=== PATIENT | male | born 1965 | race American Indian/Alaskan Native ===

== ENCOUNTER 2016-12-10 13:21 | Emergency (ER) | payer OTHER ==
[2016-12-10] MEDS ORDERED: DUONEB 0.5 MG-3 MG/3 ML SOLN IH ONE (13:28)
[2016-12-10 13:29] VITALS: BP 141/94
--- NOTE | 2016-12-10 13:31 | Emergency Department Report ---
Chief Complaint: Dyspnea/Respdistress Stated Complaint: JOSSELIN Time Seen by Provider: 12/10/16 13:24 - HPI History of Present Illness: PT states he has a hx of sarcoidosis. PT states he has a lung test on Friday. PT States he has been of of Prednisone for years. PT states he became SOB today while making Koolaid - ROS Review of Systems: + productive cough - white sputum "every morning" + sob - Exam Vital Signs: Vital Signs 12/10/16 13:26 Temperature 98.4 F Pulse Rate 88 Respiratory 20 Rate Blood Pressure 141/94 O2 Sat by Pulse 96 Oximetry Physical Exam: pt looks well, non toxic. no acute resp distress. pt with diminished lung sounds, + insp/ exp wheezing roberta MSE screening note: Focused history and physical exam performed. Due to findings the following was ordered: labs, xr, med, ekg ED Disposition for MSE Condition: Stable
[2016-12-10 14:05] LABS: Hematocrit 42.1 % (35.5-45.6); Hemoglobin 13.6 gm/dl (11.8-15.2); Mean Corpuscular HGB Conc 32 % (32-34); Mean Corpuscular Volume 70 fl (84-94); Platelet Count 241 K/mm3 (140-440); Red Blood Count 5.98 M/mm3 (3.65-5.03); Red Cell Distribution Width 14.4 % (13.2-15.2); White Blood Count 6.7 K/mm3 (4.5-11.0)
[2016-12-10 14:06] LABS: Mean Corpuscular Hemoglobin 23 pg (28-32)
[2016-12-10 14:16] LABS: INR 0.94 (0.87-1.13)
[2016-12-10 14:17] LABS: Partial Thromboplastin Time 29.7 Sec. (24.2-36.6)
[2016-12-10 14:20] LABS: Alanine Aminotransferase 33 units/L (7-56); Albumin 3.8 g/dL (3.9-5); Albumin/Globulin Ratio 1.2 %; Alkaline Phosphatase 63 units/L (35-129); Anion Gap 18 mmol/L; Blood Urea Nitrogen 20 mg/dL (9-20); Calcium 9.2 mg/dL (8.4-10.2); Carbon Dioxide 24 mmol/L (22-30); Chloride 102.3 mmol/L (98-107); Glucose 106 mg/dL (75-100); Potassium 3.7 mmol/L (3.6-5.0); Sodium 141 mmol/L (137-145); Total Protein 7.1 g/dL (6.3-8.2)
--- NOTE | 2016-12-10 14:22 | XRay Report ---
Chest 2 views: History: Dyspnea. Findings: Normal cardiac size. Trachea is midline. Stable pacemaker. Bilateral hilar prominence probably from lymphadenopathy. Normal CP angles. No consolidation. Impression: Bilateral hilar prominence probably from lymphadenopathy.
[2016-12-10 14:37] LABS: Blastocytes % (Manual) 0 %
[2016-12-10 14:38] LABS: Diff Status Complete; RBC Morphology Normal
--- NOTE | 2016-12-14 10:49 | ED Elopement Review ---
ED Pt Elopement review - Results review Lab results: Laboratory Tests 12/10/16 12/10/16 12/10/16 13:41 13:41 13:41 WBC 6.7 RBC 5.98 H Hgb 13.6 Hct 42.1 MCV 70 L MCH 23 L MCHC 32 RDW 14.4 Plt Count 241 [place] % (Auto) Chief Contract Officer Add Manual Diff Complete Total Counted 100 Seg Neuts % (Manual) 63.0 Band Neutrophils % 0 Lymphocytes % (Manual) 24.0 Reactive Lymphs % (Man) 0 Monocytes % (Manual) 7.0 Eosinophils % (Manual) 4.0 Basophils % (Manual) 1.0 Metamyelocytes % 1.0 Myelocytes % 0 Promyelocytes % 0 Blast Cells % 0 Nucleated RBC % Not Reportable Seg Neutrophils # Man 4.2 Band Neutrophils # 0.0 Lymphocytes # (Manual) 1.6 Abs React Lymphs (Man) 0.0 Monocytes # (Manual) 0.5 Eosinophils # (Manual) 0.3 Basophils # (Manual) 0.1 Metamyelocytes # 0.1 Myelocytes # 0.0 Promyelocytes # 0.0 Blast Cells # 0.0 WBC Morphology Not Reportable Hypersegmented Neuts Not Reportable Hyposegmented Neuts Not Reportable Hypogranular Neuts Not Reportable Smudge Cells Not Reportable Toxic Granulation Not Reportable Toxic Vacuolation Not Reportable Dohle Bodies Not Reportable Pelger-Huet Anomaly Not Reportable Rafiq Rods Not Reportable Platelet Estimate Appears normal Clumped Platelets Not Reportable Plt Clumps, EDTA Not Reportable Large Platelets Not Reportable Giant Platelets Not Reportable Platelet Satelliting Not Reportable Plt Morphology Comment Not Reportable RBC Morphology Normal Dimorphic RBCs Not Reportable Polychromasia Not Reportable Hypochromasia Not Reportable Poikilocytosis Not Reportable Anisocytosis Not Reportable Microcytosis Not Reportable Macrocytosis Not Reportable Spherocytes Not Reportable Pappenheimer Bodies Not Reportable Sickle Cells Not Reportable Target Cells Not Reportable Tear Drop Cells Not Reportable Ovalocytes Not Reportable Helmet Cells Not Reportable [place] Bodies Not Reportable Hiram Rings Not Reportable Amarilys Cells Not Reportable Bite Cells Not Reportable Crenated Cell Not Reportable Elliptocytes Not Reportable Acanthocytes (Spur) Not Reportable Rouleaux Not Reportable Hemoglobin C Crystals Not Reportable Schistocytes Not Reportable Malaria parasites Not Reportable Matthew Bodies Not Reportable Hem Pathologist Commnt No PT 12.5 INR 0.94 APTT 29.7 Sodium 141 Potassium 3.7 Chloride 102.3 Carbon Dioxide 24 Anion Gap 18 BUN 20 Creatinine 1.0 Estimated GFR > 60 BUN/Creatinine Ratio 20.00 Glucose 106 H Calcium 9.2 Total Bilirubin 0.40 AST 27 ALT 33 Alkaline Phosphatase 63 Troponin T < 0.010 NT-Pro-B Natriuret Pep Total Protein 7.1 Albumin 3.8 L Albumin/Globulin Ratio 1.2 12/10/16 12/10/16 13:41 16:12 WBC RBC Hgb Hct MCV MCH MCHC RDW Plt Count [place] % (Auto) Add Manual Diff Total Counted Seg Neuts % (Manual) Band Neutrophils % Lymphocytes % (Manual) Reactive Lymphs % (Man) Monocytes % (Manual) Eosinophils % (Manual) Basophils % (Manual) Metamyelocytes % Myelocytes % Promyelocytes % Blast Cells % Nucleated RBC % Seg Neutrophils # Man Band Neutrophils # Lymphocytes # (Manual) Abs React Lymphs (Man) Monocytes # (Manual) Eosinophils # (Manual) Basophils # (Manual) Metamyelocytes # Myelocytes # Promyelocytes # Blast Cells # WBC Morphology Hypersegmented Neuts Hyposegmented Neuts Hypogranular Neuts Smudge Cells Toxic Granulation Toxic Vacuolation Dohle Bodies Pelger-Huet Anomaly Rafiq Rods Platelet Estimate Clumped Platelets Plt Clumps, EDTA Large Platelets Giant Platelets Platelet Satelliting Plt Morphology Comment RBC Morphology Dimorphic RBCs Polychromasia Hypochromasia Poikilocytosis Anisocytosis Microcytosis Macrocytosis Spherocytes Pappenheimer Bodies Sickle Cells Target Cells Tear Drop Cells Ovalocytes Helmet Cells [place] Bodies Hiram Rings [place] Cells Bite Cells Crenated Cell Elliptocytes Acanthocytes (Spur) Rouleaux Hemoglobin C Crystals Schistocytes Malaria parasites Matthew Bodies Hem Pathologist Commnt PT INR APTT Sodium Potassium Chloride Carbon Dioxide Anion Gap BUN Creatinine Estimated GFR BUN/Creatinine Ratio Glucose Calcium Total Bilirubin AST ALT Alkaline Phosphatase Troponin T < 0.010 NT-Pro-B Natriuret Pep 10.51 Total Protein Albumin Albumin/Globulin Ratio - Call Back decision Pt Call Back Decision: No action required
== END 2016-12-10 17:47 | disposition left against medical advice (07) ==
LOC: ED 13:21
DX: R06.02 Shortness of breath (principal); Z53.21 Procedure and treatment not carried out due to patient leaving prior to being seen by health care provider
CPT/HCPCS: 36415; 71020; 80053; 83880; 84484; 85007; 85025; 85610; 85730; 93005; 93010

== ENCOUNTER 2019-05-06 02:04 | Inpatient (IN) | payer OTHER ==
--- NOTE | 2019-05-06 02:23 | Emergency Department Report ---
ED General Adult HPI - General Stated complaint: JOSSELIN Time Seen by Provider: 05/06/19 02:21 - History of Present Illness Initial comments: 53 -year-old male with a history of sarcoidosis, hypertension and CHF presents with the complaint of shortness of breath. Patient complains of associated chest tightness as well. Patient states he's been compliant with his hydroxychloroquine therapy takes for his sarcoidosis. Patient denies any history of PE or DVT. Patient denies any trauma to the chest. Patient received albuterol prior to arrival here in emergency department states that this helped with shortness of breath. - Related Data Home Medications Medication Instructions Recorded Confirmed Last Taken Aspirin EC [Halfprin EC] 1 tab PO DAILY 05/06/19 05/06/19 Unknown AtorvaSTATin [Lipitor] 1 tab PO DAILY 05/06/19 05/06/19 Unknown Cyanocobalamin [Vitamin B-12] 1 tab PO DAILY 05/06/19 05/06/19 Unknown Hydroxychloroquine [Plaquenil] 2 tab PO DAILY 05/06/19 05/06/19 Unknown Loratadine 1 tab PO DAILY PRN 05/06/19 05/06/19 Unknown carvediloL [Coreg] 2 tab PO BID 05/06/19 05/06/19 Unknown Allergies Allergy/AdvReac Type Severity Reaction Status Date / Time lisinopril Allergy Angioedema Verified 12/10/16 13:29 ED Review of Systems ROS: Stated complaint: JOSSELIN Other details as noted in HPI Constitutional: denies: chills, fever Eyes: denies: eye pain, eye discharge, vision change ENT: denies: ear pain, throat pain Respiratory: cough, SOB at rest Cardiovascular: denies: chest pain, palpitations Endocrine: no symptoms reported Gastrointestinal: denies: abdominal pain, nausea, diarrhea Genitourinary: denies: urgency, dysuria Musculoskeletal: denies: back pain, joint swelling, arthralgia Skin: denies: rash, lesions Neurological: denies: headache, weakness, paresthesias Psychiatric: denies: anxiety, depression Hematological/Lymphatic: denies: easy bleeding, easy bruising ED Past Medical Hx - Past Medical History Hx Hypertension: Yes Additional medical history: sarcodosis,elevated cholesterol - Surgical History Additional Surgical History: defibilator - Social History Smoking Status: Current Every Day Smoker Substance Use Type: None - Medications Home Medications: Home Medications Medication Instructions Recorded Confirmed Last Taken Type Aspirin EC [Halfprin EC] 1 tab PO DAILY 05/06/19 05/06/19 Unknown History AtorvaSTATin [Lipitor] 1 tab PO DAILY 05/06/19 05/06/19 Unknown History Cyanocobalamin [Vitamin B-12] 1 tab PO DAILY 05/06/19 05/06/19 Unknown History Hydroxychloroquine [Plaquenil] 2 tab PO DAILY 05/06/19 05/06/19 Unknown History Loratadine 1 tab PO DAILY PRN 05/06/19 05/06/19 Unknown History carvediloL [Coreg] 2 tab PO BID 05/06/19 05/06/19 Unknown History ED Physical Exam - General General appearance: alert, other (uncomfortable; moderate distress) - Head Head exam: Present: atraumatic, normocephalic - Eye Eye exam: Present: normal appearance - ENT ENT exam: Present: mucous membranes moist - Neck Neck exam: Present: normal inspection - Respiratory Respiratory exam: Present: wheezes (faint wheezing appreciated in bases along), decreased breath sounds (left lung region). Absent: respiratory distress - Cardiovascular Cardiovascular Exam: Present: normal rhythm, tachycardia. Absent: systolic murmur, diastolic murmur, rubs, gallop - GI/Abdominal GI/Abdominal exam: Present: soft, normal bowel sounds - Rectal Rectal exam: Present: deferred - Extremities Exam Extremities exam: Present: normal inspection - Back Exam Back exam: Present: normal inspection - Neurological Exam Neurological exam: Present: alert, oriented X3 - Psychiatric Psychiatric exam: Present: normal affect, normal mood - Skin Skin exam: Present: warm, dry, intact, normal color. Absent: rash ED Course Vital Signs 05/06/19 05/06/19 05/06/19 02:19 02:24 02:31 Temperature 98.3 F Pulse Rate 107 H 107 H Respiratory 19 24 Rate Blood Pressure 131/78 O2 Sat by Pulse 93 93 96 Oximetry 05/06/19 05/06/19 05/06/19 03:02 03:30 04:00 Temperature Pulse Rate 103 H 94 H 92 H Respiratory 21 17 21 Rate Blood Pressure 123/79 129/84 O2 Sat by Pulse 99 98 97 Oximetry 05/06/19 05/06/19 04:31 05:00 Temperature Pulse Rate 89 87 Respiratory 20 19 Rate Blood Pressure 122/83 128/75 O2 Sat by Pulse 97 97 Oximetry - Chest Tube Chest Tube Location: mid axillary line Chest Tube Procedure: sterile dressing applied [place] of Air [place]: Yes Number of Attempts: 1 Progress: Pigtail cathether thoracostomy placed here in the ER. Patient tolerated procedure well. ED Medical Decision Making - Lab Data Result diagrams: 05/06/19 03:50 05/06/19 02:34 - EKG Data -: EKG Interpreted by Me Rate: tachycardia - EKG Data Interpretation: no acute changes - Medical Decision Making Patient had pigtail catheter placed and had reexpansion of the lung. Patient to be admitted to the hospitalist service for continued management and treatment. Patient states his breathing has improved. - Differential Diagnosis PE; pneumothorax; electrolyte abnormality; anemia Critical Care Time: Yes Critical care time in (mins) excluding proc time.: 38 Critical care attestation.: If time is entered above; I have spent that time in minutes in the direct care of this critically ill patient, excluding procedure time. Critical care time includes time spent bedside care, frequent reassessments and physician consultation. ED Disposition Clinical Impression: Pneumothorax on left, Sarcoidosis Disposition: [id number] OP ADMIT IP TO THIS HOSP Is pt being admited?: Yes Does the pt Need Aspirin: No Condition: Fair Referrals: [facility] [Other] - 3-5 Days Time of Disposition: 05:44
[2019-05-06] MEDS ORDERED: ALBUTEROL 2.5 MG/3 ML NEBU IH ONE (02:30)
[2019-05-06] MEDS ORDERED: IPRATROPIUM 0.02% NEBU 2.5 ML IH ONE (02:30)
[2019-05-06] MEDS ORDERED: methylPREDNISolone Sod Succinate 125 MG/2 ML INJ IV ONE (02:30)
--- NOTE | 2019-05-06 02:53 | XRay Report ---
CHEST 1 VIEW INDICATION / CLINICAL INFORMATION: Dyspnea. COMPARISON: 12/10/2016 FINDINGS: SUPPORT DEVICES: Pacemaker device is stable in position. HEART / MEDIASTINUM: No significant abnormality. LUNGS / PLEURA: There is a large left tension pneumothorax. There is mediastinal shift to the right. The right lung is clear. ADDITIONAL FINDINGS: No significant additional findings. IMPRESSION: 1. Large left tension pneumothorax. CRITICAL RESULT: Time of Discovery: 0146 hours TRAIN BRAKEMAN Time of Communication: 0148 hours TRAIN BRAKEMAN Licensed Practitioner Receiving Report: Dr. Timothy Parekh Read Back Performed: Yes. Signer Name: Candy Davis MD Signed: 05/06/2019 2:49 AM Workstation Name: [id number]
[2019-05-06] MEDS ORDERED: LIDOCAINE (1%) 10 MG/1 ML VIAL 20 ML MDV INFILTRATI ONE (02:54)
[2019-05-06] MEDS ORDERED: fentaNYL 100 MCG/2 ML INJ IV ONE (03:04)
[2019-05-06 03:27] LABS: INR 0.92 (0.87-1.13)
[2019-05-06 03:28] LABS: Partial Thromboplastin Time 22.1 Sec. (24.2-36.6)
[2019-05-06 03:33] LABS: Creatine Kinase MB 1.6 ng/mL (0.0-4.0)
[2019-05-06 03:39] LABS: Alanine Aminotransferase 28 units/L (7-56); BUN/Creatinine Ratio 15; Blood Urea Nitrogen 16 mg/dL (9-20); Calcium 9.2 mg/dL (8.4-10.2); Hemolysis Index 60
--- NOTE | 2019-05-06 03:43 | XRay Report ---
CHEST 1 VIEW INDICATION / CLINICAL INFORMATION: post chest tube. Follow-up pneumothorax COMPARISON: 05/06/2019 at 0224 hours FINDINGS: SUPPORT DEVICES: Small bore left chest tube has been placed. The tip is projecting along the medial a spect of the left upper lobe. HEART / MEDIASTINUM: No significant abnormality. LUNGS / PLEURA: There has been significant reexpansion of the left lung status post chest tube placem ent. A very small lateral pneumothorax persists. The remainder of the left lung is grossly clear. Rig ht lung remains clear. ADDITIONAL FINDINGS: No significant additional findings. IMPRESSION: 1. Significant reexpansion of the left lung following chest tube placement. Very small left lateral p neumothorax remains. Signer Name: Candy Davis MD Signed: 05/06/2019 3:39 AM Workstation Name: [id number]
[2019-05-06 04:47] LABS: Hematocrit 44.2 % (35.5-45.6); Mean Corpuscular HGB Conc 32 % (32-34); Mean Corpuscular Volume 72 fl (84-94); Platelet Count 247 K/mm3 (140-440); Red Blood Count 6.16 M/mm3 (3.65-5.03); Red Cell Distribution Width 14.5 % (13.2-15.2)
[2019-05-06] MEDS ORDERED: ACETAMINOPHEN 325 MG TAB PO PRN (04:54)
[2019-05-06] MEDS ORDERED: ONDANSETRON 4 MG/2 ML INJ IV PRN (04:54)
[2019-05-06] MEDS: MORPHINE 2 MG/1 ML INJ IV PRN ×6 (05:14→22:07)
--- NOTE | 2019-05-06 05:16 | History and Physical Report ---
History of Present Illness Date of examination: 05/06/19 Date of admission: 05/06/19 Chief complaint: Shortness of breath History of present illness: 53-year-old -Turkish male with known history of sarcoidosis , CHF and history of defibrillator in place presenting to the emergency room complaining of shortness of breath which started suddenly today. Denies any chest pain. Denies any fever or chills. Denies any nausea vomiting. Upon evaluation in the emergency room he was found to have a left sided pneumothorax. He subsequently had a chest tube placed with significant improvement in his breathing. He denies any trauma to the chest but still continues to smoke less than a pack of cigarettes on a daily basis. He has been compliant with his medications for sarcoidosis. Past History Past Medical History: heart failure, hypertension, hyperlipidemia, sarcoidosis Past Surgical History: Other (Fibrillator placement) Social history: smoking (Smokes about half a packet of cigarettes daily), alcohol abuse (Drinks alcohol occasionally) Family history: cancer (Lung cancer in father), diabetes, other Medications and Allergies Allergies Allergy/AdvReac Type Severity Reaction Status Date / Time lisinopril Allergy Angioedema Verified 12/10/16 13:29 Home Medications Medication Instructions Recorded Confirmed Last Taken Type Aspirin EC [Halfprin EC] 1 tab PO DAILY 05/06/19 05/06/19 Unknown History AtorvaSTATin [Lipitor] 1 tab PO DAILY 05/06/19 05/06/19 Unknown History Cyanocobalamin [Vitamin B-12] 1 tab PO DAILY 05/06/19 05/06/19 Unknown History Hydroxychloroquine [Plaquenil] 2 tab PO DAILY 05/06/19 05/06/19 Unknown History Loratadine 1 tab PO DAILY PRN 05/06/19 05/06/19 Unknown History carvediloL [Coreg] 2 tab PO BID 05/06/19 05/06/19 Unknown History Active Meds: Active Medications Acetaminophen (Tylenol) 650 mg PO Q4H PRN PRN Reason: Pain MILD(1-3)/Fever >100.5/WINTERS Magnesium Hydroxide (Milk Of Magnesia) 30 ml PO Q4H PRN PRN Reason: Constipation Morphine Sulfate (Morphine) 2 mg IV Q4H PRN PRN Reason: Pain, Moderate (4-6) Ondansetron HCl (Zofran) 4 mg IV Q8H PRN PRN Reason: Nausea And Vomiting Sodium Chloride (Sodium Chloride Flush Syringe 10 Ml) 10 ml IV BID ANDREA Sodium Chloride (Sodium Chloride Flush Syringe 10 Ml) 10 ml IV PRN PRN PRN Reason: LINE FLUSH Review of Systems Respiratory: shortness of breath Exam - Constitutional Vitals: Temp Pulse Resp BP Pulse Ox 98.3 F 94 H 17 123/79 98 05/06/19 02:19 05/06/19 03:30 05/06/19 03:30 05/06/19 03:30 05/06/19 03:30 General appearance: Present: no acute distress, well-nourished - EENT Eyes: Present: PERRL, EOM intact ENT: hearing intact, clear oral mucosa, dentition normal - Neck Neck: Present: supple, normal ROM - Respiratory Respiratory effort: normal, other (Left chest tube in place) Respiratory: bilateral: CTA - Cardiovascular Rhythm: regular Heart Sounds: Present: S1 & S2 - Extremities Extremities: no ischemia, No edema, Full ROM Peripheral Pulses: within normal limits - Abdominal General gastrointestinal: Present: soft, non-tender, non-distended - Integumentary Integumentary: Present: clear, warm, dry - Musculoskeletal Musculoskeletal: strength equal bilaterally - Psychiatric Psychiatric: appropriate mood/affect, intact judgment & insight, cooperative - Neurologic Neurologic: CNII-XII intact, moves all extremities Results - Labs CBC & Chem 7: 05/06/19 03:50 05/06/19 02:34 Labs: Abnormal lab results 05/06/19 05/06/19 05/06/19 Range/Units 02:34 02:34 02:34 APTT 22.1 L (24.2-36.6) Sec. Potassium 3.5 L (3.6-5.0) mmol/L Glucose 151 H (75-100) mg/dL Total Creatine Kinase 262 H (55-170) units/L Assessment and Plan - Patient Problems (1) Pneumothorax on left Current Visit: Yes Status: Acute Plan to address problem: Left chest tube already placed. We will request pulmonology follow-up Patient will be placed on PRN analgesic medication Will monitor oxygen saturation and keep O2 saturation greater than 92% (2) Sarcoidosis Current Visit: Yes Status: Acute Plan to address problem: We will continue patient's routine medications. He has known history of sarcoidosis. (3) DVT prophylaxis Current Visit: Yes Status: Acute Plan to address problem: We will place on subacute heparin. (4) Full code status Current Visit: Yes Status: Acute
[2019-05-06 06:19] LABS: Anisocytosis 1+; Platelet Estimate Consistent w Auto; Total Cells Counted 100
--- NOTE | 2019-05-06 12:28 | Consultation ---
History of Present Illness Consult date: 05/06/19 Requesting physician: NEERAJ CHAVEZ Reason for consult: pneumothorax History of present illness: 53 male with known Sarcoid admitted with left sided PTX. Per patient is followed at the [facility]. Woke up in the middle of the night coughing with left sided chest pain. patient states that he is still smoking but looking to quit. He was found to have a large left sided PTX. Heimleich valve placed in ED with re-expansion of lung. Not placed on suction and admitted to the hospital. Patient feels better. Breathing stable. Sarcoid was diagnosed in the in . Was on prednisone for many years, now weaned off and takes hydroxychloroquine. at bedside. Past History Past Medical History: heart failure, hypertension, hyperlipidemia, sarcoidosis Past Surgical History: Other (Fibrillator placement) Social history: smoking (Smokes about half a packet of cigarettes daily), alcohol abuse (Drinks alcohol occasionally) Family history: cancer (Lung cancer in father), diabetes, other Medications and Allergies Allergies Allergy/AdvReac Type Severity Reaction Status Date / Time lisinopril Allergy Angioedema Verified 12/10/16 13:29 Home Medications Medication Instructions Recorded Confirmed Last Taken Type Aspirin EC [Halfprin EC] 1 tab PO DAILY 05/06/19 05/06/19 Unknown History AtorvaSTATin [Lipitor] 1 tab PO DAILY 05/06/19 05/06/19 Unknown History Cyanocobalamin [Vitamin B-12] 1 tab PO DAILY 05/06/19 05/06/19 Unknown History Hydroxychloroquine [Plaquenil] 2 tab PO DAILY 05/06/19 05/06/19 Unknown History Loratadine 1 tab PO DAILY PRN 05/06/19 05/06/19 Unknown History carvediloL [Coreg] 2 tab PO BID 05/06/19 05/06/19 Unknown History Active Meds: Active Medications Acetaminophen (Tylenol) 650 mg PO Q4H PRN PRN Reason: Pain MILD(1-3)/Fever >100.5/WINTERS Last Admin: 05/06/19 06:53 Dose: 650 mg Documented by: Magnesium Hydroxide (Milk Of Magnesia) 30 ml PO Q4H PRN PRN Reason: Constipation Morphine Sulfate (Morphine) 2 mg IV Q4H PRN PRN Reason: Pain, Moderate (4-6) Last Admin: 05/06/19 12:17 Dose: 2 mg Documented by: Ondansetron HCl (Zofran) 4 mg IV Q8H PRN PRN Reason: Nausea And Vomiting Last Admin: 05/06/19 05:14 Dose: 4 mg Documented by: Sodium Chloride (Sodium Chloride Flush Syringe 10 Ml) 10 ml IV BID ANDREA Last Admin: 05/06/19 11:08 Dose: 10 ml Documented by: Sodium Chloride (Sodium Chloride Flush Syringe 10 Ml) 10 ml IV PRN PRN PRN Reason: LINE FLUSH Physical Examination Vital signs: Vital Signs Temp Pulse Resp BP Pulse Ox 98.3 F 107 H 19 131/78 93 05/06/19 02:19 05/06/19 02:19 05/06/19 02:19 05/06/19 02:19 05/06/19 02:19 General appearance: no acute distress, alert Eyes: non-icteric ENT: oropharynx moist Neck: supple Effort: normal Ascultation: Bilateral: clear Percussion: Bilateral: not dull Tactile fremitus: Bilateral: normal Cardiovascular: regular rate and rhythm Gastrointestinal: normoactive bowel sounds, soft, non-tender Extremities: no cyanosis, no edema, pink and warm, pulses normal Results - Laboratory Findings CBC and BMP: 05/06/19 03:50 05/06/19 02:34 PT/INR, D-dimer PT 12.3 Sec. (12.2-14.9) 05/06/19 02:34 INR 0.92 (0.87-1.13) 05/06/19 02:34 Abnormal lab findings: Abnormal Labs 05/06/19 05/06/19 05/06/19 02:34 02:34 02:34 RBC MCV MCH Monocytes % (Manual) Basophils % (Manual) APTT 22.1 L Potassium 3.5 L Glucose 151 H Total Creatine Kinase 262 H 05/06/19 03:50 RBC 6.16 H MCV 72 L MCH 23 L Monocytes % (Manual) 9.0 H Basophils % (Manual) 2.0 H APTT Potassium Glucose Total Creatine Kinase - Diagnostic Findings Chest x-ray: image reviewed (resolution of PTX) Assessment and Plan 53 y/o male with sponataneous PTX. 1. Smoking cessation encouraged 2. Resume home regimen for Sarcoid 3. Will place on supplemental O2 to help resolve PTX completely 4. CT chest later today to look for blebs, emphysema 5. If lung still up in am, will remove Chest tube and should be stable for discharge home.
[2019-05-06] MEDS ORDERED: POTASSIUM CHLORIDE ER 20 MEQ TAB PO NR (12:40)
--- NOTE | 2019-05-06 12:40 | Event Note ---
Date: 05/06/19 Patient seen and examined 53-year-old -[place] male with known history of sarcoidosis , CHF and history of defibrillator in place presenting to the emergency room complaining of shortness of breath. CXR showed pneumothorax - s/p chest tube, pulmonary following repeat imaging study today, cont supportive care, monitor clinically cont current mx and plan
--- NOTE | 2019-05-06 16:41 | Cat Scan Report ---
CT chest wo con INDICATION: PTX, status post Chest Tube. TECHNIQUE: All CT scans at this location are performed using the following dose modulation technique: Automated exposure control. Helical slices were obtained through the chest. No contrast is administered. COMPARISON: Chest radiograph performed earlier today FINDINGS: There is a left pleural catheter with the tip positioned in the left apex. There is a small residual pneumothorax anteriorly on the left. There are multiple blebs noted in the upper lobes. There is atel ectasis noted in the lung bases left greater than right. Calcified lymph nodes are noted in the mediastinum and quang these are somewhat prominent. This could represent granulomatous disease. Possibility of sarcoidosis is also included in the differential diag nosis. IMPRESSION: 1. There is a small residual pneumothorax anteriorly. Tip of the pleural catheter is in the left apex . There are bilateral blebs. There is atelectasis in the lung bases. Signer Name: Jude Garibay MD Signed: 05/06/2019 4:37 PM Workstation Name: [id number]
[2019-05-07 04:03] LABS: Basophils % (Auto) 0.2 % (0.0-1.8); Hematocrit 43.7 % (35.5-45.6); Hemoglobin 13.8 gm/dl (11.8-15.2); Lymphocytes # (Auto) 1.3 K/mm3 (1.2-5.4); Lymphocytes % (Auto) 10.5 % (13.4-35.0); Mean Corpuscular HGB Conc 32 % (32-34); Mean Corpuscular Volume 72 fl (84-94); Monocytes # (Auto) 1.5 K/mm3 (0.0-0.8); Monocytes % (Auto) 12.2 % (0.0-7.3); Platelet Count 234 K/mm3 (140-440); Red Blood Count 6.05 M/mm3 (3.65-5.03); Red Cell Distribution Width 14.7 % (13.2-15.2)
[2019-05-07 04:14] LABS: INR 1.02 (0.87-1.13)
[2019-05-07 04:15] LABS: Partial Thromboplastin Time 27.1 Sec. (24.2-36.6)
[2019-05-07 04:26] LABS: BUN/Creatinine Ratio 14; Blood Urea Nitrogen 14 mg/dL (9-20); Calcium 9.1 mg/dL (8.4-10.2); Hemolysis Index 4
[2019-05-07] MEDS: MORPHINE 2 MG/1 ML INJ IV PRN ×3 (04:43→17:39)
[2019-05-07] MEDS ORDERED: EPINEPHrine RACEMIC 2.25% 0.5ML NEBU IH ONE ×2 (10:00→10:01)
--- NOTE | 2019-05-07 10:27 | XRay Report ---
CHEST 1 VIEW INDICATION: Short of breath. COMPARISON: 05/06/2019 FINDINGS: Support devices: Pacemaker device is unchanged in position. Heart: Within normal limits. Lungs/Pleura: Moderate subcutaneous emphysema has developed throughout the left neck and left axillar y soft tissues. Small left apical pneumothorax is suspected although it is poorly delineated. Otherwi se, the lungs are clear. Additional findings: None. IMPRESSION: Small left apical pneumothorax is suspected. Moderate subcutaneous emphysema has developed throughou t the left chest wall and neck. Signer Name: John Manzanares Jr, MD Signed: 05/07/2019 10:22 AM Workstation Name: [id number]
[2019-05-07] MEDS: FUROSEMIDE 40 MG/4 ML INJ IV SCH ×2 (10:33→17:39)
[2019-05-07] MEDS: diphenhydrAMINE 50 MG/ML VIAL IV PRN (11:42)
--- NOTE | 2019-05-07 12:58 | Progress Note ---
Assessment and Plan 53 y/o male with sponataneous PTX. 1. Placed on wall suction via Pleurovac. 2. Will repeat CXR tomorrow 3. HAs siginificant emphysema seen on CT vs Stage IV sarcoid. If lung cannot fully re-expand, may need transfer for bullectomy. Discussed this with patient and . Subjective Date of service: 05/07/19 Interval history: Had some difficulty swallowing and chest discomfort. now sub q emphysema. STat CXR shows same apical PTX. hemilich was capped off yesterday. Objective Vital Signs - 12hr 05/07/19 05/07/19 05/07/19 03:23 08:34 10:00 Temperature 97.7 F 98.7 F Pulse Rate 83 Pulse Rate [ Anterior Bilateral] Respiratory 16 18 18 Rate Respiratory Rate [Anterior Bilateral] Blood Pressure 116/83 140/81 O2 Sat by Pulse 96 98 Oximetry 05/07/19 11:07 Temperature Pulse Rate Pulse Rate [ 90 Anterior Bilateral] Respiratory Rate Respiratory 20 Rate [Anterior Bilateral] Blood Pressure O2 Sat by Pulse Oximetry Constitutional: no acute distress, alert Eyes: non-icteric ENT: oropharynx moist Neck: supple Effort: normal Ascultation: Bilateral: clear Percussion: Bilateral: not dull Tactile fremitus: Bilateral: normal Cardiovascular: regular rate and rhythm Gastrointestinal: normoactive bowel sounds, soft, non-tender Extremities: no cyanosis, no edema, pink and warm, pulses normal CBC and BMP: 05/07/19 02:54 05/07/19 02:54 ABG, PT/INR, D-dimer: PT/INR, D-dimer PT 13.3 Sec. (12.2-14.9) 05/07/19 02:54 INR 1.02 (0.87-1.13) 05/07/19 02:54 Abnormal lab findings: Abnormal Labs 05/06/19 05/06/19 05/06/19 02:34 02:34 02:34 WBC RBC MCV MCH Lymph % (Auto) [place] % (Auto) [place] # Seg Neutrophils % Monocytes % (Manual) Basophils % (Manual) Seg Neutrophils # APTT 22.1 L Potassium 3.5 L Glucose 151 H POC Glucose Total Creatine Kinase 262 H 05/06/19 05/07/19 05/07/19 03:50 02:54 02:54 WBC 12.3 H RBC 6.16 H 6.05 H MCV 72 L 72 L MCH 23 L 23 L Lymph % (Auto) 10.5 L [place] % (Auto) 12.2 H [place] # 1.5 H Seg Neutrophils % 77.1 H Monocytes % (Manual) 9.0 H Basophils % (Manual) 2.0 H Seg Neutrophils # 9.5 H APTT Potassium Glucose 153 H POC Glucose Total Creatine Kinase 05/07/19 10:04 WBC RBC MCV MCH Lymph % (Auto) [place] % (Auto) [place] # Seg Neutrophils % Monocytes % (Manual) Basophils % (Manual) Seg Neutrophils # APTT Potassium Glucose POC Glucose 144 H Total Creatine Kinase
[2019-05-07] MEDS: IPRATROPIUM/ALBUTEROL SULFATE 3 ML AMPUL.NEB IH SCH ×2 (14:02→21:08)
--- NOTE | 2019-05-07 16:11 | Progress Note ---
Assessment and Plan / Pneumothorax on left Left chest tube already placed. hemilich was capped off yesterday We'll place on suction as symptom got woarse today Patient will be placed on PRN analgesic medication Will monitor oxygen saturation and keep O2 saturation greater than 92% Continue nebulizer breathing treatment as needed, IV steroids /Emphysema with multiple bilateral blebs on CT scan Risks for recurrent pneumothorax due to presence of multiple apical bilateral blebs Contributing to treat emphysema with scheduled nebulizer, IV steroid and suppl emental O2 May need bullectomy /Subcutaneous emphysema - Continue to monitor clinically, continue chest tube suction / Sarcoidosis We will continue patient's routine medications. He has known history of sarcoidosis. /History of CHF with pacemaker - Continue home medications, monitor in's and O's, daily weight /DVT prophylaxis We will place on subacute heparin. / Full code status CTA chest: 1. There is a small residual pneumothorax anteriorly. Tip of the pleural catheter is in the left apex. There are bilateral blebs. There is atelectasis in the lung bases. Disposition: Follow pulmonary recommendation Subjective Date of service: 05/07/19 Interval history: Patient seen and examined. Medical records and medication list reviewed. No acute event overnight noted by the RN. Patient had an episode of respiratory distress with choking -"code med initiated Stat chest x-ray showed small apical left pneumothorax with significant chest wall and neck emphysema Discussed plan of care at bedside with patient. Objective - Constitutional Vitals: Vital Signs - 12hr 05/07/19 05/07/19 05/07/19 08:34 10:00 11:07 Temperature 98.7 F Pulse Rate [ 90 Anterior Bilateral] Respiratory 18 18 Rate Respiratory 20 Rate [Anterior Bilateral] Blood Pressure 140/81 O2 Sat by Pulse 96 Oximetry General appearance: Present: no acute distress, obese - EENT Eyes: PERRL, EOM intact ENT: hearing intact, clear oral mucosa Ears: bilateral: normal - Neck Neck: supple, normal ROM - Respiratory Respiratory effort: normal Respiratory: left: diminished, bilateral: wheezing - Cardiovascular Rhythm: regular Heart Sounds: Present: S1 & S2. Absent: gallop, rub Extremities: pulses intact, No edema, normal color, Full ROM - Gastrointestinal General gastrointestinal: Present: soft, non-tender, non-distended, normal bowel sounds - Genitourinary Male genitourinary: normal - Integumentary Integumentary: clear, warm, dry - Musculoskeletal Musculoskeletal: 1, strength equal bilaterally - Neurologic Neurologic: moves all extremities - Psychiatric Psychiatric: memory intact, appropriate mood/affect, intact judgment & insight - Labs CBC & Chem 7: 05/07/19 02:54 05/07/19 02:54 Labs: Abnormal lab results 05/07/19 05/07/19 05/07/19 Range/Units 02:54 02:54 10:04 WBC 12.3 H (4.5-11.0) K/mm3 RBC 6.05 H (3.65-5.03) M/mm3 MCV 72 L (84-94) fl MCH 23 L (28-32) pg Lymph % (Auto) 10.5 L (13.4-35.0) % [place] % (Auto) 12.2 H (0.0-7.3) % [place] # 1.5 H (0.0-0.8) K/mm3 Seg Neutrophils % 77.1 H (40.0-70.0) % Seg Neutrophils # 9.5 H (1.8-7.7) K/mm3 Glucose 153 H (75-100) mg/dL POC Glucose 144 H (70-105) - Imaging and cardiology Chest x-ray: report reviewed CT scan - chest: report reviewed
[2019-05-08] MEDS: IPRATROPIUM/ALBUTEROL SULFATE 3 ML AMPUL.NEB IH SCH ×4 (03:24→21:27)
[2019-05-08] MEDS: FUROSEMIDE 40 MG/4 ML INJ IV SCH ×2 (05:57→17:24)
[2019-05-08] MEDS: MORPHINE 2 MG/1 ML INJ IV PRN ×2 (06:00→10:17)
--- NOTE | 2019-05-08 08:19 | XRay Report ---
CHEST 1 VIEW INDICATION / CLINICAL INFORMATION: left sided PTX, now on wall suction. COMPARISON: 05/07/2019 FINDINGS: SUPPORT DEVICES: ICD remains on the left. Small caliber left chest tube remains. HEART / MEDIASTINUM: No significant abnormality. LUNGS / PLEURA: There is slight basilar atelectasis with low lung volumes. No edema or effusions. The re may be a trace left apical pneumothorax. ADDITIONAL FINDINGS: Subcutaneous air has worsened slightly. IMPRESSION: 1. No significant change Signer Name: Fermin Chaney MD Signed: 05/08/2019 8:15 AM Workstation Name: [id number]
--- NOTE | 2019-05-08 14:25 | Progress Note ---
Assessment and Plan / Pneumothorax on left Left chest tube already placed. placed on suction as symptom got woarse since yesterday Patient will be placed on PRN analgesic medication Will monitor oxygen saturation and keep O2 saturation greater than 92% Continue nebulizer breathing treatment as needed, IV steroids /Emphysema with multiple bilateral blebs on CT scan Risks for recurrent pneumothorax due to presence of multiple apical bilateral blebs Contributing to treat emphysema with scheduled nebulizer, IV steroid and supplemental O2 May need bullectomy /Subcutaneous emphysema - Continue to monitor clinically, continue chest tube suction / Sarcoidosis We will continue patient's routine medications. He has known history of sarcoidosis. /History of CHF with pacemaker - Continue home medications, monitor in's and O's, daily weight /DVT prophylaxis We will place on subacute heparin. / Full code status CTA chest: 1. There is a small residual pneumothorax anteriorly. Tip of the pleural catheter is in the left apex. There are bilateral blebs. There is atelectasis in the lung bases. Disposition: Follow pulmonary recommendation Subjective Date of service: 05/08/19 Interval history: Patient seen and examined. Medical records and medication list reviewed. No acute event overnight noted by the RN. Patient on Chest tube suction Discussed plan of care at bedside with patient. Objective - Exam Narrative Exam: General appearance: Present: no acute distress, obese - EENT Eyes: PERRL, EOM intact ENT: hearing intact, clear oral mucosa Ears: bilateral: normal - Neck Neck: supple, normal ROM - Respiratory Respiratory effort: normal Respiratory: left: diminished, bilateral: wheezing - Cardiovascular Rhythm: regular Heart Sounds: Present: S1 & S2. Absent: gallop, rub Extremities: pulses intact, No edema, normal color, Full ROM - Gastrointestinal General gastrointestinal: Present: soft, non-tender, non-distended, normal bowel sounds - Genitourinary Male genitourinary: normal - Integumentary Integumentary: clear, warm, dry - Musculoskeletal Musculoskeletal: 1, strength equal bilaterally - Neurologic Neurologic: moves all extremities - Psychiatric Psychiatric: memory intact, appropriate mood/affect, intact judgment & insight - Constitutional Vitals: Vital Signs - 12hr 05/08/19 05/08/19 05/08/19 03:25 05:06 05:09 Temperature 97.9 F Pulse Rate 93 H Pulse Rate [ 91 H Anterior Bilateral] Pulse Rate [ 92 H Left Lower Lobe ] Respiratory 20 Rate Respiratory 16 Rate [Anterior Bilateral] Respiratory 16 Rate [Left Lower Lobe] Blood Pressure 122/84 Blood Pressure [Left] O2 Sat by Pulse 95 Oximetry 05/08/19 05/08/19 05/08/19 08:00 08:10 08:47 Temperature 98.4 F 98.4 F Pulse Rate 97 H Pulse Rate [ 97 H Anterior Bilateral] Pulse Rate [ Left Lower Lobe ] Respiratory 16 18 Rate Respiratory 18 Rate [Anterior Bilateral] Respiratory Rate [Left Lower Lobe] Blood Pressure 128/77 Blood Pressure 128/77 [Left] O2 Sat by Pulse 91 Oximetry 05/08/19 05/08/19 05/08/19 10:00 11:00 12:06 Temperature 98.7 F Pulse Rate 93 H 103 H Pulse Rate [ Anterior Bilateral] Pulse Rate [ Left Lower Lobe ] Respiratory 18 20 18 Rate Respiratory Rate [Anterior Bilateral] Respiratory Rate [Left Lower Lobe] Blood Pressure 129/79 Blood Pressure [Left] O2 Sat by Pulse 96 93 Oximetry - Labs CBC & Chem 7: 05/09/19 13:50 05/09/19 13:50
--- NOTE | 2019-05-08 19:59 | Progress Note ---
Assessment and Plan Imp: 1. Bullous emphysema 2. Spontaneous PTX 2/2 #1 3. Chronic nicotine dependence, cigarettes 4. SubQ emphysema 5. Hx of Sarcoid Rec: 1. Leave CT to suction until SubQ emphysema improves more; there is also a small, intermittent air leak; CXR in AM; if fails to improve or worsens, next step would be large-bore chest tube placement 2. D/c smoking 3. Nothing on CT to suggest active sarcoid Plan of care reviewed w/ patient, he understands/agrees Subjective Date of service: 05/08/19 Principal diagnosis: PTX Interval history: No events. CT to suction. SubQ emphysema persists but is a little better per patient. No new complaints. Active Medications Acetaminophen (Tylenol) 650 mg PO Q4H PRN PRN Reason: Pain MILD(1-3)/Fever >100.5/[place] Last Admin: 05/06/19 06:53 Dose: 650 mg Documented by: Albuterol/Ipratropium (Duoneb *Not For Prn Use*) 1 ampul IH Q6HRT [facility] Last Admin: 05/08/19 14:49 Dose: 1 ampul Documented by: Diphenhydramine HCl (Benadryl) 12.5 mg IV Q6H PRN PRN Reason: Itching Last Admin: 05/07/19 11:42 Dose: 12.5 mg Documented by: Furosemide (Lasix) 40 mg IV 0600,1800 [facility] Last Admin: 05/08/19 17:24 Dose: 40 mg Documented by: Magnesium Hydroxide (Milk Of Magnesia) 30 ml PO Q4H PRN PRN Reason: Constipation Morphine Sulfate (Morphine) 2 mg IV Q4H PRN PRN Reason: Pain, Moderate (4-6) Last Admin: 05/08/19 10:17 Dose: 2 mg Documented by: Ondansetron HCl (Zofran) 4 mg IV Q8H PRN PRN Reason: Nausea And Vomiting Last Admin: 05/06/19 05:14 Dose: 4 mg Documented by: Sodium Chloride (Sodium Chloride Flush Syringe 10 Ml) 10 ml IV BID [facility] Last Admin: 05/08/19 10:09 Dose: 10 ml Documented by: Sodium Chloride (Sodium Chloride Flush Syringe 10 Ml) 10 ml IV PRN PRN PRN Reason: LINE FLUSH Objective Vital Signs - 12hr 05/08/19 05/08/19 05/08/19 08:00 08:10 08:47 Temperature 98.4 F 98.4 F Pulse Rate 97 H Pulse Rate [ 97 H Anterior Bilateral] Pulse Rate [ Left Lower Lobe ] Respiratory 16 18 Rate Respiratory 18 Rate [Anterior Bilateral] Respiratory Rate [Left Lower Lobe] Blood Pressure 128/77 Blood Pressure 128/77 [Left] O2 Sat by Pulse 91 Oximetry 05/08/19 05/08/19 05/08/19 10:00 11:00 12:06 Temperature 98.7 F Pulse Rate 93 H 103 H Pulse Rate [ Anterior Bilateral] Pulse Rate [ Left Lower Lobe ] Respiratory 18 20 18 Rate Respiratory Rate [Anterior Bilateral] Respiratory Rate [Left Lower Lobe] Blood Pressure 129/79 Blood Pressure [Left] O2 Sat by Pulse 96 93 Oximetry 05/08/19 05/08/19 14:47 16:26 Temperature 98.3 F Pulse Rate 112 H Pulse Rate [ 101 H Anterior Bilateral] Pulse Rate [ 104 H Left Lower Lobe ] Respiratory 18 Rate Respiratory 18 Rate [Anterior Bilateral] Respiratory 19 Rate [Left Lower Lobe] Blood Pressure Blood Pressure 132/86 [Left] O2 Sat by Pulse 96 Oximetry Constitutional: no acute distress, alert Eyes: non-icteric ENT: oropharynx moist Neck: supple Effort: normal Ascultation: Bilateral: clear Cardiovascular: regular rate and rhythm Gastrointestinal: normoactive bowel sounds, soft, non-tender Extremities: no cyanosis, no edema, pink and warm, pulses normal Neurologic: normal mental status, non-focal exam, pupils equal and round, CN II- XII normal Psychiatric: mood appropriate, affect normal CBC and BMP: 05/07/19 02:54 05/07/19 02:54 ABG, PT/INR, D-dimer: PT/INR, D-dimer PT 13.3 Sec. (12.2-14.9) 05/07/19 02:54 INR 1.02 (0.87-1.13) 05/07/19 02:54 Abnormal lab findings: Abnormal Labs 05/06/19 05/06/19 05/06/19 02:34 02:34 02:34 WBC RBC MCV MCH Lymph % (Auto) [place] % (Auto) [place] # Seg Neutrophils % Monocytes % (Manual) Basophils % (Manual) Seg Neutrophils # APTT 22.1 L Potassium 3.5 L Glucose 151 H POC Glucose Total Creatine Kinase 262 H 05/06/19 05/07/19 05/07/19 03:50 02:54 02:54 WBC 12.3 H RBC 6.16 H 6.05 H MCV 72 L 72 L MCH 23 L 23 L Lymph % (Auto) 10.5 L [place] % (Auto) 12.2 H [place] # 1.5 H Seg Neutrophils % 77.1 H Monocytes % (Manual) 9.0 H Basophils % (Manual) 2.0 H Seg Neutrophils # 9.5 H APTT Potassium Glucose 153 H POC Glucose Total Creatine Kinase 05/07/19 10:04 WBC RBC MCV MCH Lymph % (Auto) [place] % (Auto) [place] # Seg Neutrophils % Monocytes % (Manual) Basophils % (Manual) Seg Neutrophils # APTT Potassium Glucose POC Glucose 144 H Total Creatine Kinase Chest x-ray: report reviewed, image reviewed CT scan - chest: report reviewed, image reviewed
[2019-05-09] MEDS: IPRATROPIUM/ALBUTEROL SULFATE 3 ML AMPUL.NEB IH SCH ×4 (02:43→20:31)
[2019-05-09] MEDS: MORPHINE 2 MG/1 ML INJ IV PRN ×2 (05:13→18:57)
[2019-05-09] MEDS: FUROSEMIDE 40 MG/4 ML INJ IV SCH (05:13)
--- NOTE | 2019-05-09 08:20 | XRay Report ---
CHEST 1 VIEW 05/09/2019 7:35 AM INDICATION / CLINICAL INFORMATION: PTX, chest tube. COMPARISON: Chest x-ray on 05/08/2019 FINDINGS: SUPPORT DEVICES: Stable satisfactory device positioning. HEART / MEDIASTINUM: Stable. LUNGS / PLEURA: No significant pulmonary or pleural abnormality. No pneumothorax. ADDITIONAL FINDINGS: Stable subcutaneous air in the lower neck and left chest wall. IMPRESSION: 1. No appreciable pneumothorax on the current study. Stable subcutaneous air in the neck and left [facility] [facility] wall. Signer Name: Chaz Nance MD Signed: 05/09/2019 8:15 AM Workstation Name: [id number]
--- NOTE | 2019-05-09 13:59 | Progress Note ---
Assessment and Plan / Pneumothorax on left Spontaneous due to Bullous emphysema Left chest tube already placed. placed on suction as symptom got woarse since 1 07/07/18 Patient will be placed on PRN analgesic medication Will monitor oxygen saturation and keep O2 saturation greater than 92% Continue nebulizer breathing treatment as needed, IV steroids /Emphysema with multiple bilateral Bullous on CT scan Risks for recurrent pneumothorax due to presence of multiple apical bilateral Bullous Contributing to treat emphysema with scheduled nebulizer, IV steroid and supplemental O2 May need bullectomy /Subcutaneous emphysema - Continue to monitor clinically, continue chest tube suction / Sarcoidosis We will continue patient's routine medications. He has known history of sarcoidosis. /History of CHF with pacemaker - Continue home medications, monitor in's and O's, daily weight /DVT prophylaxis We will place on subacute heparin. / Full code status CTA chest: 1. There is a small residual pneumothorax anteriorly. Tip of the pleural catheter is in the left apex. There are bilateral blebs. There is atelectasis in the lung bases. Disposition: Follow pulmonary recommendation Subjective Date of service: 05/09/19 Principal diagnosis: PTX Interval history: Patient seen and examined. Medical records and medication list reviewed. No acute event overnight noted by the RN. Patient on Chest tube suction Discussed plan of care at bedside with patient. Objective - Exam Narrative Exam: General appearance: Present: no acute distress, obese - EENT Eyes: PERRL, EOM intact ENT: hearing intact, clear oral mucosa Ears: bilateral: normal - Neck Neck: supple, normal ROM - Respiratory Respiratory effort: normal Respiratory: left: diminished, bilateral: wheezing, chest tube on place - Cardiovascular Rhythm: regular Heart Sounds: Present: S1 & S2. Absent: gallop, rub Extremities: pulses intact, No edema, normal color, Full ROM - Gastrointestinal General gastrointestinal: Present: soft, non-tender, non-distended, normal bowel sounds - Genitourinary Male genitourinary: normal - Integumentary Integumentary: clear, warm, dry. + subcutaneous emphysema on the chest wall and neck - Musculoskeletal Musculoskeletal: 1, strength equal bilaterally - Neurologic Neurologic: moves all extremities - Psychiatric Psychiatric: memory intact, appropriate mood/affect, intact judgment & insight - Constitutional Vitals: Vital Signs - 12hr 05/09/19 05/09/19 05/09/19 02:00 04:49 08:21 Temperature 98.0 F 98.7 F Pulse Rate 107 H 108 H Pulse Rate [ 99 H Anterior Bilateral] Pulse Rate [ 99 H Left Lower Lobe ] Respiratory 18 18 Rate Respiratory 16 Rate [Anterior Bilateral] Respiratory 16 Rate [Left Lower Lobe] Blood Pressure 138/92 136/87 O2 Sat by Pulse 96 92 Oximetry 05/09/19 05/09/19 05/09/19 09:47 10:00 12:25 Temperature 99.0 F Pulse Rate 96 H 62 Pulse Rate [ 65 Anterior Bilateral] Pulse Rate [ 94 H Left Lower Lobe ] Respiratory 18 18 Rate Respiratory 20 Rate [Anterior Bilateral] Respiratory 18 Rate [Left Lower Lobe] Blood Pressure 137/107 O2 Sat by Pulse 95 94 Oximetry - Labs CBC & Chem 7: 05/09/19 13:50 05/10/19 07:08
[2019-05-09 14:07] LABS: Hematocrit 47.5 % (35.5-45.6); Hemoglobin 15.2 gm/dl (11.8-15.2); Mean Corpuscular HGB Conc 32 % (32-34); Mean Corpuscular Volume 71 fl (84-94); Platelet Count 267 K/mm3 (140-440); Red Blood Count 6.66 M/mm3 (3.65-5.03); Red Cell Distribution Width 14.3 % (13.2-15.2)
[2019-05-09 14:44] LABS: BUN/Creatinine Ratio 15; Blood Urea Nitrogen 18 mg/dL (9-20); Calcium 9.6 mg/dL (8.4-10.2); Hemolysis Index 4
--- NOTE | 2019-05-09 15:40 | Progress Note ---
Assessment and Plan Imp: 1. Bullous emphysema 2. Spontaneous PTX 2/2 #1 3. Chronic nicotine dependence, cigarettes 4. SubQ emphysema 5. Hx of Sarcoid Rec: 1. Leave CT to suction until SubQ emphysema improves more; there is also a small air leak still; options moving forward would include large-bore CT placement versus transfer to [facility] for [facility]ATS pleurodesis; Dr. Phillips to f/u in AM 2. D/c smoking 3. Nothing on CT to suggest active sarcoid Plan of care reviewed w/ patient, he understands/agrees Subjective Date of service: 05/09/19 Principal diagnosis: PTX Interval history: No events. CT to suction. SubQ emphysema persists but is a little better per patient. No new complaints. Active Medications Acetaminophen (Tylenol) 650 mg PO Q4H PRN PRN Reason: Pain MILD(1-3)/Fever >100.5/[place] Last Admin: 05/06/19 06:53 Dose: 650 mg Documented by: Albuterol/Ipratropium (Duoneb *Not For Prn Use*) 1 ampul IH Q6HRT [facility] Last Admin: 05/09/19 09:49 Dose: 1 ampul Documented by: Diphenhydramine HCl (Benadryl) 12.5 mg IV Q6H PRN PRN Reason: Itching Last Admin: 05/07/19 11:42 Dose: 12.5 mg Documented by: Furosemide (Lasix) 40 mg IV 0600,1800 [facility] Last Admin: 05/09/19 05:13 Dose: 40 mg Documented by: Magnesium Hydroxide (Milk Of Magnesia) 30 ml PO Q4H PRN PRN Reason: Constipation Morphine Sulfate (Morphine) 2 mg IV Q4H PRN PRN Reason: Pain, Moderate (4-6) Last Admin: 05/09/19 05:13 Dose: 2 mg Documented by: Ondansetron HCl (Zofran) 4 mg IV Q8H PRN PRN Reason: Nausea And Vomiting Last Admin: 05/06/19 05:14 Dose: 4 mg Documented by: Sodium Chloride (Sodium Chloride Flush Syringe 10 Ml) 10 ml IV BID [facility] Last Admin: 05/09/19 09:19 Dose: 10 ml Documented by: Sodium Chloride (Sodium Chloride Flush Syringe 10 Ml) 10 ml IV PRN PRN PRN Reason: LINE FLUSH Objective Vital Signs - 12hr 05/09/19 05/09/19 05/09/19 04:49 08:21 09:47 Temperature 98.0 F 98.7 F Pulse Rate 107 H 108 H Pulse Rate [ 65 Anterior Bilateral] Pulse Rate [ 94 H Left Lower Lobe ] Respiratory 18 18 Rate Respiratory 20 Rate [Anterior Bilateral] Respiratory 18 Rate [Left Lower Lobe] Blood Pressure 138/92 136/87 O2 Sat by Pulse 96 92 Oximetry 05/09/19 05/09/19 10:00 12:25 Temperature 99.0 F Pulse Rate 96 H 62 Pulse Rate [ Anterior Bilateral] Pulse Rate [ Left Lower Lobe ] Respiratory 18 18 Rate Respiratory Rate [Anterior Bilateral] Respiratory Rate [Left Lower Lobe] Blood Pressure 137/107 O2 Sat by Pulse 95 94 Oximetry Constitutional: no acute distress, alert Eyes: non-icteric ENT: oropharynx moist Neck: supple Effort: normal Ascultation: Bilateral: clear Percussion: Bilateral: not dull Tactile fremitus: Bilateral: normal Cardiovascular: regular rate and rhythm Gastrointestinal: normoactive bowel sounds, soft, non-tender Extremities: no cyanosis, no edema, pink and warm, pulses normal Neurologic: normal mental status, non-focal exam, pupils equal and round, CN II- XII normal Psychiatric: mood appropriate, affect normal CBC and BMP: 05/09/19 13:50 05/09/19 13:50 ABG, PT/INR, D-dimer: PT/INR, D-dimer PT 13.3 Sec. (12.2-14.9) 05/07/19 02:54 INR 1.02 (0.87-1.13) 05/07/19 02:54 Abnormal lab findings: Abnormal Labs 05/06/19 05/06/19 05/06/19 02:34 02:34 02:34 WBC RBC Hct MCV MCH Lymph % (Auto) [place] % (Auto) [place] # Seg Neutrophils % Monocytes % (Manual) Basophils % (Manual) Seg Neutrophils # APTT 22.1 L Potassium 3.5 L Chloride Glucose 151 H POC Glucose Total Creatine Kinase 262 H 05/06/19 05/07/19 05/07/19 03:50 02:54 02:54 WBC 12.3 H RBC 6.16 H 6.05 H Hct MCV 72 L 72 L MCH 23 L 23 L Lymph % (Auto) 10.5 L [place] % (Auto) 12.2 H [place] # 1.5 H Seg Neutrophils % 77.1 H Monocytes % (Manual) 9.0 H Basophils % (Manual) 2.0 H Seg Neutrophils # 9.5 H APTT Potassium Chloride Glucose 153 H POC Glucose Total Creatine Kinase 05/07/19 05/09/19 05/09/19 10:04 13:50 13:50 WBC RBC 6.66 H Hct 47.5 H MCV 71 L MCH 23 L Lymph % (Auto) [place] % (Auto) [place] # Seg Neutrophils % Monocytes % (Manual) Basophils % (Manual) Seg Neutrophils # APTT Potassium 3.2 L D Chloride 95.2 L Glucose 201 H POC Glucose 144 H Total Creatine Kinase Chest x-ray: report reviewed, image reviewed
[2019-05-09] MEDS: POTASSIUM CHLORIDE ER 20 MEQ TAB PO SCH (17:18)
[2019-05-10] MEDS: IPRATROPIUM/ALBUTEROL SULFATE 3 ML AMPUL.NEB IH SCH ×4 (02:31→21:11)
[2019-05-10] MEDS: MORPHINE 2 MG/1 ML INJ IV PRN ×4 (06:40→22:39)
[2019-05-10 08:22] LABS: BUN/Creatinine Ratio 19; Blood Urea Nitrogen 17 mg/dL (9-20); Calcium 9.6 mg/dL (8.4-10.2); Hemolysis Index 11
[2019-05-10] MEDS: POTASSIUM CHLORIDE ER 20 MEQ TAB PO SCH (09:58)
[2019-05-10] MEDS: FUROSEMIDE 40 MG/4 ML INJ IV SCH (09:59)
[2019-05-10] MEDS: diphenhydrAMINE 50 MG/ML VIAL IV PRN (09:59)
--- NOTE | 2019-05-10 11:16 | Progress Note ---
Assessment and Plan 53 y/o male with sponataneous PTX. 1. Continue suction 2. If possible send CD with family to [facility] 3. Agree with transfer. Subjective Date of service: 05/10/19 Principal diagnosis: PTX Interval history: Still with residual PTX. SubQ air. at bedside. Spoke with Dr. Hatfield at [facility] who has agreed to take the patient on to his service for operation either tomorrow or Friday. Objective Vital Signs - 12hr 05/10/19 05/10/19 05/10/19 02:32 03:49 07:50 Temperature 98.5 F Pulse Rate 101 H Pulse Rate [ 102 H 85 Anterior Bilateral] Pulse Rate [ 99 H 88 Left Lower Lobe ] Respiratory 18 Rate Respiratory 18 18 Rate [Anterior Bilateral] Respiratory 16 18 Rate [Left Lower Lobe] Blood Pressure 128/89 O2 Sat by Pulse 96 Oximetry 05/10/19 05/10/19 05/10/19 07:51 07:55 08:12 Temperature 98.4 F Pulse Rate 110 H Pulse Rate [ Anterior Bilateral] Pulse Rate [ Left Lower Lobe ] Respiratory 18 Rate Respiratory Rate [Anterior Bilateral] Respiratory Rate [Left Lower Lobe] Blood Pressure 172/101 O2 Sat by Pulse 95 Oximetry 05/10/19 09:58 Temperature Pulse Rate Pulse Rate [ Anterior Bilateral] Pulse Rate [ Left Lower Lobe ] Respiratory 20 Rate Respiratory Rate [Anterior Bilateral] Respiratory Rate [Left Lower Lobe] Blood Pressure O2 Sat by Pulse Oximetry Constitutional: no acute distress, alert Eyes: non-icteric ENT: oropharynx moist Neck: supple Effort: normal Ascultation: Bilateral: clear Percussion: Bilateral: not dull Tactile fremitus: Bilateral: normal Cardiovascular: regular rate and rhythm Gastrointestinal: normoactive bowel sounds, soft, non-tender Extremities: no cyanosis, no edema, pink and warm, pulses normal Neurologic: normal mental status, non-focal exam, pupils equal and round, CN II- XII normal Psychiatric: mood appropriate, affect normal CBC and BMP: 05/09/19 13:50 05/10/19 07:08 ABG, PT/INR, D-dimer: PT/INR, D-dimer PT 13.3 Sec. (12.2-14.9) 05/07/19 02:54 INR 1.02 (0.87-1.13) 05/07/19 02:54 Abnormal lab findings: Abnormal Labs 05/06/19 05/06/19 05/06/19 02:34 02:34 02:34 WBC RBC Hct MCV MCH Lymph % (Auto) [place] % (Auto) [place] # Seg Neutrophils % Monocytes % (Manual) Basophils % (Manual) Seg Neutrophils # APTT 22.1 L Potassium 3.5 L Chloride Glucose 151 H POC Glucose Total Creatine Kinase 262 H 05/06/19 05/07/19 05/07/19 03:50 02:54 02:54 WBC 12.3 H RBC 6.16 H 6.05 H Hct MCV 72 L 72 L MCH 23 L 23 L Lymph % (Auto) 10.5 L [place] % (Auto) 12.2 H [place] # 1.5 H Seg Neutrophils % 77.1 H Monocytes % (Manual) 9.0 H Basophils % (Manual) 2.0 H Seg Neutrophils # 9.5 H APTT Potassium Chloride Glucose 153 H POC Glucose Total Creatine Kinase 05/07/19 05/09/19 05/09/19 10:04 13:50 13:50 WBC RBC 6.66 H Hct 47.5 H MCV 71 L MCH 23 L Lymph % (Auto) [place] % (Auto) [place] # Seg Neutrophils % Monocytes % (Manual) Basophils % (Manual) Seg Neutrophils # APTT Potassium 3.2 L D Chloride 95.2 L Glucose 201 H POC Glucose 144 H Total Creatine Kinase 05/10/19 07:08 WBC RBC Hct MCV MCH Lymph % (Auto) [place] % (Auto) [place] # Seg Neutrophils % Monocytes % (Manual) Basophils % (Manual) Seg Neutrophils # APTT Potassium Chloride Glucose 134 H POC Glucose Total Creatine Kinase
--- NOTE | 2019-05-10 15:47 | Discharge Summary ---
Providers - Providers Date of Admission: 05/06/19 06:09 Date of discharge: 05/14/19 Attending physician: DANDRE LOMAX 05/06/19 04:54 Consult to Physician [CONS] Routine Comment: Consulting Provider: [facility]SE [facility] Physician Instructions: Reason For Exam: pneumothorax 05/06/19 07:34 Consult to Physician [CONS] Routine Comment: Consulting Provider: WEI DIXON Physician Instructions: Reason For Exam: RIGHT PNEUMOPTHORAX Hospitalization Condition: Fair Pertinent studies: CXR CT chest Hospital course: 53-year-old -Cub[place] male with known history of sarcoidosis , CHF and history of defibrillator in place presenting to the emergency room complaining of shortness of breath. CXR showed pneumothorax - s/p chest tube, pulmonary was following. required to replace the tube X2 for recurrence of pneumothorax. CT scan showed Emphysema with multiple bilateral Bullous. Risks for recurrent pneumothorax due to presence of multiple apical bilateral Bullous. Pulmonology recommended bullectomy - transferred to [place] for higher level of care. 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 placed on suction as symptom got worse since 05/07/19 so far chest tube replaced twice - transferred to [place] for higher level of care /Emphysema with multiple bilateral Bullous on CT scan Risks for recurrent pneumothorax due to presence of multiple apical bilateral Bullous Continue to treat emphysema with scheduled nebulizer, IV steroid and supplemental O2 May need bullectomy /Subcutaneous emphysema - Continue to monitor clinically, continue chest tube suction / Sarcoidosis continue patient's routine medications. He has known history of sarcoidosis. /History of CHF with pacemaker - Continue home medications, monitor in's and O's, daily weight /DVT prophylaxis, on subacute heparin. / Full code status CTA chest: 1. There is a small residual pneumothorax anteriorly. Tip of the pleural catheter is in the left apex. There are bilateral blebs. There is atelectasis in the lung bases. Disposition: [place] transfer when bed available Physical exam; General appearance: Present: no acute distress, obese - EENT Eyes: PERRL, EOM intact ENT: hearing intact, clear oral mucosa Ears: bilateral: normal - Neck Neck: supple, normal ROM - Respiratory Respiratory effort: normal Respiratory: left: diminished, bilateral: wheezing, chest tube on place - Cardiovascular Rhythm: regular Heart Sounds: Present: S1 & S2. Absent: gallop, rub Extremities: pulses intact, No edema, normal color, Full ROM - Gastrointestinal General gastrointestinal: Present: soft, non-tender, non-distended, normal bowel sounds - Genitourinary Male genitourinary: normal - Integumentary Integumentary: clear, warm, dry. + subcutaneous emphysema on the chest wall and neck - Musculoskeletal Musculoskeletal: 1, strength equal bilaterally - Neurologic Neurologic: moves all extremities - Psychiatric Psychiatric: memory intact, appropriate mood/affect, intact judgment & insight Disposition: DC/TX-70 ANOTHER TYPE HLTHCARE Time spent for discharge: 34 minutes Core Measure Documentation - Palliative Care Palliative Care/ Comfort Measures: Not Applicable - Core Measures Any of the following diagnoses?: none Exam - Constitutional Vitals: Temp Pulse Resp BP Pulse Ox 98.0 F 86 20 123/94 90 05/10/19 12:21 05/10/19 13:14 05/10/19 15:09 05/10/19 12:21 05/10/19 12:21 Plan Activity: other (bed rest) Diet: low fat, low salt Plan of Treatment: 1.Continue Lasix 40mg iv daily 2.Please resume Aspirin when appropriate when no further surgery planned. Follow up with: [facility] [Other] - 3-5 Days
--- NOTE | 2019-05-10 20:24 | XRay Report ---
CHEST 1 VIEW 7:39 PM INDICATION / CLINICAL INFORMATION: Chest tube in place. COMPARISON: Yesterday. FINDINGS: SUPPORT DEVICES: The position of the single lead left subclavian ICD has not changed. HEART / MEDIASTINUM: The heart size is normal. LUNGS / PLEURA: There is a new large left pneumothorax with slight mediastinal shift to the right. Th ere is almost complete collapse of the left lung. The right lung is clear. ADDITIONAL FINDINGS: Extensive bilateral subcutaneous emphysema was present previously and may be mil dly improved. IMPRESSION: Interval development of a large left pneumothorax with evidence of mild tension. CRITICAL RESULT: Time of Discovery (CIRCUIT RECORDER/CDT): 7:10 PM Time of Communication (CIRCUIT RECORDER/CDT): 7:15 PM Licensed Practitioner Receiving Report: Dr. Vaughan Signer Name: Asa Tomlin MD Signed: 05/10/2019 8:20 PM Workstation Name: [id number]
[2019-05-10] MEDS ORDERED: LIDOCAINE (2%) 20 MG/1 ML VIAL 20 ML MDV INFILTRATI ONE ×2 (21:58→22:03)
--- NOTE | 2019-05-10 22:41 | Procedure Note ---
Date of procedure: 05/10/19 Pre-op diagnosis: Pneumothorax Post-op diagnosis: same Procedure: left sided chest tube placement. After placing the patient supine and then preppin the area, using seldinger technique a 14 micronesian catheter was placed and sutured in. Patient is obese so a large amount of subcutaneous tissue had to be passed through. CXR done and showed successful re-expansion of the lung. Still bubbles in the water chamber. Patient tolerated procedure well with no c omplications. Anesthesia: local Surgeon: WEI DIXON Estimated blood loss: none Pathology: none Condition: stable Disposition: floor
--- NOTE | 2019-05-10 22:53 | Event Note ---
Date: 05/10/19 Patient went to the restroom and his chest tube came out half way. called rehabilitation services coordinator [employer] to replace the tube - still waiting rehabilitation services coordinator back Discussed with ER physician and he will come and assess the patient. Discuss with RN and updated patient with plan. will also repeat CXR Patient appears asymptomatic. Patient planned to transfer to [place] when bed available.
--- NOTE | 2019-05-10 23:00 | XRay Report ---
. CHEST 1 VIEW INDICATION: chest tube placement. COMPARISON: Earlier the same day. FINDINGS: Support devices: Left chest tube placement with reexpansion of the left lung. An ICD is unchanged. Heart: Within normal limits. Lungs/Pleura: Patchy parenchymal change left chest. Extensive subcutaneous emphysema. Additional findings: None. IMPRESSION: 1. Left-sided chest tube placement with reexpansion the left chest. 2. Patchy left-sided infiltrate. Signer Name: Norberto Whitehead MD Signed: 05/10/2019 10:56 PM Workstation Name: [id number]
[2019-05-11] MEDS: MORPHINE 4 MG/1 ML INJ IV PRN ×6 (00:07→21:32)
[2019-05-11] MEDS: IPRATROPIUM/ALBUTEROL SULFATE 3 ML AMPUL.NEB IH SCH ×4 (02:00→21:27)
[2019-05-11] MEDS: POTASSIUM CHLORIDE ER 20 MEQ TAB PO SCH (09:00)
--- NOTE | 2019-05-11 10:08 | XRay Report ---
CHEST 1 VIEW 05/11/2019 9:47 AM INDICATION / CLINICAL INFORMATION: Pneumothorax. COMPARISON: 05/10/2019. FINDINGS: SUPPORT DEVICES: Stable satisfactory device positioning. HEART / MEDIASTINUM: Stable. LUNGS / PLEURA: Stable subsegmental atelectasis in the left mid and lower lung. No pneumothorax. ADDITIONAL FINDINGS: Stable extensive subcutaneous emphysema. IMPRESSION: 1. No appreciable residual pneumothorax on the current study. Stable subcutaneous emphysema. Signer Name: Chaz Nance MD Signed: 05/11/2019 10:04 AM Workstation Name: [id number]
[2019-05-11] MEDS: FUROSEMIDE 40 MG/4 ML INJ IV SCH (11:07)
--- NOTE | 2019-05-11 11:35 | Progress Note ---
Assessment and Plan 53 y/o male with sponataneous PTX. 1. Continue suction 2. Repeat CXR tomorrow if still her 3. Agree with transfer to [place]. Dr. Isaías Hatfield has accepted. Call me if you have any questions or concerns. Subjective Date of service: 05/11/19 Principal diagnosis: PTX Interval history: Repeat CXR shows no PTX. Still with sub q air. Awaitng bed at [place]. I turned suction up to [id number] last night. Objective Vital Signs - 12hr 05/11/19 05/11/19 05/11/19 04:18 08:00 08:33 Temperature Pulse Rate 104 H 102 H Pulse Rate [ 82 Anterior Bilateral] Pulse Rate [ Apical] Respiratory 20 Rate Respiratory 20 Rate [Anterior Bilateral] Respiratory Rate [Left Lateral Flank] Blood Pressure 153/92 122/80 Blood Pressure [Left] O2 Sat by Pulse 90 91 Oximetry 05/11/19 05/11/19 05/11/19 08:35 08:58 09:11 Temperature 98.7 F Pulse Rate 100 H Pulse Rate [ Anterior Bilateral] Pulse Rate [ Apical] Respiratory 18 21 Rate Respiratory Rate [Anterior Bilateral] Respiratory Rate [Left Lateral Flank] Blood Pressure Blood Pressure 122/62 [Left] O2 Sat by Pulse 93 96 Oximetry 05/11/19 10:00 Temperature Pulse Rate 101 H Pulse Rate [ Anterior Bilateral] Pulse Rate [ 99 H Apical] Respiratory 16 Rate Respiratory Rate [Anterior Bilateral] Respiratory 16 Rate [Left Lateral Flank] Blood Pressure Blood Pressure [Left] O2 Sat by Pulse 94 Oximetry Constitutional: no acute distress, alert Eyes: non-icteric ENT: oropharynx moist Neck: supple Effort: normal Ascultation: Bilateral: clear Percussion: Bilateral: not dull Tactile fremitus: Bilateral: normal Cardiovascular: regular rate and rhythm Gastrointestinal: normoactive bowel sounds, soft, non-tender Extremities: no cyanosis, no edema, pink and warm, pulses normal Neurologic: normal mental status, non-focal exam, pupils equal and round, CN II- XII normal Psychiatric: mood appropriate, affect normal CBC and BMP: 05/09/19 13:50 05/10/19 07:08 ABG, PT/INR, D-dimer: PT/INR, D-dimer PT 13.3 Sec. (12.2-14.9) 05/07/19 02:54 INR 1.02 (0.87-1.13) 05/07/19 02:54 Abnormal lab findings: Abnormal Labs 05/06/19 05/06/19 05/06/19 02:34 02:34 02:34 WBC RBC Hct MCV MCH Lymph % (Auto) [place] % (Auto) [place] # Seg Neutrophils % Monocytes % (Manual) Basophils % (Manual) Seg Neutrophils # APTT 22.1 L Potassium 3.5 L Chloride Glucose 151 H POC Glucose Total Creatine Kinase 262 H 05/06/19 05/07/19 05/07/19 03:50 02:54 02:54 WBC 12.3 H RBC 6.16 H 6.05 H Hct MCV 72 L 72 L MCH 23 L 23 L Lymph % (Auto) 10.5 L [place] % (Auto) 12.2 H [place] # 1.5 H Seg Neutrophils % 77.1 H Monocytes % (Manual) 9.0 H Basophils % (Manual) 2.0 H Seg Neutrophils # 9.5 H APTT Potassium Chloride Glucose 153 H POC Glucose Total Creatine Kinase 05/07/19 05/09/19 05/09/19 10:04 13:50 13:50 WBC RBC 6.66 H Hct 47.5 H MCV 71 L MCH 23 L Lymph % (Auto) [place] % (Auto) [place] # Seg Neutrophils % Monocytes % (Manual) Basophils % (Manual) Seg Neutrophils # APTT Potassium 3.2 L D Chloride 95.2 L Glucose 201 H POC Glucose 144 H Total Creatine Kinase 05/10/19 07:08 WBC RBC Hct MCV MCH Lymph % (Auto) [place] % (Auto) [place] # Seg Neutrophils % Monocytes % (Manual) Basophils % (Manual) Seg Neutrophils # APTT Potassium Chloride Glucose 134 H POC Glucose Total Creatine Kinase
--- NOTE | 2019-05-11 15:28 | Progress Note ---
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 placed on suction as symptom got worse since 05/07/19 Chest tube dislodged evening 05/10, anotheer put in Awaiting transfer to [place] Emphysema with multiple bilateral Bullous on CT scan Risks for recurrent pneumothorax due to presence of multiple apical bilateral Bullous Contributing to treat emphysema with scheduled nebulizer, IV steroid and supplemental O2 May need bullectomy Subcutaneous emphysema - Continue to monitor clinically, continue chest tube suction Sarcoidosis We will continue patient's routine medications. He has known history of sarcoidosis. History of CHF with pacemaker - Continue home medications, monitor in's and O's, daily weight DVT prophylaxis We will place on subacute heparin. Full code status Awaiting transfer to [facility] History Interval history: patient with pneumothorax Chest tube dislodged yesterday, replaced Hospitalist Physical - Physical exam Narrative exam: Gen: Not in acute distress, lying in bed,morbidly obese HEENT: Normocephalic, atraumatic Neck: supple, no JVD Heart: S1 and S2 reg, no murmurs, rubs or gallop Lungs: Clear to auscultation bilaterally, Chest tube on left Abd: soft, non tender, non distended, normal BS, Ext: No edema, no clubbing, no cyanosis Neuro: Awake, alert, oriented X 3, no focal neurological sign - Constitutional Vitals: Temp Pulse Resp BP Pulse Ox 98.6 F 82 20 111/79 90 05/11/19 11:41 05/11/19 14:00 05/11/19 14:00 05/11/19 11:41 05/11/19 11:41 General appearance: Present: no acute distress, obese Results - Labs CBC & Chem 7: 05/09/19 13:50 05/10/19 07:08 Labs: Laboratory Last Values WBC 6.5 K/mm3 (4.5-11.0) 05/09/19 13:50 RBC 6.66 M/mm3 (3.65-5.03) H 05/09/19 13:50 Hgb 15.2 gm/dl (11.8-15.2) 05/09/19 13:50 Hct 47.5 % (35.5-45.6) H 05/09/19 13:50 MCV 71 fl (84-94) L 05/09/19 13:50 MCH 23 pg (28-32) L 05/09/19 13:50 MCHC 32 % (32-34) 05/09/19 13:50 RDW 14.3 % (13.2-15.2) 05/09/19 13:50 Plt Count 267 K/mm3 (140-440) 05/09/19 13:50 Lymph % (Auto) 10.5 % (13.4-35.0) L 05/07/19 02:54 [place] % (Auto) 12.2 % (0.0-7.3) H 05/07/19 02:54 Eos % (Auto) 0.0 % (0.0-4.3) 05/07/19 02:54 Baso % (Auto) 0.2 % (0.0-1.8) 05/07/19 02:54 Lymph # 1.3 K/mm3 (1.2-5.4) 05/07/19 02:54 [place] # 1.5 K/mm3 (0.0-0.8) H 05/07/19 02:54 Eos # 0.0 K/mm3 (0.0-0.4) 05/07/19 02:54 Baso # 0.0 K/mm3 (0.0-0.1) 05/07/19 02:54 Add Manual Diff Complete 05/06/19 03:50 Total Counted 100 05/06/19 03:50 Seg Neutrophils % 77.1 % (40.0-70.0) H 05/07/19 02:54 Seg Neuts % (Manual) 58.0 % (40.0-70.0) 05/06/19 03:50 Band Neutrophils % 0 % 05/06/19 03:50 Lymphocytes % (Manual) 28.0 % (13.4-35.0) 05/06/19 03:50 Reactive Lymphs % (Man) 0 % 05/06/19 03:50 Monocytes % (Manual) 9.0 % (0.0-7.3) H 05/06/19 03:50 Eosinophils % (Manual) 3.0 % (0.0-4.3) 05/06/19 03:50 Basophils % (Manual) 2.0 % (0.0-1.8) H 05/06/19 03:50 Metamyelocytes % 0 % 05/06/19 03:50 Myelocytes % 0 % 05/06/19 03:50 Promyelocytes % 0 % 05/06/19 03:50 Blast Cells % 0 % 05/06/19 03:50 Nucleated RBC % Not Reportable 05/06/19 03:50 Seg Neutrophils # 9.5 K/mm3 (1.8-7.7) H 05/07/19 02:54 Seg Neutrophils # Man 2.7 K/mm3 (1.8-7.7) 05/06/19 03:50 Band Neutrophils # 0.0 K/mm3 05/06/19 03:50 Lymphocytes # (Manual) 1.3 K/mm3 (1.2-5.4) 05/06/19 03:50 Abs React Lymphs (Man) 0.0 K/mm3 05/06/19 03:50 Monocytes # (Manual) 0.4 K/mm3 (0.0-0.8) 05/06/19 03:50 Eosinophils # (Manual) 0.1 K/mm3 (0.0-0.4) 05/06/19 03:50 Basophils # (Manual) 0.1 K/mm3 (0.0-0.1) 05/06/19 03:50 Metamyelocytes # 0.0 K/mm3 05/06/19 03:50 Myelocytes # 0.0 K/mm3 05/06/19 03:50 Promyelocytes # 0.0 K/mm3 05/06/19 03:50 Blast Cells # 0.0 K/mm3 05/06/19 03:50 WBC Morphology Not Reportable 05/06/19 03:50 Hypersegmented Neuts Not Reportable 05/06/19 03:50 Hyposegmented Neuts Not Reportable 05/06/19 03:50 Hypogranular Neuts Not Reportable 05/06/19 03:50 Smudge Cells Not Reportable 05/06/19 03:50 Toxic Granulation Not Reportable 05/06/19 03:50 Toxic Vacuolation Not Reportable 05/06/19 03:50 Dohle Bodies Not Reportable 05/06/19 03:50 Pelger-Huet Anomaly Not Reportable 05/06/19 03:50 Rafiq Rods Not Reportable 05/06/19 03:50 Platelet Estimate Consistent w auto 05/06/19 03:50 Clumped Platelets Not Reportable 05/06/19 03:50 Plt Clumps, EDTA Not Reportable 05/06/19 03:50 Large Platelets Not Reportable 05/06/19 03:50 Giant Platelets Not Reportable 05/06/19 03:50 Platelet Satelliting Not Reportable 05/06/19 03:50 Plt Morphology Comment Not Reportable 05/06/19 03:50 RBC Morphology Not Reportable 05/06/19 03:50 Dimorphic RBCs Not Reportable 05/06/19 03:50 Polychromasia Not Reportable 05/06/19 03:50 Hypochromasia Not Reportable 05/06/19 03:50 Poikilocytosis Not Reportable 05/06/19 03:50 Anisocytosis 1+ 05/06/19 03:50 Microcytosis Not Reportable 05/06/19 03:50 Macrocytosis Not Reportable 05/06/19 03:50 Spherocytes Not Reportable 05/06/19 03:50 Pappenheimer Bodies Not Reportable 05/06/19 03:50 Sickle Cells Not Reportable 05/06/19 03:50 Target Cells Not Reportable 05/06/19 03:50 Tear Drop Cells Not Reportable 05/06/19 03:50 Ovalocytes Not Reportable 05/06/19 03:50 Helmet Cells Not Reportable 05/06/19 03:50 Led[place]ma-[place] Bodies Not Reportable 05/06/19 03:50 [place] Rings Not Reportable 05/06/19 03:50 Amarilys Cells Not Reportable 05/06/19 03:50 Bite Cells Not Reportable 05/06/19 03:50 Crenated Cell Not Reportable 05/06/19 03:50 Elliptocytes Not Reportable 05/06/19 03:50 Acanthocytes (Spur) Not Reportable 05/06/19 03:50 Rouleaux Not Reportable 05/06/19 03:50 Hemoglobin C Crystals Not Reportable 05/06/19 03:50 Schistocytes Not Reportable 05/06/19 03:50 Malaria parasites Not Reportable 05/06/19 03:50 Matthew Bodies Not Reportable 05/06/19 03:50 Hem Pathologist Commnt No 05/06/19 03:50 PT 13.3 Sec. (12.2-14.9) 05/07/19 02:54 INR 1.02 (0.87-1.13) 05/07/19 02:54 APTT 27.1 Sec. (24.2-36.6) 05/07/19 02:54 Sodium 139 mmol/L (137-145) 05/10/19 07:08 Potassium 3.9 mmol/L (3.6-5.0) D 05/10/19 07:08 Chloride 98.1 mmol/L (98-107) 05/10/19 07:08 Carbon Dioxide 22 mmol/L (22-30) 05/10/19 07:08 Anion Gap 23 mmol/L 05/10/19 07:08 BUN 17 mg/dL (9-20) 05/10/19 07:08 Creatinine 0.9 mg/dL (0.8-1.5) 05/10/19 07:08 Estimated GFR > 60 ml/min 05/10/19 07:08 BUN/Creatinine Ratio 19 % 05/10/19 07:08 Glucose 134 mg/dL (75-100) H 05/10/19 07:08 POC Glucose 144 (70-105) H 05/07/19 10:04 Calcium 9.6 mg/dL (8.4-10.2) 05/10/19 07:08 Total Bilirubin 0.40 mg/dL (0.1-1.2) 05/06/19 02:34 AST 24 units/L (5-40) 05/06/19 02:34 ALT 28 units/L (7-56) 05/06/19 02:34 Alkaline Phosphatase 67 units/L (35-129) 05/06/19 02:34 Total Creatine Kinase 262 units/L (55-170) H 05/06/19 02:34 CK-MB (CK-2) 1.6 ng/mL (0.0-4.0) 05/06/19 02:34 CK-MB (CK-2) Rel Index 0.6 (0-4) 05/06/19 02:34 Troponin T < 0.010 ng/mL (0.00-0.029) 05/06/19 02:34 NT-Pro-B Natriuret Pep 14.04 pg/mL (0-900) 05/06/19 02:34 Total Protein 7.3 g/dL (6.3-8.2) 05/06/19 02:34 Albumin 4.0 g/dL (3.9-5) 05/06/19 02:34 Albumin/Globulin Ratio 1.2 % 05/06/19 02:34 Active Medications - Current Medications Current Medications: Generic Name Dose Route Start Last Admin Trade Name Freq PRN Reason Stop Dose Admin Acetaminophen 650 mg 05/06/19 04:54 05/06/19 06:53 Tylenol PO 650 mg Q4H PRN Administration Pain MILD(1-3)/Fever >100.5/WINTERS Albuterol/Ipratropium 1 ampul 05/07/19 14:00 05/11/19 14:35 Duoneb *Not For Prn Use* IH 1 ampul Q6HRT ANDREA Administration Diphenhydramine HCl 12.5 mg 05/07/19 10:28 05/10/19 09:59 Benadryl IV 12.5 mg Q6H PRN Administration Itching Furosemide 40 mg 05/10/19 10:00 05/11/19 11:07 Lasix IV 40 mg QDAY ANDREA Administration Magnesium Hydroxide 30 ml 05/06/19 04:54 Milk Of Magnesia PO Q4H PRN Constipation Morphine Sulfate 4 mg 05/10/19 22:44 05/11/19 12:58 Morphine IV 4 mg Q4H PRN Administration Pain, Moderate (4-6) Ondansetron HCl 4 mg 05/06/19 04:54 05/06/19 05:14 Zofran IV 4 mg Q8H PRN Administration Nausea And Vomiting Potassium Chloride 40 meq 05/09/19 17:00 05/11/19 09:00 K-Dur PO 40 meq QDAY ANDREA Administration Sodium Chloride 10 ml 05/06/19 10:00 05/11/19 09:00 Sodium Chloride Flush Syringe 10 Ml IV 10 ml BID ANDREA Administration Sodium Chloride 10 ml 05/06/19 04:54 05/11/19 03:54 Sodium Chloride Flush Syringe 10 Ml IV 10 ml PRN PRN Administration LINE FLUSH
[2019-05-12] MEDS: MORPHINE 4 MG/1 ML INJ IV PRN ×5 (02:53→18:47)
[2019-05-12] MEDS: IPRATROPIUM/ALBUTEROL SULFATE 3 ML AMPUL.NEB IH SCH ×3 (09:12→19:39)
[2019-05-12] MEDS: POTASSIUM CHLORIDE ER 20 MEQ TAB PO SCH (10:36)
[2019-05-12] MEDS: FUROSEMIDE 40 MG/4 ML INJ IV SCH (10:37)
--- NOTE | 2019-05-12 13:07 | XRay Report ---
CHEST 1 VIEW 05/12/2019 12:48 PM INDICATION / CLINICAL INFORMATION: Left pneumothorax. COMPARISON: One view of the chest from 05/11/2019. FINDINGS: SUPPORT DEVICES: Stable positioning. HEART / MEDIASTINUM: Stable. LUNGS / PLEURA: Left basilar atelectasis has improved. No new acute pulmonary abnormality is seen. No significant pleural effusion or pneumothorax is identified. ADDITIONAL FINDINGS: There is similar subcutaneous emphysema throughout the chest and neck. IMPRESSION: 1. No appreciable pneumothorax. 2. Improved aeration of the left lung base. Signer Name: Flaco Acosta MD Signed: 05/12/2019 1:03 PM Workstation Name: [id number]
--- NOTE | 2019-05-12 13:46 | Discharge Summary ---
Providers - Providers Date of Admission: 05/06/19 06:09 Date of discharge: 05/12/19 Attending physician: NEERAJ MCCALLUM 05/06/19 07:34 Consult to Physician [CONS] Routine Comment: Consulting Provider: WEI DIXON Physician Instructions: Reason For Exam: RIGHT PNEUMOPTHORAX Hospitalization Condition: Fair Disposition: DC/TX-70 ANOTHER TYPE HLTHCARE Core Measure Documentation - Palliative Care Palliative Care/ Comfort Measures: Not Applicable - Core Measures Any of the following diagnoses?: none Exam - Constitutional Vitals: Temp Pulse Resp BP Pulse Ox 98.3 F 111 H 18 133/90 90 05/12/19 12:18 05/12/19 12:18 05/12/19 12:18 05/12/19 12:18 05/12/19 12:18 Plan Activity: advance as tolerated Diet: low fat, low cholesterol, low salt Plan of Treatment: 1.Continue Lasix 40mg iv daily 2.Please resume Aspirin when appropriate when no further surgery planned. Follow up with: [facility] [Other] - 3-5 Days
--- NOTE | 2019-05-12 13:49 | Progress Note ---
Assessment and Plan 53 y/o male with sponataneous PTX. 1. Continue suction. I turned the suction on the pleurovac to [id number] the day I put the chest tube in, please do not adjust. 2. Repeat CXR tomorrow if still here 3. Agree with transfer to [place]. Dr. Isaías Hatfield has accepted. Call me if you have any questions or concerns. Subjective Date of service: 05/12/19 Principal diagnosis: PTX Interval history: No acute events. Chest Tube remains intact. SubQ air improving. Per patient breathing is better. Repeat CXR shows no PTX and improved aeration at lung base Objective Vital Signs - 12hr 05/12/19 05/12/19 05/12/19 02:53 03:42 07:23 Temperature 98.1 F Pulse Rate 98 H Pulse Rate [ Anterior Bilateral] Respiratory 20 18 20 Rate Respiratory Rate [Anterior Bilateral] Respiratory Rate [Left Lateral Flank] Blood Pressure 118/85 O2 Sat by Pulse 95 Oximetry 05/12/19 05/12/19 05/12/19 08:00 08:34 08:40 Temperature 98.1 F 98.5 F Pulse Rate 95 H 64 Pulse Rate [ 96 H Anterior Bilateral] Respiratory 18 18 Rate Respiratory 20 Rate [Anterior Bilateral] Respiratory Rate [Left Lateral Flank] Blood Pressure 131/87 144/91 O2 Sat by Pulse 95 98 Oximetry 05/12/19 05/12/19 05/12/19 09:15 10:00 10:37 Temperature Pulse Rate 105 H Pulse Rate [ Anterior Bilateral] Respiratory 18 Rate Respiratory Rate [Anterior Bilateral] Respiratory 15 Rate [Left Lateral Flank] Blood Pressure 140/81 O2 Sat by Pulse 96 95 Oximetry 05/12/19 12:18 Temperature 98.3 F Pulse Rate 111 H Pulse Rate [ Anterior Bilateral] Respiratory 18 Rate Respiratory Rate [Anterior Bilateral] Respiratory Rate [Left Lateral Flank] Blood Pressure 133/90 O2 Sat by Pulse 90 Oximetry Constitutional: no acute distress, alert Eyes: non-icteric ENT: oropharynx moist Neck: supple Effort: normal Ascultation: Bilateral: clear Percussion: Bilateral: not dull Tactile fremitus: Bilateral: normal Cardiovascular: regular rate and rhythm Gastrointestinal: normoactive bowel sounds, soft, non-tender Extremities: no cyanosis, no edema, pink and warm, pulses normal Neurologic: normal mental status, non-focal exam, pupils equal and round, CN II- XII normal Psychiatric: mood appropriate, affect normal CBC and BMP: 05/09/19 13:50 05/10/19 07:08 ABG, PT/INR, D-dimer: PT/INR, D-dimer PT 13.3 Sec. (12.2-14.9) 05/07/19 02:54 INR 1.02 (0.87-1.13) 05/07/19 02:54 Abnormal lab findings: Abnormal Labs 05/06/19 05/06/19 05/06/19 02:34 02:34 02:34 WBC RBC Hct MCV MCH Lymph % (Auto) [place] % (Auto) [place] # Seg Neutrophils % Monocytes % (Manual) Basophils % (Manual) Seg Neutrophils # APTT 22.1 L Potassium 3.5 L Chloride Glucose 151 H POC Glucose Total Creatine Kinase 262 H 05/06/19 05/07/19 05/07/19 03:50 02:54 02:54 WBC 12.3 H RBC 6.16 H 6.05 H Hct MCV 72 L 72 L MCH 23 L 23 L Lymph % (Auto) 10.5 L [place] % (Auto) 12.2 H [place] # 1.5 H Seg Neutrophils % 77.1 H Monocytes % (Manual) 9.0 H Basophils % (Manual) 2.0 H Seg Neutrophils # 9.5 H APTT Potassium Chloride Glucose 153 H POC Glucose Total Creatine Kinase 05/07/19 05/09/19 05/09/19 10:04 13:50 13:50 WBC RBC 6.66 H Hct 47.5 H MCV 71 L MCH 23 L Lymph % (Auto) [place] % (Auto) [place] # Seg Neutrophils % Monocytes % (Manual) Basophils % (Manual) Seg Neutrophils # APTT Potassium 3.2 L D Chloride 95.2 L Glucose 201 H POC Glucose 144 H Total Creatine Kinase 05/10/19 07:08 WBC RBC Hct MCV MCH Lymph % (Auto) [place] % (Auto) [place] # Seg Neutrophils % Monocytes % (Manual) Basophils % (Manual) Seg Neutrophils # APTT Potassium Chloride Glucose 134 H POC Glucose Total Creatine Kinase
[2019-05-13] MEDS: MORPHINE 4 MG/1 ML INJ IV PRN ×3 (03:24→21:42)
[2019-05-13 06:14] LABS: Hematocrit 43.4 % (35.5-45.6); Hemoglobin 13.8 gm/dl (11.8-15.2); Mean Corpuscular HGB Conc 32 % (32-34); Mean Corpuscular Volume 72 fl (84-94); Platelet Count 225 K/mm3 (140-440); Red Blood Count 6.05 M/mm3 (3.65-5.03); Red Cell Distribution Width 14.1 % (13.2-15.2)
[2019-05-13 06:32] LABS: BUN/Creatinine Ratio 16; Blood Urea Nitrogen 13 mg/dL (9-20); Calcium 9.3 mg/dL (8.4-10.2); Hemolysis Index 6
[2019-05-13] MEDS: IPRATROPIUM/ALBUTEROL SULFATE 3 ML AMPUL.NEB IH SCH ×3 (09:15→20:05)
[2019-05-13] MEDS: POTASSIUM CHLORIDE ER 20 MEQ TAB PO SCH (10:07)
[2019-05-13] MEDS: FUROSEMIDE 40 MG/4 ML INJ IV SCH (10:07)
--- NOTE | 2019-05-13 12:06 | Progress Note ---
Assessment and Plan 53 y/o male with spontaneous PTX. 1. Continue suction. I turned the suction on the pleurovac to [id number] the day I put the chest tube in, please do not adjust. 2. Hold on CXR today. 3. Agree with transfer to [place]. Dr. Isaías Hatfield has accepted. Call me if you have any questions or concerns. Subjective Date of service: 05/13/19 Principal diagnosis: PTX Interval history: Received a call from the transfer nurse at [place] this am after she could not reach the floor. Updated her on Mr. Thomas. Per, her, hopeful that a bed will be available later today. Patient stable with chest tube in tact to water seal. Objective Vital Signs - 12hr 05/13/19 05/13/19 05/13/19 03:24 04:27 08:00 Temperature 98.0 F Pulse Rate 98 H Pulse Rate [ 72 Anterior Bilateral] Respiratory 18 18 Rate Respiratory 18 Rate [Anterior Bilateral] Blood Pressure 135/90 O2 Sat by Pulse 98 Oximetry 05/13/19 05/13/19 05/13/19 08:45 09:18 10:00 Temperature 98.2 F Pulse Rate 89 89 Pulse Rate [ Anterior Bilateral] Respiratory 18 20 Rate Respiratory Rate [Anterior Bilateral] Blood Pressure 156/91 O2 Sat by Pulse 97 97 96 Oximetry Constitutional: no acute distress, alert Eyes: non-icteric ENT: oropharynx moist Neck: supple Effort: normal Ascultation: Bilateral: clear Percussion: Bilateral: not dull Tactile fremitus: Bilateral: normal Cardiovascular: regular rate and rhythm Gastrointestinal: normoactive bowel sounds, soft, non-tender Extremities: no cyanosis, no edema, pink and warm, pulses normal Neurologic: normal mental status, non-focal exam, pupils equal and round, CN II- XII normal Psychiatric: mood appropriate, affect normal CBC and BMP: 05/13/19 05:44 05/13/19 05:44 ABG, PT/INR, D-dimer: PT/INR, D-dimer PT 13.3 Sec. (12.2-14.9) 05/07/19 02:54 INR 1.02 (0.87-1.13) 05/07/19 02:54 Abnormal lab findings: Abnormal Labs 05/06/19 05/06/19 05/06/19 02:34 02:34 02:34 WBC RBC Hct MCV MCH Lymph % (Auto) [place] % (Auto) [place] # Seg Neutrophils % Monocytes % (Manual) Basophils % (Manual) Seg Neutrophils # APTT 22.1 L Potassium 3.5 L Chloride Glucose 151 H POC Glucose Total Creatine Kinase 262 H 05/06/19 05/07/19 05/07/19 03:50 02:54 02:54 WBC 12.3 H RBC 6.16 H 6.05 H Hct MCV 72 L 72 L MCH 23 L 23 L Lymph % (Auto) 10.5 L [place] % (Auto) 12.2 H [place] # 1.5 H Seg Neutrophils % 77.1 H Monocytes % (Manual) 9.0 H Basophils % (Manual) 2.0 H Seg Neutrophils # 9.5 H APTT Potassium Chloride Glucose 153 H POC Glucose Total Creatine Kinase 05/07/19 05/09/19 05/09/19 10:04 13:50 13:50 WBC RBC 6.66 H Hct 47.5 H MCV 71 L MCH 23 L Lymph % (Auto) [place] % (Auto) [place] # Seg Neutrophils % Monocytes % (Manual) Basophils % (Manual) Seg Neutrophils # APTT Potassium 3.2 L D Chloride 95.2 L Glucose 201 H POC Glucose 144 H Total Creatine Kinase 05/10/19 05/13/19 05/13/19 07:08 05:44 05:44 WBC RBC 6.05 H Hct MCV 72 L MCH 23 L Lymph % (Auto) [place] % (Auto) [place] # Seg Neutrophils % Monocytes % (Manual) Basophils % (Manual) Seg Neutrophils # APTT Potassium Chloride Glucose 134 H 122 H POC Glucose Total Creatine Kinase
--- NOTE | 2019-05-13 13:43 | Progress Note ---
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 placed on suction as symptom got worse since 05/07/19 Chest tube dislodged evening 05/10, another put in Awaiting transfer to [place] Emphysema with multiple bilateral Bullous on CT scan Risks for recurrent pneumothorax due to presence of multiple apical bilateral Bullous Contributing to treat emphysema with scheduled nebulizer, IV steroid and supplemental O2 May need bullectomy Subcutaneous emphysema - Continue to monitor clinically, continue chest tube suction Sarcoidosis We will continue patient's routine medications. He has known history of sarcoidosis. History of CHF with pacemaker - Continue home medications, monitor in's and O's, daily weight DVT prophylaxis We will place on subacute heparin. Full code status Awaiting transfer to [facility] History Interval history: patient with pneumothorax Chest tube dislodged 05/10, replaced Hospitalist Physical - Physical exam Narrative exam: Gen: Not in acute distress, lying in bed,morbidly obese HEENT: Normocephalic, atraumatic Neck: supple, no JVD Heart: S1 and S2 reg, no murmurs, rubs or gallop Lungs: Clear to auscultation bilaterally, Chest tube on left Abd: soft, non tender, non distended, normal BS, Ext: No edema, no clubbing, no cyanosis Neuro: Awake, alert, oriented X 3, no focal neurological sign - Constitutional Vitals: Temp Pulse Resp BP Pulse Ox 98.2 F 89 20 156/91 96 05/13/19 08:45 05/13/19 10:00 05/13/19 10:00 05/13/19 08:45 05/13/19 10:00 General appearance: Present: no acute distress, obese Results - Labs CBC & Chem 7: 05/13/19 05:44 05/13/19 05:44 Labs: Laboratory Last Values WBC 5.0 K/mm3 (4.5-11.0) 05/13/19 05:44 RBC 6.05 M/mm3 (3.65-5.03) H 05/13/19 05:44 Hgb 13.8 gm/dl (11.8-15.2) 05/13/19 05:44 Hct 43.4 % (35.5-45.6) 05/13/19 05:44 MCV 72 fl (84-94) L 05/13/19 05:44 MCH 23 pg (28-32) L 05/13/19 05:44 MCHC 32 % (32-34) 05/13/19 05:44 RDW 14.1 % (13.2-15.2) 05/13/19 05:44 Plt Count 225 K/mm3 (140-440) 05/13/19 05:44 Lymph % (Auto) 10.5 % (13.4-35.0) L 05/07/19 02:54 [place] % (Auto) 12.2 % (0.0-7.3) H 05/07/19 02:54 Eos % (Auto) 0.0 % (0.0-4.3) 05/07/19 02:54 Baso % (Auto) 0.2 % (0.0-1.8) 05/07/19 02:54 Lymph # 1.3 K/mm3 (1.2-5.4) 05/07/19 02:54 [place] # 1.5 K/mm3 (0.0-0.8) H 05/07/19 02:54 Eos # 0.0 K/mm3 (0.0-0.4) 05/07/19 02:54 Baso # 0.0 K/mm3 (0.0-0.1) 05/07/19 02:54 Add Manual Diff Complete 05/06/19 03:50 Total Counted 100 05/06/19 03:50 Seg Neutrophils % 77.1 % (40.0-70.0) H 05/07/19 02:54 Seg Neuts % (Manual) 58.0 % (40.0-70.0) 05/06/19 03:50 Band Neutrophils % 0 % 05/06/19 03:50 Lymphocytes % (Manual) 28.0 % (13.4-35.0) 05/06/19 03:50 Reactive Lymphs % (Man) 0 % 05/06/19 03:50 Monocytes % (Manual) 9.0 % (0.0-7.3) H 05/06/19 03:50 Eosinophils % (Manual) 3.0 % (0.0-4.3) 05/06/19 03:50 Basophils % (Manual) 2.0 % (0.0-1.8) H 05/06/19 03:50 Metamyelocytes % 0 % 05/06/19 03:50 Myelocytes % 0 % 05/06/19 03:50 Promyelocytes % 0 % 05/06/19 03:50 Blast Cells % 0 % 05/06/19 03:50 Nucleated RBC % Not Reportable 05/06/19 03:50 Seg Neutrophils # 9.5 K/mm3 (1.8-7.7) H 05/07/19 02:54 Seg Neutrophils # Man 2.7 K/mm3 (1.8-7.7) 05/06/19 03:50 Band Neutrophils # 0.0 K/mm3 05/06/19 03:50 Lymphocytes # (Manual) 1.3 K/mm3 (1.2-5.4) 05/06/19 03:50 Abs React Lymphs (Man) 0.0 K/mm3 05/06/19 03:50 Monocytes # (Manual) 0.4 K/mm3 (0.0-0.8) 05/06/19 03:50 Eosinophils # (Manual) 0.1 K/mm3 (0.0-0.4) 05/06/19 03:50 Basophils # (Manual) 0.1 K/mm3 (0.0-0.1) 05/06/19 03:50 Metamyelocytes # 0.0 K/mm3 05/06/19 03:50 Myelocytes # 0.0 K/mm3 05/06/19 03:50 Promyelocytes # 0.0 K/mm3 05/06/19 03:50 Blast Cells # 0.0 K/mm3 05/06/19 03:50 WBC Morphology Not Reportable 05/06/19 03:50 Hypersegmented Neuts Not Reportable 05/06/19 03:50 Hyposegmented Neuts Not Reportable 05/06/19 03:50 Hypogranular Neuts Not Reportable 05/06/19 03:50 Smudge Cells Not Reportable 05/06/19 03:50 Toxic Granulation Not Reportable 05/06/19 03:50 Toxic Vacuolation Not Reportable 05/06/19 03:50 Dohle Bodies Not Reportable 05/06/19 03:50 Pelger-Huet Anomaly Not Reportable 05/06/19 03:50 Rafiq Rods Not Reportable 05/06/19 03:50 Platelet Estimate Consistent w auto 05/06/19 03:50 Clumped Platelets Not Reportable 05/06/19 03:50 Plt Clumps, EDTA Not Reportable 05/06/19 03:50 Large Platelets Not Reportable 05/06/19 03:50 Giant Platelets Not Reportable 05/06/19 03:50 Platelet Satelliting Not Reportable 05/06/19 03:50 Plt Morphology Comment Not Reportable 05/06/19 03:50 RBC Morphology Not Reportable 05/06/19 03:50 Dimorphic RBCs Not Reportable 05/06/19 03:50 Polychromasia Not Reportable 05/06/19 03:50 Hypochromasia Not Reportable 05/06/19 03:50 Poikilocytosis Not Reportable 05/06/19 03:50 Anisocytosis 1+ 05/06/19 03:50 Microcytosis Not Reportable 05/06/19 03:50 Macrocytosis Not Reportable 05/06/19 03:50 Spherocytes Not Reportable 05/06/19 03:50 Pappenheimer Bodies Not Reportable 05/06/19 03:50 Sickle Cells Not Reportable 05/06/19 03:50 Target Cells Not Reportable 05/06/19 03:50 Tear Drop Cells Not Reportable 05/06/19 03:50 Ovalocytes Not Reportable 05/06/19 03:50 Helmet Cells Not Reportable 05/06/19 03:50 [place] Bodies Not Reportable 05/06/19 03:50 Closplint Rings Not Reportable 05/06/19 03:50 [place] Cells Not Reportable 05/06/19 03:50 Bite Cells Not Reportable 05/06/19 03:50 Crenated Cell Not Reportable 05/06/19 03:50 Elliptocytes Not Reportable 05/06/19 03:50 Acanthocytes (Spur) Not Reportable 05/06/19 03:50 Rouleaux Not Reportable 05/06/19 03:50 Hemoglobin C Crystals Not Reportable 05/06/19 03:50 Schistocytes Not Reportable 05/06/19 03:50 Malaria parasites Not Reportable 05/06/19 03:50 Matthew Bodies Not Reportable 05/06/19 03:50 Hem Pathologist Commnt No 05/06/19 03:50 PT 13.3 Sec. (12.2-14.9) 05/07/19 02:54 INR 1.02 (0.87-1.13) 05/07/19 02:54 APTT 27.1 Sec. (24.2-36.6) 05/07/19 02:54 Sodium 139 mmol/L (137-145) 05/13/19 05:44 Potassium 4.2 mmol/L (3.6-5.0) 05/13/19 05:44 Chloride 101.0 mmol/L (98-107) 05/13/19 05:44 Carbon Dioxide 25 mmol/L (22-30) 05/13/19 05:44 Anion Gap 17 mmol/L 05/13/19 05:44 BUN 13 mg/dL (9-20) 05/13/19 05:44 Creatinine 0.8 mg/dL (0.8-1.5) 05/13/19 05:44 Estimated GFR > 60 ml/min 05/13/19 05:44 BUN/Creatinine Ratio 16 % 05/13/19 05:44 Glucose 122 mg/dL (75-100) H 05/13/19 05:44 POC Glucose 144 (70-105) H 05/07/19 10:04 Calcium 9.3 mg/dL (8.4-10.2) 05/13/19 05:44 Total Bilirubin 0.40 mg/dL (0.1-1.2) 05/06/19 02:34 AST 24 units/L (5-40) 05/06/19 02:34 ALT 28 units/L (7-56) 05/06/19 02:34 Alkaline Phosphatase 67 units/L (35-129) 05/06/19 02:34 Total Creatine Kinase 262 units/L (55-170) H 05/06/19 02:34 CK-MB (CK-2) 1.6 ng/mL (0.0-4.0) 05/06/19 02:34 CK-MB (CK-2) Rel Index 0.6 (0-4) 05/06/19 02:34 Troponin T < 0.010 ng/mL (0.00-0.029) 05/06/19 02:34 NT-Pro-B Natriuret Pep 14.04 pg/mL (0-900) 05/06/19 02:34 Total Protein 7.3 g/dL (6.3-8.2) 05/06/19 02:34 Albumin 4.0 g/dL (3.9-5) 05/06/19 02:34 Albumin/Globulin Ratio 1.2 % 05/06/19 02:34 Active Medications - Current Medications Current Medications: Generic Name Dose Route Start Last Admin Trade Name Freq PRN Reason Stop Dose Admin Acetaminophen 650 mg 05/06/19 04:54 05/06/19 06:53 Tylenol PO 650 mg Q4H PRN Administration Pain MILD(1-3)/Fever >100.5/WINTERS Albuterol/Ipratropium 1 ampul 05/12/19 08:00 05/13/19 09:15 Duoneb *Not For Prn Use* IH 1 ampul TIDRT ANDREA Administration Diphenhydramine HCl 12.5 mg 05/07/19 10:28 05/10/19 09:59 Benadryl IV 12.5 mg Q6H PRN Administration Itching Furosemide 40 mg 05/10/19 10:00 05/13/19 10:07 Lasix IV 40 mg QDAY ANDREA Administration Magnesium Hydroxide 30 ml 05/06/19 04:54 Milk Of Magnesia PO Q4H PRN Constipation Morphine Sulfate 4 mg 05/10/19 22:44 05/13/19 08:29 Morphine IV 4 mg Q4H PRN Administration Pain, Moderate (4-6) Ondansetron HCl 4 mg 05/06/19 04:54 05/06/19 05:14 Zofran IV 4 mg Q8H PRN Administration Nausea And Vomiting Potassium Chloride 40 meq 05/09/19 17:00 05/13/19 10:07 K-Dur PO 40 meq QDAY ANDREA Administration Sodium Chloride 10 ml 05/06/19 10:00 05/13/19 10:08 Sodium Chloride Flush Syringe 10 Ml IV 10 ml BID ANDREA Administration Sodium Chloride 10 ml 05/06/19 04:54 05/11/19 03:54 Sodium Chloride Flush Syringe 10 Ml IV 10 ml PRN PRN Administration LINE FLUSH Nutrition/Malnutrition Assess - Dietary Evaluation Nutrition/Malnutrition Findings: Nutrition Notes Start: 05/13/19 12:30 Freq: Status: Active Protocol: Document 05/13/19 12:30 LAUREN (Rec: 05/13/19 12:32 LAUREN [id number]) Co-Sign 11/21/19 12:30 Nutrition Notes Need for Assessment generated from: LOS Initial or Follow up Brief Note Other Pertinent Diagnosis Pneumonthorax on left, sarcoiosis Subjective/Other Information RD screen for LOS. Pts chart stated he was eating 75% of his meals and that the diet was tolerated well. Nutrition Intervention Revisit per MD consult or patient Sign Off request:
[2019-05-13] MEDS: MAGNESIUM HYDROXIDE (MOM) ORAL LIQD UDC PO PRN ×2 (13:56→18:45)
--- NOTE | 2019-05-13 18:13 | Progress Note ---
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 placed on suction as symptom got worse since 05/07/19 Chest tube dislodged evening 05/10, another put in Awaiting transfer to [place] Emphysema with multiple bilateral Bull[place] on CT scan Risks for recurrent pneumothorax due to presence of multiple apical bilateral [place] Contributing to treat emphysema with scheduled nebulizer, IV steroid and supplemental O2 May need bullectomy Subcutaneous emphysema - Continue to monitor clinically, continue chest tube suction Sarcoidosis We will continue patient's routine medications. He has known history of sarcoidosis. History of CHF with pacemaker - Continue home medications, monitor in's and O's, daily weight DVT prophylaxis Start subacute heparin. Full code status Awaiting transfer to [facility] History Interval history: patient with pneumothorax Chest tube dislodged 05/10, replaced Hospitalist Physical - Physical exam Narrative exam: Gen: Not in acute distress, lying in bed,morbidly obese HEENT: Normocephalic, atraumatic Neck: supple, no JVD Heart: S1 and S2 reg, no murmurs, rubs or gallop Lungs: Clear to auscultation bilaterally, Chest tube on left Abd: soft, non tender, non distended, normal BS, Ext: No edema, no clubbing, no cyanosis Neuro: Awake, alert, oriented X 3, no focal neurological sign - Constitutional Vitals: Temp Pulse Resp BP Pulse Ox 98.2 F 74 18 156/91 96 05/13/19 08:45 05/13/19 14:00 05/13/19 14:00 05/13/19 08:45 05/13/19 10:00 General appearance: Present: no acute distress, obese Results - Labs CBC & Chem 7: 05/13/19 05:44 05/13/19 05:44 Labs: Laboratory Last Values WBC 5.0 K/mm3 (4.5-11.0) 05/13/19 05:44 RBC 6.05 M/mm3 (3.65-5.03) H 05/13/19 05:44 Hgb 13.8 gm/dl (11.8-15.2) 05/13/19 05:44 Hct 43.4 % (35.5-45.6) 05/13/19 05:44 MCV 72 fl (84-94) L 05/13/19 05:44 MCH 23 pg (28-32) L 05/13/19 05:44 MCHC 32 % (32-34) 05/13/19 05:44 RDW 14.1 % (13.2-15.2) 05/13/19 05:44 Plt Count 225 K/mm3 (140-440) 05/13/19 05:44 Lymph % (Auto) 10.5 % (13.4-35.0) L 05/07/19 02:54 [place] % (Auto) 12.2 % (0.0-7.3) H 05/07/19 02:54 Eos % (Auto) 0.0 % (0.0-4.3) 05/07/19 02:54 Baso % (Auto) 0.2 % (0.0-1.8) 05/07/19 02:54 Lymph # 1.3 K/mm3 (1.2-5.4) 05/07/19 02:54 [place] # 1.5 K/mm3 (0.0-0.8) H 05/07/19 02:54 Eos # 0.0 K/mm3 (0.0-0.4) 05/07/19 02:54 Baso # 0.0 K/mm3 (0.0-0.1) 05/07/19 02:54 Add Manual Diff Complete 05/06/19 03:50 Total Counted 100 05/06/19 03:50 Seg Neutrophils % 77.1 % (40.0-70.0) H 05/07/19 02:54 Seg Neuts % (Manual) 58.0 % (40.0-70.0) 05/06/19 03:50 Band Neutrophils % 0 % 05/06/19 03:50 Lymphocytes % (Manual) 28.0 % (13.4-35.0) 05/06/19 03:50 Reactive Lymphs % (Man) 0 % 05/06/19 03:50 Monocytes % (Manual) 9.0 % (0.0-7.3) H 05/06/19 03:50 Eosinophils % (Manual) 3.0 % (0.0-4.3) 05/06/19 03:50 Basophils % (Manual) 2.0 % (0.0-1.8) H 05/06/19 03:50 Metamyelocytes % 0 % 05/06/19 03:50 Myelocytes % 0 % 05/06/19 03:50 Promyelocytes % 0 % 05/06/19 03:50 Blast Cells % 0 % 05/06/19 03:50 Nucleated RBC % Not Reportable 05/06/19 03:50 Seg Neutrophils # 9.5 K/mm3 (1.8-7.7) H 05/07/19 02:54 Seg Neutrophils # Man 2.7 K/mm3 (1.8-7.7) 05/06/19 03:50 Band Neutrophils # 0.0 K/mm3 05/06/19 03:50 Lymphocytes # (Manual) 1.3 K/mm3 (1.2-5.4) 05/06/19 03:50 Abs React Lymphs (Man) 0.0 K/mm3 05/06/19 03:50 Monocytes # (Manual) 0.4 K/mm3 (0.0-0.8) 05/06/19 03:50 Eosinophils # (Manual) 0.1 K/mm3 (0.0-0.4) 05/06/19 03:50 Basophils # (Manual) 0.1 K/mm3 (0.0-0.1) 05/06/19 03:50 Metamyelocytes # 0.0 K/mm3 05/06/19 03:50 Myelocytes # 0.0 K/mm3 05/06/19 03:50 Promyelocytes # 0.0 K/mm3 05/06/19 03:50 Blast Cells # 0.0 K/mm3 05/06/19 03:50 WBC Morphology Not Reportable 05/06/19 03:50 Hypersegmented Neuts Not Reportable 05/06/19 03:50 Hyposegmented Neuts Not Reportable 05/06/19 03:50 Hypogranular Neuts Not Reportable 05/06/19 03:50 Smudge Cells Not Reportable 05/06/19 03:50 Toxic Granulation Not Reportable 05/06/19 03:50 Toxic Vacuolation Not Reportable 05/06/19 03:50 Dohle Bodies Not Reportable 05/06/19 03:50 Pelger-Huet Anomaly Not Reportable 05/06/19 03:50 Rafiq Rods Not Reportable 05/06/19 03:50 Platelet Estimate Consistent w auto 05/06/19 03:50 Clumped Platelets Not Reportable 05/06/19 03:50 Plt Clumps, EDTA Not Reportable 05/06/19 03:50 Large Platelets Not Reportable 05/06/19 03:50 Giant Platelets Not Reportable 05/06/19 03:50 Platelet Satelliting Not Reportable 05/06/19 03:50 Plt Morphology Comment Not Reportable 05/06/19 03:50 RBC Morphology Not Reportable 05/06/19 03:50 Dimorphic RBCs Not Reportable 05/06/19 03:50 Polychromasia Not Reportable 05/06/19 03:50 Hypochromasia Not Reportable 05/06/19 03:50 Poikilocytosis Not Reportable 05/06/19 03:50 Anisocytosis 1+ 05/06/19 03:50 Microcytosis Not Reportable 05/06/19 03:50 Macrocytosis Not Reportable 05/06/19 03:50 Spherocytes Not Reportable 05/06/19 03:50 Pappenheimer Bodies Not Reportable 05/06/19 03:50 Sickle Cells Not Reportable 05/06/19 03:50 Target Cells Not Reportable 05/06/19 03:50 Tear Drop Cells Not Reportable 05/06/19 03:50 Ovalocytes Not Reportable 05/06/19 03:50 Helmet Cells Not Reportable 05/06/19 03:50 [place] Bodies Not Reportable 05/06/19 03:50 [place] Rings Not Reportable 05/06/19 03:50 Amarilys Cells Not Reportable 05/06/19 03:50 Bite Cells Not Reportable 05/06/19 03:50 Crenated Cell Not Reportable 05/06/19 03:50 Elliptocytes Not Reportable 05/06/19 03:50 Acanthocytes (Spur) Not Reportable 05/06/19 03:50 Rouleaux Not Reportable 05/06/19 03:50 Hemoglobin C Crystals Not Reportable 05/06/19 03:50 Schistocytes Not Reportable 05/06/19 03:50 Malaria parasites Not Reportable 05/06/19 03:50 Matthew Bodies Not Reportable 05/06/19 03:50 Hem Pathologist Commnt No 05/06/19 03:50 PT 13.3 Sec. (12.2-14.9) 05/07/19 02:54 INR 1.02 (0.87-1.13) 05/07/19 02:54 APTT 27.1 Sec. (24.2-36.6) 05/07/19 02:54 Sodium 139 mmol/L (137-145) 05/13/19 05:44 Potassium 4.2 mmol/L (3.6-5.0) 05/13/19 05:44 Chloride 101.0 mmol/L (98-107) 05/13/19 05:44 Carbon Dioxide 25 mmol/L (22-30) 05/13/19 05:44 Anion Gap 17 mmol/L 05/13/19 05:44 BUN 13 mg/dL (9-20) 05/13/19 05:44 Creatinine 0.8 mg/dL (0.8-1.5) 05/13/19 05:44 Estimated GFR > 60 ml/min 05/13/19 05:44 BUN/Creatinine Ratio 16 % 05/13/19 05:44 Glucose 122 mg/dL (75-100) H 05/13/19 05:44 POC Glucose 144 (70-105) H 05/07/19 10:04 Calcium 9.3 mg/dL (8.4-10.2) 05/13/19 05:44 Total Bilirubin 0.40 mg/dL (0.1-1.2) 05/06/19 02:34 AST 24 units/L (5-40) 05/06/19 02:34 ALT 28 units/L (7-56) 05/06/19 02:34 Alkaline Phosphatase 67 units/L (35-129) 05/06/19 02:34 Total Creatine Kinase 262 units/L (55-170) H 05/06/19 02:34 CK-MB (CK-2) 1.6 ng/mL (0.0-4.0) 05/06/19 02:34 CK-MB (CK-2) Rel Index 0.6 (0-4) 05/06/19 02:34 Troponin T < 0.010 ng/mL (0.00-0.029) 05/06/19 02:34 NT-Pro-B Natriuret Pep 14.04 pg/mL (0-900) 05/06/19 02:34 Total Protein 7.3 g/dL (6.3-8.2) 05/06/19 02:34 Albumin 4.0 g/dL (3.9-5) 05/06/19 02:34 Albumin/Globulin Ratio 1.2 % 05/06/19 02:34 Active Medications - Current Medications Current Medications: Generic Name Dose Route Start Last Admin Trade Name Freq PRN Reason Stop Dose Admin Acetaminophen 650 mg 05/06/19 04:54 05/06/19 06:53 Tylenol PO 650 mg Q4H PRN Administration Pain MILD(1-3)/Fever >100.5/[place]INTER[place] Albuterol/Ipratropium 1 ampul 05/12/19 08:00 05/13/19 14:15 Duoneb *Not For Prn Use* IH 1 ampul TIDRT ANDREA Administration Diphenhydramine HCl 12.5 mg 05/07/19 10:28 05/10/19 09:59 Benadryl IV 12.5 mg Q6H PRN Administration Itching Furosemide 40 mg 05/10/19 10:00 05/13/19 10:07 Lasix IV 40 mg QDAY ANDREA Administration Magnesium Hydroxide 30 ml 05/06/19 04:54 05/13/19 13:56 Milk Of Magnesia PO 30 ml Q4H PRN Administration Constipation Morphine Sulfate 4 mg 05/10/19 22:44 05/13/19 08:29 Morphine IV 4 mg Q4H PRN Administration Pain, Moderate (4-6) Ondansetron HCl 4 mg 05/06/19 04:54 05/06/19 05:14 Zofran IV 4 mg Q8H PRN Administration Nausea And Vomiting Potassium Chloride 40 meq 05/09/19 17:00 05/13/19 10:07 K-Dur PO 40 meq QDAY ANDREA Administration Sodium Chloride 10 ml 05/06/19 10:00 05/13/19 10:08 Sodium Chloride Flush Syringe 10 Ml IV 10 ml BID ANDREA Administration Sodium Chloride 10 ml 05/06/19 04:54 05/11/19 03:54 Sodium Chloride Flush Syringe 10 Ml IV 10 ml PRN PRN Administration LINE FLUSH Nutrition/Malnutrition Assess - Dietary Evaluation Nutrition/Malnutrition Findings: Nutrition Notes Start: 05/13/19 12:30 Freq: Status: Active Protocol: Document 05/13/19 12:30 LAUREN (Rec: 05/13/19 12:32 LAUREN [id number]) Co-Sign 05/13/19 12:30 KH Nutrition Notes Need for Assessment generated from: LOS Initial or Follow up Brief Note Other Pertinent Diagnosis Pneumonthorax on left, sarcoiosis Subjective/Other Information RD screen for LOS. Pts chart stated he was eating 75% of his meals and that the diet was tolerated well. Nutrition Intervention Revisit per MD consult or patient Sign Off request:
[2019-05-13] MEDS: HEPARIN 5,000 UNIT/1 ML VIAL SUB-Q SCH (21:36)
[2019-05-14] MEDS: HEPARIN 5,000 UNIT/1 ML VIAL SUB-Q SCH (06:05)
[2019-05-14] MEDS: IPRATROPIUM/ALBUTEROL SULFATE 3 ML AMPUL.NEB IH SCH ×2 (07:55→14:09)
[2019-05-14] MEDS: POTASSIUM CHLORIDE ER 20 MEQ TAB PO SCH (09:53)
[2019-05-14] MEDS: FUROSEMIDE 40 MG/4 ML INJ IV SCH (09:53)
--- NOTE | 2019-05-14 10:28 | XRay Report ---
CHEST 1 VIEW INDICATION / CLINICAL INFORMATION: PTX. COMPARISON: 05/12/2019 FINDINGS: SUPPORT DEVICES: Left chest catheter noted on the prior study is no longer seen HEART / MEDIASTINUM: No significant abnormality. LUNGS / PLEURA: There is a large left pneumothorax occupying the entire left hemithorax with complete collapse of the left lung.. There is mild edema on the right. ADDITIONAL FINDINGS: There is subcutaneous air IMPRESSION: 1. There is a large left pneumothorax occupying the entire left pneumothorax. There is complete colla pse of the left lung. CRITICAL RESULT: Dr. Garibay called this report to patient's nurse, Nidia, at time 0920 hours central time. Report was confirmed. Signer Name: Jude Garibay MD Signed: 05/14/2019 10:24 AM Workstation Name: [id number]
[2019-05-14] MEDS: MORPHINE 4 MG/1 ML INJ IV PRN ×2 (11:04→16:24)
--- NOTE | 2019-05-14 11:06 | Progress Note ---
Assessment and Plan 53 y/o male with spontaneous PTX. Consulted general surgery They have agreed to place large bore chest tube. [place] still on Diversion so still awaiting bed. Subjective Date of service: 05/14/19 Principal diagnosis: PTX Interval history: Chest tube came out this am. Patient unaware of when it happened. In no distress. CXR shows complete collapse of left lung. Remainder is negative. Objective Vital Signs - 12hr 05/13/19 05/14/19 05/14/19 23:39 03:34 07:56 Temperature 98.4 F 98.0 F Pulse Rate 112 H 103 H Pulse Rate [ 85 Anterior Bilateral] Respiratory 18 18 Rate Respiratory 18 Rate [Anterior Bilateral] Blood Pressure 103/64 119/67 O2 Sat by Pulse 94 94 Oximetry 05/14/19 05/14/19 07:57 08:19 Temperature 98.3 F Pulse Rate 107 H Pulse Rate [ Anterior Bilateral] Respiratory 16 Rate Respiratory Rate [Anterior Bilateral] Blood Pressure 132/85 O2 Sat by Pulse 96 95 Oximetry Constitutional: no acute distress, alert Eyes: non-icteric ENT: oropharynx moist Neck: supple Effort: normal Ascultation: Bilateral: clear Percussion: Bilateral: not dull Tactile fremitus: Bilateral: normal Cardiovascular: regular rate and rhythm Gastrointestinal: normoactive bowel sounds, soft, non-tender Extremities: no cyanosis, no edema, pink and warm, pulses normal Neurologic: normal mental status, non-focal exam, pupils equal and round, CN II- XII normal Psychiatric: mood appropriate, affect normal CBC and BMP: 05/13/19 05:44 05/13/19 05:44 ABG, PT/INR, D-dimer: PT/INR, D-dimer PT 13.3 Sec. (12.2-14.9) 05/07/19 02:54 INR 1.02 (0.87-1.13) 05/07/19 02:54 Abnormal lab findings: Abnormal Labs 05/06/19 05/06/19 05/06/19 02:34 02:34 02:34 WBC RBC Hct MCV MCH Lymph % (Auto) [place] % (Auto) [place] # Seg Neutrophils % Monocytes % (Manual) Basophils % (Manual) Seg Neutrophils # APTT 22.1 L Potassium 3.5 L Chloride Glucose 151 H POC Glucose Total Creatine Kinase 262 H 05/06/19 05/07/19 05/07/19 03:50 02:54 02:54 WBC 12.3 H RBC 6.16 H 6.05 H Hct MCV 72 L 72 L MCH 23 L 23 L Lymph % (Auto) 10.5 L [place] % (Auto) 12.2 H [place] # 1.5 H Seg Neutrophils % 77.1 H Monocytes % (Manual) 9.0 H Basophils % (Manual) 2.0 H Seg Neutrophils # 9.5 H APTT Potassium Chloride Glucose 153 H POC Glucose Total Creatine Kinase 05/07/19 05/09/19 05/09/19 10:04 13:50 13:50 WBC RBC 6.66 H Hct 47.5 H MCV 71 L MCH 23 L Lymph % (Auto) [place] % (Auto) [place] # Seg Neutrophils % Monocytes % (Manual) Basophils % (Manual) Seg Neutrophils # APTT Potassium 3.2 L D Chloride 95.2 L Glucose 201 H POC Glucose 144 H Total Creatine Kinase 05/10/19 05/13/19 05/13/19 07:08 05:44 05:44 WBC RBC 6.05 H Hct MCV 72 L MCH 23 L Lymph % (Auto) [place] % (Auto) [place] # Seg Neutrophils % Monocytes % (Manual) Basophils % (Manual) Seg Neutrophils # APTT Potassium Chloride Glucose 134 H 122 H POC Glucose Total Creatine Kinase
[2019-05-14] MEDS ORDERED: LIDOCAINE (1%) 10 MG/1 ML VIAL 20 ML MDV INFILTRATI ONE (11:30)
--- NOTE | 2019-05-14 11:44 | Consultation ---
History of Present Illness Consult date: 05/14/19 Reason for consult: chest tube Chief complaint: sob - History of present illness History of present illness: 53 yo M with hx sarcoidosis, smoking presented to hospital on 05/06/19 with shortness of breath. Patient complains of associated chest tightness as well. Patient was found to have a tension PTX on the left and chest tube placed. That chest tube became dislodged with resultant recurrence of PTX. A 14 F chest tube was placed by pulmology which became dislodged again. Today the CXR shows large left PTX and surgery was consulted for placement of large bore chest tube. The patient states he has mild SOB but unchanged. NO CP, n/v. Past History Past Medical History: heart failure, hypertension, hyperlipidemia, sarcoidosis Past Surgical History: Other (Fibrillator placement) Social history: smoking (Smokes about half a packet of cigarettes daily), alcohol abuse (Drinks alcohol occasionally) Family history: cancer (Lung cancer in father), diabetes, other Medications and Allergies Allergies Allergy/AdvReac Type Severity Reaction Status Date / Time lisinopril Allergy Angioedema Verified 12/10/16 13:29 Home Medications Medication Instructions Recorded Confirmed Last Taken Type AtorvaSTATin [Lipitor] 1 tab PO DAILY 05/06/19 05/06/19 Unknown History Cyanocobalamin [Vitamin B-12] 1 tab PO DAILY 05/06/19 05/06/19 Unknown History Hydroxychloroquine [Plaquenil] 2 tab PO DAILY 05/06/19 05/06/19 Unknown History Loratadine 1 tab PO DAILY PRN 05/06/19 05/06/19 Unknown History carvediloL [Coreg] 2 tab PO BID 05/06/19 05/06/19 Unknown History Acetaminophen [Acetaminophen TAB] 650 mg PO Q4H PRN tablet 05/12/19 Unknown Rx Ipratropium/Albuterol Sulfate 1 ampul IH TIDRT ampul.neb 05/12/19 Unknown Rx [DUONEB *Not for PRN Use*] diphenhydrAMINE [Benadryl] 12.5 mg IV Q6H PRN vial 05/12/19 Unknown Rx Active Meds: Active Medications Acetaminophen (Tylenol) 650 mg PO Q4H PRN PRN Reason: Pain MILD(1-3)/Fever >100.5/[place] Last Admin: 05/06/19 06:53 Dose: 650 mg Documented by: Albuterol/Ipratropium (Duoneb *Not For Prn Use*) 1 ampul IH TIDRT [facility] Last Admin: 05/14/19 07:55 Dose: 1 ampul Documented by: Diphenhydramine HCl (Benadryl) 12.5 mg IV Q6H PRN PRN Reason: Itching Last Admin: 05/10/19 09:59 Dose: 12.5 mg Documented by: Furosemide (Lasix) 40 mg IV QDAY [facility] Last Admin: 05/14/19 09:53 Dose: 40 mg Documented by: Heparin Sodium (Porcine) (Heparin) 5,000 unit SUB-Q Q8HR [facility] Last Admin: 05/14/19 06:05 Dose: 5,000 unit Documented by: Magnesium Hydroxide (Milk Of Magnesia) 30 ml PO Q4H PRN PRN Reason: Constipation Last Admin: 05/13/19 18:45 Dose: 30 ml Documented by: Morphine Sulfate (Morphine) 4 mg IV Q4H PRN PRN Reason: Pain, Moderate (4-6) Last Admin: 05/14/19 11:04 Dose: 4 mg Documented by: Ondansetron HCl (Zofran) 4 mg IV Q8H PRN PRN Reason: Nausea And Vomiting Last Admin: 05/06/19 05:14 Dose: 4 mg Documented by: Potassium Chloride (K-Dur) 40 meq PO QDAY [facility] Last Admin: 05/14/19 09:53 Dose: 40 meq Documented by: Sodium Chloride (Sodium Chloride Flush Syringe 10 Ml) 10 ml IV BID [facility] Last Admin: 05/14/19 09:54 Dose: 10 ml Documented by: Sodium Chloride (Sodium Chloride Flush Syringe 10 Ml) 10 ml IV PRN PRN PRN Reason: LINE FLUSH Last Admin: 05/11/19 03:54 Dose: 10 ml Documented by: Review of Systems All systems: negative (10 pt ROS performed and negative except for that listed in HPI) Exam Vital Signs Temp Pulse Resp BP Pulse Ox 98.3 F 107 H 19 131/78 93 05/06/19 02:19 05/06/19 02:19 05/06/19 02:19 05/06/19 02:19 05/06/19 02:19 Narrative exam: Gen: AAOx3. NAD ENT: no icterus CV: s1, S2+ Resp: No breath sounds on left. CTA on right side. Large amount of subcutaneous tissue on left with subcutaneous emphysema. Ext: no c/c/e Results - Labs 05/13/19 05:44 05/13/19 05:44 - Imaging Chest x-ray: report reviewed, image reviewed CT scan - chest: report reviewed, image reviewed Assessment and Plan 53 yo M with recurrent L sided PTX Plan: 1. will need large bore chest tube. I discussed the indications, risks, benefits, alternatives to procedure with the patient and questions answered. Consent obtained 2. Post procedure CXR to be obtained 3. Chest tube to remain on -20cm H20 suction via pleurevac 4. prn pain control D/W Dr. Phillips. Thank you, please call with questions.
--- NOTE | 2019-05-14 11:51 | Procedure Note ---
Date of procedure: 05/14/19 Pre-op diagnosis: L sided pneumothorax Post-op diagnosis: same Procedure: placement of LEFT sided chest tube Findings: Time out performed. L lateral chest prepped with betadine. Local anesthetic infiltrated into the skin, subcutaneous tissue. A 2cm incision was made in the skin at the location of the 4th intercostal space in the mid axillary line using a 10 blade. Dissection was carried down through subcutaneous tissue using a arnulfo clamp. There was at least 5 cm of tissue before the rib was encountered. Local anesthetic was infiltrated between the ribs and into the pleural space. The pleura was entered by dissecting above the rib using a arnulfo clamp. Upon entering the pleural space, there was a pop and large johnson of air exiting the incision. A 28F chest tube was inserted into the pleural space using the guidance of the trocar and the trocar removed. There was condensation in the tubing. The chest tube was directed towards the apex and posteriorly. It was inserted to 18 cm at the skin and sutured to the skin using 0 silk suture. It was connected to pleurevac suction and there was air evacuated through the pleurevac. An occlusive dressing was applied. No air leak seen at the end of the procedure. The patient tolerated the procedure well. Post procedure CXR pending. Anesthesia: local Surgeon: ANGELES ROSA Estimated blood loss: minimal Pathology: none Condition: stable Disposition: no change
--- NOTE | 2019-05-14 12:05 | XRay Report ---
CHEST 1 VIEW 05/14/2019 11:39 AM INDICATION / CLINICAL INFORMATION: chest tube placement. COMPARISON: Chest x-ray done earlier on 05/14/2019. FINDINGS: SUPPORT DEVICES: Left chest tube has been placed. HEART / MEDIASTINUM: Stable. LUNGS / PLEURA: Moderately reduced size of the left pneumothorax, now moderate in size. Right lung re mc clear. ADDITIONAL FINDINGS: No significant additional findings. IMPRESSION: 1. Interval placement of left chest tube with moderate reexpansion of the left lung. Signer Name: Chaz Nance MD Signed: 05/14/2019 12:01 PM Workstation Name: [id number]
[2019-05-14] MEDS ORDERED: SODIUM CHLORIDE 0.9% 500 ML 500 ML ONE (13:06)
[2019-05-14] MEDS ORDERED: LIDOCAINE 1%/EPINEPHRINE 1:100,000 VIAL (20 ML) INFILTRATI ONE (13:06)
[2019-05-14] MEDS ORDERED: SODIUM CHLORIDE IRRI 500 ML 500 ML IR ONE (13:13)
[2019-05-14] MEDS: fentaNYL 100 MCG/2 ML INJ ONE ×2 (13:21→13:25)
--- NOTE | 2019-05-14 14:07 | Procedure Note ---
Date of procedure: 05/14/19 Pre-op diagnosis: residual L PTX s/p chest tube Post-op diagnosis: same Procedure: Repositioning of left sided chest tube under fluoroscopy Findings: Time out performed. L chest tube and left chest prepped and draped in sterile fa shion. Chest tube clamped and unhooked from pleurevac. The skin suture was cut and chest tube visualized under fluoroscopy. Dr. Anguiano placed a sterile 10F Flexor introducer stylet though the chest tube and positioned it at the apex. The chest tube was advanced over the introducer without resistance. The introducer was removed and the chest tube remained at the apex with resolution of pneumothorax. The chest tube was sutured into place using a 0 silk suture. Local anesthetic was infiltrated into the skin, subcutaneous tissue and pleural cavity by Dr. Anguiano at the end of the case using fluoroscopy. The patient remained stable throughout the procedure. An occlusive dressing was applied. The chest tube was connected to pleurevac at [id number] suction with small air leak. All sharps were disposed of appropriately. Anesthesia: MAC, local Surgeon: ROSANNA ANGUIANO Opener Tender: ANGELES ROSA Estimated blood loss: minimal Pathology: none Condition: stable Disposition: PACU
--- NOTE | 2019-05-14 15:15 | Progress Note ---
Assessment and Plan / Pneumothorax on left Spontaneous due to [place] emphysema Left chest tube already placed. placed on suction as symptom got worse since Chest tube dislodged evening 05/10, another one put in Awaiting transfer to [place] /Emphysema with multiple bilateral [place] on CT scan Risks for recurrent pneumothorax due to presence of multiple apical bilateral [place] Contributing to treat emphysema with scheduled nebulizer, IV steroid and supplemental O2 May need bullectomy /Subcutaneous emphysema - Continue to monitor clinically, continue chest tube suction / Sarcoidosis We will continue patient's routine medications. He has known history of sarcoidosis. /History of CHF with pacemaker - Continue home medications, monitor in's and O's, daily weight /DVT prophylaxis We will place on subacute heparin. / Full code status CTA chest: 1. There is a small residual pneumothorax anteriorly. Tip of the pleural catheter is in the left apex. There are bilateral blebs. There is atelectasis in the lung bases. Disposition: [place] transfer when bed available Subjective Date of service: 05/14/19 Principal diagnosis: PTX Objective - Constitutional Vitals: Vital Signs - 12hr 05/14/19 05/14/19 05/14/19 03:34 07:56 07:57 Temperature 98.0 F Pulse Rate 103 H Pulse Rate [ 85 Anterior Bilateral] Respiratory 18 Rate Respiratory 18 Rate [Anterior Bilateral] Blood Pressure 119/67 O2 Sat by Pulse 94 96 Oximetry 05/14/19 05/14/19 05/14/19 08:19 11:04 12:18 Temperature 98.3 F 99.5 F Pulse Rate 107 H 111 H Pulse Rate [ Anterior Bilateral] Respiratory 16 20 18 Rate Respiratory Rate [Anterior Bilateral] Blood Pressure 132/85 119/69 O2 Sat by Pulse 95 89 Oximetry - Labs CBC & Chem 7: 05/13/19 05:44 05/13/19 05:44
[2019-05-14 18:58] VITALS: BP 130/70
== END 2019-05-14 20:15 | disposition short-term general hospital (02) | DRG 200 ==
LOC: ED 02:04 → 4A 06:09
PROVIDERS: ADMIT Internal Medicine Geriatric Medicine; ATTEND Internal Medicine
PROC: 0W9B30Z Drainage of Left Pleural Cavity with Drainage Device, Percutaneous Approach (ICD-10-PCS; 2019-05-06)
PROC: 0W9B30Z Drainage of Left Pleural Cavity with Drainage Device, Percutaneous Approach (ICD-10-PCS; principal; 2019-05-10)
PROC: 0W9B00Z Drainage of Left Pleural Cavity with Drainage Device, Open Approach (ICD-10-PCS; 2019-05-14)
PROC: 0WW Anatomical Regions, General, Revision (ICD-10-PCS; 2019-05-14)
PROC: 8E0 Other Procedures, Physiological Systems and Anatomical Regions, Other Procedures (ICD-10-PCS; 2019-05-14)
DX: J93.83 Other pneumothorax (principal); T85.628A Displacement of other specified internal prosthetic devices, implants and grafts, initial encounter; D86.9 Sarcoidosis, unspecified; I11.0 Hypertensive heart disease with heart failure; I50.9 Heart failure, unspecified; F17.210 Nicotine dependence, cigarettes, uncomplicated; J98.2 Interstitial emphysema; E66.9 Obesity, unspecified; Z80.1 Family history of malignant neoplasm of trachea, bronchus and lung; Z95.0 Presence of cardiac pacemaker; Z83.3 Family history of diabetes mellitus; Z84.89 Family history of other specified conditions; Z88.8 Allergy status to other drugs, medicaments and biological substances; Z79.82 Long term (current) use of aspirin; Z79.899 Other long term (current) drug therapy; Z68.37 Body mass index [BMI] 37.0-37.9, adult; Y65.8 Other specified misadventures during surgical and medical care; Y92.238 Other place in hospital as the place of occurrence of the external cause
CPT/HCPCS: 32557; 36415; 71045; 71250; 80048; 80053; 82550; 82553; 82962; 83880; 84484; 85007; 85025; 85027; 85610; 85730; 93005; 93010; 94640; 94760; 99406; G0378; C1751; C1769; C1894; J1200; J1644; J1940; J2270; J2405; J2930; J3010; J7040

== ENCOUNTER 2019-07-26 22:18 | Emergency (ER) | payer OTHER ==
[2019-07-27] MEDS ORDERED: dexAMETHasone 20 MG in SODIUM CHLORIDE 0.9% 50 ML IV ONE
[2019-07-27] MEDS ORDERED: FAMOTIDINE 20 MG/2 ML INJ IV ONE
[2019-07-27] MEDS ORDERED: diphenhydrAMINE 50 MG/ML VIAL IV ONE
--- NOTE | 2019-07-27 00:13 | Emergency Department Report ---
ED General Adult HPI - General Chief complaint: Dyspnea/Respdistress Stated complaint: ALLERGIC REACTION Time Seen by Provider: 07/26/19 23:56 Source: patient, EMS Mode of arrival: Stretcher Limitations: No Limitations - History of Present Illness Initial comments: 53-year-old male with a past medical history CHF, sarcoidosis, recurrent left- sided pneumothorax, hypertension, and AICD placement presents to the hospital complains of possible anemia and allergic reaction/angioedema. Patient states he was admitted here in June for his seconds pneumothorax. Chest tube was placed and patient was subsequently transferred to [facility] to see the cardiothoracic surgeon for possible VATS decortication and bleb resection care physician states after arrival to [facility] had a fever requiring antibiotics and subsequently renal failure with Garcia catheter placement. Patient was discharged from [facility] on July 15 and follow-up with his primary care doctor at the [facility] on the . Patient had blood work drawn at that time he received a call from his primary care doctor that he needs to go to the ER staff for significant anemia. Patient denies melena, hematochezia, hematemesis and takes aspirin 81 mg daily. His complaints of generalized weakness and fatigue since discharged from the hospital. He is still currently taking antibiotics. His client development manager is [facility]. Patient also has a secondary complaint of possible allergic reaction. Patient has history of GINA inhibitor angioedema. He had some his medications adjusted after his recent admission but he is still not on GINA inhibitor. He states he feels like the back of his tongue is swelling and he has to open his mouth to breathe. Symptoms have been ongoing since yesterday and mildly worsened. Patient states his diuretic was discontinued and his carvedilol was increased and he is also taken antibiotic - Related Data Home Medications Medication Instructions Recorded Confirmed Last Taken AtorvaSTATin [Lipitor] 1 tab PO DAILY 05/06/19 07/03/19 Unknown Cyanocobalamin [Vitamin B-12] 1 tab PO DAILY 05/06/19 07/03/19 Unknown Loratadine 1 tab PO DAILY PRN 05/06/19 07/03/19 Unknown carvediloL [Coreg] 2 tab PO BID 05/06/19 07/03/19 Unknown hydroCHLOROthiazide [HCTZ] 25 mg PO QDAY 07/05/19 07/05/19 Unknown Previous Rx's Medication Instructions Recorded Last Taken Type Acetaminophen [Acetaminophen TAB] 650 mg PO Q4H PRN tablet 05/12/19 Unknown Rx Ipratropium/Albuterol Sulfate 1 ampul IH TIDRT ampul.neb 05/12/19 Unknown Rx [DUONEB *Not for PRN Use*] diphenhydrAMINE [Benadryl] 12.5 mg IV Q6H PRN vial 05/12/19 Unknown Rx Acetaminophen [Acetaminophen TAB] 650 mg PO Q4H PRN tablet 07/06/19 Unknown Rx hydrALAZINE [Apresoline INJ] 5 mg IV Q30MIN PRN vial 07/06/19 Unknown Rx oxyCODONE /ACETAMINOPHEN [Percocet 1 tab PO Q6H PRN tablet 07/06/19 Unknown Rx 5/325 mg] predniSONE [Deltasone] 20 mg PO QDAY tablet 07/06/19 Unknown Rx traMADoL [Ultram 50 MG tab] 25 mg PO Q4H PRN tablet 07/06/19 Unknown Rx Famotidine [Pepcid] 20 mg PO BID #10 tablet 07/27/19 Unknown Rx Ferrous Sulfate [Ferrous Sulfate 324 mg PO DAILY #30 tablet. 07/27/19 Unknown Rx 324 MG] diphenhydrAMINE [Benadryl CAP] 25 mg PO Q6HR PRN #20 capsule 07/27/19 Unknown Rx predniSONE [Deltasone] 40 mg PO QDAY 5 Days tab 07/27/19 Unknown Rx Allergies Allergy/AdvReac Type Severity Reaction Status Date / Time lisinopril Allergy Angioedema Verified 12/10/16 13:29 ED Review of Systems ROS: Stated complaint: ALLERGIC REACTION Other details as noted in HPI ED Past Medical Hx - Past Medical History Hx Hypertension: Yes Hx Congestive Heart Failure: Yes Additional medical history: sarcodosis,elevated cholesterol, pneumothorax in April 2019, pacemaker - Surgical History Hx Internal Defibrillator: Yes Additional Surgical History: defibilator - Social History Smoking Status: Current Every Day Smoker Substance Use Type: None - Medications Home Medications: Home Medications Medication Instructions Recorded Confirmed Last Taken Type AtorvaSTATin [Lipitor] 1 tab PO DAILY 05/06/19 07/03/19 Unknown History Cyanocobalamin [Vitamin B-12] 1 tab PO DAILY 05/06/19 07/03/19 Unknown History Loratadine 1 tab PO DAILY PRN 05/06/19 07/03/19 Unknown History carvediloL [Coreg] 2 tab PO BID 05/06/19 07/03/19 Unknown History Acetaminophen [Acetaminophen TAB] 650 mg PO Q4H PRN tablet 05/12/19 07/03/19 Unknown Rx Ipratropium/Albuterol Sulfate 1 ampul IH TIDRT ampul.neb 05/12/19 07/03/19 Unknown Rx [DUONEB *Not for PRN Use*] diphenhydrAMINE [Benadryl] 12.5 mg IV Q6H PRN vial 05/12/19 07/03/19 Unknown Rx hydroCHLOROthiazide [HCTZ] 25 mg PO QDAY 07/05/19 07/05/19 Unknown History Acetaminophen [Acetaminophen TAB] 650 mg PO Q4H PRN tablet 07/06/19 Unknown Rx hydrALAZINE [Apresoline INJ] 5 mg IV Q30MIN PRN vial 07/06/19 Unknown Rx oxyCODONE /ACETAMINOPHEN [Percocet 1 tab PO Q6H PRN tablet 07/06/19 Unknown Rx 5/325 mg] predniSONE [Deltasone] 20 mg PO QDAY tablet 07/06/19 Unknown Rx traMADoL [Ultram 50 MG tab] 25 mg PO Q4H PRN tablet 07/06/19 Unknown Rx Famotidine [Pepcid] 20 mg PO BID #10 tablet 07/27/19 Unknown Rx Ferrous Sulfate [Ferrous Sulfate 324 mg PO DAILY #30 tablet. 07/27/19 Unknown Rx 324 MG] diphenhydrAMINE [Benadryl CAP] 25 mg PO Q6HR PRN #20 capsule 07/27/19 Unknown Rx predniSONE [Deltasone] 40 mg PO QDAY 5 Days tab 07/27/19 Unknown Rx ED Physical Exam - General Limitations: No Limitations - Other Other exam information: General: No limitations, patient is alert in no acute distress Head exam: Atraumatic, normocephalic Eyes exam: Normal appearance ENT: Moist mucous membrane, no significant tongue swelling, no swelling to posterior pharynx Neck exam: Normal inspection, full range of motion, no stridor Respiratory exam: Clear to auscultation bilateral, no wheezes, rales, crackles Cardiovascular: Normal rate and rhythm Abdomen: Soft, nondistended, and nontender, with normal bowel sounds, no rebound, or guarding Rectal: Guaiac negative brown stool Extremity: No deformity Back: Normal Inspection Neurologic: Alert, oriented x3, speech clear, no gross motor or sensory deficit Psychiatric: Normal mood, affect Skin: No rash ED Course Vital Signs 07/26/19 07/27/19 23:33 00:46 Temperature 98.2 F Pulse Rate 91 H 101 H Respiratory 16 16 Rate Blood Pressure 147/83 Blood Pressure 157/92 [Left] O2 Sat by Pulse 98 100 Oximetry ED Medical Decision Making - Lab Data Result diagrams: 07/27/19 00:16 07/27/19 00:16 Lab Results 07/27/19 07/27/19 07/27/19 Range/Units 00:16 00:16 00:16 WBC 5.2 (4.5-11.0) K/mm3 RBC 4.32 (3.65-5.03) M/mm3 Hgb 10.3 L (11.8-15.2) gm/dl Hct 31.0 L (35.5-45.6) % MCV 72 L (84-94) fl MCH 24 L (28-32) pg MCHC 33 (32-34) % RDW 15.4 H (13.2-15.2) % Plt Count 264 (140-440) K/mm3 Russell % (Auto) Service Cashier PT 13.6 (12.2-14.9) Sec. INR 1.03 (0.87-1.13) APTT 25.8 (24.2-36.6) Sec. Sodium 146 H (137-145) mmol/L Potassium 4.0 (3.6-5.0) mmol/L Chloride 107.3 H (98-107) mmol/L Carbon Dioxide 25 (22-30) mmol/L Anion Gap 18 mmol/L BUN 7 L (9-20) mg/dL Creatinine 1.0 (0.8-1.5) mg/dL Estimated GFR > 60 ml/min BUN/Creatinine Ratio 7 % Glucose 103 H (75-100) mg/dL Calcium 8.5 (8.4-10.2) mg/dL Blood Type Antibody Screen 07/27/19 Range/Units 00:20 WBC (4.5-11.0) K/mm3 RBC (3.65-5.03) M/mm3 Hgb (11.8-15.2) gm/dl Hct (35.5-45.6) % MCV (84-94) fl MCH (28-32) pg MCHC (32-34) % RDW (13.2-15.2) % Plt Count (140-440) K/mm3 Russell % (Auto) PT (12.2-14.9) Sec. INR (0.87-1.13) APTT (24.2-36.6) Sec. Sodium (137-145) mmol/L Potassium (3.6-5.0) mmol/L Chloride (98-107) mmol/L Carbon Dioxide (22-30) mmol/L Anion Gap mmol/L BUN (9-20) mg/dL Creatinine (0.8-1.5) mg/dL Estimated GFR ml/min BUN/Creatinine Ratio % Glucose (75-100) mg/dL Calcium (8.4-10.2) mg/dL Blood Type A POSITIVE Antibody Screen Negative - EKG Data -: EKG Interpreted by Ne EKG shows normal: sinus rhythm, ST-T waves (no stemi) Rate: normal - EKG Data When compared to previous EKG there are: no significant change - Radiology Data Radiology results: report reviewed CHEST - 1 VIEW INDICATION: sob COMPARISON: 07/05/2019 FINDINGS: Support devices: Left-sided chest tube has been removed. Unipolar cardiac lead is stable. Heart: Stable cardiomediastinal silhouette. Lungs/pleura: Clear lungs with no pneumothorax. Additional findings: None. IMPRESSION: Left-sided chest tube removal. Otherwise clear lungs. - Medical Decision Making Patient reports that the swelling he was experiencing has improved with ED treatment of Decadron, prednisone, and Benadryl. Labs confirmed that patient does not have significant anemia but refuses at this time. No signs of acute blood loss. Chest x-ray, EKG, and other labs unremarkable. He will be discharged on medications for allergic reaction encouraged to follow up with his doctor within 2 days. A copy of the last today will be provided to patient. - Differential Diagnosis anemia, COPD, allergic reaction, sarcoidosis Critical Care Time: No Critical care attestation.: If time is entered above; I have spent that time in minutes in the direct care of this critically ill patient, excluding procedure time. ED Disposition Clinical Impression: Sarcoidosis, Mild anemia, Allergic reaction Disposition: DC-01 TO HOME OR SELFCARE Is pt being admited?: No Does the pt Need Aspirin: No Condition: Stable Instructions: Anemia (ED), Allergies (ED) Additional Instructions: Take the medication as prescribed. Follow-up with your doctor or with the doctor/clinic provided. Return if symptoms worsen as indicated by your discharge instructions. You have been provided a copy of the lab results from today. Please take these results to your doctor. Prescriptions: diphenhydrAMINE [Benadryl CAP] 25 mg PO Q6HR PRN #20 capsule PRN Reason: Allergy Symptoms predniSONE [Deltasone] 40 mg PO QDAY 5 Days tab Ferrous Sulfate [Ferrous Sulfate 324 MG] 324 mg PO DAILY #30 tablet. Famotidine [Pepcid] 20 mg PO BID #10 tablet Referrals: PRIMARY CARE, [Primary Care Provider] - 2-3 Days Time of Disposition: 03:09
--- NOTE | 2019-07-27 00:18 | XRay Report ---
CHEST - 1 VIEW INDICATION: sob COMPARISON: 07/05/2019 FINDINGS: Support devices: Left-sided chest tube has been removed. Unipolar cardiac lead is stable. Heart: Stable cardiomediastinal silhouette. Lungs/pleura: Clear lungs with no pneumothorax. Additional findings: None. IMPRESSION: Left-sided chest tube removal. Otherwise clear lungs. Signer Name: Azam Muñoz MD Signed: 07/27/2019 12:13 AM Workstation Name: [email or web address]
[2019-07-27 00:41] LABS: Hemoglobin 10.3 gm/dl (11.8-15.2); Mean Corpuscular HGB Conc 33 % (32-34); Mean Corpuscular Volume 72 fl (84-94); Platelet Count 264 K/mm3 (140-440); Red Blood Count 4.32 M/mm3 (3.65-5.03); Red Cell Distribution Width 15.4 % (13.2-15.2)
[2019-07-27 00:52] LABS: INR 1.03 (0.87-1.13)
[2019-07-27 00:53] LABS: Partial Thromboplastin Time 25.8 Sec. (24.2-36.6)
[2019-07-27 01:00] LABS: BUN/Creatinine Ratio 7; Blood Urea Nitrogen 7 mg/dL (9-20); Calcium 8.5 mg/dL (8.4-10.2); Hemolysis Index 18
[2019-07-27 03:52] LABS: Anisocytosis 1+; Platelet Estimate Consistent w Auto; Total Cells Counted 100
[2019-07-27 04:38] VITALS: BP 145/77
== END 2019-07-27 03:50 | disposition home or self-care (01) ==
LOC: ED 22:18
DX: T78.40XA Allergy, unspecified, initial encounter (principal); D86.9 Sarcoidosis, unspecified; D64.9 Anemia, unspecified; I11.0 Hypertensive heart disease with heart failure; I50.9 Heart failure, unspecified; F17.200 Nicotine dependence, unspecified, uncomplicated; Z95.0 Presence of cardiac pacemaker; Z79.899 Other long term (current) drug therapy; Z88.8 Allergy status to other drugs, medicaments and biological substances; X58.XXXA Exposure to other specified factors, initial encounter; Y93.89 Activity, other specified; Y92.89 Other specified places as the place of occurrence of the external cause; Y99.8 Other external cause status
CPT/HCPCS: 36415; 71045; 80048; 82271; 85007; 85025; 85610; 85730; 86850; 86900; 86901; 93005; 93010; 96365; 96375; 99285; J1100; J1200

== ENCOUNTER 2019-07-31 22:25 | Emergency (ER) | payer OTHER ==
--- NOTE | 2019-07-31 23:53 | Emergency Department Report ---
HPI - General Chief Complaint: Allergic Reaction ED Past Medical Hx - Past Medical History Hx Hypertension: Yes Hx Congestive Heart Failure: Yes Additional medical history: sarcodosis,elevated cholesterol, pneumothorax in April 2019, pacemaker - Surgical History Hx Internal Defibrillator: Yes Additional Surgical History: defibilator - Social History Smoking Status: Current Every Day Smoker Substance Use Type: None - Medications Home Medications: Home Medications Medication Instructions Recorded Confirmed Last Taken Type AtorvaSTATin [Lipitor] 1 tab PO DAILY 05/06/19 07/03/19 Unknown History Cyanocobalamin [Vitamin B-12] 1 tab PO DAILY 05/06/19 07/03/19 Unknown History Loratadine 1 tab PO DAILY PRN 05/06/19 07/03/19 Unknown History carvediloL [Coreg] 2 tab PO BID 05/06/19 07/03/19 Unknown History Acetaminophen [Acetaminophen TAB] 650 mg PO Q4H PRN tablet 05/12/19 07/03/19 Unknown Rx Ipratropium/Albuterol Sulfate 1 ampul IH TIDRT ampul.neb 05/12/19 07/03/19 Unknown Rx [DUONEB *Not for PRN Use*] diphenhydrAMINE [Benadryl] 12.5 mg IV Q6H PRN vial 05/12/19 07/03/19 Unknown Rx hydroCHLOROthiazide [HCTZ] 25 mg PO QDAY 07/05/19 07/05/19 Unknown History Acetaminophen [Acetaminophen TAB] 650 mg PO Q4H PRN tablet 07/06/19 Unknown Rx hydrALAZINE [Apresoline INJ] 5 mg IV Q30MIN PRN vial 07/06/19 Unknown Rx oxyCODONE /ACETAMINOPHEN [Percocet 1 tab PO Q6H PRN tablet 07/06/19 Unknown Rx 5/325 mg] predniSONE [Deltasone] 20 mg PO QDAY tablet 07/06/19 Unknown Rx traMADoL [Ultram 50 MG tab] 25 mg PO Q4H PRN tablet 07/06/19 Unknown Rx Famotidine [Pepcid] 20 mg PO BID #10 tablet 07/27/19 Unknown Rx Ferrous Sulfate [Ferrous Sulfate 324 mg PO DAILY #30 tablet. 07/27/19 Unknown Rx 324 MG] diphenhydrAMINE [Benadryl CAP] 25 mg PO Q6HR PRN #20 capsule 07/27/19 Unknown Rx predniSONE [Deltasone] 40 mg PO QDAY 5 Days tab 07/27/19 Unknown Rx ED Review of Systems ROS: Stated complaint: WELLING THROAT Other details as noted in HPI Physical Exam - Physical Exam Vital Signs: Vital Signs 07/31/19 22:29 Temperature 98.5 F Pulse Rate 98 H Respiratory 18 Rate Blood Pressure 150/90 O2 Sat by Pulse 97 Oximetry ED Course Vital Signs 07/31/19 22:29 Temperature 98.5 F Pulse Rate 98 H Respiratory 18 Rate Blood Pressure 150/90 O2 Sat by Pulse 97 Oximetry Critical care attestation.: If time is entered above; I have spent that time in minutes in the direct care of this critically ill patient, excluding procedure time. ED Disposition Condition: Stable
[2019-07-31] MEDS ORDERED: FAMOTIDINE 20 MG TAB PO ONE (23:56)
[2019-07-31] MEDS ORDERED: diphenhydrAMINE 25 MG CAP PO ONE (23:56)
[2019-07-31] MEDS ORDERED: predniSONE 20 MG TAB PO ONE (23:56)
--- NOTE | 2019-08-01 | Emergency Department Report ---
Chief Complaint: Allergic Reaction Stated Complaint: WELLING THROAT - HPI History of Present Illness: 53 y/o ZM p/w a cc of tongue swelling/allergic reaction. Pt here for similar presentation days ago. Pt has h/o GINA-I angioedema but states he is not currently taking any GINA inhibitors - Exam Vital Signs: Vital Signs 07/31/19 22:29 Temperature 98.5 F Pulse Rate 98 H Respiratory 18 Rate Blood Pressure 150/90 O2 Sat by Pulse 97 Oximetry MSE screening note: Focused history and physical exam performed. Due to findings the following was ordered: XR soft tissue neck prednisone, benadryl, famotidine ED Disposition for MSE Condition: Stable
--- NOTE | 2019-08-01 00:44 | XRay Report ---
Soft tissue neck 2 views INDICATION: Shortness of breath. Tongue swelling. COMPARISON: None available. FINDINGS: The aerodigestive tract is unremarkable as visualized. No prevertebral soft tissue swelling is seen. The lung apices are clear. No acute osseous abnormality is identified. There is mild cervical spondyl osis. A left ICD is partially visualized. IMPRESSION: No acute radiographic abnormality of the neck. Signer Name: Flaco Acosta MD Signed: 08/01/2019 12:40 AM Workstation Name: [id number]
--- NOTE | 2019-08-01 02:32 | Emergency Department Report ---
ED Allergic Reaction HPI - General Chief complaint: Allergic Reaction Stated complaint: WELLING THROAT Source: patient Mode of arrival: Ambulatory Limitations: No Limitations - History of Present Illness Initial Comments: Patient is a 53-year-old -[place] male with a history of coronary artery disease, hypertension who presents to the ED with a complaint of acute onset persistent throat discomfort and suspected that he may have been developing acute allergic reaction about 2 hours ago. Patient states that he felt similar symptoms about 1 week ago and had acute allergic reaction to certain blood pressure medicines. Patient states that he was initially treated in the ED and discharged home with prescriptions for prednisone, Pepcid and Benadryl but he never had these filled because he felt that he did not need to having been treated in the ED. Patient states that tonight he fell asleep and started feeling mild sore throat with throat discomfort and decided come to the ED for further evaluation. Patient denies chest pain, shortness of breath, itching, swollen lips or tongue, swollen throat, dizziness, nausea and vomiting or diarrhea, abdominal pain, fever and chills, nasal and sinus congestion. MD Complaint: allergic reaction, other (throat discomfort) -: hour(s) (2) Exposure: unknown Symptoms: hoarseness. denies: rash, itching, facial swelling, lip swelling, difficulty swallowing, syncopy, dizziness, nausea, vomiting, other, abdominal pain Severity: mild Treatment Prior to Arrival: none Previous Allergy History: prior ED visit(s) - Related Data Home Medications Medication Instructions Recorded Confirmed Last Taken AtorvaSTATin [Lipitor] 1 tab PO DAILY 05/06/19 07/03/19 Unknown Cyanocobalamin [Vitamin B-12] 1 tab PO DAILY 05/06/19 07/03/19 Unknown Loratadine 1 tab PO DAILY PRN 05/06/19 07/03/19 Unknown carvediloL [Coreg] 2 tab PO BID 05/06/19 07/03/19 Unknown hydroCHLOROthiazide [HCTZ] 25 mg PO QDAY 07/05/19 07/05/19 Unknown Previous Rx's Medication Instructions Recorded Last Taken Type Acetaminophen [Acetaminophen TAB] 650 mg PO Q4H PRN tablet 05/12/19 Unknown Rx Ipratropium/Albuterol Sulfate 1 ampul IH TIDRT ampul.neb 05/12/19 Unknown Rx [DUONEB *Not for PRN Use*] diphenhydrAMINE [Benadryl] 12.5 mg IV Q6H PRN vial 05/12/19 Unknown Rx Acetaminophen [Acetaminophen TAB] 650 mg PO Q4H PRN tablet 07/06/19 Unknown Rx hydrALAZINE [Apresoline INJ] 5 mg IV Q30MIN PRN vial 07/06/19 Unknown Rx oxyCODONE /ACETAMINOPHEN [Percocet 1 tab PO Q6H PRN tablet 07/06/19 Unknown Rx 5/325 mg] traMADoL [Ultram 50 MG tab] 25 mg PO Q4H PRN tablet 07/06/19 Unknown Rx Ferrous Sulfate [Ferrous Sulfate 324 mg PO DAILY #30 tablet.dr 07/27/19 Unknown Rx 324 MG] predniSONE [Deltasone] 40 mg PO QDAY 5 Days tab 07/27/19 Unknown Rx Famotidine [Pepcid] 20 mg PO Q12H #20 tablet 08/01/19 Unknown Rx diphenhydrAMINE [Benadryl CAP] 25 mg PO Q6HR PRN #30 capsule 08/01/19 Unknown Rx predniSONE [Deltasone] 40 mg PO QDAY #12 tablet 08/01/19 Unknown Rx Allergies Allergy/AdvReac Type Severity Reaction Status Date / Time lisinopril Allergy Angioedema Verified 12/10/16 13:29 ED Review of Systems ROS: Stated complaint: WELLING THROAT Other details as noted in HPI Constitutional: denies: chills, fever Eyes: denies: eye pain, eye discharge, vision change ENT: throat pain. denies: ear pain, dental pain, congestion Respiratory: denies: cough, shortness of breath, SOB with exertion, SOB at rest, wheezing Cardiovascular: denies: chest pain, palpitations Endocrine: no symptoms reported Gastrointestinal: denies: abdominal pain, nausea, diarrhea Genitourinary: denies: urgency, dysuria Musculoskeletal: denies: back pain, joint swelling, arthralgia Skin: denies: rash, lesions Neurological: denies: headache, weakness, paresthesias Psychiatric: denies: anxiety, depression Hematological/Lymphatic: denies: easy bleeding, easy bruising ED Past Medical Hx - Past Medical History Previous Medical History?: Yes Hx Hypertension: Yes Hx Congestive Heart Failure: Yes Additional medical history: sarcodosis,elevated cholesterol, pneumothorax in April 2019, pacemaker - Surgical History Past Surgical History?: Yes Hx Internal Defibrillator: Yes Additional Surgical History: defribilator - Social History Smoking Status: Current Every Day Smoker - Medications Home Medications: Home Medications Medication Instructions Recorded Confirmed Last Taken Type AtorvaSTATin [Lipitor] 1 tab PO DAILY 05/06/19 07/03/19 Unknown History Cyanocobalamin [Vitamin B-12] 1 tab PO DAILY 05/06/19 07/03/19 Unknown History Loratadine 1 tab PO DAILY PRN 05/06/19 07/03/19 Unknown History carvediloL [Coreg] 2 tab PO BID 05/06/19 07/03/19 Unknown History Acetaminophen [Acetaminophen TAB] 650 mg PO Q4H PRN tablet 05/12/19 07/03/19 Unknown Rx Ipratropium/Albuterol Sulfate 1 ampul IH TIDRT ampul.neb 05/12/19 07/03/19 Unknown Rx [DUONEB *Not for PRN Use*] diphenhydrAMINE [Benadryl] 12.5 mg IV Q6H PRN vial 05/12/19 07/03/19 Unknown Rx hydroCHLOROthiazide [HCTZ] 25 mg PO QDAY 07/05/19 07/05/19 Unknown History Acetaminophen [Acetaminophen TAB] 650 mg PO Q4H PRN tablet 07/06/19 Unknown Rx hydrALAZINE [Apresoline INJ] 5 mg IV Q30MIN PRN vial 07/06/19 Unknown Rx oxyCODONE /ACETAMINOPHEN [Percocet 1 tab PO Q6H PRN tablet 07/06/19 Unknown Rx 5/325 mg] traMADoL [Ultram 50 MG tab] 25 mg PO Q4H PRN tablet 07/06/19 Unknown Rx Ferrous Sulfate [Ferrous Sulfate 324 mg PO DAILY #30 tablet.dr 07/27/19 Unknown Rx 324 MG] predniSONE [Deltasone] 40 mg PO QDAY 5 Days tab 07/27/19 Unknown Rx Famotidine [Pepcid] 20 mg PO Q12H #20 tablet 08/01/19 Unknown Rx diphenhydrAMINE [Benadryl CAP] 25 mg PO Q6HR PRN #30 capsule 08/01/19 Unknown Rx predniSONE [Deltasone] 40 mg PO QDAY #12 tablet 08/01/19 Unknown Rx ED Physical Exam - General Limitations: No Limitations General appearance: alert, in no apparent distress - Head Head exam: Present: atraumatic, normocephalic, normal inspection - Eye Eye exam: Present: normal appearance, PERRL, EOMI Pupils: Present: normal accommodation - ENT ENT exam: Present: normal exam, normal orophraynx, mucous membranes moist, TM's normal bilaterally, normal external ear exam - Neck Neck exam: Present: normal inspection, full ROM. Absent: tenderness, meningismus, lymphadenopathy - Respiratory Respiratory exam: Present: normal lung sounds bilaterally. Absent: respiratory distress, wheezes, chest wall tenderness, accessory muscle use, prolonged expi ratory - Cardiovascular Cardiovascular Exam: Present: regular rate, normal rhythm, normal heart sounds. Absent: systolic murmur, diastolic murmur, rubs, gallop - GI/Abdominal GI/Abdominal exam: Present: soft, normal bowel sounds. Absent: tenderness, guarding, hyperactive bowel sounds, hypoactive bowel sounds - Extremities Exam Extremities exam: Present: normal inspection, full ROM, normal capillary refill - Back Exam Back exam: Present: normal inspection, full ROM. Absent: tenderness, CVA tenderness (R), CVA tenderness (L), muscle spasm, paraspinal tenderness - Neurological Exam Neurological exam: Present: alert, oriented X3, CN II-XII intact, normal gait, reflexes normal - Psychiatric Psychiatric exam: Present: normal affect, normal mood - Skin Skin exam: Present: warm, dry, intact, normal color. Absent: rash ED Course Vital Signs 07/31/19 22:29 Temperature 98.5 F Pulse Rate 98 H Respiratory 18 Rate Blood Pressure 150/90 O2 Sat by Pulse 97 Oximetry ED Medical Decision Making - Medical Decision Making This is a 53-year-old -[place] male who presented to the ED with acute onset mild throat discomfort and suspected that he may have been developing acute allergic reaction. Patient states that he felt similar symptoms about 5 days ago and was diagnosed with acute allergic reaction, was treated in this ED and given prescriptions which he never had filled. Patient states that he felt about he did not need to fill the prescription after getting treatment in the ED. In the ED today, patient is alert and oriented 3 and is not in distress, with no discharge, dysphonia, or shortness of breath, itching or rashes. Patient was treated initially with oral steroids, Benadryl and Pepcid. On reevaluation, patient felt better and was discharged home on prescriptions for the same. Patient is advised to follow-up with is unremarkable physician in 3- 5 days for reevaluation or return to the ED immediately if symptoms get worse. - Differential Diagnosis acute allergic reaction; acute urticaria Critical care attestation.: If time is entered above; I have spent that time in minutes in the direct care of this critically ill patient, excluding procedure time. ED Disposition Clinical Impression: Acute urticaria Acute allergic reaction Qualifiers: Encounter type: initial encounter Qualified Code(s): T78.40XA - Allergy, unspecified, initial encounter Disposition: TO HOME OR SELFCARE Is pt being admited?: No Does the pt Need Aspirin: No Condition: Stable Instructions: Urticaria (ED), Allergies (ED) Additional Instructions: Take medication with, plenty of fluids and follow-up with her primary care physician as previously scheduled. Return to the ED immediately if symptoms get worse. Prescriptions: diphenhydrAMINE [Benadryl CAP] 25 mg PO Q6HR PRN #30 capsule PRN Reason: Allergy Symptoms predniSONE [Deltasone] 40 mg PO QDAY #12 tablet Famotidine [Pepcid] 20 mg PO Q12H #20 tablet Referrals: PRIMARY CARE, [Primary Care Provider] - 3-5 Days Time of Disposition: 02:27 Print Language: EGYPTIAN
[2019-08-01 03:05] VITALS: BP 161/90
== END 2019-08-01 03:32 | disposition home or self-care (01) ==
LOC: ED 22:25
DX: L50.9 Urticaria, unspecified (principal); T78.40XA Allergy, unspecified, initial encounter; I11.0 Hypertensive heart disease with heart failure; I50.9 Heart failure, unspecified; F17.200 Nicotine dependence, unspecified, uncomplicated; Z98.890 Other specified postprocedural states; Z79.899 Other long term (current) drug therapy; Z88.2 Allergy status to sulfonamides
CPT/HCPCS: 70360; 99283; J7512

== ENCOUNTER 2022-01-03 04:53 | Emergency (ER) | payer OTHER ==
[2022-01-03] MEDS ORDERED: ALBUTEROL 2.5 MG/3 ML NEBU IH ONE (06:05)
[2022-01-03] MEDS ORDERED: methylPREDNISolone Sod Succinate 125 MG/2 ML INJ IV ONE (06:05)
--- NOTE | 2022-01-03 06:23 | Emergency Department Report ---
ED Shortness of Breath HPI - General Chief Complaint: Dyspnea/Respdistress Stated Complaint: JOSSELIN Time Seen by Provider: 01/03/22 06:04 Source: patient Mode of arrival: Stretcher Limitations: No Limitations - History of Present Illness Initial Comments: Patient is a 56-year-old male with history of COPD and sarcoidosis presenting with complaint of shortness of breath that began this morning at approximately 4 AM after a coughing spell. States he had difficulty taking a deep breath. He reports history of several pleural blebs and 5 pneumothoraces. States he initially was concerned that he may have another pneumothorax. He denies any fever or chills. - Related Data Home Medications Medication Instructions Recorded Confirmed Last Taken AtorvaSTATin [Lipitor] 1 tab PO DAILY 05/06/19 07/03/19 Unknown Cyanocobalamin [Vitamin B-12] 1 tab PO DAILY 05/06/19 07/03/19 Unknown Loratadine 1 tab PO DAILY PRN 05/06/19 07/03/19 Unknown carvediloL [Coreg] 2 tab PO BID 05/06/19 07/03/19 Unknown hydroCHLOROthiazide [HCTZ] 25 mg PO QDAY 07/05/19 07/05/19 Unknown Previous Rx's Medication Instructions Recorded Last Taken Type Acetaminophen [Acetaminophen TAB] 650 mg PO Q4H PRN tablet 05/12/19 Unknown Rx Ipratropium/Albuterol Sulfate 1 ampul IH TIDRT ampul.neb 05/12/19 Unknown Rx [DUONEB *Not for PRN Use*] diphenhydrAMINE [Benadryl] 12.5 mg IV Q6H PRN vial 05/12/19 Unknown Rx oxyCODONE /ACETAMINOPHEN [Percocet 1 tab PO Q6H PRN tablet 07/06/19 Unknown Rx 5/325 mg] traMADoL [Ultram 50 MG tab] 25 mg PO Q4H PRN tablet 07/06/19 Unknown Rx Ferrous Sulfate [Ferrous Sulfate 324 mg PO DAILY #30 tablet. 07/27/19 Unknown Rx 324 MG] predniSONE [Deltasone] 40 mg PO QDAY 5 Days tab 07/27/19 Unknown Rx Famotidine [Pepcid] 20 mg PO Q12H #20 tablet 08/01/19 Unknown Rx diphenhydrAMINE [Benadryl CAP] 25 mg PO Q6HR PRN #30 capsule 08/01/19 Unknown Rx Insulin NPH/Regular [NovoLIN 70/30] 45 unit SUB-Q BIDDIAB #1 units 07/27/20 Unknown Rx predniSONE [Deltasone] 40 mg PO QDAY #10 01/03/22 Unknown Rx Allergies Allergy/AdvReac Type Severity Reaction Status Date / Time lisinopril Allergy Angioedema Verified 12/10/16 13:29 ED Review of Systems ROS: Stated complaint: JOSSELIN Other details as noted in HPI Constitutional: denies: chills, fever Respiratory: cough, SOB with exertion Cardiovascular: denies: chest pain, palpitations Gastrointestinal: denies: abdominal pain, nausea, diarrhea Genitourinary: denies: urgency, dysuria Musculoskeletal: denies: back pain, joint swelling, arthralgia Skin: denies: rash, lesions Neurological: denies: headache, weakness, paresthesias Psychiatric: denies: anxiety, depression ED Past Medical Hx - Past Medical History Hx Hypertension: Yes Hx Congestive Heart Failure: Yes Hx HIV: No Additional medical history: sarcodosis,elevated cholesterol, pneumothorax in April 2019, pacemaker - Surgical History Hx Internal Defibrillator: Yes Additional Surgical History: defribilator - Social History Smoking Status: Current Every Day Smoker Substance Use Type: None - Medications Home Medications: Home Medications Medication Instructions Recorded Confirmed Last Taken Type AtorvaSTATin [Lipitor] 1 tab PO DAILY 05/06/19 07/03/19 Unknown History Cyanocobalamin [Vitamin B-12] 1 tab PO DAILY 05/06/19 07/03/19 Unknown History Loratadine 1 tab PO DAILY PRN 05/06/19 07/03/19 Unknown History carvediloL [Coreg] 2 tab PO BID 05/06/19 07/03/19 Unknown History Acetaminophen [Acetaminophen TAB] 650 mg PO Q4H PRN tablet 05/12/19 07/03/19 Unknown Rx Ipratropium/Albuterol Sulfate 1 ampul IH TIDRT ampul.neb 05/12/19 07/03/19 Unknown Rx [DUONEB *Not for PRN Use*] diphenhydrAMINE [Benadryl] 12.5 mg IV Q6H PRN vial 05/12/19 07/03/19 Unknown Rx hydroCHLOROthiazide [HCTZ] 25 mg PO QDAY 07/05/19 07/05/19 Unknown History oxyCODONE /ACETAMINOPHEN [Percocet 1 tab PO Q6H PRN tablet 07/06/19 Unknown Rx 5/325 mg] traMADoL [Ultram 50 MG tab] 25 mg PO Q4H PRN tablet 07/06/19 Unknown Rx Ferrous Sulfate [Ferrous Sulfate 324 mg PO DAILY #30 tablet. 07/27/19 Unknown Rx 324 MG] predniSONE [Deltasone] 40 mg PO QDAY 5 Days tab 07/27/19 Unknown Rx Famotidine [Pepcid] 20 mg PO Q12H #20 tablet 08/01/19 Unknown Rx diphenhydrAMINE [Benadryl CAP] 25 mg PO Q6HR PRN #30 capsule 08/01/19 Unknown Rx Insulin NPH/Regular [NovoLIN 70/30] 45 unit SUB-Q BIDDIAB #1 units 07/27/20 Unknown Rx predniSONE [Deltasone] 40 mg PO QDAY #10 01/03/22 Unknown Rx ED Physical Exam - General Limitations: No Limitations General appearance: alert, in no apparent distress - Head Head exam: Present: atraumatic, normocephalic - Respiratory Respiratory exam: Present: normal lung sounds bilaterally, decreased breath sounds. Absent: respiratory distress - Cardiovascular Cardiovascular Exam: Present: regular rate, normal rhythm, normal heart sounds - GI/Abdominal GI/Abdominal exam: Present: soft. Absent: distended, tenderness - Rectal Rectal exam: Present: deferred - Extremities Exam Extremities exam: Present: normal inspection. Absent: pedal edema - Neurological Exam Neurological exam: Present: alert, oriented X3 - Psychiatric Psychiatric exam: Present: normal affect, normal mood - Skin Skin exam: Present: warm, dry, intact, normal color ED Course Vital Signs 01/03/22 01/03/22 01/03/22 05:13 05:18 05:30 Temperature 98 F Pulse Rate 84 83 Pulse Rate [ Bilateral Throughout] Respiratory 15 18 18 Rate Respiratory Rate [Bilateral Throughout] Blood Pressure 119/68 119/68 Blood Pressure 119/68 [Left] O2 Sat by Pulse 95 95 Oximetry 01/03/22 01/03/22 01/03/22 05:31 05:32 07:25 Temperature 98 F Pulse Rate Pulse Rate [ 86 Bilateral Throughout] Respiratory Rate Respiratory 16 Rate [Bilateral Throughout] Blood Pressure Blood Pressure [Left] O2 Sat by Pulse 95 Oximetry ED Medical Decision Making - Medical Decision Making Chest x-ray unremarkable. Patient given additional albuterol neb in the emergency department. On reassessment wheezing is resolved. Patient has a normal work of breathing and is satting 94% on room air. Will discharge home with 5-day course of prednisone. Critical care attestation.: If time is entered above; I have spent that time in minutes in the direct care of this critically ill patient, excluding procedure time. ED Disposition Clinical Impression: Asthma exacerbation Disposition: HOME / SELF CARE / HOMELESS Is pt being admited?: No Condition: Stable Instructions: Asthma, Adult Additional Instructions: Please follow-up with your regular doctor within 1 week. You may return if your symptoms worsen.
--- NOTE | 2022-01-03 06:36 | XRay Report ---
CHEST 1 VIEW 01/03/2022 6:12 AM INDICATION / CLINICAL INFORMATION: Dyspnea. COMPARISON: 07/05/2019. FINDINGS: SUPPORT DEVICES: ICD. HEART / MEDIASTINUM: No significant abnormality. Prominent quang are unchanged. LUNGS / PLEURA: Mild opacity left base. Right lung clear. No pneumothorax. ADDITIONAL FINDINGS: No significant additional findings. IMPRESSION: Possible mild left basilar pneumonia. Signer Name: Norberto Whitehead MD Signed: 01/03/2022 6:31 AM Workstation Name: [id number]
[2022-01-03 08:06] VITALS: BP 124/70
== END 2022-01-03 09:00 | disposition home or self-care (01) ==
LOC: ED 04:53
DX: J45.901 Unspecified asthma with (acute) exacerbation (principal); F17.200 Nicotine dependence, unspecified, uncomplicated; Z88.8 Allergy status to other drugs, medicaments and biological substances; I10 Essential (primary) hypertension
CPT/HCPCS: 71045; 94640; 96374; 99284; J2930; 94644

== ENCOUNTER 2022-03-02 16:23 | Inpatient (IN) | payer OTHER ==
[2022-03-02] MEDS ORDERED: ALBUTEROL 2.5 MG/3 ML NEBU IH ONE (18:44)
[2022-03-02] MEDS ORDERED: IPRATROPIUM 0.02% NEBU 2.5 ML IH ONE (18:44)
--- NOTE | 2022-03-02 18:45 | Emergency Department Report ---
ED General Adult HPI - General Chief complaint: Dyspnea/Respdistress Stated complaint: Time Seen by Provider: 03/02/22 18:34 Source: patient, EMS (Verbal report received from emergency medical services. EMS documentation not available at time of chart dictation ), RN notes reviewed, old records reviewed Mode of arrival: Stretcher Limitations: Physical Limitation - History of Present Illness Initial comments: The patient was evaluated in the emergency department for symptoms described in the history of present illness. He/she was evaluated in the context of the global COVID-19 pandemic, which necessitated consideration that the patient might be at risk for infection with the virus that causes COVID-19. Institutional protocols and algorithms that pertain to the evaluation of patients at risk for COVID-19 are in a state of rapid change based on information released by regulatory bodies including the CDC and federal and state organizations. These policies and algorithms were followed during the patient's care in the emergency department. Please note that these policies, procedures and recommendations changed on a rapid basis. This is a pleasant and cooperative 56-year-old gentleman, with a history of COPD, spontaneous pneumothorax, congestive heart failure, possible sarcoid, who is COVID-19 vaccinated. He presents to the ER today with EMS with an EMS articulated complaint of chest tightness and shortness of breath. Patient is not sure if he is having similar episode to prior episodes of pneumothorax. He denies DVT and pulmonary embolism risk factors. He has a mild cough. EMS initiated treatments in the field. Patient has not eaten since 7:00 in the morning. The patient was found to have a large right-sided pneumothorax in the emergency room. The patient provided verbal and written informed consent for sterile pigtail catheter placement. After the pigtail catheter was placed, he felt markedly improved. He now feels back to his baseline. -: Sudden Location: chest Severity scale (0 -10): 0 Consistency: constant Improves with: other (Placement of chest tube) Worsens with: other (Position and exertion) - Related Data Home Medications Medication Instructions Recorded Confirmed Last Taken AtorvaSTATin [Lipitor] 1 tab PO DAILY 05/06/19 07/03/19 Unknown Cyanocobalamin [Vitamin B-12] 1 tab PO DAILY 05/06/19 07/03/19 Unknown Loratadine 1 tab PO DAILY PRN 05/06/19 07/03/19 Unknown carvediloL [Coreg] 2 tab PO BID 05/06/19 07/03/19 Unknown hydroCHLOROthiazide [HCTZ] 25 mg PO QDAY 07/05/19 07/05/19 Unknown Previous Rx's Medication Instructions Recorded Last Taken Type Acetaminophen [Acetaminophen TAB] 650 mg PO Q4H PRN tablet 05/12/19 Unknown Rx Ipratropium/Albuterol Sulfate 1 ampul IH TIDRT ampul.neb 05/12/19 Unknown Rx [DUONEB *Not for PRN Use*] diphenhydrAMINE [Benadryl] 12.5 mg IV Q6H PRN vial 05/12/19 Unknown Rx oxyCODONE /ACETAMINOPHEN [Percocet 1 tab PO Q6H PRN tablet 07/06/19 Unknown Rx 5/325 mg] traMADoL [Ultram 50 MG tab] 25 mg PO Q4H PRN tablet 07/06/19 Unknown Rx Ferrous Sulfate [Ferrous Sulfate 324 mg PO DAILY #30 tablet. 07/27/19 Unknown Rx 324 MG] predniSONE [Deltasone] 40 mg PO QDAY 5 Days tab 07/27/19 Unknown Rx Famotidine [Pepcid] 20 mg PO Q12H #20 tablet 08/01/19 Unknown Rx diphenhydrAMINE [Benadryl CAP] 25 mg PO Q6HR PRN #30 capsule 08/01/19 Unknown Rx Insulin NPH/Regular [NovoLIN 70/30] 45 unit SUB-Q BIDDIAB #1 units 07/27/20 Unknown Rx predniSONE [Deltasone] 40 mg PO QDAY #10 01/03/22 Unknown Rx Allergies Allergy/AdvReac Type Severity Reaction Status Date / Time lisinopril Allergy Angioedema Verified 12/10/16 13:29 ED Review of Systems ROS: Stated complaint: Other details as noted in HPI Constitutional: malaise. denies: fever ENT: congestion Respiratory: cough, shortness of breath Cardiovascular: chest pain Gastrointestinal: denies: abdominal pain Genitourinary: denies: dysuria Musculoskeletal: myalgia Neurological: weakness Psychiatric: anxiety ED Past Medical Hx - Past Medical History Hx Hypertension: Yes Hx Congestive Heart Failure: Yes Hx COPD: Yes Hx HIV: No Additional medical history: sarcodosis,elevated cholesterol, pneumothorax in April 2019, pacemaker - Surgical History Hx Internal Defibrillator: Yes Additional Surgical History: defribilator - Social History Smoking Status: Current Every Day Smoker Substance Use Type: None - Medications Home Medications: Home Medications Medication Instructions Recorded Confirmed Last Taken Type AtorvaSTATin [Lipitor] 1 tab PO DAILY 05/06/19 07/03/19 Unknown History Cyanocobalamin [Vitamin B-12] 1 tab PO DAILY 05/06/19 07/03/19 Unknown History Loratadine 1 tab PO DAILY PRN 05/06/19 07/03/19 Unknown History carvediloL [Coreg] 2 tab PO BID 05/06/19 07/03/19 Unknown History Acetaminophen [Acetaminophen TAB] 650 mg PO Q4H PRN tablet 05/12/19 07/03/19 Unknown Rx Ipratropium/Albuterol Sulfate 1 ampul IH TIDRT ampul.neb 05/12/19 07/03/19 Unknown Rx [DUONEB *Not for PRN Use*] diphenhydrAMINE [Benadryl] 12.5 mg IV Q6H PRN vial 05/12/19 07/03/19 Unknown Rx hydroCHLOROthiazide [HCTZ] 25 mg PO QDAY 07/05/19 07/05/19 Unknown History oxyCODONE /ACETAMINOPHEN [Percocet 1 tab PO Q6H PRN tablet 07/06/19 Unknown Rx 5/325 mg] traMADoL [Ultram 50 MG tab] 25 mg PO Q4H PRN tablet 07/06/19 Unknown Rx Ferrous Sulfate [Ferrous Sulfate 324 mg PO DAILY #30 tablet. 07/27/19 Unknown Rx 324 MG] predniSONE [Deltasone] 40 mg PO QDAY 5 Days tab 07/27/19 Unknown Rx Famotidine [Pepcid] 20 mg PO Q12H #20 tablet 08/01/19 Unknown Rx diphenhydrAMINE [Benadryl CAP] 25 mg PO Q6HR PRN #30 capsule 08/01/19 Unknown Rx Insulin NPH/Regular [NovoLIN 70/30] 45 unit SUB-Q BIDDIAB #1 units 07/27/20 Unknown Rx predniSONE [Deltasone] 40 mg PO QDAY #10 01/03/22 Unknown Rx ED Physical Exam - General Limitations: Physical Limitation General appearance: alert, anxious, in distress, obese - Head Head exam: Present: atraumatic, normocephalic - Eye Eye exam: Present: normal appearance, EOMI. Absent: nystagmus - ENT ENT exam: Present: normal exam, normal orophraynx, mucous membranes moist, normal external ear exam - Neck Neck exam: Present: normal inspection, full ROM. Absent: tenderness, meningismus - Respiratory Respiratory exam: Present: respiratory distress, decreased breath sounds (Decreased breath sounds in the right hemithorax). Absent: normal lung sounds bilaterally, rhonchi, stridor - Cardiovascular Cardiovascular Exam: Present: normal rhythm, tachycardia, normal heart sounds. Absent: bradycardia, irregular rhythm, systolic murmur, diastolic murmur, rubs, gallop - GI/Abdominal GI/Abdominal exam: Present: soft. Absent: distended, tenderness, guarding, rebound, rigid, pulsatile mass - Rectal Rectal exam: Present: deferred - Extremities Exam Extremities exam: Present: normal inspection, full ROM, other (2+ pulses noted in the bilateral upper and lower extremities. There is no palpable cord. negative Homans sign. Muscular compartments are soft. The pelvis is stable.). Absent: calf tenderness - Back Exam Back exam: Present: normal inspection. Absent: tenderness, CVA tenderness (R), CVA tenderness (L), paraspinal tenderness, vertebral tenderness - Neurological Exam Neurological exam: Present: alert, oriented X3, other (No facial droop. Tongue midline. Extraocular movements intact bilaterally. Facial sensation intact to light touch in V1, V2, V3 distribution bilaterally. 5 and a 5 strength in 4 extremities. Sensation intact to light touch in 4 extremities.). Absent: motor sensory deficit - Psychiatric Psychiatric exam: Present: anxious - Skin Skin exam: Present: warm, dry, intact, normal color. Absent: rash ED Course Vital Signs 03/02/22 03/02/22 03/02/22 17:46 18:52 20:39 Temperature 97.8 F Pulse Rate 110 H 112 H Respiratory 18 17 19 Rate Blood Pressure 156/88 136/94 [Left] O2 Sat by Pulse 97 95 Oximetry - Chest Tube Chest Tube Location: mid axillary line Size of Indonesian Tube (cm): 10 (10.2) Chest Tube Procedure: betadine prep, sterile drapes applied Anesthesia: 1% Lidocaine w/ Epi Volume Anesthetic (ccs): 15 [place] of Air Stone: Yes Number of Attempts: 1 Tube Drainage: see nurses notes Tube Sutured to Skin: Yes Post Procedure CXR?: Yes Progress: Discussed risks, benefits and alternatives of sterile pigtail catheter placement. Patient provided verbal and written informed consent for sterile pigtail catheter placement. A timeout is performed. Multiple patient identifiers are used. The right hemithorax is prepped in typical aseptic technique, and the appropriate mid axillary line is anesthetized with copious lidocaine. Patient is prepped and draped in typical sterile fashion. Have placed maximum barrier personal protective equipment prior to initiation of sterile procedure An 11 blade is used to make a stab incision on the superior aspect of the costal margin, and gently dissected. Then, using the 10.2 Indonesian pigtail catheter, and associated trocar, the costal margin is gently walking in a superior direction, superior aspect of rib is appreciated, and the trocar is inserted through the pleura, with the pigtail catheter then being inserted. The trochars immediately removed. The pigtail catheter is sutured into place. Xeroform and 4 x 4 are then applied. The pigtail is then affixed to the skin with large Tegaderm, Heimlich valve is then connected to Pleur-evac, regular suction, -20 cm of water. The patient tolerated the procedure well, and without obvious complication ED Medical Decision Making - Lab Data Result diagrams: 03/02/22 18:49 03/02/22 18:49 Vital Signs 03/02/22 03/02/22 17:46 18:52 Temperature 97.8 F Pulse Rate 110 H 112 H Respiratory 18 17 Rate Blood Pressure 156/88 136/94 [Left] O2 Sat by Pulse 97 95 Oximetry Lab Results 03/02/22 03/02/22 03/02/22 Range/Units 18:49 18:49 18:49 WBC 5.5 (4.5-11.0) K/mm3 RBC 5.27 H (3.65-5.03) M/mm3 Hgb 13.2 (11.8-15.2) gm/dl Hct 40.9 (35.5-45.6) % MCV 78 L (84-94) fl MCH 25 L (28-32) pg MCHC 32 (32-34) % RDW 14.8 (13.2-15.2) % Plt Count 232 (140-440) K/mm3 Lymph % (Auto) 16.7 (13.4-35.0) % [place] % (Auto) 11.5 H (0.0-7.3) % Eos % (Auto) 2.1 (0.0-4.3) % Baso % (Auto) 0.3 (0.0-1.8) % Lymph # (Auto) 0.9 L (1.2-5.4) K/mm3 [place] # (Auto) 0.6 (0.0-0.8) K/mm3 Eos # (Auto) 0.1 (0.0-0.4) K/mm3 Baso # (Auto) 0.0 (0.0-0.1) K/mm3 Seg Neutrophils % 69.4 (40.0-70.0) % Seg Neutrophils # 3.8 (1.8-7.7) K/mm3 PT 12.0 L (12.2-14.9) Sec. INR 0.79 L (0.87-1.13) APTT 26.6 (24.2-36.6) Sec. Sodium 137 (137-145) mmol/L Potassium 3.1 L (3.6-5.0) mmol/L Chloride 96.0 L (98-107) mmol/L Carbon Dioxide 24 (22-30) mmol/L Anion Gap 20 mmol/L BUN 13 (9-20) mg/dL Creatinine 1.3 (0.8-1.3) mg/dL Estimated GFR > 60 ml/min BUN/Creatinine Ratio 10 % Glucose 216 H (75-100) mg/dL Calcium 9.1 (8.4-10.2) mg/dL Magnesium 1.10 L (1.7-2.3) mg/dL Total Bilirubin 0.50 (0.1-1.2) mg/dL AST 37 (5-40) units/L ALT 27 (7-56) units/L Alkaline Phosphatase 66 (35-129) units/L Troponin T < 0.010 (0.00-0.029) ng/mL NT-Pro-B Natriuret Pep 31.99 (0-900) pg/mL Total Protein 6.4 (6.3-8.2) g/dL Albumin 4.2 (3.9-5) g/dL Albumin/Globulin Ratio 1.9 % - EKG Data -: EKG Interpreted by Id EKG shows normal: sinus rhythm Rate: normal - EKG Data 03/02/22 21:41 The EKG is interpreted at 21: 20 Sinus rhythm, with a rate of 91 bpm. Normal axis, normal P wave axis, QTC 4 6 1 ms. Left ventricular hypertrophy, motion artifact. Abnormal EKG. Not a STEMI. Poor R wave progression. - Radiology Data Radiology results: pending, report reviewed, image reviewed CHEST 1 VIEW 03/02/2022 6:05 PM INDICATION / CLINICAL INFORMATION: Dyspnea, copd sarcoid, hx of ptx. COMPARISON: None available. FINDINGS: There is a large right pneumothorax. No mediastinal shift. Pacer leads are noted. IMPRESSION: Large right pneumothorax Called to Dr Dukes Signer Name: Damon Black MD Signed: 03/02/2022 6:49 PM Workstation Name: [id number] CHEST 1 VIEW 03/02/2022 7:51 PM INDICATION / CLINICAL INFORMATION: s/p chest tube placement. COMPARISON: Chest radiograph of same date FINDINGS: SUPPORT DEVICES: Interval placement of a right thoracostomy tube. There is a left chest wall cardiac generator. HEART / MEDIASTINUM: No significant abnormality. LUNGS / PLEURA: Interval reexpansion of the right lung without large residual pneumothorax although evaluation is limited on the supine radiograph. There are hazy opacities throughout the right lung, likely related to atelectasis. ADDITIONAL FINDINGS: No significant additional findings. IMPRESSION: 1. Interval placement of a right thoracostomy tube with reexpansion of the lung. Signer Name: Kirill Chen MD Signed: 03/02/2022 7:13 PM Workstation Name: [id number] - Medical Decision Making Differential diagnosis, including but not limited to: Pneumothorax, COPD exacerbation, electrolyte derangement Assessment and plan: 56-year-old gentleman with acute right-sided pneumothorax without evidence of tension physiology. A pigtail catheter was placed, using maximum sterile technique, and the lung appears to be reinflated. He is currently on a Pleur-evac, attached to regular suction, -20 cm of water. He is found to be hypokalemic and hypomagnesemic. He will receive albuterol, Atrovent, steroids, and electrolyte replenishment. Discussed the patient's history, physical, imaging studies and clinical impression with general surgery, Dr Thao Maria, pulmonary physician, Dr Thao Vasquez as well as hospital medicine, Dr. Mari Alarcon. General surgery and pulmonary consultants will follow in consultation. Hospital physician, Dr. Mari Alarcon will admit patient to [facility] with remote telemetry. Patient is agreeable to admission hospitalization Critical Care Time: Yes Critical care time in (mins) excluding proc time.: 35 Critical care attestation.: If time is entered above; I have spent that time in minutes in the direct care of this critically ill patient, excluding procedure time. ED Disposition Clinical Impression: Pneumothorax on right, Hypokalemia, Hypomagnesemia, COPD (chronic obstructive pulmonary disease) Disposition: 09 ADMITTED INPATIENT Is pt being admited?: Yes Does the pt Need Aspirin: No Condition: Good Instructions: Chronic Obstructive Pulmonary Disease (ED)
[2022-03-02] MEDS ORDERED: LIDOCAINE 2%/EPINEPHRINE 1:100,000 VIAL (20 ML) INFILTRATI ONE (19:04)
[2022-03-02] MEDS ORDERED: fentaNYL 100 MCG/2 ML INJ IV ONE ×2 (19:04→20:06)
[2022-03-02 19:12] LABS: Basophils % (Auto) 0.3 % (0.0-1.8); Eosinophils # (Auto) 0.1 K/mm3 (0.0-0.4); Eosinophils % (Auto) 2.1 % (0.0-4.3); Hematocrit 40.9 % (35.5-45.6); Hemoglobin 13.2 gm/dl (11.8-15.2); Lymphocytes # (Auto) 0.9 K/mm3 (1.2-5.4); Lymphocytes % (Auto) 16.7 % (13.4-35.0); Mean Corpuscular HGB Conc 32 % (32-34); Mean Corpuscular Volume 78 fl (84-94); Monocytes # (Auto) 0.6 K/mm3 (0.0-0.8); Monocytes % (Auto) 11.5 % (0.0-7.3); Platelet Count 232 K/mm3 (140-440); Red Blood Count 5.27 M/mm3 (3.65-5.03); Red Cell Distribution Width 14.8 % (13.2-15.2)
[2022-03-02 19:21] LABS: INR 0.79 (0.87-1.13)
[2022-03-02 19:22] LABS: Partial Thromboplastin Time 26.6 Sec. (24.2-36.6)
[2022-03-02 19:46] LABS: Alanine Aminotransferase 27 units/L (7-56); Albumin 4.2 g/dL (3.9-5); BUN/Creatinine Ratio 10; Blood Urea Nitrogen 13 mg/dL (9-20); Calcium 9.1 mg/dL (8.4-10.2); Hemolysis Index 5
--- NOTE | 2022-03-02 19:53 | XRay Report ---
CHEST 1 VIEW 03/02/2022 6:05 PM INDICATION / CLINICAL INFORMATION: Dyspnea, copd sarcoid, hx of ptx. COMPARISON: None available. FINDINGS: There is a large right pneumothorax. No mediastinal shift. Pacer leads are noted. IMPRESSION: Large right pneumothorax Called to Dr Dukes Signer Name: Damon Black MD Signed: 03/02/2022 7:49 PM Workstation Name: [id number]
[2022-03-02] MEDS ORDERED: methylPREDNISolone Sod Succinate 125 MG/2 ML INJ IV ONE (20:05)
[2022-03-02] MEDS ORDERED: MAGNESIUM SULFATE 2 GM/50 ML BAG IV ONE (20:05)
--- NOTE | 2022-03-02 20:17 | XRay Report ---
CHEST 1 VIEW 03/02/2022 7:51 PM INDICATION / CLINICAL INFORMATION: s/p chest tube placement. COMPARISON: Chest radiograph of same date FINDINGS: SUPPORT DEVICES: Interval placement of a right thoracostomy tube. There is a left chest wall cardiac generator. HEART / MEDIASTINUM: No significant abnormality. LUNGS / PLEURA: Interval reexpansion of the right lung without large residual pneumothorax although e valuation is limited on the supine radiograph. There are hazy opacities throughout the right lung, li monique related to atelectasis. ADDITIONAL FINDINGS: No significant additional findings. IMPRESSION: 1. Interval placement of a right thoracostomy tube with reexpansion of the lung. Signer Name: Kirill Chen MD Signed: 03/02/2022 8:13 PM Workstation Name: [id number]
[2022-03-02] MEDS ORDERED: MORPHINE 4 MG/1 ML INJ IV ONE (20:34)
[2022-03-02] MEDS ORDERED: ONDANSETRON 4 MG/2 ML INJ IV PRN ×2 (21:10→23:10)
[2022-03-02] MEDS ORDERED: ACETAMINOPHEN 325 MG TAB PO PRN ×3 (21:10→23:17)
[2022-03-02] MEDS ORDERED: SODIUM CHLORIDE 0.9% 250ML 250 ML IV ONE (21:31)
[2022-03-02] MEDS: POTASSIUM CHLORIDE 10 MEQ 10 MEQ/100 ML BAG IV SCH (21:42)
[2022-03-02] MEDS ORDERED: POTASSIUM CHLORIDE ER 20 MEQ TAB PO ONE (22:29)
--- NOTE | 2022-03-02 22:58 | History and Physical Report ---
History of Present Illness Date of examination: 03/02/22 Date of admission: 03/02/2022 Chief complaint: Increasing shortness of breath for 3 days History of present illness: This is a pleasant and cooperative 56-year-old gentleman, with a history of COPD, spontaneous pneumothorax, congestive heart failure, possible sarcoid, who is COVID-19 vaccinated. He presents to the ER today with EMS with an EMS articulated complaint of chest tightness and shortness of breath. Patient is not sure if he is having similar episode to prior episodes of pneumothorax. He denies DVT and pulmonary embolism risk factors. He has a mild cough. EMS initiated treatments in the field. Patient has not eaten since 7:00 in the morning. The patient was found to have a large right-sided pneumothorax in the emergency room. The patient provided verbal and written informed consent for sterile pigtail catheter placement. After the pigtail catheter was placed, he felt markedly improved. He now feels back to his baseline. -: Sudden Location: chest Severity scale (0 -10): 0 Consistency: constant Improves with: other (Placement of chest tube) Worsens with: other (Position and exertion) - Past Medical History Hx Hypertension: Yes Hx Congestive Heart Failure: Yes Hx COPD: Yes Additional medical history: sarcodosis,elevated cholesterol, pneumothorax in April 2019, pacemaker - Surgical History Hx Internal Defibrillator: Yes Additional Surgical History: defribilator - Social History Smoking Status: Current Every Day Smoker Substance Use Type: None Family history --Htn - Medications Home Medications: Home Medications Medication Instructions Recorded Confirmed Last Taken Type AtorvaSTATin [Lipitor] 1 tab PO DAILY 05/06/19 07/03/19 Unknown History Cyanocobalamin [Vitamin B-12] 1 tab PO DAILY 05/06/19 07/03/19 Unknown History Loratadine 1 tab PO DAILY PRN 05/06/19 07/03/19 Unknown History carvediloL [Coreg] 2 tab PO BID 05/06/19 07/03/19 Unknown History Acetaminophen [Acetaminophen TAB] 650 mg PO Q4H PRN tablet 05/12/19 07/03/19 Unknown Rx Ipratropium/Albuterol Sulfate 1 ampul IH TIDRT ampul.neb 05/12/19 07/03/19 Unknown Rx [DUONEB *Not for PRN Use*] diphenhydrAMINE [Benadryl] 12.5 mg IV Q6H PRN vial 05/12/19 07/03/19 Unknown Rx hydroCHLOROthiazide [HCTZ] 25 mg PO QDAY 07/05/19 07/05/19 Unknown History oxyCODONE /ACETAMINOPHEN [Percocet 1 tab PO Q6H PRN tablet 07/06/19 Unknown Rx 5/325 mg] traMADoL [Ultram 50 MG tab] 25 mg PO Q4H PRN tablet 07/06/19 Unknown Rx Ferrous Sulfate [Ferrous Sulfate 324 mg PO DAILY #30 tablet. 07/27/19 Unknown Rx 324 MG] predniSONE [Deltasone] 40 mg PO QDAY 5 Days tab 07/27/19 Unknown Rx Famotidine [Pepcid] 20 mg PO Q12H #20 tablet 08/01/19 Unknown Rx diphenhydrAMINE [Benadryl CAP] 25 mg PO Q6HR PRN #30 capsule 08/01/19 Unknown Rx Insulin NPH/Regular [NovoLIN 70/30] 45 unit SUB-Q BIDDIAB #1 units 07/27/20 Unknown Rx predniSONE [Deltasone] 40 mg PO QDAY #10 01/03/22 Unknown Rx Review of Systems ROS: Stated complaint: Other details as noted in HPI Constitutional: malaise. denies: fever ENT: congestion Respiratory: cough, shortness of breath Cardiovascular: chest pain Gastrointestinal: denies: abdominal pain Genitourinary: denies: dysuria Musculoskeletal: myalgia Neurological: weakness Psychiatric: anxiety Medications and Allergies Allergies Allergy/AdvReac Type Severity Reaction Status Date / Time lisinopril Allergy Angioedema Verified 12/10/16 13:29 Home Medications Medication Instructions Recorded Confirmed Last Taken Type AtorvaSTATin [Lipitor] 1 tab PO DAILY 05/06/19 03/03/22 Unknown History Cyanocobalamin [Vitamin B-12] 1 tab PO DAILY 05/06/19 03/03/22 Unknown History Loratadine 1 tab PO DAILY PRN 05/06/19 03/03/22 Unknown History carvediloL [Coreg] 2 tab PO BID 05/06/19 03/03/22 Unknown History Acetaminophen [Acetaminophen TAB] 650 mg PO Q4H PRN tablet 05/12/19 03/03/22 Unknown Rx Ipratropium/Albuterol Sulfate 1 ampul IH TIDRT ampul.neb 05/12/19 03/03/22 Unknown Rx [DUONEB *Not for PRN Use*] diphenhydrAMINE [Benadryl] 12.5 mg IV Q6H PRN vial 05/12/19 03/03/22 Unknown Rx hydroCHLOROthiazide [HCTZ] 25 mg PO QDAY 07/05/19 03/03/22 Unknown History oxyCODONE /ACETAMINOPHEN [Percocet 1 tab PO Q6H PRN tablet 07/06/19 03/03/22 Unknown Rx 5/325 mg] traMADoL [Ultram 50 MG tab] 25 mg PO Q4H PRN tablet 07/06/19 03/03/22 Unknown Rx Ferrous Sulfate [Ferrous Sulfate 324 mg PO DAILY #30 tablet. 07/27/19 03/03/22 Unknown Rx 324 MG] predniSONE [Deltasone] 40 mg PO QDAY 5 Days tab 07/27/19 03/03/22 Unknown Rx Famotidine [Pepcid] 20 mg PO Q12H #20 tablet 08/01/19 03/03/22 Unknown Rx diphenhydrAMINE [Benadryl CAP] 25 mg PO Q6HR PRN #30 capsule 08/01/19 03/03/22 Unknown Rx Insulin NPH/Regular [NovoLIN 70/30] 45 unit SUB-Q BIDDIAB #1 units 07/27/20 03/03/22 Unknown Rx predniSONE [Deltasone] 40 mg PO QDAY #10 01/03/22 03/03/22 Unknown Rx Active Meds: Active Medications Acetaminophen (Acetaminophen 325 Mg Tab) 650 mg PO Q4H PRN PRN Reason: Pain MILD(1-3)/Fever >100.5/WINTERS Potassium Chloride (Kcl 10meq/100ml) 10 meq in 100 mls @ 100 mls/hr IV Q1H ANDREA Stop: 03/03/22 00:59 Last Admin: 03/02/22 21:42 Dose: 100 mls/hr Morphine Sulfate (Morphine 2 Mg/1 Ml Inj) 2 mg IV Q4H PRN PRN Reason: Pain, Moderate (4-6) Morphine Sulfate (Morphine 4 Mg/1 Ml Inj) 4 mg IV Q4H PRN PRN Reason: Pain , Severe (7-10) Ondansetron HCl (Ondansetron 4 Mg/2 Ml Inj) 4 mg IV Q8H PRN PRN Reason: Nausea And Vomiting Sodium Chloride (Sodium Chloride 0.9% 10 Ml Flush Syringe) 10 ml IV BID ANDREA Sodium Chloride (Sodium Chloride 0.9% 10 Ml Flush Syringe) 10 ml IV PRN PRN PRN Reason: LINE FLUSH Exam - Constitutional Vitals: Temp Pulse Resp BP Pulse Ox 97.8 F 112 H 19 136/94 95 03/02/22 17:46 03/02/22 18:52 03/02/22 20:39 03/02/22 18:52 03/02/22 18:52 General appearance: Present: severe distress, well-nourished - EENT Eyes: Present: PERRL ENT: hearing intact, clear oral mucosa - Neck Neck: Present: supple, normal ROM - Respiratory Respiratory effort: normal Respiratory: bilateral: CTA - Cardiovascular Heart rate: 78 Rhythm: regular Heart Sounds: Present: S1 & S2. Absent: rub, click - Extremities Extremities: no ischemia, pulses intact, pulses symmetrical, No edema Peripheral Pulses: within normal limits - Abdominal General gastrointestinal: Present: soft, non-tender, non-distended, normal bowel sounds Male genitourinary: Present: normal - Rectal Rectal Exam: deferred - Integumentary Integumentary: Present: clear, warm, dry - Musculoskeletal Musculoskeletal: gait normal, strength equal bilaterally - Psychiatric Psychiatric: appropriate mood/affect, intact judgment & insight - Neurologic Neurologic: CNII-XII intact, moves all extremities - Allied Health Allied health notes reviewed: nursing, case management HEART Score - HEART Score History: Slightly suspicious Age: 45-65 Risk factors: 1-2 risk factors Troponin: Troponin T < 0.010 ng/mL (0.00-0.029) 03/02/22 18:49 Troponin: 1-3x normal limit - Critical Actions Critical Actions: 0-3 pts:0.9-1.7%risk of adverse cardiac event.Candidate for discharge Results - Labs CBC & Chem 7: 03/03/22 05:22 03/03/22 05:22 Labs: Laboratory Last Values WBC 5.5 K/mm3 (4.5-11.0) 03/02/22 18:49 RBC 5.27 M/mm3 (3.65-5.03) H 03/02/22 18:49 Hgb 13.2 gm/dl (11.8-15.2) 03/02/22 18:49 Hct 40.9 % (35.5-45.6) 03/02/22 18:49 MCV 78 fl (84-94) L 03/02/22 18:49 MCH 25 pg (28-32) L 03/02/22 18:49 MCHC 32 % (32-34) 03/02/22 18:49 RDW 14.8 % (13.2-15.2) 03/02/22 18:49 Plt Count 232 K/mm3 (140-440) 03/02/22 18:49 Lymph % (Auto) 16.7 % (13.4-35.0) 03/02/22 18:49 [place] % (Auto) 11.5 % (0.0-7.3) H 03/02/22 18:49 Eos % (Auto) 2.1 % (0.0-4.3) 03/02/22 18:49 Baso % (Auto) 0.3 % (0.0-1.8) 03/02/22 18:49 Lymph # (Auto) 0.9 K/mm3 (1.2-5.4) L 03/02/22 18:49 [place] # (Auto) 0.6 K/mm3 (0.0-0.8) 03/02/22 18:49 Eos # (Auto) 0.1 K/mm3 (0.0-0.4) 03/02/22 18:49 Baso # (Auto) 0.0 K/mm3 (0.0-0.1) 03/02/22 18:49 Seg Neutrophils % 69.4 % (40.0-70.0) 03/02/22 18:49 Seg Neutrophils # 3.8 K/mm3 (1.8-7.7) 03/02/22 18:49 PT 12.0 Sec. (12.2-14.9) L 03/02/22 18:49 INR 0.79 (0.87-1.13) L 03/02/22 18:49 APTT 26.6 Sec. (24.2-36.6) 03/02/22 18:49 Sodium 137 mmol/L (137-145) 03/02/22 18:49 Potassium 3.1 mmol/L (3.6-5.0) L 03/02/22 18:49 Chloride 96.0 mmol/L (98-107) L 03/02/22 18:49 Carbon Dioxide 24 mmol/L (22-30) 03/02/22 18:49 Anion Gap 20 mmol/L 03/02/22 18:49 BUN 13 mg/dL (9-20) 03/02/22 18:49 Creatinine 1.3 mg/dL (0.8-1.3) 03/02/22 18:49 Estimated GFR > 60 ml/min 03/02/22 18:49 BUN/Creatinine Ratio 10 % 03/02/22 18:49 Glucose 216 mg/dL (75-100) H 03/02/22 18:49 Calcium 9.1 mg/dL (8.4-10.2) 03/02/22 18:49 Magnesium 1.10 mg/dL (1.7-2.3) L 03/02/22 18:49 Total Bilirubin 0.50 mg/dL (0.1-1.2) 03/02/22 18:49 AST 37 units/L (5-40) 03/02/22 18:49 ALT 27 units/L (7-56) 03/02/22 18:49 Alkaline Phosphatase 66 units/L (35-129) 03/02/22 18:49 Troponin T < 0.010 ng/mL (0.00-0.029) 03/02/22 18:49 NT-Pro-B Natriuret Pep 31.99 pg/mL (0-900) 03/02/22 18:49 Total Protein 6.4 g/dL (6.3-8.2) 03/02/22 18:49 Albumin 4.2 g/dL (3.9-5) 03/02/22 18:49 Albumin/Globulin Ratio 1.9 % 03/02/22 18:49 Short CBC 03/02/22 03/03/22 Range/Units 18:49 05:22 WBC 5.5 8.2 (4.5-11.0) K/mm3 Hgb 13.2 12.4 (11.8-15.2) gm/dl Hct 40.9 39.2 (35.5-45.6) % Plt Count 232 217 (140-440) K/mm3 BMP 03/02/22 03/03/22 18:49 05:22 Sodium 137 136 L Potassium 3.1 L 3.8 D Chloride 96.0 L 95.8 L Carbon Dioxide 24 25 BUN 13 13 Creatinine 1.3 1.2 Glucose 216 H 342 H Calcium 9.1 8.8 Cardiac Enzymes 03/02/22 Range/Units 18:49 Troponin T < 0.010 (0.00-0.029) ng/mL Liver Function 03/02/22 03/03/22 Range/Units 18:49 05:22 Total Bilirubin 0.50 0.60 (0.1-1.2) mg/dL AST 37 37 (5-40) units/L ALT 27 29 (7-56) units/L Alkaline Phosphatase 66 63 (35-129) units/L Albumin 4.2 4.0 (3.9-5) g/dL - Imaging and Cardiology Imaging and Cardiology: Chest x-ray Large right pneumothorax second chest x-ray Interval placement of a right thoracostomy tube with reexpansion of the lung Assessment and Plan Advance Directives: Yes (Full Code) VTE prophylaxis?: Chemical Plan of care discussed with patient/family: Yes - Patient Problems (1) Pneumothorax on right Current Visit: No Status: Inactive Plan to address problem: Chest tube was placed in the emergency room Pulmonary consult requested and surgery consult requested (2) HTN (hypertension) Current Visit: No Status: Chronic Qualifiers: Hypertension type: primary hypertension Qualified Code(s): I10 - Essential (primary) hypertension Plan to address problem: Continue anti-hypertensives (3) Sarcoidosis Current Visit: No Status: Acute Plan to address problem: Patient is on prednisone (4) HLD (hyperlipidemia) Current Visit: No Status: Chronic Qualifiers: Hyperlipidemia type: mixed hyperlipidemia Qualified Code(s): E78.2 - Mixed hyperlipidemia Plan to address problem: Continue statins (5) COPD (chronic obstructive pulmonary disease) Current Visit: Yes Status: Chronic Qualifiers: Emphysema type: unspecified Plan to address problem: DuoNebs as needed (6) IDDM (insulin dependent diabetes mellitus) Current Visit: Yes Status: Chronic Plan to address problem: Continue home insulin and coverage Check hemoglobin A1c (7) DVT prophylaxis Current Visit: No Status: Acute Plan to address problem: On heparin and GI prophylaxis (8) Advance care planning Current Visit: Yes Status: Acute Plan to address problem: Disease education conducted, care plan discussed, prognosis and diagnosis discus sed. Patient is full code. Patient acknowledges care plan. +30 minutes.
[2022-03-02] MEDS ORDERED: METOCLOPRAMIDE 10 MG/2 ML INJ IV PRN (23:10)
[2022-03-02] MEDS ORDERED: oxyCODONE /ACETAMINOPHEN 5-325MG TAB PO PRN (23:17)
[2022-03-02] MEDS ORDERED: NON-FORMULARY EACH (Loratadine [Loratadine] 10 MG Tablet) PO PRN (23:17)
[2022-03-02] MEDS ORDERED: diphenhydrAMINE 25 MG CAP PO PRN (23:17)
[2022-03-02] MEDS ORDERED: diphenhydrAMINE 50 MG/ML VIAL IV PRN (23:17)
[2022-03-02] MEDS ORDERED: CETIRIZINE 10 MG TAB PO PRN (23:25)
[2022-03-02] MEDS: carvediloL 25 MG TAB PO SCH (23:42)
[2022-03-02] MEDS: FAMOTIDINE 20 MG TAB PO SCH (23:42)
[2022-03-02] MEDS ORDERED: D5W/0.9% NACL 1,000 ML IV SCH (23:45)
[2022-03-03] MEDS: POTASSIUM CHLORIDE 10 MEQ 10 MEQ/100 ML BAG IV SCH (01:11)
[2022-03-03] MEDS: MORPHINE 4 MG/1 ML INJ IV PRN ×3 (01:58→20:14)
[2022-03-03 06:07] LABS: Hematocrit 39.2 % (35.5-45.6); Hemoglobin 12.4 gm/dl (11.8-15.2); Mean Corpuscular HGB Conc 32 % (32-34); Mean Corpuscular Volume 78 fl (84-94); Platelet Count 217 K/mm3 (140-440); Red Blood Count 5.02 M/mm3 (3.65-5.03); Red Cell Distribution Width 14.9 % (13.2-15.2)
[2022-03-03] MEDS: INSULIN LISPRO 100 UNIT/ML SUB-Q SCH ×6 (06:19→21:43)
[2022-03-03 06:24] LABS: Alanine Aminotransferase 29 units/L (7-56); BUN/Creatinine Ratio 11; Blood Urea Nitrogen 13 mg/dL (9-20); Calcium 8.8 mg/dL (8.4-10.2); Hemolysis Index 4
[2022-03-03 07:13] LABS: Basophils % (Manual) 0 % (0.0-1.8); Eosinophils % (Manual) 0 % (0.0-4.3); Total Cells Counted 100
[2022-03-03 07:14] LABS: Anisocytosis 1+; Hypochromasia 1+; Platelet Estimate Consistent w Auto
--- NOTE | 2022-03-03 09:06 | XRay Report ---
CHEST 1 VIEW 03/03/2022 8:46 AM INDICATION / CLINICAL INFORMATION: ptx, chest tube. COMPARISON: 03/02/2022 FINDINGS: There is extensive gas within the right chest wall and into the right neck. Pacer leads are satisfact ory in position. Mild increased pulmonary vascularity. Right chest tube is again noted. No large pneu mothorax. Left lower lung atelectasis. Signer Name: Damon Black MD Signed: 03/03/2022 9:02 AM Workstation Name: [id number]
[2022-03-03] MEDS: IPRATROPIUM/ALBUTEROL SULFATE 3 ML AMPUL.NEB IH SCH ×3 (09:42→20:22)
[2022-03-03] MEDS ORDERED: NON-FORMULARY EACH (Ferrous Sulfate [Ferrous Sulfate 324 Mg] 324 MG Tablet.Dr) PO SCH (10:00)
[2022-03-03] MEDS: hydroCHLOROthiazide 12.5 MG CAP PO SCH (10:32)
[2022-03-03] MEDS: INSULIN NPH/REGULAR 70/30 INJ SUB-Q SCH ×2 (10:32→17:18)
[2022-03-03] MEDS: FAMOTIDINE 20 MG TAB PO SCH ×2 (10:33→21:38)
[2022-03-03] MEDS: CYANOCOBALAMIN (VIT B-12) 1000 MCG TAB PO SCH (10:33)
[2022-03-03] MEDS: carvediloL 25 MG TAB PO SCH ×2 (10:33→21:37)
[2022-03-03] MEDS: predniSONE 20 MG TAB PO SCH (10:33)
[2022-03-03] MEDS: FERROUS SULFATE 325 MG TAB PO SCH (10:33)
--- NOTE | 2022-03-03 10:45 | Consultation ---
History of Present Illness Consult date: 03/03/22 Reason for consult: other (pneumothorax) Chief complaint: chest pain and shortness of breath - History of present illness History of present illness: this is a 56 yo man with PMH of HTN, COPD, CHF w pacemaker, smoker. presented with sudden onset of right sided chest pain and shortness of breath, he was d iagnosed with right pneumothorax in ED and a small caliber chest tube was inserted with immediate lung expansion. he had prior left sided recurrent PTx and underwent attempted pleurodesis at an outside facility but did not tolerate the operation and was aborted. he now presents with first episode of right sided pneumothorax. he has known blebs on prior CT chest. he is stable now with chest tube to suction, CXR this morning with good lung expansion. Past History Past Medical History: COPD, heart failure, hypertension, sarcoidosis, other (pneumothorax left sided 2018) Past Surgical History: Other (pacemaker, left chest tubes, left attempted pleurodesis was aborted due to instability in 2018) Social history: smoking Family history: no significant family history Medications and Allergies Allergies Allergy/AdvReac Type Severity Reaction Status Date / Time lisinopril Allergy Angioedema Verified 12/10/16 13:29 Home Medications Medication Instructions Recorded Confirmed Last Taken Type AtorvaSTATin [Lipitor] 1 tab PO DAILY 05/06/19 03/03/22 Unknown History Cyanocobalamin [Vitamin B-12] 1 tab PO DAILY 05/06/19 03/03/22 Unknown History Loratadine 1 tab PO DAILY PRN 05/06/19 03/03/22 Unknown History carvediloL [Coreg] 2 tab PO BID 05/06/19 03/03/22 Unknown History Acetaminophen [Acetaminophen TAB] 650 mg PO Q4H PRN tablet 05/12/19 03/03/22 Unknown Rx Ipratropium/Albuterol Sulfate 1 ampul IH TIDRT ampul.neb 05/12/19 03/03/22 Unknown Rx [DUONEB *Not for PRN Use*] diphenhydrAMINE [Benadryl] 12.5 mg IV Q6H PRN vial 05/12/19 03/03/22 Unknown Rx hydroCHLOROthiazide [HCTZ] 25 mg PO QDAY 07/05/19 03/03/22 Unknown History oxyCODONE /ACETAMINOPHEN [Percocet 1 tab PO Q6H PRN tablet 07/06/19 03/03/22 Unknown Rx 5/325 mg] traMADoL [Ultram 50 MG tab] 25 mg PO Q4H PRN tablet 07/06/19 03/03/22 Unknown Rx Ferrous Sulfate [Ferrous Sulfate 324 mg PO DAILY #30 tablet. 07/27/19 03/03/22 Unknown Rx 324 MG] predniSONE [Deltasone] 40 mg PO QDAY 5 Days tab 07/27/19 03/03/22 Unknown Rx Famotidine [Pepcid] 20 mg PO Q12H #20 tablet 08/01/19 03/03/22 Unknown Rx diphenhydrAMINE [Benadryl CAP] 25 mg PO Q6HR PRN #30 capsule 08/01/19 03/03/22 Unknown Rx Insulin NPH/Regular [NovoLIN 70/30] 45 unit SUB-Q BIDDIAB #1 units 07/27/20 03/03/22 Unknown Rx predniSONE [Deltasone] 40 mg PO QDAY #10 01/03/22 03/03/22 Unknown Rx Active Meds: Active Medications Acetaminophen (Acetaminophen 325 Mg Tab) 650 mg PO Q4H PRN PRN Reason: Pain MILD(1-3)/Fever >100.5/[place]INTER[place] Albuterol/Ipratropium (Ipratropium/Albuterol Sulfate 3 Ml Ampul.Neb) 1 ampul IH TIDRT [facility] Last Admin: 03/03/22 09:42 Dose: 1 ampul Atorvastatin Calcium (Atorvastatin 20 Mg Tab) 20 mg PO DAILY [facility] Last Admin: 03/03/22 10:33 Dose: 20 mg Carvedilol (Carvedilol 25 Mg Tab) 25 mg PO BID [facility] Last Admin: 03/03/22 10:33 Dose: 25 mg Cetirizine HCl (Cetirizine 10 Mg Tab) 10 mg PO DAILY PRN PRN Reason: Allergy Symptoms Cyanocobalamin (Cyanocobalamin (Vit B-12) 1000 Mcg Tab) 1,000 mcg PO DAILY [facility] Last Admin: 03/03/22 10:33 Dose: 1,000 mcg Diphenhydramine HCl (Diphenhydramine 50 Mg/Ml Vial) 12.5 mg IV Q6H PRN PRN Reason: Itching Diphenhydramine HCl (Diphenhydramine 25 Mg Cap) 25 mg PO Q6HR PRN PRN Reason: Allergy Symptoms Famotidine (Famotidine 20 Mg Tab) 20 mg PO Q12HR [facility] Last Admin: 03/03/22 10:33 Dose: 20 mg Ferrous Sulfate (Ferrous Sulfate 325 Mg Tab) 325 mg PO DAILY [facility] Last Admin: 03/03/22 10:33 Dose: 325 mg Hydrochlorothiazide (Hydrochlorothiazide 12.5 Mg Cap) 25 mg PO QDAY [facility] Last Admin: 03/03/22 10:32 Dose: 25 mg Dextrose/Sodium Chloride (D5ns) 1,000 mls @ 75 mls/hr IV DIRECT [facility] Last Admin: 03/03/22 06:44 Dose: 75 mls/hr Insulin Human Isoph/Insulin Regular (Insulin Nph/Regular 70/30 Inj) 45 unit SUB-Q BIDDIAB [facility] Last Admin: 03/03/22 10:32 Dose: 45 unit Insulin Human Lispro (Insulin Lispro 100 Unit/Ml) 0 unit SUB-Q ACHS [facility]; Protocol Last Admin: 03/03/22 10:33 Dose: 5 unit Metoclopramide HCl (Metoclopramide 10 Mg/2 Ml Inj) 10 mg IV Q6H PRN PRN Reason: Nausea And Vomiting Morphine Sulfate (Morphine 2 Mg/1 Ml Inj) 2 mg IV Q4H PRN PRN Reason: Pain, Moderate (4-6) Morphine Sulfate (Morphine 4 Mg/1 Ml Inj) 4 mg IV Q4H PRN PRN Reason: Pain , Severe (7-10) Last Admin: 03/03/22 06:26 Dose: 4 mg Ondansetron HCl (Ondansetron 4 Mg/2 Ml Inj) 4 mg IV Q8H PRN PRN Reason: Nausea And Vomiting Oxycodone/Acetaminophen (Oxycodone /Acetaminophen 5-325mg Tab) 1 tab PO Q6H PRN PRN Reason: Pain, Moderate (4-6) Prednisone (Prednisone 20 Mg Tab) 40 mg PO QDAY [facility] Last Admin: 03/03/22 10:33 Dose: 40 mg Sodium Chloride (Sodium Chloride 0.9% 10 Ml Flush Syringe) 10 ml IV BID [facility] Last Admin: 03/03/22 10:33 Dose: 10 ml Sodium Chloride (Sodium Chloride 0.9% 10 Ml Flush Syringe) 10 ml IV PRN PRN PRN Reason: LINE FLUSH Tramadol HCl (Tramadol 50 Mg Tab) 25 mg PO Q4H PRN PRN Reason: Pain, Moderate (4-6) Review of Systems All systems: negative (right sided chest pain and shortness of breath) Exam Vital Signs Temp Pulse Resp BP Pulse Ox 97.8 F 110 H 18 156/88 97 03/02/22 17:46 03/02/22 17:46 03/02/22 17:46 03/02/22 17:46 03/02/22 17:46 - General physical appearance Positive: well developed, no distress - Respiratory Positive: normal expansion, normal respiratory effort, clear to auscultation, other (chest tube in place oscillating, no air leak.) - Cardiovascular Rhythm: regular - Extremities Extremities: no ischemia, No edema - Abdomen Abdomen: Present: soft (non distended, non tender) - Integumentary no rash - Neurologic Neurologic: alert and oriented to time, place and person, motor strength and sensation are grossly intact Results - Labs 03/03/22 05:22 03/03/22 05:22 Abnormal lab results 03/02/22 03/02/22 03/02/22 Range/Units 18:49 18:49 18:49 RBC 5.27 H (3.65-5.03) M/mm3 MCV 78 L (84-94) fl MCH 25 L (28-32) pg [place] % (Auto) 11.5 H (0.0-7.3) % Lymph # (Auto) 0.9 L (1.2-5.4) K/mm3 Seg Neuts % (Manual) (40.0-70.0) % Lymphocytes % (Manual) (13.4-35.0) % Seg Neutrophils # Man (1.8-7.7) K/mm3 Lymphocytes # (Manual) (1.2-5.4) K/mm3 PT 12.0 L (12.2-14.9) Sec. INR 0.79 L (0.87-1.13) Sodium (137-145) mmol/L Potassium 3.1 L (3.6-5.0) mmol/L Chloride 96.0 L (98-107) mmol/L Glucose 216 H (75-100) mg/dL POC Glucose (70-105) mg/dL Magnesium 1.10 L (1.7-2.3) mg/dL Total Protein (6.3-8.2) g/dL 03/03/22 03/03/22 03/03/22 Range/Units 05:22 05:22 05:47 RBC (3.65-5.03) M/mm3 MCV 78 L (84-94) fl MCH 25 L (28-32) pg [place] % (Auto) (0.0-7.3) % Lymph # (Auto) (1.2-5.4) K/mm3 Seg Neuts % (Manual) 96.0 H (40.0-70.0) % Lymphocytes % (Manual) 2.0 L (13.4-35.0) % Seg Neutrophils # Man 7.9 H (1.8-7.7) K/mm3 Lymphocytes # (Manual) 0.2 L (1.2-5.4) K/mm3 PT (12.2-14.9) Sec. INR (0.87-1.13) Sodium 136 L (137-145) mmol/L Potassium (3.6-5.0) mmol/L Chloride 95.8 L (98-107) mmol/L Glucose 342 H (75-100) mg/dL POC Glucose 418 H (70-105) mg/dL Magnesium (1.7-2.3) mg/dL Total Protein 6.1 L (6.3-8.2) g/dL Diabetes panel 03/02/22 03/03/22 Range/Units 18:49 05:22 Sodium 137 136 L (137-145) mmol/L Potassium 3.1 L 3.8 D (3.6-5.0) mmol/L Chloride 96.0 L 95.8 L (98-107) mmol/L Carbon Dioxide 24 25 (22-30) mmol/L BUN 13 13 (9-20) mg/dL Creatinine 1.3 1.2 (0.8-1.3) mg/dL Glucose 216 H 342 H (75-100) mg/dL Calcium 9.1 8.8 (8.4-10.2) mg/dL AST 37 37 (5-40) units/L ALT 27 29 (7-56) units/L Alkaline Phosphatase 66 63 (35-129) units/L Total Protein 6.4 6.1 L (6.3-8.2) g/dL Albumin 4.2 4.0 (3.9-5) g/dL Calcium panel 03/02/22 03/03/22 Range/Units 18:49 05:22 Calcium 9.1 8.8 (8.4-10.2) mg/dL Albumin 4.2 4.0 (3.9-5) g/dL Pituitary panel 03/02/22 03/03/22 Range/Units 18:49 05:22 Sodium 137 136 L (137-145) mmol/L Potassium 3.1 L 3.8 D (3.6-5.0) mmol/L Chloride 96.0 L 95.8 L (98-107) mmol/L Carbon Dioxide 24 25 (22-30) mmol/L BUN 13 13 (9-20) mg/dL Creatinine 1.3 1.2 (0.8-1.3) mg/dL Glucose 216 H 342 H (75-100) mg/dL Calcium 9.1 8.8 (8.4-10.2) mg/dL Adrenal panel 03/02/22 03/03/22 Range/Units 18:49 05:22 Sodium 137 136 L (137-145) mmol/L Potassium 3.1 L 3.8 D (3.6-5.0) mmol/L Chloride 96.0 L 95.8 L (98-107) mmol/L Carbon Dioxide 24 25 (22-30) mmol/L BUN 13 13 (9-20) mg/dL Creatinine 1.3 1.2 (0.8-1.3) mg/dL Glucose 216 H 342 H (75-100) mg/dL Calcium 9.1 8.8 (8.4-10.2) mg/dL Total Bilirubin 0.50 0.60 (0.1-1.2) mg/dL AST 37 37 (5-40) units/L ALT 27 29 (7-56) units/L Alkaline Phosphatase 66 63 (35-129) units/L Total Protein 6.4 6.1 L (6.3-8.2) g/dL Albumin 4.2 4.0 (3.9-5) g/dL Assessment and Plan 56 yo man with COPD, currently smoking, CHF with PM, HTN, hx of left recurrent PTx. presented with right sided spontaneous PTx with known hx of lung blebs s/p chest tube. -doing well, lung well expanded on CXR this am, no air leak. -chest tube to water seal this afternoon -CXR in am -Chest tube retracted a little. dressing reinforced. -CHF, COPD management per medicine team -will continue to follow for chest tube management
[2022-03-03] MEDS ORDERED: INSULIN LISPRO 100 UNIT/ML SUB-Q ONE (12:12)
--- NOTE | 2022-03-03 12:40 | Consultation ---
History of Present Illness Consult date: 03/03/22 Requesting physician: AJ OLEARY Reason for consult: other (Pneumothorax) History of present illness: 56 yo man with PMH of HTN, COPD, CHF w pacemaker, smoker. presented with sudden onset of right sided chest pain and shortness of breath, he was diagnosed with right pneumothorax in ED and a small caliber chest tube was inserted with immediate lung expansion. He had prior left sided recurrent PTx and underwent attempted pleurodesis at [facility] a few years ago. He is unclear as to whether the procedure was completed, or it was aborted because of cardiopulmonary decompensation. He now presents with first episode of right sided pneumothorax. He does have a history of blebs in the right lung. He is on therapies for COPD. He has a right pleural drain to suction, CXR shows re-exapanded right lung. He denies any chest pain or shortness of breath at this time. He is on 2L NC, and is resting quietly in bed ROS: Stated complaint: Other details as noted in HPI Constitutional: malaise. denies: fever ENT: congestion Respiratory: cough, shortness of breath Cardiovascular: chest pain Gastrointestinal: denies: abdominal pain Genitourinary: denies: dysuria Musculoskeletal: myalgia Neurological: weakness Psychiatric: anxiety - Past Medical History Hx Hypertension: Yes Hx Congestive Heart Failure: Yes Hx COPD: Yes Hx HIV: No Additional medical history: sarcodosis,elevated cholesterol, pneumothorax in April 2019, pacemaker - Surgical History Hx Internal Defibrillator: Yes Additional Surgical History: defribilator - Social History Smoking Status: Current Every Day Smoker Substance Use Type: None Past History Past Medical History: COPD, heart failure, hypertension, sarcoidosis, other (pneumothorax left sided 2018) Past Surgical History: Other (pacemaker, left chest tubes, left attempted pleurodesis was aborted due to instability in 2018) Social history: smoking Family history: no significant family history Medications and Allergies Allergies Allergy/AdvReac Type Severity Reaction Status Date / Time lisinopril Allergy Angioedema Verified 12/10/16 13:29 Home Medications Medication Instructions Recorded Confirmed Last Taken Type AtorvaSTATin [Lipitor] 1 tab PO DAILY 05/06/19 03/03/22 Unknown History Cyanocobalamin [Vitamin B-12] 1 tab PO DAILY 05/06/19 03/03/22 Unknown History Loratadine 1 tab PO DAILY PRN 05/06/19 03/03/22 Unknown History carvediloL [Coreg] 2 tab PO BID 05/06/19 03/03/22 Unknown History Acetaminophen [Acetaminophen TAB] 650 mg PO Q4H PRN tablet 05/12/19 03/03/22 Unknown Rx Ipratropium/Albuterol Sulfate 1 ampul IH TIDRT ampul.neb 05/12/19 03/03/22 Unknown Rx [DUONEB *Not for PRN Use*] diphenhydrAMINE [Benadryl] 12.5 mg IV Q6H PRN vial 05/12/19 03/03/22 Unknown Rx hydroCHLOROthiazide [HCTZ] 25 mg PO QDAY 07/05/19 03/03/22 Unknown History oxyCODONE /ACETAMINOPHEN [Percocet 1 tab PO Q6H PRN tablet 07/06/19 03/03/22 Unknown Rx 5/325 mg] traMADoL [Ultram 50 MG tab] 25 mg PO Q4H PRN tablet 07/06/19 03/03/22 Unknown Rx Ferrous Sulfate [Ferrous Sulfate 324 mg PO DAILY #30 tablet. 07/27/19 03/03/22 Unknown Rx 324 MG] predniSONE [Deltasone] 40 mg PO QDAY 5 Days tab 07/27/19 03/03/22 Unknown Rx Famotidine [Pepcid] 20 mg PO Q12H #20 tablet 08/01/19 03/03/22 Unknown Rx diphenhydrAMINE [Benadryl CAP] 25 mg PO Q6HR PRN #30 capsule 08/01/19 03/03/22 Unknown Rx Insulin NPH/Regular [NovoLIN 70/30] 45 unit SUB-Q BIDDIAB #1 units 07/27/20 03/03/22 Unknown Rx predniSONE [Deltasone] 40 mg PO QDAY #10 01/03/22 03/03/22 Unknown Rx Active Meds: Active Medications Acetaminophen (Acetaminophen 325 Mg Tab) 650 mg PO Q4H PRN PRN Reason: Pain MILD(1-3)/Fever >100.5/WINTERS Albuterol/Ipratropium (Ipratropium/Albuterol Sulfate 3 Ml Ampul.Neb) 1 ampul IH TIDRT ANDREA Last Admin: 03/03/22 09:42 Dose: 1 ampul Atorvastatin Calcium (Atorvastatin 20 Mg Tab) 20 mg PO DAILY [facility] Last Admin: 03/03/22 10:33 Dose: 20 mg Carvedilol (Carvedilol 25 Mg Tab) 25 mg PO BID [facility] Last Admin: 03/03/22 10:33 Dose: 25 mg Cetirizine HCl (Cetirizine 10 Mg Tab) 10 mg PO DAILY PRN PRN Reason: Allergy Symptoms Cyanocobalamin (Cyanocobalamin (Vit B-12) 1000 Mcg Tab) 1,000 mcg PO DAILY [facility] Last Admin: 03/03/22 10:33 Dose: 1,000 mcg Diphenhydramine HCl (Diphenhydramine 50 Mg/Ml Vial) 12.5 mg IV Q6H PRN PRN Reason: Itching Diphenhydramine HCl (Diphenhydramine 25 Mg Cap) 25 mg PO Q6HR PRN PRN Reason: Allergy Symptoms Famotidine (Famotidine 20 Mg Tab) 20 mg PO Q12HR [facility] Last Admin: 03/03/22 10:33 Dose: 20 mg Ferrous Sulfate (Ferrous Sulfate 325 Mg Tab) 325 mg PO DAILY [facility] Last Admin: 03/03/22 10:33 Dose: 325 mg Hydrochlorothiazide (Hydrochlorothiazide 12.5 Mg Cap) 25 mg PO QDAY [facility] Last Admin: 03/03/22 10:32 Dose: 25 mg Dextrose/Sodium Chloride (D5ns) 1,000 mls @ 75 mls/hr IV DIRECT [facility] Last Admin: 03/03/22 06:44 Dose: 75 mls/hr Insulin Human Isoph/Insulin Regular (Insulin Nph/Regular 70/30 Inj) 45 unit SUB-Q BIDDIAB [facility] Last Admin: 03/03/22 10:32 Dose: 45 unit Insulin Human Lispro (Insulin Lispro 100 Unit/Ml) 0 unit SUB-Q ACHS [facility]; Protocol Last Admin: 03/03/22 12:13 Dose: Not Given Metoclopramide HCl (Metoclopramide 10 Mg/2 Ml Inj) 10 mg IV Q6H PRN PRN Reason: Nausea And Vomiting Morphine Sulfate (Morphine 2 Mg/1 Ml Inj) 2 mg IV Q4H PRN PRN Reason: Pain, Moderate (4-6) Morphine Sulfate (Morphine 4 Mg/1 Ml Inj) 4 mg IV Q4H PRN PRN Reason: Pain , Severe (7-10) Last Admin: 03/03/22 06:26 Dose: 4 mg Ondansetron HCl (Ondansetron 4 Mg/2 Ml Inj) 4 mg IV Q8H PRN PRN Reason: Nausea And Vomiting Oxycodone/Acetaminophen (Oxycodone /Acetaminophen 5-325mg Tab) 1 tab PO Q6H PRN PRN Reason: Pain, Moderate (4-6) Prednisone (Prednisone 20 Mg Tab) 40 mg PO QDAY [facility] Last Admin: 03/03/22 10:33 Dose: 40 mg Sodium Chloride (Sodium Chloride 0.9% 10 Ml Flush Syringe) 10 ml IV BID [facility] Last Admin: 03/03/22 10:33 Dose: 10 ml Sodium Chloride (Sodium Chloride 0.9% 10 Ml Flush Syringe) 10 ml IV PRN PRN PRN Reason: LINE FLUSH Tramadol HCl (Tramadol 50 Mg Tab) 25 mg PO Q4H PRN PRN Reason: Pain, Moderate (4-6) Physical Examination Vital signs: Vital Signs Temp Pulse Resp BP Pulse Ox 97.8 F 110 H 18 156/88 97 03/02/22 17:46 03/02/22 17:46 03/02/22 17:46 03/02/22 17:46 03/02/22 17:46 General appearance: no acute distress, alert Eyes: non-icteric ENT: oropharynx moist Neck: supple, no lymphadenopathy, no JVD, other (Healed tracheostomy scar) Effort: mildly labored, other (Right pleural drain to -20cm of suction) Ascultation: Bilateral: diminished breath sounds Cardiovascular: regular rate and rhythm, other (S1,S2) Gastrointestinal: normoactive bowel sounds, soft, non-tender Extremities: no cyanosis, no edema, pink and warm Musculoskeletal: no deformities normal mental status, non-focal exam, pupils equal and round, motor strength normal and mood appropriate, affect normal Results - Laboratory Findings CBC and BMP: 03/03/22 05:22 03/03/22 05:22 PT/INR, D-dimer PT 12.0 Sec. (12.2-14.9) L 03/02/22 18:49 INR 0.79 (0.87-1.13) L 03/02/22 18:49 Abnormal lab findings: Abnormal Labs 03/02/22 03/02/22 03/02/22 18:49 18:49 18:49 RBC 5.27 H MCV 78 L MCH 25 L [place] % (Auto) 11.5 H Lymph # (Auto) 0.9 L Seg Neuts % (Manual) Lymphocytes % (Manual) Seg Neutrophils # Man Lymphocytes # (Manual) PT 12.0 L INR 0.79 L Sodium Potassium 3.1 L Chloride 96.0 L Glucose 216 H POC Glucose Magnesium 1.10 L Total Protein 03/03/22 03/03/22 03/03/22 05:22 05:22 05:47 RBC MCV 78 L MCH 25 L [place] % (Auto) Lymph # (Auto) Seg Neuts % (Manual) 96.0 H Lymphocytes % (Manual) 2.0 L Seg Neutrophils # Man 7.9 H Lymphocytes # (Manual) 0.2 L PT INR Sodium 136 L Potassium Chloride 95.8 L Glucose 342 H POC Glucose 418 H Magnesium Total Protein 6.1 L - Diagnostic Findings Chest x-ray: image reviewed Assessment and Plan Pneumothorax on right s/p right pleural drain with re-expansion h/o COPD h/o Recurrent left pneumothoraces Tobacco use disorder/Nicotine dependence HTN (hypertension) h/o Sarcoidosis Surgery has asked that the chest tube beplaced to water seal. If he develops any worsening shortness of breath , place the pleural drain back on suction. Analgesia Bronchodilators, chronic home medications for COPD VTE prophylaxis Smoking cessation counselling, nicotine withdrawal precautions I discussed with him that he may ultimately need thoracic surgery for evaluation for pleurodesis/pleurectomy if conservative measures do not work CT chest without contrast to evaluate the lung parenchyma Thank you for the consult. Will follow
--- NOTE | 2022-03-03 13:56 | XRay Report ---
CHEST 1 VIEW 03/03/2022 12:48 PM INDICATION / CLINICAL INFORMATION: chest tube to water seal. COMPARISON: 03/03/2022 FINDINGS: Extensive gas and right chest wall and right neck. Increased opacity is seen in the right hilum with diffuse opacities in the right lung. No other significant change Signer Name: Damon Black MD Signed: 03/03/2022 1:52 PM Workstation Name: [id number]
[2022-03-03] MEDS: oxyCODONE /ACETAMINOPHEN 5-325MG TAB PO PRN ×2 (14:21→21:38)
[2022-03-04] MEDS: MORPHINE 2 MG/1 ML INJ IV PRN (00:54)
[2022-03-04] MEDS: MORPHINE 4 MG/1 ML INJ IV PRN ×4 (04:33→22:44)
--- NOTE | 2022-03-04 08:30 | Progress Note ---
Assessment and Plan - Patient Problems (1) Pneumothorax on right Current Visit: No Status: Inactive Plan to address problem: Chest tube was placed in the emergency room Pulmonary consult requested and surgery consult requested Chest x-ray shows improvement with moderate reexpansion (2) HTN (hypertension) Current Visit: No Status: Chronic Qualifiers: Hypertension type: primary hypertension Qualified Code(s): I10 - Essential (primary) hypertension Plan to address problem: Continue anti-hypertensives (3) Sarcoidosis Current Visit: No Status: Acute Plan to address problem: Patient is on prednisone (4) HLD (hyperlipidemia) Current Visit: No Status: Chronic Qualifiers: Hyperlipidemia type: mixed hyperlipidemia Qualified Code(s): E78.2 - Mixed hyperlipidemia Plan to address problem: Continue statins (5) COPD (chronic obstructive pulmonary disease) Current Visit: Yes Status: Chronic Qualifiers: Emphysema type: unspecified Plan to address problem: DuoNebs as needed (6) IDDM (insulin dependent diabetes mellitus) Current Visit: Yes Status: Chronic Plan to address problem: Continue home insulin and coverage Check hemoglobin A1c (7) DVT prophylaxis Current Visit: No Status: Acute Plan to address problem: On heparin and GI prophylaxis (8) Advance care planning Current Visit: Yes Status: Acute Subjective Date of service: 03/03/22 Principal diagnosis: Right pneumothorax Interval history: This is a pleasant and cooperative 56-year-old gentleman, with a history of COPD, spontaneous pneumothorax, congestive heart failure, possible sarcoid, who is COVID-19 vaccinated. He presents to the ER today with EMS with an EMS articulated complaint of chest tightness and shortness of breath. Patient is not sure if he is having similar episode to prior episodes of pneumothorax. He denies DVT and pulmonary embolism risk factors. He has a mild cough. EMS initiated treatments in the field. Patient has not eaten since 7:00 in the morning. The patient was found to have a large right-sided pneumothorax in the emergency room. The patient provided verbal and written informed consent for sterile pigtail catheter placement. After the pigtail catheter was placed, he felt markedly improved. He now feels back to his baseline. 03/03/2022 Symptomatically better Objective - Constitutional Vitals: Vital Signs - 12hr 03/03/22 03/03/22 03/04/22 20:44 21:37 02:00 Pulse Rate 90 89 Respiratory 20 Rate Blood Pressure 134/74 03/04/22 04:33 Pulse Rate Respiratory 20 Rate Blood Pressure General appearance: Present: no acute distress, well-nourished - EENT Eyes: PERRL, EOM intact ENT: hearing intact, clear oral mucosa Ears: bilateral: normal - Neck Neck: supple, normal ROM - Respiratory Respiratory effort: normal Respiratory: right: diminished, left: CTA - Breasts Breasts: normal - Cardiovascular Rhythm: regular Heart Sounds: Present: S1 & S2. Absent: gallop, rub Extremities: pulses intact, No edema, normal color, Full ROM - Gastrointestinal General gastrointestinal: Present: soft, non-tender, non-distended, normal bowel sounds - Genitourinary Male genitourinary: normal - Integumentary Integumentary: clear, warm, dry - Musculoskeletal Musculoskeletal: 1, strength equal bilaterally - Neurologic Neurologic: moves all extremities - Psychiatric Psychiatric: memory intact, appropriate mood/affect, intact judgment & insight - Labs CBC & Chem 7: 03/03/22 05:22 03/03/22 05:22 Labs: Abnormal lab results 03/03/22 03/03/22 03/03/22 Range/Units 07:28 11:58 15:49 POC Glucose 429 H 471 H 370 H (70-105) mg/dL 03/03/22 Range/Units 21:23 POC Glucose 374 H (70-105) mg/dL HEART Score - HEART Score Age: 45-65 Risk factors: 1-2 risk factors Troponin: Troponin T < 0.010 ng/mL (0.00-0.029) 03/02/22 18:49 Troponin: 1-3x normal limit - Critical Actions Critical Actions: 0-3 pts:0.9-1.7%risk of adverse cardiac event.Candidate for discharge
--- NOTE | 2022-03-04 08:39 | XRay Report ---
CHEST 1 VIEW 03/04/2022 7:20 AM INDICATION / CLINICAL INFORMATION: chest tube in place. COMPARISON: Yesterday FINDINGS: SUPPORT DEVICES: Right chest tube appears retracted slightly and does not appear to be significantly within the right pleural space on today's exam. Single lead pacemaker device remains in the same posi tion. HEART / MEDIASTINUM: No significant abnormality. LUNGS / PLEURA: Large right pneumothorax is present on today's exam estimated at 75%. The left lung r emains generally clear. ADDITIONAL FINDINGS: No significant additional findings. IMPRESSION: 1. New large right pneumothorax. I question positioning of the right chest tube as described. CRITICAL RESULT: Time of Discovery (WOMEN NURSE/CDT): 0730 hours Time of Communication (WOMEN NURSE/CDT): 0735 hours Licensed Practitioner Receiving Report: ROSALIA Ballard Read-Back Performed: Yes. Signer Name: John Manzanares Jr, MD Signed: 03/04/2022 8:35 AM Workstation Name: [id number]
[2022-03-04] MEDS: carvediloL 25 MG TAB PO SCH ×2 (09:41→22:45)
[2022-03-04] MEDS: FAMOTIDINE 20 MG TAB PO SCH ×2 (09:41→22:45)
[2022-03-04] MEDS: predniSONE 20 MG TAB PO SCH (09:41)
[2022-03-04] MEDS: CYANOCOBALAMIN (VIT B-12) 1000 MCG TAB PO SCH (09:41)
[2022-03-04] MEDS: FERROUS SULFATE 325 MG TAB PO SCH (09:43)
[2022-03-04] MEDS: hydroCHLOROthiazide 12.5 MG CAP PO SCH (09:43)
[2022-03-04] MEDS: INSULIN NPH/REGULAR 70/30 INJ SUB-Q SCH ×2 (09:54→17:34)
[2022-03-04] MEDS: INSULIN LISPRO 100 UNIT/ML SUB-Q SCH ×4 (09:57→22:44)
[2022-03-04] MEDS ORDERED: LIDOCAINE (1%) 10 MG/1 ML VIAL 20 ML MDV INFILTRATI NR (10:00)
[2022-03-04] MEDS: IPRATROPIUM/ALBUTEROL SULFATE 3 ML AMPUL.NEB IH SCH ×3 (10:15→21:38)
--- NOTE | 2022-03-04 11:13 | Progress Note ---
Assessment and Plan Pneumothorax on right s/p right pleural drain with re-expansion h/o COPD h/o Recurrent left pneumothoraces Tobacco use disorder/Nicotine dependence HTN (hypertension) h/o Sarcoidosis Chest tube back on suction- post manipulation by General surgery Analgesia Bronchodilators, chronic home medications for COPD VTE prophylaxis Smoking cessation counselling, nicotine withdrawal precautions I discussed with him that he may ultimately need thoracic surgery for evaluation for pleurodesis/pleurectomy if conservative measures do not work CT chest without contrast to evaluate the lung parenchyma Subjective Date of service: 03/04/22 Principal diagnosis: Right pneumothorax Interval history: F/UP: Right pneumothorax; tobacco use disorder Objective Vital Signs - 12hr 03/04/22 03/04/22 03/04/22 00:57 02:00 04:32 Temperature 97.9 F 97.5 F L Pulse Rate 89 89 88 Pulse Rate [ Bilateral] Respiratory 20 20 Rate Respiratory Rate [Bilateral ] Blood Pressure 137/75 124/82 O2 Sat by Pulse 98 96 Oximetry 03/04/22 03/04/22 03/04/22 04:33 10:16 10:26 Temperature Pulse Rate Pulse Rate [ 82 Bilateral] Respiratory 20 Rate Respiratory 18 Rate [Bilateral ] Blood Pressure O2 Sat by Pulse 98 Oximetry Constitutional: no acute distress, alert Eyes: non-icteric ENT: oropharynx moist Neck: supple, no lymphadenopathy, no JVD, other (Healed tracheostomy scar) Effort: mildly labored, other (Right pleural drain to -20cm of suction) Ascultation: Bilateral: diminished breath sounds Cardiovascular: regular rate and rhythm, other (S1,S2) Gastrointestinal: normoactive bowel sounds, soft, non-tender Extremities: no cyanosis, no edema, pink and warm Neurologic: normal mental status, non-focal exam, pupils equal and round, motor strength normal and Psychiatric: mood appropriate, affect normal CBC and BMP: 03/06/22 06:16 03/06/22 06:16 ABG, PT/INR, D-dimer: PT/INR, D-dimer PT 12.0 Sec. (12.2-14.9) L 03/02/22 18:49 INR 0.79 (0.87-1.13) L 03/02/22 18:49 Abnormal lab findings: Abnormal Labs 03/02/22 03/02/22 03/02/22 18:49 18:49 18:49 RBC 5.27 H MCV 78 L MCH 25 L [place] % (Auto) 11.5 H Lymph # (Auto) 0.9 L Seg Neuts % (Manual) Lymphocytes % (Manual) Seg Neutrophils # Man Lymphocytes # (Manual) PT 12.0 L INR 0.79 L Sodium Potassium 3.1 L Chloride 96.0 L Glucose 216 H POC Glucose Magnesium 1.10 L Total Protein 03/03/22 03/03/22 03/03/22 05:22 05:22 05:47 RBC MCV 78 L MCH 25 L [place] % (Auto) Lymph # (Auto) Seg Neuts % (Manual) 96.0 H Lymphocytes % (Manual) 2.0 L Seg Neutrophils # Man 7.9 H Lymphocytes # (Manual) 0.2 L PT INR Sodium 136 L Potassium Chloride 95.8 L Glucose 342 H POC Glucose 418 H Magnesium Total Protein 6.1 L 03/03/22 03/03/22 03/03/22 07:28 11:58 15:49 RBC MCV MCH [place] % (Auto) Lymph # (Auto) Seg Neuts % (Manual) Lymphocytes % (Manual) Seg Neutrophils # Man Lymphocytes # (Manual) PT INR Sodium Potassium Chloride Glucose POC Glucose 429 H 471 H 370 H Magnesium Total Protein 03/03/22 21:23 RBC MCV MCH [place] % (Auto) Lymph # (Auto) Seg Neuts % (Manual) Lymphocytes % (Manual) Seg Neutrophils # Man Lymphocytes # (Manual) PT INR Sodium Potassium Chloride Glucose POC Glucose 374 H Magnesium Total Protein
--- NOTE | 2022-03-04 11:14 | Event Note ---
Date: 03/04/22 Reviewed CXr done this morning, patient has significant pneumothorax. Instructed RN to place pleural drain back on -20cm suction and follow up with CXR
--- NOTE | 2022-03-04 11:51 | XRay Report ---
XR chest 1V ap INDICATION / CLINICAL INFORMATION: CHEST TUBE PLACEMENT RT CHEST. COMPARISON: Radiograph from earlier same day. FINDINGS: SUPPORT DEVICES: Right-sided pleural catheter tip projects over the right upper hemithorax. HEART /PULMONARY VASCULATURE: Unchanged. LUNGS / PLEURA: Right pneumothorax is significantly improved/resolved. No discrete pneumothorax. Patc hy airspace consolidation of the right upper lung. Left lung is clear. IMPRESSION: Right chest tube repositioning/placement with resolution of right pneumothorax. Signer Name: Fermin Rios MD Signed: 03/04/2022 11:47 AM Workstation Name: [id number]
[2022-03-04] MEDS: oxyCODONE /ACETAMINOPHEN 5-325MG TAB PO PRN (12:41)
--- NOTE | 2022-03-04 13:21 | Procedure Note ---
Date of procedure: 03/04/22 Pre-op diagnosis: right large pneumothorax Post-op diagnosis: same Procedure: right chest tube placement: after proper prepping and draping of skin, the prior chest tube was removed and the wound was infiltrated with 1% lidocaine without epinephrine 10cc total. the new chest tube was inserted through the same incision and a large gush of air was audible. the chest tube was connected to pleurovac and wall suction at -20cm water. the chest tube was secured with 0 silk suture and sterile dressing applied. post op chest x-ray was ordered. Anesthesia: local Surgeon: DARRELL MALIK Estimated blood loss: minimal IV fluids: 0 Pathology: none Condition: stable Disposition: floor
--- NOTE | 2022-03-04 13:28 | Progress Note ---
Assessment and Plan 56 yo man with CHF/PM, HTN, sacroidosis, prior spontaneous PTx. presented to the hospital with new right sided spontaneous pneumothorax s/p chest tube placement. this am his chest tube was out and had recurrent right PTx. i consented him for another chest tube placement and he agrees. he was in no distress and breathing comfortably before the procedure. please find procedure note below. -continue new chest tube to suction till am -CXR in am -rest of management per primary. Subjective Date of service: 03/04/22 Narrative: he is complaining of right sided chest pain that is worse than yesterday. on CXR this am he had recurrent large right PTx and the previous chest tube was out of the chest. he is HDS and breathing comfortably without distress. Objective Vital Signs - 12hr 03/04/22 03/04/22 03/04/22 02:00 04:32 04:33 Temperature 97.5 F L Pulse Rate 89 88 Pulse Rate [ Bilateral] Respiratory 20 20 Rate Respiratory Rate [Bilateral ] Blood Pressure 124/82 O2 Sat by Pulse 96 Oximetry 03/04/22 03/04/22 10:16 10:26 Temperature Pulse Rate Pulse Rate [ 82 Bilateral] Respiratory Rate Respiratory 18 Rate [Bilateral ] Blood Pressure O2 Sat by Pulse 98 Oximetry - General physical appearance well developed, well nourished - Respiratory normal respiratory effort - Abdomen soft - Integumentary no rash - Labs 03/03/22 05:22 03/03/22 05:22
[2022-03-04] MEDS: traMADol 50 MG TAB PO PRN (15:17)
--- NOTE | 2022-03-04 20:45 | Progress Note ---
Assessment and Plan - Patient Problems (1) Pneumothorax on right Current Visit: Yes Status: Acute Plan to address problem: Recurrent right-sided pneumothorax today on chest x-ray. Dislodgment of previous chest tube. Patient underwent replacement of chest tube to low wall intermittent suction. Surgery team consulted. (2) Obesity hypoventilation syndrome Current Visit: Yes Status: Acute Plan to address problem: Balanced diet, increase physical activity discharge. Outpatient pulmonary follow-up for sleep study. (3) COPD (chronic obstructive pulmonary disease) Current Visit: Yes Status: Acute Plan to address problem: Supplemental oxygen, pulse oximetry, continue medical management. (4) Acute renal injury Current Visit: No Status: Acute Plan to address problem: IV fluid resuscitation therapy as clinically indicated, continue medical management, repeat BMP in AM. Monitor urine output every shift. (5) DVT prophylaxis Current Visit: Yes Status: Acute Plan to address problem: SCD to bilateral lower extremities while in bed (6) Advance care planning Current Visit: Yes Status: Acute Plan to address problem: Disease education done, care plan discussed, diagnoses discussed, prognosis discussed, patient knowledges understanding and agreement with care plan, +30 minutes. (7) Preventative health care Current Visit: Yes Status: Acute Plan to address problem: Patient counseled regarding balanced diet, increase physical activity discharge. Outpatient follow-up with primary care physician for all age and risk factor appropriate screening test. +30 minutes. History Interval history: 56-year-old male hospital day 3 with COPD complicated by recurrent pneumothorax status post chest tube placement. Patient complains of worsening right-sided chest pain again today. Repeat chest x-ray found to show recurrent pneumothorax again today with dislodgment of prior chest tube. Patient underwent replacement of chest tube today. Patient resting comfortably status post replacement of chest tube for recurrent pneumothorax.. Hospitalist Physical - Constitutional Vitals: Temp Pulse Resp BP Pulse Ox 97.5 F L 82 18 124/82 98 03/04/22 04:32 03/04/22 10:26 03/04/22 10:26 03/04/22 04:32 03/04/22 10:16 General appearance: Present: no acute distress, well-nourished - EENT Eyes: Present: PERRL ENT: hearing intact - Neck Neck: Present: supple - Respiratory Respiratory effort: normal Respiratory: right: diminished - Cardiovascular Rhythm: regular Heart Sounds: Present: S1 & S2 - Extremities Extremities: no ischemia Peripheral Pulses: within normal limits - Abdominal General gastrointestinal: soft, non-tender, non-distended - Integumentary Integumentary: Present: clear, dry - Psychiatric Psychiatric: appropriate mood/affect, cooperative - Neurologic Neurologic: CNII-XII intact HEART Score - HEART Score Age: 45-65 Risk factors: 1-2 risk factors Troponin: Troponin T < 0.010 ng/mL (0.00-0.029) 03/02/22 18:49 Troponin: 1-3x normal limit - Critical Actions Critical Actions: 0-3 pts:0.9-1.7%risk of adverse cardiac event.Candidate for discharge Results - Labs CBC & Chem 7: 03/03/22 05:22 03/03/22 05:22 Labs: Laboratory Last Values WBC 8.2 K/mm3 (4.5-11.0) 03/03/22 05:22 RBC 5.02 M/mm3 (3.65-5.03) 03/03/22 05:22 Hgb 12.4 gm/dl (11.8-15.2) 03/03/22 05:22 Hct 39.2 % (35.5-45.6) 03/03/22 05:22 MCV 78 fl (84-94) L 03/03/22 05:22 MCH 25 pg (28-32) L 03/03/22 05:22 MCHC 32 % (32-34) 03/03/22 05:22 RDW 14.9 % (13.2-15.2) 03/03/22 05:22 Plt Count 217 K/mm3 (140-440) 03/03/22 05:22 Lymph % (Auto) 16.7 % (13.4-35.0) 03/02/22 18:49 [place] % (Auto) 11.5 % (0.0-7.3) H 03/02/22 18:49 Eos % (Auto) 2.1 % (0.0-4.3) 03/02/22 18:49 Baso % (Auto) 0.3 % (0.0-1.8) 03/02/22 18:49 Lymph # (Auto) 0.9 K/mm3 (1.2-5.4) L 03/02/22 18:49 [place] # (Auto) 0.6 K/mm3 (0.0-0.8) 03/02/22 18:49 Eos # (Auto) 0.1 K/mm3 (0.0-0.4) 03/02/22 18:49 Baso # (Auto) 0.0 K/mm3 (0.0-0.1) 03/02/22 18:49 Add Manual Diff Complete 03/03/22 05:22 Total Counted 100 03/03/22 05:22 Seg Neutrophils % [employer] 03/03/22 05:22 Seg Neuts % (Manual) 96.0 % (40.0-70.0) H 03/03/22 05:22 Band Neutrophils % 0 % 03/03/22 05:22 Lymphocytes % (Manual) 2.0 % (13.4-35.0) L 03/03/22 05:22 Reactive Lymphs % (Man) 0 % 03/03/22 05:22 Monocytes % (Manual) 2.0 % (0.0-7.3) 03/03/22 05:22 Eosinophils % (Manual) 0 % (0.0-4.3) 03/03/22 05:22 Basophils % (Manual) 0 % (0.0-1.8) 03/03/22 05:22 Metamyelocytes % 0 % 03/03/22 05:22 Myelocytes % 0 % 03/03/22 05:22 Promyelocytes % 0 % 03/03/22 05:22 Blast Cells % 0 % 03/03/22 05:22 Nucleated RBC % Not Reportable 03/03/22 05:22 Seg Neutrophils # 3.8 K/mm3 (1.8-7.7) 03/02/22 18:49 Seg Neutrophils # Man 7.9 K/mm3 (1.8-7.7) H 03/03/22 05:22 Band Neutrophils # 0.0 K/mm3 03/03/22 05:22 Lymphocytes # (Manual) 0.2 K/mm3 (1.2-5.4) L 03/03/22 05:22 Abs React Lymphs (Man) 0.0 K/mm3 03/03/22 05:22 Monocytes # (Manual) 0.2 K/mm3 (0.0-0.8) 03/03/22 05:22 Eosinophils # (Manual) 0.0 K/mm3 (0.0-0.4) 03/03/22 05:22 Basophils # (Manual) 0.0 K/mm3 (0.0-0.1) 03/03/22 05:22 Metamyelocytes # 0.0 K/mm3 03/03/22 05:22 Myelocytes # 0.0 K/mm3 03/03/22 05:22 Promyelocytes # 0.0 K/mm3 03/03/22 05:22 Blast Cells # 0.0 K/mm3 03/03/22 05:22 WBC Morphology Not Reportable 03/03/22 05:22 Hypersegmented Neuts Not Reportable 03/03/22 05:22 Hyposegmented Neuts Not Reportable 03/03/22 05:22 Hypogranular Neuts Not Reportable 03/03/22 05:22 Smudge Cells Not Reportable 03/03/22 05:22 Toxic Granulation Not Reportable 03/03/22 05:22 Toxic Vacuolation Not Reportable 03/03/22 05:22 Dohle Bodies Not Reportable 03/03/22 05:22 Pelger-Huet Anomaly Not Reportable 03/03/22 05:22 Rafiq Rods Not Reportable 03/03/22 05:22 Platelet Estimate Consistent w auto 03/03/22 05:22 Clumped Platelets Not Reportable 03/03/22 05:22 Plt Clumps, EDTA Not Reportable 03/03/22 05:22 Large Platelets Not Reportable 03/03/22 05:22 Giant Platelets Not Reportable 03/03/22 05:22 Platelet Satelliting Not Reportable 03/03/22 05:22 Plt Morphology Comment Not Reportable 03/03/22 05:22 RBC Morphology Not Reportable 03/03/22 05:22 Dimorphic RBCs Not Reportable 03/03/22 05:22 Polychromasia Not Reportable 03/03/22 05:22 Hypochromasia 1+ 03/03/22 05:22 Poikilocytosis Not Reportable 03/03/22 05:22 Anisocytosis 1+ 03/03/22 05:22 Microcytosis Not Reportable 03/03/22 05:22 Macrocytosis Not Reportable 03/03/22 05:22 Spherocytes Not Reportable 03/03/22 05:22 Pappenheimer Bodies Not Reportable 03/03/22 05:22 Sickle Cells Not Reportable 03/03/22 05:22 Target Cells Not Reportable 03/03/22 05:22 Tear Drop Cells Not Reportable 03/03/22 05:22 Ovalocytes Not Reportable 03/03/22 05:22 Helmet Cells Not Reportable 03/03/22 05:22 [place] Bodies Not Reportable 03/03/22 05:22 [place] Rings Not Reportable 03/03/22 05:22 [place] Cells Not Reportable 03/03/22 05:22 Bite Cells Not Reportable 03/03/22 05:22 Crenated Cell Not Reportable 03/03/22 05:22 Elliptocytes Not Reportable 03/03/22 05:22 Acanthocytes (Spur) Not Reportable 03/03/22 05:22 Rouleaux Not Reportable 03/03/22 05:22 Hemoglobin C Crystals Not Reportable 03/03/22 05:22 Schistocytes Not Reportable 03/03/22 05:22 Malaria parasites Not Reportable 03/03/22 05:22 Matthew Bodies Not Reportable 03/03/22 05:22 Hem Pathologist Commnt No 03/03/22 05:22 PT 12.0 Sec. (12.2-14.9) L 03/02/22 18:49 INR 0.79 (0.87-1.13) L 03/02/22 18:49 APTT 26.6 Sec. (24.2-36.6) 03/02/22 18:49 Sodium 136 mmol/L (137-145) L 03/03/22 05:22 Potassium 3.8 mmol/L (3.6-5.0) D 03/03/22 05:22 Chloride 95.8 mmol/L (98-107) L 03/03/22 05:22 Carbon Dioxide 25 mmol/L (22-30) 03/03/22 05:22 Anion Gap 19 mmol/L 03/03/22 05:22 BUN 13 mg/dL (9-20) 03/03/22 05:22 Creatinine 1.2 mg/dL (0.8-1.3) 03/03/22 05:22 Estimated GFR > 60 ml/min 03/03/22 05:22 BUN/Creatinine Ratio 11 % 03/03/22 05:22 Glucose 342 mg/dL (75-100) H 03/03/22 05:22 POC Glucose 290 mg/dL (70-105) H 03/04/22 20:34 Calcium 8.8 mg/dL (8.4-10.2) 03/03/22 05:22 Magnesium 1.10 mg/dL (1.7-2.3) L 03/02/22 18:49 Total Bilirubin 0.60 mg/dL (0.1-1.2) 03/03/22 05:22 AST 37 units/L (5-40) 03/03/22 05:22 ALT 29 units/L (7-56) 03/03/22 05:22 Alkaline Phosphatase 63 units/L (35-129) 03/03/22 05:22 Troponin T < 0.010 ng/mL (0.00-0.029) 03/02/22 18:49 NT-Pro-B Natriuret Pep 31.99 pg/mL (0-900) 03/02/22 18:49 Total Protein 6.1 g/dL (6.3-8.2) L 03/03/22 05:22 Albumin 4.0 g/dL (3.9-5) 03/03/22 05:22 Albumin/Globulin Ratio 1.9 % 03/03/22 05:22 Garcia/IV: Voiding Method Urinal Active Medications - Current Medications Current Medications: Generic Name Dose Route Start Last Admin Trade Name Freq PRN Reason Stop Dose Admin Acetaminophen 650 mg 03/02/22 23:10 03/04/22 04:39 Acetaminophen 325 Mg Tab PO 650 mg Q4H PRN Administration Pain MILD(1-3)/Fever >100.5/WINTERS Albuterol/Ipratropium 1 ampul 03/03/22 08:00 03/04/22 15:41 Ipratropium/Albuterol Sulfate 3 Ml Ampul.Neb IH Not Given TIDRT ANDREA Atorvastatin Calcium 20 mg 03/03/22 10:00 03/04/22 09:41 Atorvastatin 20 Mg Tab PO 20 mg DAILY ANDREA Administration Carvedilol 25 mg 03/02/22 23:45 03/04/22 09:41 Carvedilol 25 Mg Tab PO 25 mg BID ANDREA Administration Cetirizine HCl 10 mg 03/02/22 23:25 Cetirizine 10 Mg Tab PO DAILY PRN Allergy Symptoms Cyanocobalamin 1,000 mcg 03/03/22 10:00 03/04/22 09:41 Cyanocobalamin (Vit B-12) 1000 Mcg Tab PO 1,000 mcg DAILY ANDREA Administration Diphenhydramine HCl 12.5 mg 03/02/22 23:17 Diphenhydramine 50 Mg/Ml Vial IV Q6H PRN Itching Diphenhydramine HCl 25 mg 03/02/22 23:17 Diphenhydramine 25 Mg Cap PO Q6HR PRN Allergy Symptoms Famotidine 20 mg 03/02/22 23:45 03/04/22 09:41 Famotidine 20 Mg Tab PO 20 mg Q12HR ANDREA Administration Ferrous Sulfate 325 mg 03/03/22 10:00 03/04/22 09:43 Ferrous Sulfate 325 Mg Tab PO 325 mg DAILY ANDREA Administration Hydrochlorothiazide 25 mg 03/03/22 10:00 03/04/22 09:43 Hydrochlorothiazide 12.5 Mg Cap PO 12.5 mg QDAY ANDREA Administration Insulin Human Isoph/Insulin Regular 45 unit 03/03/22 08:00 03/04/22 17:34 Insulin Nph/Regular 70/30 Inj SUB-Q 45 unit BIDDIAB ANDREA Administration Insulin Human Lispro 0 unit 03/03/22 06:12 03/04/22 17:33 Insulin Lispro 100 Unit/Ml SUB-Q 8 unit ACHS ANDREA Administration Protocol Metoclopramide HCl 10 mg 03/02/22 23:10 Metoclopramide 10 Mg/2 Ml Inj IV Q6H PRN Nausea And Vomiting Morphine Sulfate 2 mg 03/02/22 21:10 03/04/22 00:54 Morphine 2 Mg/1 Ml Inj IV 2 mg Q4H PRN Administration Pain, Moderate (4-6) Morphine Sulfate 4 mg 03/02/22 21:10 03/04/22 18:12 Morphine 4 Mg/1 Ml Inj IV 4 mg Q4H PRN Administration Pain , Severe (7-10) Ondansetron HCl 4 mg 03/02/22 23:10 Ondansetron 4 Mg/2 Ml Inj IV Q8H PRN Nausea And Vomiting Oxycodone/Acetaminophen 1 tab 03/02/22 23:10 03/04/22 12:41 Oxycodone /Acetaminophen 5-325mg Tab PO 1 tab Q6H PRN Administration Pain, Moderate (4-6) Prednisone 40 mg 03/03/22 10:00 03/04/22 09:41 Prednisone 20 Mg Tab PO 40 mg QDAY ANDREA Administration Sodium Chloride 10 ml 03/03/22 10:00 03/04/22 18:13 Sodium Chloride 0.9% 10 Ml Flush Syringe IV 10 ml BID ANDREA Administration Sodium Chloride 10 ml 03/02/22 23:10 03/04/22 18:12 Sodium Chloride 0.9% 10 Ml Flush Syringe IV 10 ml PRN PRN Administration LINE FLUSH Tramadol HCl 25 mg 03/02/22 23:17 03/04/22 15:17 Tramadol 50 Mg Tab PO 25 mg Q4H PRN Administration Pain, Moderate (4-6)
[2022-03-05] MEDS: oxyCODONE /ACETAMINOPHEN 5-325MG TAB PO PRN ×2 (02:15→13:12)
[2022-03-05] MEDS: MORPHINE 4 MG/1 ML INJ IV PRN ×4 (04:43→21:32)
--- NOTE | 2022-03-05 08:08 | XRay Report ---
CHEST 1 VIEW 03/05/2022 6:59 AM INDICATION / CLINICAL INFORMATION: chest tube. COMPARISON: Yesterday at 1136 hours FINDINGS: SUPPORT DEVICES: Right chest tube and pacemaker device remais in the same position HEART / MEDIASTINUM: No significant abnormality. LUNGS / PLEURA: A moderate to large right apical pneumothorax has developed since yesterday's exam. L eft lung remains generally clear. ADDITIONAL FINDINGS: No significant additional findings. IMPRESSION: 1. Moderate to large right pneumothorax as described. Signer Name: John Manzanares Jr, MD Signed: 03/05/2022 8:04 AM Workstation Name: [id number]
[2022-03-05] MEDS: IPRATROPIUM/ALBUTEROL SULFATE 3 ML AMPUL.NEB IH SCH ×3 (08:34→22:08)
[2022-03-05] MEDS: INSULIN LISPRO 100 UNIT/ML SUB-Q SCH ×4 (09:12→21:33)
[2022-03-05] MEDS: INSULIN NPH/REGULAR 70/30 INJ SUB-Q SCH ×2 (09:13→16:56)
--- NOTE | 2022-03-05 09:49 | Electrocardiograph Report ---
[facility] Test Date: 2022-03-02 Test Time: 18:46:58 Pat Name: ANGELIQUE MEHTA Department: Room: A487 1 Gender: M Customer Relations Advisor: JP : [id number] Requested By: NEERAJ HANNAH Order Number: [id number] Reading MD: Sung Chance Measurements Intervals [place] Rate: 112 P: 106 SC: 152 QRS: 71 QRSD: 85 T: -87 QT: 309 QTc: 422 Interpretive Statements Sinus tachycardia Ventricular trigeminy Biatrial enlargement nonspecific st-t No previous ECG available for comparison Electronically Signed On 03-05-2022 9:48:36 EDT by Sung Chance
--- NOTE | 2022-03-05 10:22 | Progress Note ---
Assessment and Plan 56 yo man with CHF/PM, DM, HTN, hx of bilateral PTx. RT pneumothorax s/p chest tube placement. on CXR this am, there is a large right pneumothorax, on exam there was kinking of the chest tube that was fixed. -repeat CXR at noon -continue chest tube to wall suction 20 today -rest of care per primary. -repeat CXR in am Subjective Date of service: 03/05/22 Narrative: feels better, no resp distress Objective Vital Signs - 12hr 03/04/22 03/04/22 03/05/22 22:45 23:57 02:00 Temperature 97.7 F Pulse Rate 83 76 83 Pulse Rate [ Bilateral] Respiratory 16 Rate Respiratory Rate [Bilateral ] Blood Pressure 136/75 125/78 O2 Sat by Pulse 97 Oximetry 03/05/22 03/05/22 03/05/22 03:37 08:00 08:37 Temperature 97.5 F L Pulse Rate 72 Pulse Rate [ 92 H Bilateral] Respiratory 16 Rate Respiratory 21 Rate [Bilateral ] Blood Pressure 108/71 O2 Sat by Pulse 96 96 Oximetry - General physical appearance well developed, no pain - Respiratory normal expansion, normal respiratory effort, other (chest tube in place, there is an air leak) - Abdomen soft - Labs 03/03/22 05:22 03/03/22 05:22
--- NOTE | 2022-03-05 10:57 | Progress Note ---
Assessment and Plan Assessment and plan: 56 yo man with CHF/PM, DM, HTN, hx of bilateral PTx. RT pneumothorax s/p chest tube placement. Right pneumothorax Hypertension Sarcoidosis Hyperlipidemia Chronic COPD, compensated Diabetes mellitus type 2, insulin-dependent DVT prophylaxis 03/05/2022. Patient with chest surgery this a.m. but still reveals large right pneumothorax. Patient had kinking of the chest tube that was fixed by surgery. We will repeat chest x-ray at noon today. Continue chest tube to wall suction today. Repeat chest x-ray in a.m. History Interval history: No new issues overnight Hospitalist Physical - Constitutional Vitals: Temp Pulse Resp BP Pulse Ox 97.5 F L 92 H 21 108/71 96 03/05/22 03:37 03/05/22 08:00 03/05/22 08:00 03/05/22 03:37 03/05/22 08:37 General appearance: Present: no acute distress, well-nourished - EENT Eyes: Present: PERRL, EOM intact ENT: hearing intact, clear oral mucosa, dentition normal - Neck Neck: Present: supple, normal ROM - Respiratory Respiratory effort: normal Respiratory: bilateral: CTA - Cardiovascular Rhythm: regular Heart Sounds: Present: S1 & S2. Absent: gallop, rub - Extremities Extremities: no ischemia, No edema, Full ROM - Abdominal General gastrointestinal: soft, non-tender, non-distended, normal bowel sounds - Integumentary Integumentary: Present: clear, warm, dry - Neurologic Neurologic: CNII-XII intact, moves all extremities HEART Score - HEART Score Age: 45-65 Risk factors: 1-2 risk factors Troponin: Troponin T < 0.010 ng/mL (0.00-0.029) 03/02/22 18:49 Troponin: 1-3x normal limit - Critical Actions Critical Actions: 0-3 pts:0.9-1.7%risk of adverse cardiac event.Candidate for discharge Results - Labs CBC & Chem 7: 03/03/22 05:22 03/03/22 05:22 Labs: Laboratory Last Values WBC 8.2 K/mm3 (4.5-11.0) 03/03/22 05:22 RBC 5.02 M/mm3 (3.65-5.03) 03/03/22 05:22 Hgb 12.4 gm/dl (11.8-15.2) 03/03/22 05:22 Hct 39.2 % (35.5-45.6) 03/03/22 05:22 MCV 78 fl (84-94) L 03/03/22 05:22 MCH 25 pg (28-32) L 03/03/22 05:22 MCHC 32 % (32-34) 03/03/22 05:22 RDW 14.9 % (13.2-15.2) 03/03/22 05:22 Plt Count 217 K/mm3 (140-440) 03/03/22 05:22 Lymph % (Auto) 16.7 % (13.4-35.0) 03/02/22 18:49 [place] % (Auto) 11.5 % (0.0-7.3) H 03/02/22 18:49 Eos % (Auto) 2.1 % (0.0-4.3) 03/02/22 18:49 Baso % (Auto) 0.3 % (0.0-1.8) 03/02/22 18:49 Lymph # (Auto) 0.9 K/mm3 (1.2-5.4) L 03/02/22 18:49 [place] # (Auto) 0.6 K/mm3 (0.0-0.8) 03/02/22 18:49 Eos # (Auto) 0.1 K/mm3 (0.0-0.4) 03/02/22 18:49 Baso # (Auto) 0.0 K/mm3 (0.0-0.1) 03/02/22 18:49 Add Manual Diff Complete 03/03/22 05:22 Total Counted 100 03/03/22 05:22 Seg Neutrophils % [employer] Analyst 03/03/22 05:22 Seg Neuts % (Manual) 96.0 % (40.0-70.0) H 03/03/22 05:22 Band Neutrophils % 0 % 03/03/22 05:22 Lymphocytes % (Manual) 2.0 % (13.4-35.0) L 03/03/22 05:22 Reactive Lymphs % (Man) 0 % 03/03/22 05:22 Monocytes % (Manual) 2.0 % (0.0-7.3) 03/03/22 05:22 Eosinophils % (Manual) 0 % (0.0-4.3) 03/03/22 05:22 Basophils % (Manual) 0 % (0.0-1.8) 03/03/22 05:22 Metamyelocytes % 0 % 03/03/22 05:22 Myelocytes % 0 % 03/03/22 05:22 Promyelocytes % 0 % 03/03/22 05:22 Blast Cells % 0 % 03/03/22 05:22 Nucleated RBC % Not Reportable 03/03/22 05:22 Seg Neutrophils # 3.8 K/mm3 (1.8-7.7) 03/02/22 18:49 Seg Neutrophils # Man 7.9 K/mm3 (1.8-7.7) H 03/03/22 05:22 Band Neutrophils # 0.0 K/mm3 03/03/22 05:22 Lymphocytes # (Manual) 0.2 K/mm3 (1.2-5.4) L 03/03/22 05:22 Abs React Lymphs (Man) 0.0 K/mm3 03/03/22 05:22 Monocytes # (Manual) 0.2 K/mm3 (0.0-0.8) 03/03/22 05:22 Eosinophils # (Manual) 0.0 K/mm3 (0.0-0.4) 03/03/22 05:22 Basophils # (Manual) 0.0 K/mm3 (0.0-0.1) 03/03/22 05:22 Metamyelocytes # 0.0 K/mm3 03/03/22 05:22 Myelocytes # 0.0 K/mm3 03/03/22 05:22 Promyelocytes # 0.0 K/mm3 03/03/22 05:22 Blast Cells # 0.0 K/mm3 03/03/22 05:22 WBC Morphology Not Reportable 03/03/22 05:22 Hypersegmented Neuts Not Reportable 03/03/22 05:22 Hyposegmented Neuts Not Reportable 03/03/22 05:22 Hypogranular Neuts Not Reportable 03/03/22 05:22 Smudge Cells Not Reportable 03/03/22 05:22 Toxic Granulation Not Reportable 03/03/22 05:22 Toxic Vacuolation Not Reportable 03/03/22 05:22 Dohle Bodies Not Reportable 03/03/22 05:22 Pelger-Huet Anomaly Not Reportable 03/03/22 05:22 Rafiq Rods Not Reportable 03/03/22 05:22 Platelet Estimate Consistent w auto 03/03/22 05:22 Clumped Platelets Not Reportable 03/03/22 05:22 Plt Clumps, EDTA Not Reportable 03/03/22 05:22 Large Platelets Not Reportable 03/03/22 05:22 Giant Platelets Not Reportable 03/03/22 05:22 Platelet Satelliting Not Reportable 03/03/22 05:22 Plt Morphology Comment Not Reportable 03/03/22 05:22 RBC Morphology Not Reportable 03/03/22 05:22 Dimorphic RBCs Not Reportable 03/03/22 05:22 Polychromasia Not Reportable 03/03/22 05:22 Hypochromasia 1+ 03/03/22 05:22 Poikilocytosis Not Reportable 03/03/22 05:22 Anisocytosis 1+ 03/03/22 05:22 Microcytosis Not Reportable 03/03/22 05:22 Macrocytosis Not Reportable 03/03/22 05:22 Spherocytes Not Reportable 03/03/22 05:22 Pappenheimer Bodies Not Reportable 03/03/22 05:22 Sickle Cells Not Reportable 03/03/22 05:22 Target Cells Not Reportable 03/03/22 05:22 Tear Drop Cells Not Reportable 03/03/22 05:22 Ovalocytes Not Reportable 03/03/22 05:22 Helmet Cells Not Reportable 03/03/22 05:22 [place] Bodies Not Reportable 03/03/22 05:22 [place] Rings Not Reportable 03/03/22 05:22 [place] Cells Not Reportable 03/03/22 05:22 Bite Cells Not Reportable 03/03/22 05:22 Crenated Cell Not Reportable 03/03/22 05:22 Elliptocytes Not Reportable 03/03/22 05:22 Acanthocytes (Spur) Not Reportable 03/03/22 05:22 Rouleaux Not Reportable 03/03/22 05:22 Hemoglobin C Crystals Not Reportable 03/03/22 05:22 Schistocytes Not Reportable 03/03/22 05:22 Malaria parasites Not Reportable 03/03/22 05:22 Matthew Bodies Not Reportable 03/03/22 05:22 Hem Pathologist Commnt No 03/03/22 05:22 PT 12.0 Sec. (12.2-14.9) L 03/02/22 18:49 INR 0.79 (0.87-1.13) L 03/02/22 18:49 APTT 26.6 Sec. (24.2-36.6) 03/02/22 18:49 Sodium 136 mmol/L (137-145) L 03/03/22 05:22 Potassium 3.8 mmol/L (3.6-5.0) D 03/03/22 05:22 Chloride 95.8 mmol/L (98-107) L 03/03/22 05:22 Carbon Dioxide 25 mmol/L (22-30) 03/03/22 05:22 Anion Gap 19 mmol/L 03/03/22 05:22 BUN 13 mg/dL (9-20) 03/03/22 05:22 Creatinine 1.2 mg/dL (0.8-1.3) 03/03/22 05:22 Estimated GFR > 60 ml/min 03/03/22 05:22 BUN/Creatinine Ratio 11 % 03/03/22 05:22 Glucose 342 mg/dL (75-100) H 03/03/22 05:22 POC Glucose 290 mg/dL (70-105) H 03/04/22 20:34 Calcium 8.8 mg/dL (8.4-10.2) 03/03/22 05:22 Magnesium 1.10 mg/dL (1.7-2.3) L 03/02/22 18:49 Total Bilirubin 0.60 mg/dL (0.1-1.2) 03/03/22 05:22 AST 37 units/L (5-40) 03/03/22 05:22 ALT 29 units/L (7-56) 03/03/22 05:22 Alkaline Phosphatase 63 units/L (35-129) 03/03/22 05:22 Troponin T < 0.010 ng/mL (0.00-0.029) 03/02/22 18:49 NT-Pro-B Natriuret Pep 31.99 pg/mL (0-900) 03/02/22 18:49 Total Protein 6.1 g/dL (6.3-8.2) L 03/03/22 05:22 Albumin 4.0 g/dL (3.9-5) 03/03/22 05:22 Albumin/Globulin Ratio 1.9 % 03/03/22 05:22 Garcia/IV: Voiding Method Urinal Active Medications - Current Medications Current Medications: Generic Name Dose Route Start Last Admin Trade Name Freq PRN Reason Stop Dose Admin Acetaminophen 650 mg 03/02/22 23:10 03/04/22 04:39 Acetaminophen 325 Mg Tab PO 650 mg Q4H PRN Administration Pain MILD(1-3)/Fever >100.5/[place]INTERS Albuterol/Ipratropium 1 ampul 03/03/22 08:00 03/05/22 08:34 Ipratropium/Albuterol Sulfate 3 Ml Ampul.Neb IH 1 ampul TIDRT ANDREA Administration Atorvastatin Calcium 20 mg 03/03/22 10:00 03/04/22 09:41 Atorvastatin 20 Mg Tab PO 20 mg DAILY ANDREA Administration Carvedilol 25 mg 03/02/22 23:45 03/04/22 22:45 Carvedilol 25 Mg Tab PO 25 mg BID ANDREA Administration Cetirizine HCl 10 mg 03/02/22 23:25 Cetirizine 10 Mg Tab PO DAILY PRN Allergy Symptoms Cyanocobalamin 1,000 mcg 03/03/22 10:00 03/04/22 09:41 Cyanocobalamin (Vit B-12) 1000 Mcg Tab PO 1,000 mcg DAILY ANDREA Administration Diphenhydramine HCl 12.5 mg 03/02/22 23:17 Diphenhydramine 50 Mg/Ml Vial IV Q6H PRN Itching Diphenhydramine HCl 25 mg 03/02/22 23:17 Diphenhydramine 25 Mg Cap PO Q6HR PRN Allergy Symptoms Famotidine 20 mg 03/02/22 23:45 03/04/22 22:45 Famotidine 20 Mg Tab PO 20 mg Q12HR ANDREA Administration Ferrous Sulfate 325 mg 03/03/22 10:00 03/04/22 09:43 Ferrous Sulfate 325 Mg Tab PO 325 mg DAILY ANDREA Administration Hydrochlorothiazide 25 mg 03/03/22 10:00 03/04/22 09:43 Hydrochlorothiazide 12.5 Mg Cap PO 12.5 mg QDAY ANDREA Administration Insulin Human Isoph/Insulin Regular 45 unit 03/03/22 08:00 03/05/22 09:13 Insulin Nph/Regular 70/30 Inj SUB-Q Not Given BIDDIAB [facility] Insulin Human Lispro 0 unit 03/03/22 06:12 03/05/22 09:12 Insulin Lispro 100 Unit/Ml SUB-Q Not Given ACHS [facility] Protocol Metoclopramide HCl 10 mg 03/02/22 23:10 Metoclopramide 10 Mg/2 Ml Inj IV Q6H PRN Nausea And Vomiting Morphine Sulfate 2 mg 03/02/22 21:10 03/04/22 00:54 Morphine 2 Mg/1 Ml Inj IV 2 mg Q4H PRN Administration Pain, Moderate (4-6) Morphine Sulfate 4 mg 03/02/22 21:10 03/05/22 08:54 Morphine 4 Mg/1 Ml Inj IV 4 mg Q4H PRN Administration Pain , Severe (7-10) Ondansetron HCl 4 mg 03/02/22 23:10 Ondansetron 4 Mg/2 Ml Inj IV Q8H PRN Nausea And Vomiting Oxycodone/Acetaminophen 1 tab 03/02/22 23:10 03/05/22 02:15 Oxycodone /Acetaminophen 5-325mg Tab PO 1 tab Q6H PRN Administration Pain, Moderate (4-6) Prednisone 40 mg 03/03/22 10:00 03/04/22 09:41 Prednisone 20 Mg Tab PO 40 mg QDAY [facility] Administration Sodium Chloride 10 ml 03/03/22 10:00 03/04/22 22:45 Sodium Chloride 0.9% 10 Ml Flush Syringe IV 10 ml BID ANDREA Administration Sodium Chloride 10 ml 03/02/22 23:10 03/05/22 08:56 Sodium Chloride 0.9% 10 Ml Flush Syringe IV 10 ml PRN PRN Administration LINE FLUSH Tramadol HCl 25 mg 03/02/22 23:17 03/04/22 15:17 Tramadol 50 Mg Tab PO 25 mg Q4H PRN Administration Pain, Moderate (4-6)
[2022-03-05] MEDS: FERROUS SULFATE 325 MG TAB PO SCH (12:11)
[2022-03-05] MEDS: carvediloL 25 MG TAB PO SCH ×2 (12:12→21:33)
[2022-03-05] MEDS: predniSONE 20 MG TAB PO SCH (12:12)
[2022-03-05] MEDS: hydroCHLOROthiazide 12.5 MG CAP PO SCH (12:12)
[2022-03-05] MEDS: FAMOTIDINE 20 MG TAB PO SCH ×2 (12:12→21:33)
[2022-03-05] MEDS: CYANOCOBALAMIN (VIT B-12) 1000 MCG TAB PO SCH (12:12)
--- NOTE | 2022-03-05 13:17 | XRay Report ---
CHEST 1 VIEW 03/05/2022 11:55 AM INDICATION / CLINICAL INFORMATION: Pneumothorax. COMPARISON: Earlier today at 7:34 AM. FINDINGS: SUPPORT DEVICES: The right pleural catheter has been repositioned slightly with the tip overlying the upper lateral hemithorax. The position of the single lead left subclavian ICD has not changed. HEART / MEDIASTINUM: The heart size and pulmonary vasculature are normal. LUNGS / PLEURA: Parenchymal opacities in both perihilar regions, right greater than left, have shown marked improvement. There is mild subsegmental atelectasis in the right midlung versus minimal fluid in the minor fissure. No pneumothorax. ADDITIONAL FINDINGS: Moderate subcutaneous emphysema involving the right lateral chest wall and lower neck has not changed. IMPRESSION: No significant residual right pneumothorax. Signer Name: Asa Tomlin MD Signed: 03/05/2022 1:13 PM Workstation Name: [email or web address]
[2022-03-05 13:19] LABS: BUN/Creatinine Ratio 21; Blood Urea Nitrogen 25 mg/dL (9-20); Calcium 8.6 mg/dL (8.4-10.2); Hemolysis Index 9
--- NOTE | 2022-03-05 15:06 | Progress Note ---
Assessment and Plan Pneumothorax on right s/p right pleural drain with re-expansion h/o COPD h/o Recurrent left pneumothoraces Tobacco use disorder/Nicotine dependence HTN (hypertension) h/o Sarcoidosis Chest tube back on suction- had a kink yesterday and he ended up with subcutaneous emphysema and pneumothorax on imaging and clinically Analgesia Bronchodilators, chronic home medications for COPD VTE prophylaxis Smoking cessation counselling, nicotine withdrawal precautions I discussed with him that he may ultimately need thoracic surgery for evaluation for pleurodesis/pleurectomy if conservative measures do not work CT chest without contrast to evaluate the lung parenchyma Subjective Date of service: 03/05/22 Principal diagnosis: Right pneumothorax Interval history: F/UP: Right pneumothorax; tobacco use disorder Objective Vital Signs - 12hr 03/05/22 03/05/22 03/05/22 03:37 08:00 08:37 Temperature 97.5 F L Pulse Rate 72 Pulse Rate [ 92 H Bilateral] Respiratory 16 Rate Respiratory 21 Rate [Bilateral ] Blood Pressure 108/71 O2 Sat by Pulse 96 96 Oximetry 03/05/22 14:40 Temperature Pulse Rate Pulse Rate [ 89 Bilateral] Respiratory Rate Respiratory 20 Rate [Bilateral ] Blood Pressure O2 Sat by Pulse Oximetry Constitutional: no acute distress, alert Eyes: non-icteric ENT: oropharynx moist Neck: supple, no lymphadenopathy, no JVD, other (Healed tracheostomy scar) Effort: normal, other (Right pleural drain to -20cm of suction) Ascultation: Bilateral: diminished breath sounds Cardiovascular: regular rate and rhythm, other (S1,S2) Gastrointestinal: normoactive bowel sounds, soft, non-tender Extremities: no cyanosis, no edema, pink and warm Neurologic: normal mental status, non-focal exam, pupils equal and round, motor strength normal and Psychiatric: mood appropriate, affect normal CBC and BMP: 03/06/22 06:16 03/06/22 06:16 ABG, PT/INR, D-dimer: PT/INR, D-dimer PT 12.0 Sec. (12.2-14.9) L 03/02/22 18:49 INR 0.79 (0.87-1.13) L 03/02/22 18:49 Abnormal lab findings: Abnormal Labs 03/02/22 03/02/22 03/02/22 18:49 18:49 18:49 RBC 5.27 H MCV 78 L MCH 25 L Barton % (Auto) 11.5 H Lymph # (Auto) 0.9 L Seg Neuts % (Manual) Lymphocytes % (Manual) Seg Neutrophils # Man Lymphocytes # (Manual) PT 12.0 L INR 0.79 L Sodium Potassium 3.1 L Chloride 96.0 L BUN Glucose 216 H POC Glucose Magnesium 1.10 L Total Protein 03/03/22 03/03/22 03/03/22 05:22 05:22 05:47 RBC MCV 78 L MCH 25 L Barton % (Auto) Lymph # (Auto) Seg Neuts % (Manual) 96.0 H Lymphocytes % (Manual) 2.0 L Seg Neutrophils # Man 7.9 H Lymphocytes # (Manual) 0.2 L PT INR Sodium 136 L Potassium Chloride 95.8 L BUN Glucose 342 H POC Glucose 418 H Magnesium Total Protein 6.1 L 03/03/22 03/03/22 03/03/22 07:28 11:58 15:49 RBC MCV MCH Barton % (Auto) Lymph # (Auto) Seg Neuts % (Manual) Lymphocytes % (Manual) Seg Neutrophils # Man Lymphocytes # (Manual) PT INR Sodium Potassium Chloride BUN Glucose POC Glucose 429 H 471 H 370 H Magnesium Total Protein 03/03/22 03/04/22 03/04/22 21:23 08:28 12:20 RBC MCV MCH Barton % (Auto) Lymph # (Auto) Seg Neuts % (Manual) Lymphocytes % (Manual) Seg Neutrophils # Man Lymphocytes # (Manual) PT INR Sodium Potassium Chloride BUN Glucose POC Glucose 374 H 173 H 157 H Magnesium Total Protein 03/04/22 03/04/22 03/05/22 17:00 20:34 11:43 RBC MCV MCH Barton % (Auto) Lymph # (Auto) Seg Neuts % (Manual) Lymphocytes % (Manual) Seg Neutrophils # Man Lymphocytes # (Manual) PT INR Sodium Potassium Chloride BUN Glucose POC Glucose 315 H 290 H 211 H Magnesium Total Protein 03/05/22 11:52 RBC MCV MCH Barton % (Auto) Lymph # (Auto) Seg Neuts % (Manual) Lymphocytes % (Manual) Seg Neutrophils # Man Lymphocytes # (Manual) PT INR Sodium Potassium 3.3 L Chloride BUN 25 H Glucose 209 H POC Glucose Magnesium Total Protein Chest x-ray: image reviewed Allied health notes reviewed: nursing
[2022-03-06] MEDS: oxyCODONE /ACETAMINOPHEN 5-325MG TAB PO PRN ×2 (01:36→09:08)
[2022-03-06] MEDS: MORPHINE 4 MG/1 ML INJ IV PRN (04:50)
[2022-03-06 06:36] LABS: Basophils % (Auto) 0.2 % (0.0-1.8); Eosinophils # (Auto) 0.2 K/mm3 (0.0-0.4); Eosinophils % (Auto) 2.6 % (0.0-4.3); Hematocrit 40.6 % (35.5-45.6); Hemoglobin 12.7 gm/dl (11.8-15.2); Lymphocytes # (Auto) 1.1 K/mm3 (1.2-5.4); Lymphocytes % (Auto) 14.2 % (13.4-35.0); Mean Corpuscular HGB Conc 31 % (32-34); Mean Corpuscular Volume 79 fl (84-94); Monocytes % (Auto) 13.6 % (0.0-7.3); Platelet Count 224 K/mm3 (140-440); Red Blood Count 5.16 M/mm3 (3.65-5.03); Red Cell Distribution Width 15.1 % (13.2-15.2)
[2022-03-06 07:02] LABS: BUN/Creatinine Ratio 20; Blood Urea Nitrogen 24 mg/dL (9-20); Calcium 8.8 mg/dL (8.4-10.2); Hemolysis Index 20
[2022-03-06] MEDS: INSULIN LISPRO 100 UNIT/ML SUB-Q SCH ×4 (07:30→22:53)
[2022-03-06] MEDS: INSULIN NPH/REGULAR 70/30 INJ SUB-Q SCH ×2 (09:07→19:00)
[2022-03-06] MEDS: carvediloL 25 MG TAB PO SCH ×2 (09:08→21:28)
[2022-03-06] MEDS: hydroCHLOROthiazide 12.5 MG CAP PO SCH (09:08)
[2022-03-06] MEDS: FAMOTIDINE 20 MG TAB PO SCH ×2 (09:08→21:28)
[2022-03-06] MEDS: predniSONE 20 MG TAB PO SCH (09:08)
[2022-03-06] MEDS: FERROUS SULFATE 325 MG TAB PO SCH (09:08)
[2022-03-06] MEDS: CYANOCOBALAMIN (VIT B-12) 1000 MCG TAB PO SCH (09:09)
--- NOTE | 2022-03-06 09:19 | Progress Note ---
Assessment and Plan Assessment and plan: - Patient Problems (1) Pneumothorax on right Current Visit: Yes Status: Acute Plan to address problem: Recurrent right-sided pneumothorax today on chest x-ray. Dislodgment of previous chest tube. Patient underwent replacement of chest tube to low wall intermittent suction. Surgery team consulted. Patient feels much better now that chest tube reinserted again. Should be stable for discharge 24 hours. P ending on follow-up chest x-ray for a.m. (2) Obesity hypoventilation syndrome Current Visit: Yes Status: Acute Plan to address problem: Balanced diet, increase physical activity discharge. Outpatient pulmonary follow-up for sleep study. (3) COPD (chronic obstructive pulmonary disease) Current Visit: Yes Status: Acute Plan to address problem: Supplemental oxygen, pulse oximetry, continue medical management. Patient with multiple blebs. Will need to follow-up with pulmonology outpatient. The explained is educated to at bedside. (4) Acute renal injury Current Visit: No Status: Acute Plan to address problem: IV fluid resuscitation therapy as clinically indicated, continue medical management, repeat BMP in AM. Monitor urine output every shift. (5) DVT prophylaxis Current Visit: Yes Status: Acute Plan to address problem: SCD to bilateral lower extremities while in bed (6) Advance care planning Current Visit: Yes Status: Acute Plan to address problem: Disease education done, care plan discussed, diagnoses discussed, prognosis discussed, patient knowledges understanding and agreement with care plan, +30 minutes. (7) Preventative health care Current Visit: Yes Status: Acute Plan to address problem: Patient counseled regarding balanced diet, increase physical activity discharge. Outpatient follow-up with primary care physician for all age and risk factor appropriate screening test. +30 minutes. History Interval history: 6-year-old male hospital day 3 with COPD complicated by recurrent pneumothorax status post chest tube placement. Patient complains of worsening right-sided chest pain again today. Repeat chest x-ray found to show recurrent pneumothorax again today with dislodgment of prior chest tube. Patient underwent replacement of chest tube today. 03/06/2022-0 patient feels much better at this time after readjustment of the chest tube. All questions and concerns answered to patient and who was at bedside. Patient states he can breathe better less pain. Much more comfortable. Hospitalist Physical - Constitutional Vitals: Temp Pulse Resp BP Pulse Ox 98.5 F 66 18 153/71 91 03/06/22 04:01 03/06/22 04:01 03/06/22 04:01 03/06/22 04:01 03/06/22 04:01 General appearance: Present: no acute distress, well-nourished - EENT Eyes: Present: PERRL ENT: hearing intact, clear oral mucosa - Neck Neck: Present: supple - Respiratory Respiratory effort: normal Respiratory: bilateral: CTA (Expansion and improved on right side.) Details: Decreased effort secondary to pain otherwise clear. - Cardiovascular Rhythm: regular Heart Sounds: Present: S1 & S2 - Extremities Extremities: no ischemia, pulses intact, pulses symmetrical Extremity abnormal: edema Peripheral Pulses: within normal limits - Abdominal General gastrointestinal: soft, non-tender, non-distended - Psychiatric Psychiatric: appropriate mood/affect, cooperative - Neurologic Neurologic: CNII-XII intact, moves all extremities HEART Score - HEART Score Age: 45-65 Risk factors: 1-2 risk factors Troponin: Troponin T < 0.010 ng/mL (0.00-0.029) 03/02/22 18:49 Troponin: 1-3x normal limit - Critical Actions Critical Actions: 0-3 pts:0.9-1.7%risk of adverse cardiac event.Candidate for discharge Results - Labs CBC & Chem 7: 03/06/22 06:16 03/06/22 06:16 Labs: Laboratory Last Values WBC 7.6 K/mm3 (4.5-11.0) 03/06/22 06:16 RBC 5.16 M/mm3 (3.65-5.03) H 03/06/22 06:16 Hgb 12.7 gm/dl (11.8-15.2) 03/06/22 06:16 Hct 40.6 % (35.5-45.6) 03/06/22 06:16 MCV 79 fl (84-94) L 03/06/22 06:16 MCH 25 pg (28-32) L 03/06/22 06:16 MCHC 31 % (32-34) L 03/06/22 06:16 RDW 15.1 % (13.2-15.2) 03/06/22 06:16 Plt Count 224 K/mm3 (140-440) 03/06/22 06:16 Lymph % (Auto) 14.2 % (13.4-35.0) 03/06/22 06:16 Owsley % (Auto) 13.6 % (0.0-7.3) H 03/06/22 06:16 Eos % (Auto) 2.6 % (0.0-4.3) 03/06/22 06:16 Baso % (Auto) 0.2 % (0.0-1.8) 03/06/22 06:16 Lymph # (Auto) 1.1 K/mm3 (1.2-5.4) L 03/06/22 06:16 [place] # (Auto) 1.0 K/mm3 (0.0-0.8) H 03/06/22 06:16 Eos # (Auto) 0.2 K/mm3 (0.0-0.4) 03/06/22 06:16 Baso # (Auto) 0.0 K/mm3 (0.0-0.1) 03/06/22 06:16 Add Manual Diff Complete 03/03/22 05:22 Total Counted 100 03/03/22 05:22 Seg Neutrophils % 69.4 % (40.0-70.0) 03/06/22 06:16 Seg Neuts % (Manual) 96.0 % (40.0-70.0) H 03/03/22 05:22 Band Neutrophils % 0 % 03/03/22 05:22 Lymphocytes % (Manual) 2.0 % (13.4-35.0) L 03/03/22 05:22 Reactive Lymphs % (Man) 0 % 03/03/22 05:22 Monocytes % (Manual) 2.0 % (0.0-7.3) 03/03/22 05:22 Eosinophils % (Manual) 0 % (0.0-4.3) 03/03/22 05:22 Basophils % (Manual) 0 % (0.0-1.8) 03/03/22 05:22 Metamyelocytes % 0 % 03/03/22 05:22 Myelocytes % 0 % 03/03/22 05:22 Promyelocytes % 0 % 03/03/22 05:22 Blast Cells % 0 % 03/03/22 05:22 Nucleated RBC % Not Reportable 03/03/22 05:22 Seg Neutrophils # 5.3 K/mm3 (1.8-7.7) 03/06/22 06:16 Seg Neutrophils # Man 7.9 K/mm3 (1.8-7.7) H 03/03/22 05:22 Band Neutrophils # 0.0 K/mm3 03/03/22 05:22 Lymphocytes # (Manual) 0.2 K/mm3 (1.2-5.4) L 03/03/22 05:22 Abs React Lymphs (Man) 0.0 K/mm3 03/03/22 05:22 Monocytes # (Manual) 0.2 K/mm3 (0.0-0.8) 03/03/22 05:22 Eosinophils # (Manual) 0.0 K/mm3 (0.0-0.4) 03/03/22 05:22 Basophils # (Manual) 0.0 K/mm3 (0.0-0.1) 03/03/22 05:22 Metamyelocytes # 0.0 K/mm3 03/03/22 05:22 Myelocytes # 0.0 K/mm3 03/03/22 05:22 Promyelocytes # 0.0 K/mm3 03/03/22 05:22 Blast Cells # 0.0 K/mm3 03/03/22 05:22 WBC Morphology Not Reportable 03/03/22 05:22 Hypersegmented Neuts Not Reportable 03/03/22 05:22 Hyposegmented Neuts Not Reportable 03/03/22 05:22 Hypogranular Neuts Not Reportable 03/03/22 05:22 Smudge Cells Not Reportable 03/03/22 05:22 Toxic Granulation Not Reportable 03/03/22 05:22 Toxic Vacuolation Not Reportable 03/03/22 05:22 Dohle Bodies Not Reportable 03/03/22 05:22 Pelger-Huet Anomaly Not Reportable 03/03/22 05:22 Rafiq Rods Not Reportable 03/03/22 05:22 Platelet Estimate Consistent w auto 03/03/22 05:22 Clumped Platelets Not Reportable 03/03/22 05:22 Plt Clumps, EDTA Not Reportable 03/03/22 05:22 Large Platelets Not Reportable 03/03/22 05:22 Giant Platelets Not Reportable 03/03/22 05:22 Platelet Satelliting Not Reportable 03/03/22 05:22 Plt Morphology Comment Not Reportable 03/03/22 05:22 RBC Morphology Not Reportable 03/03/22 05:22 Dimorphic RBCs Not Reportable 03/03/22 05:22 Polychromasia Not Reportable 03/03/22 05:22 Hypochromasia 1+ 03/03/22 05:22 Poikilocytosis Not Reportable 03/03/22 05:22 Anisocytosis 1+ 03/03/22 05:22 Microcytosis Not Reportable 03/03/22 05:22 Macrocytosis Not Reportable 03/03/22 05:22 Spherocytes Not Reportable 03/03/22 05:22 Pappenheimer Bodies Not Reportable 03/03/22 05:22 Sickle Cells Not Reportable 03/03/22 05:22 Target Cells Not Reportable 03/03/22 05:22 Tear Drop Cells Not Reportable 03/03/22 05:22 Ovalocytes Not Reportable 03/03/22 05:22 Helmet Cells Not Reportable 03/03/22 05:22 [place] Bodies Not Reportable 03/03/22 05:22 Lynn Rings Not Reportable 03/03/22 05:22 Merrill Cells Not Reportable 03/03/22 05:22 Bite Cells Not Reportable 03/03/22 05:22 Crenated Cell Not Reportable 03/03/22 05:22 Elliptocytes Not Reportable 03/03/22 05:22 Acanthocytes (Spur) Not Reportable 03/03/22 05:22 Rouleaux Not Reportable 03/03/22 05:22 Hemoglobin C Crystals Not Reportable 03/03/22 05:22 Schistocytes Not Reportable 03/03/22 05:22 Malaria parasites Not Reportable 03/03/22 05:22 Matthew Bodies Not Reportable 03/03/22 05:22 Hem Pathologist Commnt No 03/03/22 05:22 PT 12.0 Sec. (12.2-14.9) L 03/02/22 18:49 INR 0.79 (0.87-1.13) L 03/02/22 18:49 APTT 26.6 Sec. (24.2-36.6) 03/02/22 18:49 Sodium 143 mmol/L (137-145) 03/06/22 06:16 Potassium 3.7 mmol/L (3.6-5.0) 03/06/22 06:16 Chloride 101.0 mmol/L (98-107) 03/06/22 06:16 Carbon Dioxide 25 mmol/L (22-30) 03/06/22 06:16 Anion Gap 21 mmol/L 03/06/22 06:16 BUN 24 mg/dL (9-20) H 03/06/22 06:16 Creatinine 1.2 mg/dL (0.8-1.3) 03/06/22 06:16 Estimated GFR > 60 ml/min 03/06/22 06:16 BUN/Creatinine Ratio 20 % 03/06/22 06:16 Glucose 116 mg/dL (75-100) H 03/06/22 06:16 POC Glucose 294 mg/dL (70-105) H 03/05/22 20:44 Calcium 8.8 mg/dL (8.4-10.2) 03/06/22 06:16 Magnesium 1.10 mg/dL (1.7-2.3) L 03/02/22 18:49 Total Bilirubin 0.60 mg/dL (0.1-1.2) 03/03/22 05:22 AST 37 units/L (5-40) 03/03/22 05:22 ALT 29 units/L (7-56) 03/03/22 05:22 Alkaline Phosphatase 63 units/L (35-129) 03/03/22 05:22 Troponin T < 0.010 ng/mL (0.00-0.029) 03/02/22 18:49 NT-Pro-B Natriuret Pep 31.99 pg/mL (0-900) 03/02/22 18:49 Total Protein 6.1 g/dL (6.3-8.2) L 03/03/22 05:22 Albumin 4.0 g/dL (3.9-5) 03/03/22 05:22 Albumin/Globulin Ratio 1.9 % 03/03/22 05:22 Garcia/IV: Voiding Method Urinal Active Medications - Current Medications Current Medications: Generic Name Dose Route Start Last Admin Trade Name Freq PRN Reason Stop Dose Admin Acetaminophen 650 mg 03/02/22 23:10 03/04/22 04:39 Acetaminophen 325 Mg Tab PO 650 mg Q4H PRN Administration Pain MILD(1-3)/Fever >100.5/WINTERS Albuterol/Ipratropium 1 ampul 03/03/22 08:00 03/05/22 22:08 Ipratropium/Albuterol Sulfate 3 Ml Ampul.Neb IH 1 ampul TIDRT ANDREA Administration Atorvastatin Calcium 20 mg 03/03/22 10:00 03/06/22 09:09 Atorvastatin 20 Mg Tab PO 20 mg DAILY ANDREA Administration Carvedilol 25 mg 03/02/22 23:45 03/06/22 09:08 Carvedilol 25 Mg Tab PO 25 mg BID ANDREA Administration Cetirizine HCl 10 mg 03/02/22 23:25 Cetirizine 10 Mg Tab PO DAILY PRN Allergy Symptoms Cyanocobalamin 1,000 mcg 03/03/22 10:00 03/06/22 09:09 Cyanocobalamin (Vit B-12) 1000 Mcg Tab PO 1,000 mcg DAILY ANDREA Administration Diphenhydramine HCl 12.5 mg 03/02/22 23:17 Diphenhydramine 50 Mg/Ml Vial IV Q6H PRN Itching Diphenhydramine HCl 25 mg 03/02/22 23:17 Diphenhydramine 25 Mg Cap PO Q6HR PRN Allergy Symptoms Famotidine 20 mg 03/02/22 23:45 03/06/22 09:08 Famotidine 20 Mg Tab PO 20 mg Q12HR ANDREA Administration Ferrous Sulfate 325 mg 03/03/22 10:00 03/06/22 09:08 Ferrous Sulfate 325 Mg Tab PO 325 mg DAILY ANDREA Administration Hydrochlorothiazide 25 mg 03/03/22 10:00 03/06/22 09:08 Hydrochlorothiazide 12.5 Mg Cap PO 25 mg QDAY ANDREA Administration Insulin Human Isoph/Insulin Regular 45 unit 03/03/22 08:00 03/06/22 09:07 Insulin Nph/Regular 70/30 Inj SUB-Q 45 unit BIDDIAB ANDREA Administration Insulin Human Lispro 0 unit 03/03/22 06:12 03/05/22 21:33 Insulin Lispro 100 Unit/Ml SUB-Q 6 unit ACHS ANDREA Administration Protocol Metoclopramide HCl 10 mg 03/02/22 23:10 Metoclopramide 10 Mg/2 Ml Inj IV Q6H PRN Nausea And Vomiting Morphine Sulfate 2 mg 03/02/22 21:10 03/04/22 00:54 Morphine 2 Mg/1 Ml Inj IV 2 mg Q4H PRN Administration Pain, Moderate (4-6) Morphine Sulfate 4 mg 03/02/22 21:10 03/06/22 04:50 Morphine 4 Mg/1 Ml Inj IV 4 mg Q4H PRN Administration Pain , Severe (7-10) Ondansetron HCl 4 mg 03/02/22 23:10 Ondansetron 4 Mg/2 Ml Inj IV Q8H PRN Nausea And Vomiting Oxycodone/Acetaminophen 1 tab 03/02/22 23:10 03/06/22 09:08 Oxycodone /Acetaminophen 5-325mg Tab PO 1 tab Q6H PRN Administration Pain, Moderate (4-6) Prednisone 40 mg 03/03/22 10:00 03/06/22 09:08 Prednisone 20 Mg Tab PO 40 mg QDAY ANDREA Administration Sodium Chloride 10 ml 03/03/22 10:00 03/05/22 21:33 Sodium Chloride 0.9% 10 Ml Flush Syringe IV 10 ml BID ANDREA Administration Sodium Chloride 10 ml 03/02/22 23:10 03/05/22 08:56 Sodium Chloride 0.9% 10 Ml Flush Syringe IV 10 ml PRN PRN Administration LINE FLUSH Tramadol HCl 25 mg 03/02/22 23:17 03/04/22 15:17 Tramadol 50 Mg Tab PO 25 mg Q4H PRN Administration Pain, Moderate (4-6)
--- NOTE | 2022-03-06 09:28 | XRay Report ---
CHEST 1 VIEW 03/06/2022 6:50 AM INDICATION / CLINICAL INFORMATION: right chest tube. COMPARISON: Previous day. FINDINGS: SUPPORT DEVICES: Unchanged. HEART / MEDIASTINUM: No significant abnormality. LUNGS / PLEURA: Atelectasis/scarring remains right mid zone. Persistent subcutaneous air. Tiny apical pneumothorax unchanged. ADDITIONAL FINDINGS: No significant additional findings. IMPRESSION: No significant change. Signer Name: Norberto Whitehead MD Signed: 03/06/2022 9:24 AM Workstation Name: [employer]
--- NOTE | 2022-03-06 09:31 | Electrocardiograph Report ---
[facility] Test Date: 2022-03-02 Test Time: 21:19:19 Pat Name: ANGELIQUE MEHTA Department: Room: A487 1 Gender: M Technical Inspector: KADEN : [id number] Requested By: NEERAJ HANNAH Order Number: [id number] Reading MD: Sung Chance Measurements Intervals [place] Rate: 91 P: 74 OK: 170 QRS: 37 QRSD: 92 T: -58 QT: 373 QTc: 461 Interpretive Statements Sinus rhythm nonspecific st-t Compared to ECG 03/02/2022 18:46:58 Sinus tachycardia no longer present Ventricular premature complex(es) no longer present Atrial abnormality no longer present Electronically Signed On 03-06-2022 9:30:56 EDT by Sung Chance
--- NOTE | 2022-03-06 10:08 | Progress Note ---
Assessment and Plan 56 yo man with CHF, DM, HTN, recurrent PTx. now with right sided spontaneous pneumothorax with known blebs. current smoker -chest tube to water seal this am -CXR at noon -will follow results and adjust accordingly Subjective Date of service: 03/06/22 Narrative: doing well, CXR with expanded lung this morning. no pain Objective Vital Signs - 12hr 03/05/22 03/05/22 03/06/22 22:10 23:56 03:57 Temperature 97.8 F 97.7 F Pulse Rate 81 71 Pulse Rate [ 76 Bilateral] Respiratory 18 18 Rate Respiratory 20 Rate [Bilateral ] Blood Pressure 111/80 123/86 O2 Sat by Pulse 100 95 96 Oximetry 03/06/22 04:01 Temperature 98.5 F Pulse Rate 66 Pulse Rate [ Bilateral] Respiratory 18 Rate Respiratory Rate [Bilateral ] Blood Pressure 153/71 O2 Sat by Pulse 91 Oximetry - General physical appearance well developed, well nourished, no distress - Respiratory normal expansion, normal respiratory effort (chest tube in place functioning well, small air leak) - Labs 03/06/22 06:16 03/06/22 06:16 Diabetes panel 03/05/22 03/06/22 Range/Units 11:52 06:16 Sodium 143 D 143 (137-145) mmol/L Potassium 3.3 L 3.7 (3.6-5.0) mmol/L Chloride 99.4 101.0 (98-107) mmol/L Carbon Dioxide 28 25 (22-30) mmol/L BUN 25 H 24 H (9-20) mg/dL Creatinine 1.2 1.2 (0.8-1.3) mg/dL Glucose 209 H 116 H (75-100) mg/dL Calcium 8.6 8.8 (8.4-10.2) mg/dL Calcium panel 03/05/22 03/06/22 Range/Units 11:52 06:16 Calcium 8.6 8.8 (8.4-10.2) mg/dL Pituitary panel 03/05/22 03/06/22 Range/Units 11:52 06:16 Sodium 143 D 143 (137-145) mmol/L Potassium 3.3 L 3.7 (3.6-5.0) mmol/L Chloride 99.4 101.0 (98-107) mmol/L Carbon Dioxide 28 25 (22-30) mmol/L BUN 25 H 24 H (9-20) mg/dL Creatinine 1.2 1.2 (0.8-1.3) mg/dL Glucose 209 H 116 H (75-100) mg/dL Calcium 8.6 8.8 (8.4-10.2) mg/dL Adrenal panel 03/05/22 03/06/22 Range/Units 11:52 06:16 Sodium 143 D 143 (137-145) mmol/L Potassium 3.3 L 3.7 (3.6-5.0) mmol/L Chloride 99.4 101.0 (98-107) mmol/L Carbon Dioxide 28 25 (22-30) mmol/L BUN 25 H 24 H (9-20) mg/dL Creatinine 1.2 1.2 (0.8-1.3) mg/dL Glucose 209 H 116 H (75-100) mg/dL Calcium 8.6 8.8 (8.4-10.2) mg/dL
[2022-03-06] MEDS: IPRATROPIUM/ALBUTEROL SULFATE 3 ML AMPUL.NEB IH SCH ×3 (10:16→21:55)
--- NOTE | 2022-03-06 11:20 | XRay Report ---
CHEST 1 VIEW 03/06/2022 10:07 AM INDICATION / CLINICAL INFORMATION: chest tube to water seal. COMPARISON: 03/06/2022 FINDINGS: SUPPORT DEVICES: Right chest tubes are noted HEART / MEDIASTINUM: No significant abnormality. LUNGS / PLEURA: Emphysematous gas and right chest wall and right neck again noted. Increased density in the right hilum and right upper lung no large pneumothorax. Signer Name: Damon Black MD Signed: 03/06/2022 11:15 AM Workstation Name: [id number]
--- NOTE | 2022-03-06 13:38 | Progress Note ---
Assessment and Plan This is a 56-year-old gentleman, with a history of COPD, spontaneous pneumothorax, congestive heart failure, possible sarcoid, who is COVID-19 vaccinated. He presents to the ER with EMS articulated complaint of chest tightness and shortness of breath. Patient is not sure if he is having similar episode to prior episodes of pneumothorax. He denies DVT and pulmonary embolism risk factors. He has a mild cough. EMS initiated treatments in the field. The patient was found to have a large right-sided pneumothorax in the emergency room. The patient provided verbal and written informed consent for sterile pigtail catheter placement. After the pigtail catheter was placed, he felt markedly improved. He now feels back to his baseline. Patient Additional medical history: sarcodosis,elevated cholesterol, pn eumothorax in April 2019, pacemaker/Defibrillator. Patient has history of smoking 1 pack x 30 years. Counseled to stop smoking. Used to drink alcohol. Not drinking alcohol now. Denies drug abuse. Worked in . and has three children. Allergic to lisinopril. Patient alert, awake. Says feeling better. Denies chest pain, shortness of breath or cough. Patient still has right chest tube. Patient is on room air. O2 saturation 98%. No acute respiratory distress. Patient afebrile. No leukocytosis. Blood pressure 153/71 , pulse 76 , respirations 18. Chest xray 03/06/22 reported Emphysematous gas and right chest wall and right neck again noted. Increased density in the right hilum and right upper lung no large pneumothorax. Patient is on Albuterol/atrovent aerosol treatments q 6 hours, PO prednisone and Famotidine. Recommend DVT prophylaxis. - Patient Problems (1) Pneumothorax on right Current Visit: Yes Status: Acute Plan to address problem: Patient has right pig tail chest tube placement with expansion of lung. (2) COPD (chronic obstructive pulmonary disease) Current Visit: Yes Status: Acute Plan to address problem: Albuterol/atrovent aerosol treatments Continue PO prednisone. Continue famotidine. Recommend DVT prophylaxis. PFTs as out patient. (3) Obesity (BMI 35.0-39.9 without comorbidity) Current Visit: No Status: Acute Plan to address problem: Recommend to loose weight. Diet and exercise. (4) Sleep apnea in adult Current Visit: Yes Status: Acute Plan to address problem: Possible sleep apnea. Recommend sleep study as out patient. (5) Obesity hypoventilation syndrome Current Visit: Yes Status: Acute Plan to address problem: Recommend day time blood gases on room air. Recommend to loose weight. Sleep study as out patient. (6) IDDM (insulin dependent diabetes mellitus) Current Visit: Yes Status: Chronic Plan to address problem: Management as primary care. (7) HTN (hypertension) Current Visit: No Status: Chronic Qualifiers: Hypertension type: primary hypertension Qualified Code(s): I10 - Essential (primary) hypertension Plan to address problem: Management as per primary care. (8) GERD (gastroesophageal reflux disease) Current Visit: No Status: Acute Plan to address problem: Patient is on Famotidine. (9) Sarcoidosis Current Visit: No Status: Chronic Plan to address problem: According the patient ,patient has history of sarcoidosis. Patient is on Po Prednisone. Recommend to get GINA level. Subjective Date of service: 03/06/22 Principal diagnosis: Right pneumothorax Interval history: This is a 56-year-old gentleman, with a history of COPD, spontaneous pneumothorax, congestive heart failure, possible sarcoid, who is COVID-19 vaccinated. He presents to the ER with EMS articulated complaint of chest tightness and shortness of breath. Patient is not sure if he is having similar episode to prior episodes of pneumothorax. He denies DVT and pulmonary embolism risk factors. He has a mild cough. EMS initiated treatments in the field. The patient was found to have a large right-sided pneumothorax in the emergency room. The patient provided verbal and written informed consent for sterile pigtail catheter placement. After the pigtail catheter was placed, he felt markedly improved. He now feels back to his baseline. Patient Additional medical history: sarcodosis,elevated cholesterol, pneumothorax in April 2019, pacemaker/Defibrillator. Patient has history of smoking 1 pack x 30 years. Counseled to stop smoking. Used to drink alcohol. Not drinking alcohol now. Denies drug abuse. Worked in . and has three children. Allergic to lisinopril. Patient alert, awake. Says feeling better. Denies chest pain, shortness of breath or cough. Patient still has right chest tube. Patient is on room air. O2 saturation 98%. No acute respiratory distress. Patient afebrile. No leukocytosis. Blood pressure 153/71 , pulse 76 , respirations 18. Chest xray 03/06/22 reported Emphysematous gas and right chest wall and right neck again noted. Increased density in the right hilum and right upper lung no large pneumothorax. Patient is on Albuterol/atrovent aerosol treatments q 6 hours, PO prednisone and Famotidine. Recommend DVT prophylaxis. Objective Vital Signs - 12hr 03/06/22 03/06/22 03/06/22 03:57 04:01 08:00 Temperature 97.7 F 98.5 F Pulse Rate 71 66 Pulse Rate [ 89 Bilateral] Respiratory 18 18 Rate Respiratory 17 Rate [Bilateral ] Blood Pressure 123/86 153/71 O2 Sat by Pulse 96 91 Oximetry 03/06/22 10:00 Temperature Pulse Rate Pulse Rate [ Bilateral] Respiratory Rate Respiratory Rate [Bilateral ] Blood Pressure O2 Sat by Pulse 95 Oximetry Constitutional: no acute distress, alert Eyes: non-icteric ENT: oropharynx moist Neck: supple, no lymphadenopathy, no JVD, other (Healed tracheostomy scar) Effort: normal, other (Right pleural drain to -20cm of suction) Ascultation: Bilateral: diminished breath sounds Cardiovascular: regular rate and rhythm, other (S1,S2) Gastrointestinal: normoactive bowel sounds, soft, non-tender Integumentary: other (Patient has crepitations right chest likely S/C emphysema.) Extremities: no cyanosis, no edema, pink and warm Neurologic: normal mental status, non-focal exam, pupils equal and round, motor strength normal and Psychiatric: mood appropriate, affect normal CBC and BMP: 03/06/22 06:16 03/06/22 06:16 ABG, PT/INR, D-dimer: PT/INR, D-dimer PT 12.0 Sec. (12.2-14.9) L 03/02/22 18:49 INR 0.79 (0.87-1.13) L 03/02/22 18:49 Abnormal lab findings: Abnormal Labs 03/02/22 03/02/22 03/02/22 18:49 18:49 18:49 RBC 5.27 H MCV 78 L MCH 25 L MCHC [place] % (Auto) 11.5 H Lymph # (Auto) 0.9 L [place] # (Auto) Seg Neuts % (Manual) Lymphocytes % (Manual) Seg Neutrophils # Man Lymphocytes # (Manual) PT 12.0 L INR 0.79 L Sodium Potassium 3.1 L Chloride 96.0 L BUN Glucose 216 H POC Glucose Magnesium 1.10 L Total Protein 03/03/22 03/03/22 03/03/22 05:22 05:22 05:47 RBC MCV 78 L MCH 25 L MCHC [place] % (Auto) Lymph # (Auto) [place] # (Auto) Seg Neuts % (Manual) 96.0 H Lymphocytes % (Manual) 2.0 L Seg Neutrophils # Man 7.9 H Lymphocytes # (Manual) 0.2 L PT INR Sodium 136 L Potassium Chloride 95.8 L BUN Glucose 342 H POC Glucose 418 H Magnesium Total Protein 6.1 L 03/03/22 03/03/22 03/03/22 07:28 11:58 15:49 RBC MCV MCH MCHC [place] % (Auto) Lymph # (Auto) [place] # (Auto) Seg Neuts % (Manual) Lymphocytes % (Manual) Seg Neutrophils # Man Lymphocytes # (Manual) PT INR Sodium Potassium Chloride BUN Glucose POC Glucose 429 H 471 H 370 H Magnesium Total Protein 03/03/22 03/04/22 03/04/22 21:23 08:28 12:20 RBC MCV MCH MCHC [place] % (Auto) Lymph # (Auto) [place] # (Auto) Seg Neuts % (Manual) Lymphocytes % (Manual) Seg Neutrophils # Man Lymphocytes # (Manual) PT INR Sodium Potassium Chloride BUN Glucose POC Glucose 374 H 173 H 157 H Magnesium Total Protein 03/04/22 03/04/22 03/05/22 17:00 20:34 11:43 RBC MCV MCH MCHC [place] % (Auto) Lymph # (Auto) [place] # (Auto) Seg Neuts % (Manual) Lymphocytes % (Manual) Seg Neutrophils # Man Lymphocytes # (Manual) PT INR Sodium Potassium Chloride BUN Glucose POC Glucose 315 H 290 H 211 H Magnesium Total Protein 03/05/22 03/05/22 03/05/22 11:52 16:21 20:44 RBC MCV MCH MCHC [place] % (Auto) Lymph # (Auto) [place] # (Auto) Seg Neuts % (Manual) Lymphocytes % (Manual) Seg Neutrophils # Man Lymphocytes # (Manual) PT INR Sodium Potassium 3.3 L Chloride BUN 25 H Glucose 209 H POC Glucose 246 H 294 H Magnesium Total Protein 03/06/22 03/06/22 03/06/22 06:16 06:16 08:23 RBC 5.16 H MCV 79 L MCH 25 L MCHC 31 L [place] % (Auto) 13.6 H Lymph # (Auto) 1.1 L [place] # (Auto) 1.0 H Seg Neuts % (Manual) Lymphocytes % (Manual) Seg Neutrophils # Man Lymphocytes # (Manual) PT INR Sodium Potassium Chloride BUN 24 H Glucose 116 H POC Glucose 111 H Magnesium Total Protein 03/06/22 12:14 RBC MCV MCH MCHC [place] % (Auto) Lymph # (Auto) [place] # (Auto) Seg Neuts % (Manual) Lymphocytes % (Manual) Seg Neutrophils # Man Lymphocytes # (Manual) PT INR Sodium Potassium Chloride BUN Glucose POC Glucose 146 H Magnesium Total Protein Chest x-ray: report reviewed, image reviewed Additional Studies: CHEST 1 VIEW 03/06/2022 10:07 AM INDICATION / CLINICAL INFORMATION: chest tube to water seal. COMPARISON: 03/06/2022 FINDINGS: SUPPORT DEVICES: Right chest tubes are noted HEART / MEDIASTINUM: No significant abnormality. LUNGS / PLEURA: Emphysematous gas and right chest wall and right neck again noted. Increased density in the right hilum and right upper lung no large pneumothorax.
[2022-03-06] MEDS: MORPHINE 2 MG/1 ML INJ IV PRN (19:01)
[2022-03-07] MEDS: oxyCODONE /ACETAMINOPHEN 5-325MG TAB PO PRN ×3 (03:27→17:05)
[2022-03-07] MEDS: INSULIN LISPRO 100 UNIT/ML SUB-Q SCH ×4 (08:56→22:24)
[2022-03-07] MEDS: INSULIN NPH/REGULAR 70/30 INJ SUB-Q SCH ×2 (08:56→17:05)
[2022-03-07] MEDS: hydroCHLOROthiazide 12.5 MG CAP PO SCH (09:00)
[2022-03-07] MEDS: carvediloL 25 MG TAB PO SCH ×2 (09:00→22:23)
[2022-03-07] MEDS: FAMOTIDINE 20 MG TAB PO SCH ×2 (09:01→22:24)
[2022-03-07] MEDS: CYANOCOBALAMIN (VIT B-12) 1000 MCG TAB PO SCH (09:01)
[2022-03-07] MEDS: predniSONE 20 MG TAB PO SCH (09:01)
[2022-03-07] MEDS: FERROUS SULFATE 325 MG TAB PO SCH (09:02)
[2022-03-07] MEDS: IPRATROPIUM/ALBUTEROL SULFATE 3 ML AMPUL.NEB IH SCH ×3 (09:10→21:48)
--- NOTE | 2022-03-07 09:25 | XRay Report ---
CHEST 1 VIEW 03/07/2022 8:09 AM INDICATION / CLINICAL INFORMATION: rt pneumothorax. COMPARISON: 03/06/2022 FINDINGS: SUPPORT DEVICES: Slight interval retraction of right thoracostomy tube. Stable left chest wall cardia c device and leads. HEART / MEDIASTINUM: Stable. LUNGS / PLEURA: Similar opacities in the right mid and lower lung. No pneumothorax. ADDITIONAL FINDINGS: Right sided subcutaneous gas appears similar. IMPRESSION: 1. Slight retraction of thoracostomy tube without appreciable pneumothorax. 2. Similar opacities in the right mid and lower lung. Signer Name: Gume Braag MD Signed: 03/07/2022 9:20 AM Workstation Name: [id number]
--- NOTE | 2022-03-07 10:31 | Progress Note ---
Assessment and Plan chest xray with expanded lung on water seal. will remove chest tube and get CXR at noon. if there is no residual pneumothorax pt can be discharged today. Subjective Date of service: 03/07/22 Patient Reports: Positive: no new complaints Objective Vital Signs - 12hr 03/06/22 03/07/22 03/07/22 23:59 03:27 03:54 Temperature 97.9 F 97.7 F Pulse Rate 74 72 Pulse Rate [ Bilateral] Respiratory 18 20 18 Rate Respiratory Rate [Bilateral ] Blood Pressure 112/73 126/80 O2 Sat by Pulse 97 98 Oximetry 03/07/22 03/07/22 08:10 09:10 Temperature 97.6 F Pulse Rate 74 Pulse Rate [ 74 Bilateral] Respiratory 18 Rate Respiratory 16 Rate [Bilateral ] Blood Pressure 120/74 O2 Sat by Pulse 98 97 Oximetry - General physical appearance well developed, well nourished - Respiratory normal expansion, normal respiratory effort, other (chest tube to water seal, no air leak) - CArdiovascular Rhythm: regular - Labs 03/06/22 06:16 03/06/22 06:16
[2022-03-07 11:21] LABS: ABG Base Excess 3.2 mmol/L (-2.0-3.0); ABG HCO3 26.9 mmol/L (20.0-26.0); ABG Methemoglobin 0.5 % (0.0-1.5); ABG Oxygen Saturation 93.8 % (95.0-99.0); ABG PH 7.467 pH Units (7.350-7.450); ABG PO2 61.1 mm Hg (80.0-90.0)
--- NOTE | 2022-03-07 11:21 | Discharge Summary ---
Providers - Providers Date of Admission: 03/02/22 21:10 Date of discharge: 03/07/22 Attending physician: OXANA LEE 03/02/22 Consult to Case Management [CONS] Routine Services Needed at Discharge: Home Health Services Notified:: outsole caser 03/02/22 19:25 Consult to Physician [CONS] Urgent Comment: Consulting Provider: ANGELES ROSA Physician Instructions: Reason For Exam: Pneumothorax s/p pigtail Consult to Physician [CONS] Urgent Comment: Consulting Provider: OMID CHOI Physician Instructions: Reason For Exam: Spontaneous pneumothorax with chest tube Primary care physician: WAIST FITTER Hospitalization Reason for admission: Respiratory failure, pneumothorax Condition: Good Hospital course: 56 yo man with CHF/PM, DM, HTN, hx of bilateral PTx. RT pneumothorax s/p chest tube placement. The patient was admitted with diagnosis below: Right pneumothorax Hypertension Sarcoidosis Hyperlipidemia Chronic COPD, compensated Diabetes mellitus type 2, insulin-dependent DVT prophylaxis The patient was seen by pulmonary and surgery during hospitalization. The patient had chest tube placed and serial chest x-ray that was monitored closely. Patient did have an episode with complication of the chest tube. On 03/05, Patient had kinking of the chest tube that was fixed by surgery. Patient eventually had reexpansion of the lung and resolution of the pneumothorax. Patient is felt to receive maximal hospital benefit and will be discharged home. Dedicated discharge time 32 minutes Disposition: 01 HOME / SELF CARE / HOMELESS Final Discharge Diagnosis (Prints w/discharge instructions): Right pneumothorax. Hypertension. Sarcoidosis. Hyperlipidemia. Chronic COPD, compensated. Diabetes mellitus type 2, insulin-dependent. DVT prophylaxis Core Measure Documentation - Palliative Care Palliative Care/ Comfort Measures: Not Applicable - Core Measures Any of the following diagnoses?: none Exam - Constitutional Vitals: Temp Pulse Resp BP Pulse Ox 97.6 F 74 16 120/74 97 03/07/22 08:10 03/07/22 09:10 03/07/22 09:10 03/07/22 08:10 03/07/22 09:10 General appearance: Present: no acute distress, well-nourished - EENT Eyes: Present: PERRL ENT: hearing intact, clear oral mucosa - Neck Neck: Present: supple, normal ROM - Respiratory Respiratory effort: normal Respiratory: bilateral: CTA - Cardiovascular Heart Sounds: Present: S1 & S2. Absent: rub, click - Extremities Extremities: pulses symmetrical, No edema Peripheral Pulses: within normal limits - Abdominal General gastrointestinal: Present: soft, non-tender, non-distended, normal bowel sounds Male genitourinary: Present: normal - Integumentary Integumentary: Present: clear, warm, dry - Musculoskeletal Musculoskeletal: gait normal, strength equal bilaterally - Psychiatric Psychiatric: appropriate mood/affect, intact judgment & insight - Neurologic Neurologic: CNII-XII intact, moves all extremities Plan Activity: advance as tolerated Weight Bearing Status: Weight Bear as Tolerated Diet: regular Follow up with: PRIMARY CARE,MD [Primary Care Provider] - 7 Days Prescriptions: Flash Glucose Scanning [place] [Freestyle Javid 14 Day [place]] 1 each MC CONT #5 each Flash Glucose Sensor [Freestyle Javid 14 Day Sensor] 1 each MC CONT #5 kit traMADoL [Ultram 50 MG tab] 25 mg PO Q4H PRN #10 tablet PRN Reason: Pain, Moderate (4-6)
--- NOTE | 2022-03-07 12:18 | Progress Note ---
Assessment and Plan This is a 56-year-old gentleman, with a history of COPD, spontaneous pneumothorax, congestive heart failure, possible sarcoid, who is COVID-19 vaccinated. He presents to the ER with EMS articulated complaint of chest tightness and shortness of breath. Patient is not sure if he is having similar episode to prior episodes of pneumothorax. He denies DVT and pulmonary embolism risk factors. He has a mild cough. EMS initiated treatments in the field. The patient was found to have a large right-sided pneumothorax in the emergency room. The patient provided verbal and written informed consent for sterile pigtail catheter placement. After the pigtail catheter was placed, he felt markedly improved. He now feels back to his baseline. Patient Additional medical history: sarcodosis,elevated cholesterol, pn eumothorax in April 2019, pacemaker/Defibrillator. Patient has history of smoking 1 pack x 30 years. Counseled to stop smoking. Used to drink alcohol. Not drinking alcohol now. Denies drug abuse. Worked in . and has three children. Allergic to lisinopril. Patient alert, awake. Says feeling better. Denies chest pain, shortness of breath or cough. Patient is on room air. O2 saturation 93%. No acute respiratory distress at rest. Patients right chest tube removed. Repeat chest xray showed large right pneumothorax. Surgery planning to reinsert right chest tube. Patient afebrile. No leukocytosis. Blood pressure 114/79, pulse 86 , respirations 18. Chest xray 03/06/22 reported Emphysematous gas and right chest wall and right neck again noted. Increased density in the right hilum and right upper lung no large pneumothorax. Chest xray 03/07/22 8:09 AM reported Slight retraction of thoracostomy tube without appreciable pneumothorax. Similar opacities in the right mid and lower lung. Chest xray 03/07/22 12:17 PM reported Large right pneumothorax after chest tube removal. Chest xray 03/07/22 2:08 PM reported Significant improvement of the right pneumothorax following pneumocath placement. Patient is on Albuterol/atrovent aerosol treatments q 6 hours, PO prednisone and Famotidine. Recommend to place him on O2 4 litres via nasal canula. Recommend DVT prophylaxis. Recommend thoracic surgery consultation for recurrent pneumothorax.. - Patient Problems (1) Pneumothorax on right Current Visit: Yes Status: Acute Plan to address problem: Patient developed large pneuthorax after chest tube removal to day. Surgery reinserted right chest tube with expansion of right lung again. Recommend O2 4 litres via nasal canula. Recommend thoracic surgery consultation for recurrent pneumothorax. (2) COPD (chronic obstructive pulmonary disease) Current Visit: Yes Status: Acute Plan to address problem: Recommend O2 4 litres via nasal canula. Albuterol/atrovent aerosol treatments Continue PO prednisone. Continue famotidine. Recommend DVT prophylaxis. (3) Obesity (BMI 35.0-39.9 without comorbidity) Current Visit: No Status: Acute Plan to address problem: Recommend to loose weight. Diet and exercise. (4) Sleep apnea in adult Current Visit: Yes Status: Acute Plan to address problem: Possible sleep apnea. Recommend sleep study as out patient. (5) IDDM (insulin dependent diabetes mellitus) Current Visit: Yes Status: Chronic Plan to address problem: Management as primary care. (6) HTN (hypertension) Current Visit: No Status: Chronic Qualifiers: Hypertension type: primary hypertension Qualified Code(s): I10 - Essential (primary) hypertension Plan to address problem: Management as per primary care. (7) GERD (gastroesophageal reflux disease) Current Visit: No Status: Acute Plan to address problem: Patient is on Famotidine. (8) Sarcoidosis Current Visit: No Status: Chronic Plan to address problem: According the patient ,patient has history of sarcoidosis. Patient is on Po Prednisone. GINA level results pending. Subjective Date of service: 03/07/22 Principal diagnosis: Right pneumothorax Interval history: This is a 56-year-old gentleman, with a history of COPD, spontaneous pneumothorax, congestive heart failure, possible sarcoid, who is COVID-19 vaccinated. He presents to the ER with EMS articulated complaint of chest tightness and shortness of breath. Patient is not sure if he is having similar episode to prior episodes of pneumothorax. He denies DVT and pulmonary embolism risk factors. He has a mild cough. EMS initiated treatments in the field. The patient was found to have a large right-sided pneumothorax in the emergency room. The patient provided verbal and written informed consent for sterile pigtail catheter placement. After the pigtail catheter was placed, he felt markedly improved. He now feels back to his baseline. Patient Additional medical history: sarcodosis,elevated cholesterol, pneumothorax in April 2019, pacemaker/Defibrillator. Patient has history of smoking 1 pack x 30 years. Counseled to stop smoking. Used to drink alcohol. Not drinking alcohol now. Denies drug abuse. Worked in . and has three children. Allergic to lisinopril. Patient alert, awake. Says feeling better. Denies chest pain, shortness of breath or cough. Patient is on room air. O2 saturation 93%. No acute respiratory distress at rest. Patients right chest tube removed. Repeat chest xray showed large right pneumothorax. Surgery planning to reinsert right chest tube. Patient afebrile. No leukocytosis. Blood pressure 114/79, pulse 86 , respirations 18. Chest xray 03/06/22 reported Emphysematous gas and right chest wall and right neck again noted. Increased density in the right hilum and right upper lung no large pneumothorax. Chest xray 03/07/22 8:09 AM reported Slight retraction of thoracostomy tube without appreciable pneumothorax. Similar opacities in the right mid and lower lung. Chest xray 03/07/22 12:17 PM reported Large right pneumothorax after chest tube removal. Chest xray 03/07/22 2:08 PM reported Significant improvement of the right pneumothorax following pneumocath placement. Patient is on Albuterol/atrovent aerosol treatments q 6 hours, PO prednisone and Famotidine. Recommend to place him on O2 4 litres via nasal canula. Recommend DVT prophylaxis. Recommend thoracic surgery consultation for recurrent pneumothorax. Objective Vital Signs - 12hr 03/07/22 03/07/22 03/07/22 03:27 03:54 08:10 Temperature 97.7 F 97.6 F Pulse Rate 72 74 Pulse Rate [ Bilateral] Respiratory 20 18 18 Rate Respiratory Rate [Bilateral ] Blood Pressure 126/80 120/74 O2 Sat by Pulse 98 98 Oximetry 03/07/22 03/07/22 03/07/22 09:10 10:00 11:18 Temperature 98.2 F Pulse Rate 86 Pulse Rate [ 74 Bilateral] Respiratory 18 18 Rate Respiratory 16 Rate [Bilateral ] Blood Pressure 114/79 O2 Sat by Pulse 97 96 93 Oximetry Constitutional: no acute distress, alert Eyes: non-icteric ENT: oropharynx moist Neck: supple, no lymphadenopathy, no JVD, other (Healed tracheostomy scar) Effort: normal, other (Right pleural drain to -20cm of suction) Ascultation: Right: diminished breath sounds, Bilateral: other (Prolonged expiratory phase.) Cardiovascular: regular rate and rhythm, other (S1,S2) Gastrointestinal: normoactive bowel sounds, soft, non-tender Integumentary: other (Patient has crepitations right chest likely S/C emphysema.) Extremities: no cyanosis, no edema, pink and warm Neurologic: normal mental status, non-focal exam, pupils equal and round, motor strength normal and Psychiatric: mood appropriate, affect normal CBC and BMP: 03/06/22 06:16 03/06/22 06:16 ABG, PT/INR, D-dimer: ABG ABG pH 7.467 pH Units (7.350-7.450) H 03/07/22 10:55 ABG pCO2 38.0 mm Hg 03/07/22 10:55 ABG pO2 61.1 mm Hg (80.0-90.0) L 03/07/22 10:55 ABG O2 Saturation 93.8 % (95.0-99.0) L 03/07/22 10:55 PT/INR, D-dimer PT 12.0 Sec. (12.2-14.9) L 03/02/22 18:49 INR 0.79 (0.87-1.13) L 03/02/22 18:49 Abnormal lab findings: Abnormal Labs 03/02/22 03/02/22 03/02/22 18:49 18:49 18:49 RBC 5.27 H MCV 78 L MCH 25 L MCHC [place] % (Auto) 11.5 H Lymph # (Auto) 0.9 L [place] # (Auto) Seg Neuts % (Manual) Lymphocytes % (Manual) Seg Neutrophils # Man Lymphocytes # (Manual) PT 12.0 L INR 0.79 L ABG pH ABG pO2 ABG HCO3 ABG O2 Saturation ABG Base Excess ABG Hemoglobin Oxyhemoglobin Sodium Potassium 3.1 L Chloride 96.0 L BUN Glucose 216 H POC Glucose Magnesium 1.10 L Total Protein 03/03/22 03/03/22 03/03/22 05:22 05:22 05:47 RBC MCV 78 L MCH 25 L MCHC [place] % (Auto) Lymph # (Auto) [place] # (Auto) Seg Neuts % (Manual) 96.0 H Lymphocytes % (Manual) 2.0 L Seg Neutrophils # Man 7.9 H Lymphocytes # (Manual) 0.2 L PT INR ABG pH ABG pO2 ABG HCO3 ABG O2 Saturation ABG Base Excess ABG Hemoglobin Oxyhemoglobin Sodium 136 L Potassium Chloride 95.8 L BUN Glucose 342 H POC Glucose 418 H Magnesium Total Protein 6.1 L 03/03/22 03/03/22 03/03/22 07:28 11:58 15:49 RBC MCV MCH MCHC [place] % (Auto) Lymph # (Auto) [place] # (Auto) Seg Neuts % (Manual) Lymphocytes % (Manual) Seg Neutrophils # Man Lymphocytes # (Manual) PT INR ABG pH ABG pO2 ABG HCO3 ABG O2 Saturation ABG Base Excess ABG Hemoglobin Oxyhemoglobin Sodium Potassium Chloride BUN Glucose POC Glucose 429 H 471 H 370 H Magnesium Total Protein 03/03/22 03/04/22 03/04/22 21:23 08:28 12:20 RBC MCV MCH MCHC [place] % (Auto) Lymph # (Auto) [place] # (Auto) Seg Neuts % (Manual) Lymphocytes % (Manual) Seg Neutrophils # Man Lymphocytes # (Manual) PT INR ABG pH ABG pO2 ABG HCO3 ABG O2 Saturation ABG Base Excess ABG Hemoglobin Oxyhemoglobin Sodium Potassium Chloride BUN Glucose POC Glucose 374 H 173 H 157 H Magnesium Total Protein 03/04/22 03/04/22 03/05/22 17:00 20:34 11:43 RBC MCV MCH MCHC [place] % (Auto) Lymph # (Auto) [place] # (Auto) Seg Neuts % (Manual) Lymphocytes % (Manual) Seg Neutrophils # Man Lymphocytes # (Manual) PT INR ABG pH ABG pO2 ABG HCO3 ABG O2 Saturation ABG Base Excess ABG Hemoglobin Oxyhemoglobin Sodium Potassium Chloride BUN Glucose POC Glucose 315 H 290 H 211 H Magnesium Total Protein 03/05/22 03/05/22 03/05/22 11:52 16:21 20:44 RBC MCV MCH MCHC [place] % (Auto) Lymph # (Auto) [place] # (Auto) Seg Neuts % (Manual) Lymphocytes % (Manual) Seg Neutrophils # Man Lymphocytes # (Manual) PT INR ABG pH ABG pO2 ABG HCO3 ABG O2 Saturation ABG Base Excess ABG Hemoglobin Oxyhemoglobin Sodium Potassium 3.3 L Chloride BUN 25 H Glucose 209 H POC Glucose 246 H 294 H Magnesium Total Protein 03/06/22 03/06/22 03/06/22 06:16 06:16 08:23 RBC 5.16 H MCV 79 L MCH 25 L MCHC 31 L [place] % (Auto) 13.6 H Lymph # (Auto) 1.1 L [place] # (Auto) 1.0 H Seg Neuts % (Manual) Lymphocytes % (Manual) Seg Neutrophils # Man Lymphocytes # (Manual) PT INR ABG pH ABG pO2 ABG HCO3 ABG O2 Saturation ABG Base Excess ABG Hemoglobin Oxyhemoglobin Sodium Potassium Chloride BUN 24 H Glucose 116 H POC Glucose 111 H Magnesium Total Protein 03/06/22 03/06/22 03/06/22 12:14 15:47 22:28 RBC MCV MCH MCHC [place] % (Auto) Lymph # (Auto) [place] # (Auto) Seg Neuts % (Manual) Lymphocytes % (Manual) Seg Neutrophils # Man Lymphocytes # (Manual) PT INR ABG pH ABG pO2 ABG HCO3 ABG O2 Saturation ABG Base Excess ABG Hemoglobin Oxyhemoglobin Sodium Potassium Chloride BUN Glucose POC Glucose 146 H 261 H 214 H Magnesium Total Protein 03/07/22 03/07/22 10:55 11:20 RBC MCV MCH MCHC [place] % (Auto) Lymph # (Auto) [place] # (Auto) Seg Neuts % (Manual) Lymphocytes % (Manual) Seg Neutrophils # Man Lymphocytes # (Manual) PT INR ABG pH 7.467 H ABG pO2 61.1 L ABG HCO3 26.9 H ABG O2 Saturation 93.8 L ABG Base Excess 3.2 H ABG Hemoglobin 13.1 L Oxyhemoglobin 92.0 L Sodium Potassium Chloride BUN Glucose POC Glucose 196 H Magnesium Total Protein Chest x-ray: report reviewed, image reviewed Additional Studies: CHEST 1 VIEW 03/07/2022 8:09 AM INDICATION / CLINICAL INFORMATION: rt pneumothorax. COMPARISON: 03/06/2022 FINDINGS: SUPPORT DEVICES: Slight interval retraction of right thoracostomy tube. Stable left chest wall cardiac device and leads. HEART / MEDIASTINUM: Stable. LUNGS / PLEURA: Similar opacities in the right mid and lower lung. No pneumothorax. ADDITIONAL FINDINGS: Right sided subcutaneous gas appears similar. IMPRESSION: 1. Slight retraction of thoracostomy tube without appreciable pneumothorax. 2. Similar opacities in the right mid and lower lung. CHEST 1 VIEW 03/07/2022 12:17 PM INDICATION / CLINICAL INFORMATION: right pneumothorax removal chest tube. COMPARISON: None available. FINDINGS: There is a large right pneumothorax which is developed since prior examination. Right chest tube is not seen on this exam. Diffuse subcutaneous gas in right chest wall. Mild increased opacities in left perihilar region. IMPRESSION: Large right pneumothorax after chest tube removal. CHEST 1 VIEW 03/07/2022 2:08 PM INDICATION / CLINICAL INFORMATION: chest tube placement. COMPARISON: One view of the chest from earlier today. FINDINGS: SUPPORT DEVICES: There is expected positioning of a right pneumocath, terminating laterally over the right midlung. Unchanged left ICD. HEART / MEDIASTINUM: No significant abnormality. LUNGS / PLEURA: The right lung is reexpanded with a small residual right apical pneumothorax noted and mild right atelectasis. The left lung is clear. No significant pleural effusion. ADDITIONAL FINDINGS: Extensive subcutaneous gas is noted along the right chest and neck. IMPRESSION: 1. Significant improvement of the right pneumothorax following pneumocath placement. 2. Additional findings as above. Allied health notes reviewed: nursing
--- NOTE | 2022-03-07 12:56 | Progress Note ---
Assessment and Plan Assessment and plan: 56 yo man with CHF/PM, DM, HTN, hx of bilateral PTx. RT pneumothorax s/p chest tube placement. Right pneumothorax Hypertension Sarcoidosis Hyperlipidemia Chronic COPD, compensated Diabetes mellitus type 2, insulin-dependent DVT prophylaxis 03/05/2022. Patient with chest surgery this a.m. but still reveals large right pneumothorax. Patient had kinking of the chest tube that was fixed by surgery. We will repeat chest x-ray at noon today. Continue chest tube to wall suction today. Repeat chest x-ray in a.m. 03/06/2022. Recurrent right-sided pneumothorax today on chest x-ray. Dislodgment of previous chest tube. Patient underwent replacement of chest tube to low wall intermittent suction. Surgery team consulted. 03/07/2022. Surgery reported chest x-ray with expanded lung on waterseal this morning. Chest tube was removed and chest x-ray was repeated this afternoon but revealed recurrent pneumothorax. I discussed the case with surgery who will replace chest tube today. We will most likely need to have discussion with regards to VATS at a tertiary facility. Continue close monitoring. History Interval history: No new issues overnight Hospitalist Physical - Constitutional Vitals: Temp Pulse Resp BP Pulse Ox 98.2 F 86 18 114/79 93 03/07/22 11:18 03/07/22 11:18 03/07/22 11:18 03/07/22 11:18 03/07/22 11:18 General appearance: Present: no acute distress, well-nourished - EENT Eyes: Present: PERRL, EOM intact ENT: hearing intact, clear oral mucosa, dentition normal - Neck Neck: Present: supple, normal ROM - Respiratory Respiratory effort: normal Respiratory: bilateral: CTA - Cardiovascular Rhythm: regular Heart Sounds: Present: S1 & S2. Absent: gallop, rub - Extremities Extremities: no ischemia, No edema, Full ROM - Abdominal General gastrointestinal: soft, non-tender, non-distended, normal bowel sounds - Integumentary Integumentary: Present: clear, warm, dry - Neurologic Neurologic: CNII-XII intact, moves all extremities HEART Score - HEART Score Age: 45-65 Risk factors: 1-2 risk factors Troponin: Troponin T < 0.010 ng/mL (0.00-0.029) 03/02/22 18:49 Troponin: 1-3x normal limit - Critical Actions Critical Actions: 0-3 pts:0.9-1.7%risk of adverse cardiac event.Candidate for discharge Results - Labs CBC & Chem 7: 03/06/22 06:16 03/06/22 06:16 Labs: Laboratory Last Values WBC 7.6 K/mm3 (4.5-11.0) 03/06/22 06:16 RBC 5.16 M/mm3 (3.65-5.03) H 03/06/22 06:16 Hgb 12.7 gm/dl (11.8-15.2) 03/06/22 06:16 Hct 40.6 % (35.5-45.6) 03/06/22 06:16 MCV 79 fl (84-94) L 03/06/22 06:16 MCH 25 pg (28-32) L 03/06/22 06:16 MCHC 31 % (32-34) L 03/06/22 06:16 RDW 15.1 % (13.2-15.2) 03/06/22 06:16 Plt Count 224 K/mm3 (140-440) 03/06/22 06:16 Lymph % (Auto) 14.2 % (13.4-35.0) 03/06/22 06:16 [place] % (Auto) 13.6 % (0.0-7.3) H 03/06/22 06:16 Eos % (Auto) 2.6 % (0.0-4.3) 03/06/22 06:16 Baso % (Auto) 0.2 % (0.0-1.8) 03/06/22 06:16 Lymph # (Auto) 1.1 K/mm3 (1.2-5.4) L 03/06/22 06:16 [place] # (Auto) 1.0 K/mm3 (0.0-0.8) H 03/06/22 06:16 Eos # (Auto) 0.2 K/mm3 (0.0-0.4) 03/06/22 06:16 Baso # (Auto) 0.0 K/mm3 (0.0-0.1) 03/06/22 06:16 Add Manual Diff Complete 03/03/22 05:22 Total Counted 100 03/03/22 05:22 Seg Neutrophils % 69.4 % (40.0-70.0) 03/06/22 06:16 Seg Neuts % (Manual) 96.0 % (40.0-70.0) H 03/03/22 05:22 Band Neutrophils % 0 % 03/03/22 05:22 Lymphocytes % (Manual) 2.0 % (13.4-35.0) L 03/03/22 05:22 Reactive Lymphs % (Man) 0 % 03/03/22 05:22 Monocytes % (Manual) 2.0 % (0.0-7.3) 03/03/22 05:22 Eosinophils % (Manual) 0 % (0.0-4.3) 03/03/22 05:22 Basophils % (Manual) 0 % (0.0-1.8) 03/03/22 05:22 Metamyelocytes % 0 % 03/03/22 05:22 Myelocytes % 0 % 03/03/22 05:22 Promyelocytes % 0 % 03/03/22 05:22 Blast Cells % 0 % 03/03/22 05:22 Nucleated RBC % Not Reportable 03/03/22 05:22 Seg Neutrophils # 5.3 K/mm3 (1.8-7.7) 03/06/22 06:16 Seg Neutrophils # Man 7.9 K/mm3 (1.8-7.7) H 03/03/22 05:22 Band Neutrophils # 0.0 K/mm3 03/03/22 05:22 Lymphocytes # (Manual) 0.2 K/mm3 (1.2-5.4) L 03/03/22 05:22 Abs React Lymphs (Man) 0.0 K/mm3 03/03/22 05:22 Monocytes # (Manual) 0.2 K/mm3 (0.0-0.8) 03/03/22 05:22 Eosinophils # (Manual) 0.0 K/mm3 (0.0-0.4) 03/03/22 05:22 Basophils # (Manual) 0.0 K/mm3 (0.0-0.1) 03/03/22 05:22 Metamyelocytes # 0.0 K/mm3 03/03/22 05:22 Myelocytes # 0.0 K/mm3 03/03/22 05:22 Promyelocytes # 0.0 K/mm3 03/03/22 05:22 Blast Cells # 0.0 K/mm3 03/03/22 05:22 WBC Morphology Not Reportable 03/03/22 05:22 Hypersegmented Neuts Not Reportable 03/03/22 05:22 Hyposegmented Neuts Not Reportable 03/03/22 05:22 Hypogranular Neuts Not Reportable 03/03/22 05:22 Smudge Cells Not Reportable 03/03/22 05:22 Toxic Granulation Not Reportable 03/03/22 05:22 Toxic Vacuolation Not Reportable 03/03/22 05:22 Dohle Bodies Not Reportable 03/03/22 05:22 Pelger-Huet Anomaly Not Reportable 03/03/22 05:22 Rafiq Rods Not Reportable 03/03/22 05:22 Platelet Estimate Consistent w auto 03/03/22 05:22 Clumped Platelets Not Reportable 03/03/22 05:22 Plt Clumps, EDTA Not Reportable 03/03/22 05:22 Large Platelets Not Reportable 03/03/22 05:22 Giant Platelets Not Reportable 03/03/22 05:22 Platelet Satelliting Not Reportable 03/03/22 05:22 Plt Morphology Comment Not Reportable 03/03/22 05:22 RBC Morphology Not Reportable 03/03/22 05:22 Dimorphic RBCs Not Reportable 03/03/22 05:22 Polychromasia Not Reportable 03/03/22 05:22 Hypochromasia 1+ 03/03/22 05:22 Poikilocytosis Not Reportable 03/03/22 05:22 Anisocytosis 1+ 03/03/22 05:22 Microcytosis Not Reportable 03/03/22 05:22 Macrocytosis Not Reportable 03/03/22 05:22 Spherocytes Not Reportable 03/03/22 05:22 Pappenheimer Bodies Not Reportable 03/03/22 05:22 Sickle Cells Not Reportable 03/03/22 05:22 Target Cells Not Reportable 03/03/22 05:22 Tear Drop Cells Not Reportable 03/03/22 05:22 Ovalocytes Not Reportable 03/03/22 05:22 Helmet Cells Not Reportable 03/03/22 05:22 Ledesma-Grapeland Bodies Not Reportable 03/03/22 05:22 Langley Rings Not Reportable 03/03/22 05:22 Amarilys Cells Not Reportable 03/03/22 05:22 Bite Cells Not Reportable 03/03/22 05:22 Crenated Cell Not Reportable 03/03/22 05:22 Elliptocytes Not Reportable 03/03/22 05:22 Acanthocytes (Spur) Not Reportable 03/03/22 05:22 Rouleaux Not Reportable 03/03/22 05:22 Hemoglobin C Crystals Not Reportable 03/03/22 05:22 Schistocytes Not Reportable 03/03/22 05:22 Malaria parasites Not Reportable 03/03/22 05:22 Matthew Bodies Not Reportable 03/03/22 05:22 Hem Pathologist Commnt No 03/03/22 05:22 PT 12.0 Sec. (12.2-14.9) L 03/02/22 18:49 INR 0.79 (0.87-1.13) L 03/02/22 18:49 APTT 26.6 Sec. (24.2-36.6) 03/02/22 18:49 ABG pH 7.467 pH Units (7.350-7.450) H 03/07/22 10:55 ABG pCO2 38.0 mm Hg 03/07/22 10:55 ABG pO2 61.1 mm Hg (80.0-90.0) L 03/07/22 10:55 ABG HCO3 26.9 mmol/L (20.0-26.0) H 03/07/22 10:55 ABG O2 Saturation 93.8 % (95.0-99.0) L 03/07/22 10:55 ABG O2 Content 16.9 (0.0-44) 03/07/22 10:55 ABG Base Excess 3.2 mmol/L (-2.0-3.0) H 03/07/22 10:55 ABG Hemoglobin 13.1 gm/dl (14.0-18.0) L 03/07/22 10:55 ABG Carboxyhemoglobin 1.4 % (0.0-5.0) 03/07/22 10:55 ABG Methemoglobin 0.5 % (0.0-1.5) 03/07/22 10:55 Oxyhemoglobin 92.0 % (95.0-99.0) L 03/07/22 10:55 FiO2 21 % 03/07/22 10:55 Sodium 143 mmol/L (137-145) 03/06/22 06:16 Potassium 3.7 mmol/L (3.6-5.0) 03/06/22 06:16 Chloride 101.0 mmol/L (98-107) 03/06/22 06:16 Carbon Dioxide 25 mmol/L (22-30) 03/06/22 06:16 Anion Gap 21 mmol/L 03/06/22 06:16 BUN 24 mg/dL (9-20) H 03/06/22 06:16 Creatinine 1.2 mg/dL (0.8-1.3) 03/06/22 06:16 Estimated GFR > 60 ml/min 03/06/22 06:16 BUN/Creatinine Ratio 20 % 03/06/22 06:16 Glucose 116 mg/dL (75-100) H 03/06/22 06:16 POC Glucose 196 mg/dL (70-105) H 03/07/22 11:20 Calcium 8.8 mg/dL (8.4-10.2) 03/06/22 06:16 Magnesium 1.10 mg/dL (1.7-2.3) L 03/02/22 18:49 Total Bilirubin 0.60 mg/dL (0.1-1.2) 03/03/22 05:22 AST 37 units/L (5-40) 03/03/22 05:22 ALT 29 units/L (7-56) 03/03/22 05:22 Alkaline Phosphatase 63 units/L (35-129) 03/03/22 05:22 Troponin T < 0.010 ng/mL (0.00-0.029) 03/02/22 18:49 NT-Pro-B Natriuret Pep 31.99 pg/mL (0-900) 03/02/22 18:49 Total Protein 6.1 g/dL (6.3-8.2) L 03/03/22 05:22 Albumin 4.0 g/dL (3.9-5) 03/03/22 05:22 Albumin/Globulin Ratio 1.9 % 03/03/22 05:22 Garcia/IV: Voiding Method Urinal Active Medications - Current Medications Current Medications: Generic Name Dose Route Start Last Admin Trade Name Freq PRN Reason Stop Dose Admin Acetaminophen 650 mg 03/02/22 23:10 03/04/22 04:39 Acetaminophen 325 Mg Tab PO 650 mg Q4H PRN Administration Pain MILD(1-3)/Fever >100.5/WINTERS Albuterol/Ipratropium 1 ampul 03/03/22 08:00 03/07/22 09:10 Ipratropium/Albuterol Sulfate 3 Ml Ampul.Neb IH 1 ampul TIDRT ANDREA Administration Atorvastatin Calcium 20 mg 03/03/22 10:00 03/07/22 09:01 Atorvastatin 20 Mg Tab PO 20 mg DAILY ANDREA Administration Carvedilol 25 mg 03/02/22 23:45 03/07/22 09:00 Carvedilol 25 Mg Tab PO 25 mg BID ANDREA Administration Cetirizine HCl 10 mg 03/02/22 23:25 Cetirizine 10 Mg Tab PO DAILY PRN Allergy Symptoms Cyanocobalamin 1,000 mcg 03/03/22 10:00 03/07/22 09:01 Cyanocobalamin (Vit B-12) 1000 Mcg Tab PO 1,000 mcg DAILY ANDREA Administration Diphenhydramine HCl 12.5 mg 03/02/22 23:17 Diphenhydramine 50 Mg/Ml Vial IV Q6H PRN Itching Diphenhydramine HCl 25 mg 03/02/22 23:17 Diphenhydramine 25 Mg Cap PO Q6HR PRN Allergy Symptoms Famotidine 20 mg 03/02/22 23:45 03/07/22 09:01 Famotidine 20 Mg Tab PO 20 mg Q12HR ANDREA Administration Ferrous Sulfate 325 mg 03/03/22 10:00 03/07/22 09:02 Ferrous Sulfate 325 Mg Tab PO 325 mg DAILY ANDREA Administration Hydrochlorothiazide 25 mg 03/03/22 10:00 03/07/22 09:00 Hydrochlorothiazide 12.5 Mg Cap PO 25 mg QDAY ANDREA Administration Insulin Human Isoph/Insulin Regular 45 unit 03/03/22 08:00 03/07/22 08:56 Insulin Nph/Regular 70/30 Inj SUB-Q Not Given BIDDIAB ANDREA Insulin Human Lispro 0 unit 03/03/22 06:12 03/07/22 12:35 Insulin Lispro 100 Unit/Ml SUB-Q 3 unit ACHS ANDREA Administration Protocol Lidocaine/Epinephrine 20 ml 03/07/22 13:00 Lidocaine 1%/Epinephrine 1:100,000 Vial (20 Ml) INFILTRATI ONCE NR Metoclopramide HCl 10 mg 03/02/22 23:10 Metoclopramide 10 Mg/2 Ml Inj IV Q6H PRN Nausea And Vomiting Morphine Sulfate 2 mg 03/02/22 21:10 03/06/22 19:01 Morphine 2 Mg/1 Ml Inj IV 2 mg Q4H PRN Administration Pain, Moderate (4-6) Morphine Sulfate 4 mg 03/02/22 21:10 03/06/22 04:50 Morphine 4 Mg/1 Ml Inj IV 4 mg Q4H PRN Administration Pain , Severe (7-10) Ondansetron HCl 4 mg 03/02/22 23:10 Ondansetron 4 Mg/2 Ml Inj IV Q8H PRN Nausea And Vomiting Oxycodone/Acetaminophen 1 tab 03/02/22 23:10 03/07/22 08:47 Oxycodone /Acetaminophen 5-325mg Tab PO 1 tab Q6H PRN Administration Pain, Moderate (4-6) Prednisone 40 mg 03/03/22 10:00 03/07/22 09:01 Prednisone 20 Mg Tab PO 40 mg QDAY ANDREA Administration Sodium Chloride 10 ml 03/03/22 10:00 03/07/22 09:02 Sodium Chloride 0.9% 10 Ml Flush Syringe IV 10 ml BID ANDREA Administration Sodium Chloride 10 ml 03/02/22 23:10 03/06/22 19:02 Sodium Chloride 0.9% 10 Ml Flush Syringe IV 10 ml PRN PRN Administration LINE FLUSH Tramadol HCl 25 mg 03/02/22 23:17 03/04/22 15:17 Tramadol 50 Mg Tab PO 25 mg Q4H PRN Administration Pain, Moderate (4-6)
[2022-03-07] MEDS ORDERED: LIDOCAINE 1%/EPINEPHRINE 1:100,000 VIAL (20 ML) INFILTRATI NR (13:00)
[2022-03-07] MEDS ORDERED: LIDOCAINE (1%) 10 MG/1 ML VIAL 20 ML MDV INFILTRATI ONE (13:30)
--- NOTE | 2022-03-07 13:53 | XRay Report ---
CHEST 1 VIEW 03/07/2022 12:17 PM INDICATION / CLINICAL INFORMATION: right pneumothorax removal chest tube. COMPARISON: None available. FINDINGS: There is a large right pneumothorax which is developed since prior examination. Right chest tube is n ot seen on this exam. Diffuse subcutaneous gas in right chest wall. Mild increased opacities in left perihilar region. IMPRESSION: Large right pneumothorax after chest tube removal. Called to patients nurse. Signer Name: Damon Black MD Signed: 03/07/2022 1:49 PM Workstation Name: [id number]
[2022-03-07] MEDS: MORPHINE 2 MG/1 ML INJ IV PRN ×2 (14:07→20:24)
--- NOTE | 2022-03-07 14:33 | XRay Report ---
CHEST 1 VIEW 03/07/2022 2:08 PM INDICATION / CLINICAL INFORMATION: chest tube placement. COMPARISON: One view of the chest from earlier today. FINDINGS: SUPPORT DEVICES: There is expected positioning of a right pneumocath, terminating laterally over the right midlung. Unchanged left ICD. HEART / MEDIASTINUM: No significant abnormality. LUNGS / PLEURA: The right lung is reexpanded with a small residual right apical pneumothorax noted an d mild right atelectasis. The left lung is clear. No significant pleural effusion. ADDITIONAL FINDINGS: Extensive subcutaneous gas is noted along the right chest and neck. IMPRESSION: 1. Significant improvement of the right pneumothorax following pneumocath placement. 2. Additional findings as above. Signer Name: Flaco Acosta MD Signed: 03/07/2022 2:29 PM Workstation Name: [email or web address]
--- NOTE | 2022-03-07 14:56 | Procedure Note ---
Date of procedure: 03/07/22 Pre-op diagnosis: right pneumothorax, recurrent Post-op diagnosis: same Procedure: right chest tube placement: right chest was prepped and draped in the usual sterile fashion, local anesthetic was infiltrated into 2 rib spaces on the anterolateral chest wall between ribs 4-6, skin incision was made with 11 blade and chest pleurocath inserted with rapid gush of air. chest tube secured with silk suture and sterile dressing applied, post op CXR ordered. Anesthesia: local Surgeon: DARRELL MALIK Estimated blood loss: minimal Pathology: none Condition: stable Disposition: floor
[2022-03-07] MEDS: traMADol 50 MG TAB PO PRN (22:22)
[2022-03-08] MEDS: MORPHINE 2 MG/1 ML INJ IV PRN ×3 (02:06→13:03)
[2022-03-08] MEDS: oxyCODONE /ACETAMINOPHEN 5-325MG TAB PO PRN ×3 (05:03→23:32)
--- NOTE | 2022-03-08 08:46 | XRay Report ---
CHEST 1 VIEW 03/08/2022 6:56 AM INDICATION / CLINICAL INFORMATION: right pneumothorax. COMPARISON: 03/07/22 FINDINGS: SUPPORT DEVICES: Right pleural catheter has pulled back slightly. HEART / MEDIASTINUM: Stable. LUNGS / PLEURA: Increase density in the right midlung likely representing fluid in the horizontal fis sure. Right apical pneumothorax appears larger than on the prior study. ADDITIONAL FINDINGS: Moderate right chest wall subcutaneous soft tissue emphysema has increased since yesterday. IMPRESSION: 1. Slight increase in right apical pneumothorax and right chest wall subcutaneous soft tissue emphyse ma. Right pleural tube has pulled back slightly in the interval. Signer Name: Nidhi Diaz MD Signed: 03/08/2022 8:42 AM Workstation Name: [email or web address]
[2022-03-08] MEDS: INSULIN LISPRO 100 UNIT/ML SUB-Q SCH ×4 (09:04→21:33)
[2022-03-08] MEDS: FERROUS SULFATE 325 MG TAB PO SCH (09:06)
[2022-03-08] MEDS: hydroCHLOROthiazide 12.5 MG CAP PO SCH (09:06)
[2022-03-08] MEDS: CYANOCOBALAMIN (VIT B-12) 1000 MCG TAB PO SCH (09:06)
[2022-03-08] MEDS: carvediloL 25 MG TAB PO SCH ×2 (09:06→21:26)
[2022-03-08] MEDS: FAMOTIDINE 20 MG TAB PO SCH ×2 (09:06→21:28)
[2022-03-08] MEDS: INSULIN NPH/REGULAR 70/30 INJ SUB-Q SCH ×2 (09:06→18:34)
[2022-03-08] MEDS: predniSONE 20 MG TAB PO SCH (09:15)
[2022-03-08] MEDS: IPRATROPIUM/ALBUTEROL SULFATE 3 ML AMPUL.NEB IH SCH ×3 (09:21→22:41)
--- NOTE | 2022-03-08 10:12 | Progress Note ---
Assessment and Plan CXR reviewed, right apical pneumothoax. chest tube is inside the chest but retracted a little. i suspect that without tidaling it might be in the fissure. will consult IR to reposition chest tube. -with the complexity of his case having left sided VATS and continuous air leak with recurrent right pneumothorax and complicated surgical history with needing tracheostomy in the past for respiratory failure post op. i think he will be better served at a tertiary center with cardiothoracic capabilities. Subjective Date of service: 03/08/22 Narrative: doing well, no sob, pain well controlled. Objective Vital Signs - 12hr 03/07/22 03/07/22 03/08/22 22:23 23:39 03:28 Temperature 97.7 F 97.7 F Pulse Rate 85 83 72 Pulse Rate [ Bilateral] Respiratory 18 19 Rate Respiratory Rate [Bilateral ] Blood Pressure 120/83 124/84 144/85 O2 Sat by Pulse 99 97 Oximetry 03/08/22 03/08/22 03/08/22 07:56 09:20 09:37 Temperature 97.6 F Pulse Rate 73 Pulse Rate [ 80 Bilateral] Respiratory 18 Rate Respiratory 18 Rate [Bilateral ] Blood Pressure 126/82 O2 Sat by Pulse 98 97 Oximetry - General physical appearance well developed, well nourished - Respiratory normal expansion, normal respiratory effort, other (chest tube to suction, no tidaling. ) - Abdomen soft - Labs 03/06/22 06:16 03/06/22 06:16
--- NOTE | 2022-03-08 10:38 | Progress Note ---
Assessment and Plan Assessment and plan: 56 yo man with CHF/PM, DM, HTN, hx of bilateral PTx. RT pneumothorax s/p chest tube placement. Right pneumothorax Hypertension Sarcoidosis Hyperlipidemia Chronic COPD, compensated Diabetes mellitus type 2, insulin-dependent DVT prophylaxis 03/05/2022. Patient with chest surgery this a.m. but still reveals large right pneumothorax. Patient had kinking of the chest tube that was fixed by surgery. We will repeat chest x-ray at noon today. Continue chest tube to wall suction today. Repeat chest x-ray in a.m. 03/06/2022. Recurrent right-sided pneumothorax today on chest x-ray. Dislodgment of previous chest tube. Patient underwent replacement of chest tube to low wall intermittent suction. Surgery team consulted. 03/07/2022. Surgery reported chest x-ray with expanded lung on waterseal this morning. Chest tube was removed and chest x-ray was repeated this afternoon but revealed recurrent pneumothorax. I discussed the case with surgery who will replace chest tube today. We will most likely need to have discussion with regards to VATS at a tertiary facility. Continue close monitoring. 03/08/2022. I will attempt to contact tertiary facility with cardiothoracic surgery for possible VATS or pleurodesis. Continue to monitor serial chest x- ray. Continue chest tube per surgery recommendations. Continue Accu-Cheks and sliding scale insulin. Continue BP meds History Interval history: No new issues overnight Hospitalist Physical - Constitutional Vitals: Temp Pulse Resp BP Pulse Ox 97.6 F 80 18 126/82 97 03/08/22 07:56 03/08/22 09:20 03/08/22 09:20 03/08/22 07:56 03/08/22 09:37 General appearance: Present: no acute distress, well-nourished - EENT Eyes: Present: PERRL, EOM intact ENT: hearing intact, clear oral mucosa, dentition normal - Neck Neck: Present: supple, normal ROM - Respiratory Respiratory effort: normal Respiratory: bilateral: CTA - Cardiovascular Rhythm: regular Heart Sounds: Present: S1 & S2. Absent: gallop, rub - Extremities Extremities: no ischemia, No edema, Full ROM - Abdominal General gastrointestinal: soft, non-tender, non-distended, normal bowel sounds - Integumentary Integumentary: Present: clear, warm, dry - Neurologic Neurologic: CNII-XII intact, moves all extremities HEART Score - HEART Score Age: 45-65 Risk factors: 1-2 risk factors Troponin: Troponin T < 0.010 ng/mL (0.00-0.029) 03/02/22 18:49 Troponin: 1-3x normal limit - Critical Actions Critical Actions: 0-3 pts:0.9-1.7%risk of adverse cardiac event.Candidate for discharge Results - Labs CBC & Chem 7: 03/06/22 06:16 03/06/22 06:16 Labs: Laboratory Last Values WBC 7.6 K/mm3 (4.5-11.0) 03/06/22 06:16 RBC 5.16 M/mm3 (3.65-5.03) H 03/06/22 06:16 Hgb 12.7 gm/dl (11.8-15.2) 03/06/22 06:16 Hct 40.6 % (35.5-45.6) 03/06/22 06:16 MCV 79 fl (84-94) L 03/06/22 06:16 MCH 25 pg (28-32) L 03/06/22 06:16 MCHC 31 % (32-34) L 03/06/22 06:16 RDW 15.1 % (13.2-15.2) 03/06/22 06:16 Plt Count 224 K/mm3 (140-440) 03/06/22 06:16 Lymph % (Auto) 14.2 % (13.4-35.0) 03/06/22 06:16 [place] % (Auto) 13.6 % (0.0-7.3) H 03/06/22 06:16 Eos % (Auto) 2.6 % (0.0-4.3) 03/06/22 06:16 Baso % (Auto) 0.2 % (0.0-1.8) 03/06/22 06:16 Lymph # (Auto) 1.1 K/mm3 (1.2-5.4) L 03/06/22 06:16 [place] # (Auto) 1.0 K/mm3 (0.0-0.8) H 03/06/22 06:16 Eos # (Auto) 0.2 K/mm3 (0.0-0.4) 03/06/22 06:16 Baso # (Auto) 0.0 K/mm3 (0.0-0.1) 03/06/22 06:16 Add Manual Diff Complete 03/03/22 05:22 Total Counted 100 03/03/22 05:22 Seg Neutrophils % 69.4 % (40.0-70.0) 03/06/22 06:16 Seg Neuts % (Manual) 96.0 % (40.0-70.0) H 03/03/22 05:22 Band Neutrophils % 0 % 03/03/22 05:22 Lymphocytes % (Manual) 2.0 % (13.4-35.0) L 03/03/22 05:22 Reactive Lymphs % (Man) 0 % 03/03/22 05:22 Monocytes % (Manual) 2.0 % (0.0-7.3) 03/03/22 05:22 Eosinophils % (Manual) 0 % (0.0-4.3) 03/03/22 05:22 Basophils % (Manual) 0 % (0.0-1.8) 03/03/22 05:22 Metamyelocytes % 0 % 03/03/22 05:22 Myelocytes % 0 % 03/03/22 05:22 Promyelocytes % 0 % 03/03/22 05:22 Blast Cells % 0 % 03/03/22 05:22 Nucleated RBC % Not Reportable 03/03/22 05:22 Seg Neutrophils # 5.3 K/mm3 (1.8-7.7) 03/06/22 06:16 Seg Neutrophils # Man 7.9 K/mm3 (1.8-7.7) H 03/03/22 05:22 Band Neutrophils # 0.0 K/mm3 03/03/22 05:22 Lymphocytes # (Manual) 0.2 K/mm3 (1.2-5.4) L 03/03/22 05:22 Abs React Lymphs (Man) 0.0 K/mm3 03/03/22 05:22 Monocytes # (Manual) 0.2 K/mm3 (0.0-0.8) 03/03/22 05:22 Eosinophils # (Manual) 0.0 K/mm3 (0.0-0.4) 03/03/22 05:22 Basophils # (Manual) 0.0 K/mm3 (0.0-0.1) 03/03/22 05:22 Metamyelocytes # 0.0 K/mm3 03/03/22 05:22 Myelocytes # 0.0 K/mm3 03/03/22 05:22 Promyelocytes # 0.0 K/mm3 03/03/22 05:22 Blast Cells # 0.0 K/mm3 03/03/22 05:22 WBC Morphology Not Reportable 03/03/22 05:22 Hypersegmented Neuts Not Reportable 03/03/22 05:22 Hyposegmented Neuts Not Reportable 03/03/22 05:22 Hypogranular Neuts Not Reportable 03/03/22 05:22 Smudge Cells Not Reportable 03/03/22 05:22 Toxic Granulation Not Reportable 03/03/22 05:22 Toxic Vacuolation Not Reportable 03/03/22 05:22 Dohle Bodies Not Reportable 03/03/22 05:22 Pelger-Huet Anomaly Not Reportable 03/03/22 05:22 Rafiq Rods Not Reportable 03/03/22 05:22 Platelet Estimate Consistent w auto 03/03/22 05:22 Clumped Platelets Not Reportable 03/03/22 05:22 Plt Clumps, EDTA Not Reportable 03/03/22 05:22 Large Platelets Not Reportable 03/03/22 05:22 Giant Platelets Not Reportable 03/03/22 05:22 Platelet Satelliting Not Reportable 03/03/22 05:22 Plt Morphology Comment Not Reportable 03/03/22 05:22 RBC Morphology Not Reportable 03/03/22 05:22 Dimorphic RBCs Not Reportable 03/03/22 05:22 Polychromasia Not Reportable 03/03/22 05:22 Hypochromasia 1+ 03/03/22 05:22 Poikilocytosis Not Reportable 03/03/22 05:22 Anisocytosis 1+ 03/03/22 05:22 Microcytosis Not Reportable 03/03/22 05:22 Macrocytosis Not Reportable 03/03/22 05:22 Spherocytes Not Reportable 03/03/22 05:22 Pappenheimer Bodies Not Reportable 03/03/22 05:22 Sickle Cells Not Reportable 03/03/22 05:22 Target Cells Not Reportable 03/03/22 05:22 Tear Drop Cells Not Reportable 03/03/22 05:22 Ovalocytes Not Reportable 03/03/22 05:22 Helmet Cells Not Reportable 03/03/22 05:22 [place] Bodies Not Reportable 03/03/22 05:22 [place] Rings Not Reportable 03/03/22 05:22 [place] Cells Not Reportable 03/03/22 05:22 Bite Cells Not Reportable 03/03/22 05:22 Crenated Cell Not Reportable 03/03/22 05:22 Elliptocytes Not Reportable 03/03/22 05:22 Acanthocytes (Spur) Not Reportable 03/03/22 05:22 Rouleaux Not Reportable 03/03/22 05:22 Hemoglobin C Crystals Not Reportable 03/03/22 05:22 Schistocytes Not Reportable 03/03/22 05:22 Malaria parasites Not Reportable 03/03/22 05:22 Matthew Bodies Not Reportable 03/03/22 05:22 Hem Pathologist Commnt No 03/03/22 05:22 PT 12.0 Sec. (12.2-14.9) L 03/02/22 18:49 INR 0.79 (0.87-1.13) L 03/02/22 18:49 APTT 26.6 Sec. (24.2-36.6) 03/02/22 18:49 ABG pH 7.467 pH Units (7.350-7.450) H 03/07/22 10:55 ABG pCO2 38.0 mm Hg 03/07/22 10:55 ABG pO2 61.1 mm Hg (80.0-90.0) L 03/07/22 10:55 ABG HCO3 26.9 mmol/L (20.0-26.0) H 03/07/22 10:55 ABG O2 Saturation 93.8 % (95.0-99.0) L 03/07/22 10:55 ABG O2 Content 16.9 (0.0-44) 03/07/22 10:55 ABG Base Excess 3.2 mmol/L (-2.0-3.0) H 03/07/22 10:55 ABG Hemoglobin 13.1 gm/dl (14.0-18.0) L 03/07/22 10:55 ABG Carboxyhemoglobin 1.4 % (0.0-5.0) 03/07/22 10:55 ABG Methemoglobin 0.5 % (0.0-1.5) 03/07/22 10:55 Oxyhemoglobin 92.0 % (95.0-99.0) L 03/07/22 10:55 FiO2 21 % 03/07/22 10:55 Sodium 143 mmol/L (137-145) 03/06/22 06:16 Potassium 3.7 mmol/L (3.6-5.0) 03/06/22 06:16 Chloride 101.0 mmol/L (98-107) 03/06/22 06:16 Carbon Dioxide 25 mmol/L (22-30) 03/06/22 06:16 Anion Gap 21 mmol/L 03/06/22 06:16 BUN 24 mg/dL (9-20) H 03/06/22 06:16 Creatinine 1.2 mg/dL (0.8-1.3) 03/06/22 06:16 Estimated GFR > 60 ml/min 03/06/22 06:16 BUN/Creatinine Ratio 20 % 03/06/22 06:16 Glucose 116 mg/dL (75-100) H 03/06/22 06:16 POC Glucose 111 mg/dL (70-105) H 03/08/22 07:55 Calcium 8.8 mg/dL (8.4-10.2) 03/06/22 06:16 Magnesium 1.10 mg/dL (1.7-2.3) L 03/02/22 18:49 Total Bilirubin 0.60 mg/dL (0.1-1.2) 03/03/22 05:22 AST 37 units/L (5-40) 03/03/22 05:22 ALT 29 units/L (7-56) 03/03/22 05:22 Alkaline Phosphatase 63 units/L (35-129) 03/03/22 05:22 Troponin T < 0.010 ng/mL (0.00-0.029) 03/02/22 18:49 NT-Pro-B Natriuret Pep 31.99 pg/mL (0-900) 03/02/22 18:49 Total Protein 6.1 g/dL (6.3-8.2) L 03/03/22 05:22 Albumin 4.0 g/dL (3.9-5) 03/03/22 05:22 Albumin/Globulin Ratio 1.9 % 03/03/22 05:22 Garcia/IV: Voiding Method Urinal Active Medications - Current Medications Current Medications: Generic Name Dose Route Start Last Admin Trade Name Freq PRN Reason Stop Dose Admin Acetaminophen 650 mg 03/02/22 23:10 03/04/22 04:39 Acetaminophen 325 Mg Tab PO 650 mg Q4H PRN Administration Pain MILD(1-3)/Fever >100.5/[place]INTER[place] Albuterol/Ipratropium 1 ampul 03/03/22 08:00 03/08/22 09:21 Ipratropium/Albuterol Sulfate 3 Ml Ampul.Neb IH 1 ampul TIDRT ANDREA Administration Atorvastatin Calcium 20 mg 03/03/22 10:00 03/08/22 09:13 Atorvastatin 20 Mg Tab PO 20 mg DAILY ANDREA Administration Carvedilol 25 mg 03/02/22 23:45 03/08/22 09:06 Carvedilol 25 Mg Tab PO 25 mg BID ANDREA Administration Cetirizine HCl 10 mg 03/02/22 23:25 Cetirizine 10 Mg Tab PO DAILY PRN Allergy Symptoms Cyanocobalamin 1,000 mcg 03/03/22 10:00 03/08/22 09:06 Cyanocobalamin (Vit B-12) 1000 Mcg Tab PO 1,000 mcg DAILY ANDREA Administration Diphenhydramine HCl 12.5 mg 03/02/22 23:17 Diphenhydramine 50 Mg/Ml Vial IV Q6H PRN Itching Diphenhydramine HCl 25 mg 03/02/22 23:17 Diphenhydramine 25 Mg Cap PO Q6HR PRN Allergy Symptoms Famotidine 20 mg 03/02/22 23:45 03/08/22 09:06 Famotidine 20 Mg Tab PO 20 mg Q12HR ANDREA Administration Ferrous Sulfate 325 mg 03/03/22 10:00 03/08/22 09:06 Ferrous Sulfate 325 Mg Tab PO 325 mg DAILY ANDREA Administration Hydrochlorothiazide 25 mg 03/03/22 10:00 03/08/22 09:06 Hydrochlorothiazide 12.5 Mg Cap PO 25 mg QDAY ANDREA Administration Insulin Human Isoph/Insulin Regular 45 unit 03/03/22 08:00 03/08/22 09:06 Insulin Nph/Regular 70/30 Inj SUB-Q 45 unit BIDDIAB ANDREA Administration Insulin Human Lispro 0 unit 03/03/22 06:12 03/08/22 09:04 Insulin Lispro 100 Unit/Ml SUB-Q Not Given ACHS [facility] Protocol Metoclopramide HCl 10 mg 03/02/22 23:10 Metoclopramide 10 Mg/2 Ml Inj IV Q6H PRN Nausea And Vomiting Morphine Sulfate 2 mg 03/02/22 21:10 03/08/22 09:05 Morphine 2 Mg/1 Ml Inj IV 2 mg Q4H PRN Administration Pain, Moderate (4-6) Morphine Sulfate 4 mg 03/02/22 21:10 03/06/22 04:50 Morphine 4 Mg/1 Ml Inj IV 4 mg Q4H PRN Administration Pain , Severe (7-10) Ondansetron HCl 4 mg 03/02/22 23:10 Ondansetron 4 Mg/2 Ml Inj IV Q8H PRN Nausea And Vomiting Oxycodone/Acetaminophen 1 tab 03/02/22 23:10 03/08/22 05:03 Oxycodone /Acetaminophen 5-325mg Tab PO 1 tab Q6H PRN Administration Pain, Moderate (4-6) Prednisone 40 mg 03/03/22 10:00 03/08/22 09:15 Prednisone 20 Mg Tab PO 40 mg QDAY ANDREA Administration Sodium Chloride 10 ml 03/03/22 10:00 03/08/22 09:15 Sodium Chloride 0.9% 10 Ml Flush Syringe IV 10 ml BID ANDREA Administration Sodium Chloride 10 ml 03/02/22 23:10 03/06/22 19:02 Sodium Chloride 0.9% 10 Ml Flush Syringe IV 10 ml PRN PRN Administration LINE FLUSH Tramadol HCl 25 mg 03/02/22 23:17 03/07/22 22:22 Tramadol 50 Mg Tab PO 25 mg Q4H PRN Administration Pain, Moderate (4-6)
--- NOTE | 2022-03-08 11:43 | Progress Note ---
Assessment and Plan This is a 56-year-old gentleman, with a history of COPD, spontaneous pneumothorax, congestive heart failure, possible sarcoid, who is COVID-19 vaccinated. He presents to the ER with EMS articulated complaint of chest tightness and shortness of breath. Patient is not sure if he is having similar episode to prior episodes of pneumothorax. He denies DVT and pulmonary embolism risk factors. He has a mild cough. EMS initiated treatments in the field. The patient was found to have a large right-sided pneumothorax in the emergency room. The patient provided verbal and written informed consent for sterile pigtail catheter placement. After the pigtail catheter was placed, he felt markedly improved. He now feels back to his baseline. Patient Additional medical history: sarcodosis,elevated cholesterol, pn eumothorax in April 2019, pacemaker/Defibrillator. Patient has history of smoking 1 pack x 30 years. Counseled to stop smoking. Used to drink alcohol. Not drinking alcohol now. Denies drug abuse. Worked in . and has three children. Allergic to lisinopril. Patient alert, awake. Denies chest pain, shortness of breath or cough. Patient is on room air. O2 saturation 93%. Recommend to keep o2 2 litres all the time. Patient has right chest tube placement yesterday. Patient afebrile. No leukocytosis. Blood pressure 118/63, pulse 77 , respirations 18. Chest xray 03/06/22 reported Emphysematous gas and right chest wall and right neck again noted. Increased density in the right hilum and right upper lung no large pneumothorax. Chest xray 03/07/22 8:09 AM reported Slight retraction of thoracostomy tube without appreciable pneumothorax. Similar opacities in the right mid and lower lung. Chest xray 03/07/22 12:17 PM reported Large right pneumothorax after chest tube removal. Chest xray 03/07/22 2:08 PM reported Significant improvement of the right pneumothorax following pneumocath placement. Chest xray 03/08/22 reported Slight increase in right apical pneumothorax and right chest wall subcutaneous soft tissue emphysema. Right pleural tube has pulled back slightly in the interval. Patient is on Albuterol/atrovent aerosol treatments q 6 hours, PO prednisone and Famotidine. Recommend to place him on O2 2 litres via nasal canula. Recommend DVT prophylaxis. Recommend thoracic surgery consultation for recurrent pneumothorax. Talk to Dr. Raya and told him about thoracic surgery evaluation. Told him may have to transfer to the facility where thoracic surgery services available. - Patient Problems (1) Pneumothorax on right Current Visit: Yes Status: Acute Plan to address problem: Patient developed large pneuthorax after chest tube removal Yester day. Surgery reinserted right chest tube with expansion of right lung again. Recommend O2 2 litres via nasal canula. Recommend thoracic surgery consultation for recurrent pneumothorax. (2) COPD (chronic obstructive pulmonary disease) Current Visit: Yes Status: Acute Plan to address problem: Recommend O2 2 litres via nasal canula. Albuterol/atrovent aerosol treatments Continue PO prednisone. Continue famotidine. Recommend DVT prophylaxis. (3) Obesity (BMI 35.0-39.9 without comorbidity) Current Visit: No Status: Acute Plan to address problem: Recommend to loose weight. (4) Sleep apnea in adult Current Visit: Yes Status: Acute Plan to address problem: Possible sleep apnea. Recommend sleep study as out patient. (5) IDDM (insulin dependent diabetes mellitus) Current Visit: Yes Status: Chronic Plan to address problem: Management as primary care. (6) HTN (hypertension) Current Visit: No Status: Chronic Qualifiers: Hypertension type: primary hypertension Qualified Code(s): I10 - Essential (primary) hypertension Plan to address problem: Management as per primary care. (7) GERD (gastroesophageal reflux disease) Current Visit: No Status: Acute Plan to address problem: Patient is on Famotidine. (8) Sarcoidosis Current Visit: No Status: Chronic Plan to address problem: According the patient ,patient has history of sarcoidosis. Patient is on Po Prednisone. GINA level results pending. Subjective Date of service: 03/08/22 Principal diagnosis: Right pneumothorax Interval history: This is a 56-year-old gentleman, with a history of COPD, spontaneous pn eumothorax, congestive heart failure, possible sarcoid, who is COVID-19 vaccinated. He presents to the ER with EMS articulated complaint of chest tightness and shortness of breath. Patient is not sure if he is having similar episode to prior episodes of pneumothorax. He denies DVT and pulmonary embolism risk factors. He has a mild cough. EMS initiated treatments in the field. The patient was found to have a large right-sided pneumothorax in the emergency room. The patient provided verbal and written informed consent for sterile pigtail catheter placement. After the pigtail catheter was placed, he felt markedly improved. He now feels back to his baseline. Patient Additional medical history: sarcodosis,elevated cholesterol, pneumothorax in April 2019, pacemaker/Defibrillator. Patient has history of smoking 1 pack x 30 years. Counseled to stop smoking. U sed to drink alcohol. Not drinking alcohol now. Denies drug abuse. Worked in . and has three children. Allergic to lisinopril. Patient alert, awake. Denies chest pain, shortness of breath or cough. Patient is on room air. O2 saturation 93%. Recommend to keep o2 2 litres all the time. Patient has right chest tube placement yesterday. Patient afebrile. No leukocytosis. Blood pressure 118/63, pulse 77 , respirations 18. Chest xray 03/06/22 reported Emphysematous gas and right chest wall and right neck again noted. Increased density in the right hilum and right upper lung no large pneumothorax. Chest xray 03/07/22 8:09 AM reported Slight retraction of thoracostomy tube w ithout appreciable pneumothorax. Similar opacities in the right mid and lower lung. Chest xray 03/07/22 12:17 PM reported Large right pneumothorax after chest tube removal. Chest xray 03/07/22 2:08 PM reported Significant improvement of the right pneumothorax following pneumocath placement. Chest xray 03/08/22 reported Slight increase in right apical pneumothorax and right chest wall subcutaneous soft tissue emphysema. Right pleural tube has pulled back slightly in the interval. Patient is on Albuterol/atrovent aerosol treatments q 6 hours, PO prednisone and Famotidine. Recommend to place him on O2 2 litres via nasal canula. Recommend DVT prophylaxis. Recommend thoracic surgery consultation for recurrent pneumothorax. Talk to Dr. Raya and told him about thoracic surgery evaluation. Told him may have to transfer to the facility where thoracic surgery services available. Objective Vital Signs - 12hr 03/08/22 03/08/22 03/08/22 03:28 07:56 09:20 Temperature 97.7 F 97.6 F Pulse Rate 72 73 Pulse Rate [ 80 Bilateral] Respiratory 19 18 Rate Respiratory 18 Rate [Bilateral ] Blood Pressure 144/85 126/82 O2 Sat by Pulse 97 98 Oximetry 03/08/22 09:37 Temperature Pulse Rate Pulse Rate [ Bilateral] Respiratory Rate Respiratory Rate [Bilateral ] Blood Pressure O2 Sat by Pulse 97 Oximetry Constitutional: no acute distress, alert Eyes: non-icteric ENT: oropharynx moist Neck: supple, no lymphadenopathy, no JVD, other (Healed tracheostomy scar) Effort: normal, other (Right pleural drain to -20cm of suction) Ascultation: Bilateral: other (Prolonged expiratory phase.) Cardiovascular: regular rate and rhythm, other (S1,S2) Gastrointestinal: normoactive bowel sounds, soft, non-tender Integumentary: other (Patient has crepitations right chest likely S/C emphysema.) Extremities: no cyanosis, no edema, pink and warm Neurologic: normal mental status, non-focal exam, pupils equal and round, motor strength normal and Psychiatric: mood appropriate, affect normal CBC and BMP: 03/06/22 06:16 03/06/22 06:16 ABG, PT/INR, D-dimer: ABG ABG pH 7.467 pH Units (7.350-7.450) H 03/07/22 10:55 ABG pCO2 38.0 mm Hg 03/07/22 10:55 ABG pO2 61.1 mm Hg (80.0-90.0) L 03/07/22 10:55 ABG O2 Saturation 93.8 % (95.0-99.0) L 03/07/22 10:55 PT/INR, D-dimer PT 12.0 Sec. (12.2-14.9) L 03/02/22 18:49 INR 0.79 (0.87-1.13) L 03/02/22 18:49 Abnormal lab findings: Abnormal Labs 03/02/22 03/02/22 03/02/22 18:49 18:49 18:49 RBC 5.27 H MCV 78 L MCH 25 L MCHC [place] % (Auto) 11.5 H Lymph # (Auto) 0.9 L [place] # (Auto) Seg Neuts % (Manual) Lymphocytes % (Manual) Seg Neutrophils # Man Lymphocytes # (Manual) PT 12.0 L INR 0.79 L ABG pH ABG pO2 ABG HCO3 ABG O2 Saturation ABG Base Excess ABG Hemoglobin Oxyhemoglobin Sodium Potassium 3.1 L Chloride 96.0 L BUN Glucose 216 H POC Glucose Magnesium 1.10 L Total Protein 03/03/22 03/03/22 03/03/22 05:22 05:22 05:47 RBC MCV 78 L MCH 25 L MCHC [place] % (Auto) Lymph # (Auto) [place] # (Auto) Seg Neuts % (Manual) 96.0 H Lymphocytes % (Manual) 2.0 L Seg Neutrophils # Man 7.9 H Lymphocytes # (Manual) 0.2 L PT INR ABG pH ABG pO2 ABG HCO3 ABG O2 Saturation ABG Base Excess ABG Hemoglobin Oxyhemoglobin Sodium 136 L Potassium Chloride 95.8 L BUN Glucose 342 H POC Glucose 418 H Magnesium Total Protein 6.1 L 03/03/22 03/03/22 03/03/22 07:28 11:58 15:49 RBC MCV MCH MCHC [place] % (Auto) Lymph # (Auto) [place] # (Auto) Seg Neuts % (Manual) Lymphocytes % (Manual) Seg Neutrophils # Man Lymphocytes # (Manual) PT INR ABG pH ABG pO2 ABG HCO3 ABG O2 Saturation ABG Base Excess ABG Hemoglobin Oxyhemoglobin Sodium Potassium Chloride BUN Glucose POC Glucose 429 H 471 H 370 H Magnesium Total Protein 03/03/22 03/04/22 03/04/22 21:23 08:28 12:20 RBC MCV MCH MCHC [place] % (Auto) Lymph # (Auto) [place] # (Auto) Seg Neuts % (Manual) Lymphocytes % (Manual) Seg Neutrophils # Man Lymphocytes # (Manual) PT INR ABG pH ABG pO2 ABG HCO3 ABG O2 Saturation ABG Base Excess ABG Hemoglobin Oxyhemoglobin Sodium Potassium Chloride BUN Glucose POC Glucose 374 H 173 H 157 H Magnesium Total Protein 03/04/22 03/04/22 03/05/22 17:00 20:34 11:43 RBC MCV MCH MCHC [place] % (Auto) Lymph # (Auto) [place] # (Auto) Seg Neuts % (Manual) Lymphocytes % (Manual) Seg Neutrophils # Man Lymphocytes # (Manual) PT INR ABG pH ABG pO2 ABG HCO3 ABG O2 Saturation ABG Base Excess ABG Hemoglobin Oxyhemoglobin Sodium Potassium Chloride BUN Glucose POC Glucose 315 H 290 H 211 H Magnesium Total Protein 03/05/22 03/05/22 03/05/22 11:52 16:21 20:44 RBC MCV MCH MCHC [place] % (Auto) Lymph # (Auto) [place] # (Auto) Seg Neuts % (Manual) Lymphocytes % (Manual) Seg Neutrophils # Man Lymphocytes # (Manual) PT INR ABG pH ABG pO2 ABG HCO3 ABG O2 Saturation ABG Base Excess ABG Hemoglobin Oxyhemoglobin Sodium Potassium 3.3 L Chloride BUN 25 H Glucose 209 H POC Glucose 246 H 294 H Magnesium Total Protein 03/06/22 03/06/22 03/06/22 06:16 06:16 08:23 RBC 5.16 H MCV 79 L MCH 25 L MCHC 31 L [place] % (Auto) 13.6 H Lymph # (Auto) 1.1 L [place] # (Auto) 1.0 H Seg Neuts % (Manual) Lymphocytes % (Manual) Seg Neutrophils # Man Lymphocytes # (Manual) PT INR ABG pH ABG pO2 ABG HCO3 ABG O2 Saturation ABG Base Excess ABG Hemoglobin Oxyhemoglobin Sodium Potassium Chloride BUN 24 H Glucose 116 H POC Glucose 111 H Magnesium Total Protein 03/06/22 03/06/22 03/06/22 12:14 15:47 22:28 RBC MCV MCH MCHC [place] % (Auto) Lymph # (Auto) [place] # (Auto) Seg Neuts % (Manual) Lymphocytes % (Manual) Seg Neutrophils # Man Lymphocytes # (Manual) PT INR ABG pH ABG pO2 ABG HCO3 ABG O2 Saturation ABG Base Excess ABG Hemoglobin Oxyhemoglobin Sodium Potassium Chloride BUN Glucose POC Glucose 146 H 261 H 214 H Magnesium Total Protein 03/07/22 03/07/22 03/07/22 10:55 11:20 16:05 RBC MCV MCH MCHC [place] % (Auto) Lymph # (Auto) [place] # (Auto) Seg Neuts % (Manual) Lymphocytes % (Manual) Seg Neutrophils # Man Lymphocytes # (Manual) PT INR ABG pH 7.467 H ABG pO2 61.1 L ABG HCO3 26.9 H ABG O2 Saturation 93.8 L ABG Base Excess 3.2 H ABG Hemoglobin 13.1 L Oxyhemoglobin 92.0 L Sodium Potassium Chloride BUN Glucose POC Glucose 196 H 271 H Magnesium Total Protein 03/07/22 03/08/22 20:13 07:55 RBC MCV MCH MCHC [place] % (Auto) Lymph # (Auto) [place] # (Auto) Seg Neuts % (Manual) Lymphocytes % (Manual) Seg Neutrophils # Man Lymphocytes # (Manual) PT INR ABG pH ABG pO2 ABG HCO3 ABG O2 Saturation ABG Base Excess ABG Hemoglobin Oxyhemoglobin Sodium Potassium Chloride BUN Glucose POC Glucose 154 H 111 H Magnesium Total Protein Chest x-ray: report reviewed, image reviewed Additional Studies: CHEST 1 VIEW 03/08/2022 6:56 AM INDICATION / CLINICAL INFORMATION: right pneumothorax. COMPARISON: 03/07/22 FINDINGS: SUPPORT DEVICES: Right pleural catheter has pulled back slightly. HEART / MEDIASTINUM: Stable. LUNGS / PLEURA: Increase density in the right midlung likely representing fluid in the horizontal fissure. Right apical pneumothorax appears larger than on the prior study. ADDITIONAL FINDINGS: Moderate right chest wall subcutaneous soft tissue emphysema has increased since yesterday. IMPRESSION: 1. Slight increase in right apical pneumothorax and right chest wall subcutaneous soft tissue emphysema. Right pleural tube has pulled back slightly in the interval. Allied health notes reviewed: nursing
--- NOTE | 2022-03-08 12:12 | Cat Scan Report ---
CT CHEST WITHOUT CONTRAST INDICATION / CLINICAL INFORMATION: pneumothorax, prior chest tube placement. TECHNIQUE: Axial CT images were obtained through the chest without contrast. [facility] CT [facility] are performed using CT dose reduction for ALARA by means of automated exposure control. COMPARISON: Chest radiograph 03/08/2022, chest CT 05/06/2019 FINDINGS: HEART: No significant abnormality. CORONARY ARTERY CALCIFICATION: Absent -- None. THORACIC AORTA: Mild atherosclerotic calcification without acute abnormality. MEDIASTINUM / JAMES: Similar partially calcified mediastinal and bilateral hilar lymphadenopathy. PLEURA: There is a moderate to large right-sided pneumothorax. No left-sided pneumothorax. No pleural effusion. There is a right-sided thoracostomy tube with the tip terminating at the right mid upper p ortion of the thoracic cavity and extending into the parenchyma of the right upper lobe. LUNGS: Diffuse interstitial lung disease with subpleural cysts within apical predominance. Consolidat ion or atelectasis within the right upper lobe. A large groundglass opacity is seen within the left u pper lobe measuring 6.4 x 4.2 cm (series 2 image 41. Additional smaller groundglass opacity seen with in the left upper lobe measuring 2.4 x 2.1 cm (series 2 image 56). There is fluid within a subpleural cyst along the medial aspect of the left upper lobe (series 2 image 42). ADDITIONAL FINDINGS: Extensive right chest wall and back subcutaneous emphysema. UPPER ABDOMEN: No significant abnormality. SKELETAL SYSTEM: No significant abnormality. IMPRESSION: 1. Moderate to large right-sided pneumothorax with a right-sided thoracostomy tube terminating within the parenchyma of the right upper lobe. 2. Findings of chronic interstitial lung disease throughout the bilateral lungs with subpleural cysti c change. 3. Partially calcified bilateral hilar and mediastinal lymphadenopathy, suggesting granulomatous dise ase. 4. Groundglass consolidations within the left upper lobe to be infectious or inflammatory in nature. 5. Consolidation with atelectasis at the right upper lobe may be infectious or posttraumatic related to thoracostomy tube positioning. 6. There is an air-fluid level within a region of subpleural cystic change along the medial aspect of the left upper lobe. Signer Name: Kirill Chen MD Signed: 03/08/2022 12:08 PM Workstation Name: [id number]
--- NOTE | 2022-03-08 13:35 | XRay Report ---
CHEST 1 VIEW 03/08/2022 11:11 AM INDICATION / CLINICAL INFORMATION: right pneumothorax. COMPARISON: March 08, 2021 FINDINGS: FINDINGS: Right chest tube is noted. There is a right apical pneumothorax which persists. No pneumothorax measu res 4.3 cm. Diffuse emphysematous gas and right chest wall. Diffuse opacification right hilum and rig ht lower lung. IMPRESSION: Diffuse opacities in right lung with right pneumothorax. Chest tube remains in place. CT chest was performed yesterday. Signer Name: Damon Black MD Signed: 03/08/2022 1:31 PM Workstation Name: [id number]
[2022-03-08] MEDS ORDERED: HEPARIN/NS 5000 UNIT/500ML 500 ML IR ONE (14:50)
[2022-03-08] MEDS ORDERED: LIDOCAINE (2%) 20 MG/1 ML VIAL 20 ML MDV INFILTRATI ONE ×2 (14:50→14:53)
[2022-03-08] MEDS ORDERED: MIDAZOLAM 2 MG/2 ML INJ ONE (14:51)
[2022-03-08] MEDS ORDERED: fentaNYL 100 MCG/2 ML INJ ONE (14:51)
[2022-03-08] MEDS ORDERED: SODIUM CHLORIDE 0.9% 500 ML 500 ML ONE (14:52)
--- NOTE | 2022-03-08 15:36 | Event Note ---
Date: 03/08/22 Consulted for chest tube repositioning. A CT of the chest was ordered which demonstrates that the chest tube resides within the pleural space however, few of the holes are within the subcutaneous tissue resulting in pneumatosis. Given the length of the chest tubes, will place a new chest tube inferior to the previously placed chest tube to allow transection of less soft tissue and subcutaneous air.
--- NOTE | 2022-03-08 16:02 | Operative Report ---
Operative Report Operative Report: Exam: Fluoroscopic guided exchange of chest tube Clinical indication: Patient with a history of recurrent right pneumothorax status postplacement of chest tube with the chest tube being partially retracted with sideholes within the subcutaneous tissues. Date: 03/08/2022 Procedure: Following an explanation of the risk, benefits and alternatives; written informed consent was obtained. The patient was brought to the angiographic suite and placed in supine position on the examination table. Initial review of the patient's CT obtained this afternoon was performed and an appropriate area of the patient's right anterior and lateral chest wall were prepped and draped in the usual sterile fashion. Initial attempts to visualize the lung below the level of the previously placed chest tube were unsuccessful secondary to the significant amounts of subcutaneous emphysema. Decision was made therefore to exchange the indwelling chest tube with placement of a new twice tube. A 0.035 guidewire was advanced through the indwelling chest tube and manipulated into the pleural apex. [place] amounts of lidocaine were used along the prior catheter tract. The prior chest tube was then removed intact and following serial dilation over the guidewire under fluoroscopy, a 12 [place] pigtail drainage catheter was placed over the guidewire under fluoroscopy to position the pigtail at the apex. The guidewire was removed. A total of 240 mL of air were then aspirated manually and the catheter attached to Pleur-evac drainage. Pursestring 0 silk suture was then applied around the catheter and also used to secure the catheter to the dermatotomy site. The catheter was then dressed with a stay fix device. The patient tolerated the procedure well. There were no immediate postprocedural complications. Conscious sedation was performed under the guidance of radiologic nursing. Continuous cardiopulmonary monitoring was utilized. Impression: 1) Attempted ultrasound-guided placement of chest tube precluded by significant subcutaneous emphysema. 2) Exchange and upsize of indwelling chest tube with repositioning of the pigtail at the lung apex with 240 mL of air aspirated. Catheter was then placed to Pleur-evac drainage.
[2022-03-08] MEDS: MORPHINE 4 MG/1 ML INJ IV PRN ×2 (16:37→21:29)
--- NOTE | 2022-03-08 17:26 | XRay Report ---
CHEST 1 VIEW 03/08/2022 4:49 PM INDICATION / CLINICAL INFORMATION: right pneumo - catheter exchange. COMPARISON: March 08, 2022 FINDINGS: SUPPORT DEVICES: Additional right chest tube extends with superiorly. HEART / MEDIASTINUM: No significant abnormality. LUNGS / PLEURA: Increased pulmonary opacities in bilateral lungs. Improved right pneumothorax ADDITIONAL FINDINGS: Diffuse gas in the right chest wall and right neck Signer Name: Damon Black MD Signed: 03/08/2022 5:21 PM Workstation Name: [id number]
[2022-03-09] MEDS: MORPHINE 4 MG/1 ML INJ IV PRN ×2 (02:39→08:37)
[2022-03-09] MEDS: traMADol 50 MG TAB PO PRN (04:24)
[2022-03-09] MEDS: oxyCODONE /ACETAMINOPHEN 5-325MG TAB PO PRN ×4 (05:59→23:56)
--- NOTE | 2022-03-09 08:19 | Progress Note ---
Assessment and Plan This is a 56-year-old gentleman, with a history of COPD, spontaneous pneumothorax, congestive heart failure, possible sarcoid, who is COVID-19 vaccinated. He presents to the ER with EMS articulated complaint of chest tightness and shortness of breath. Patient is not sure if he is having similar episode to prior episodes of pneumothorax. He denies DVT and pulmonary embolism risk factors. He has a mild cough. EMS initiated treatments in the field. The patient was found to have a large right-sided pneumothorax in the emergency room. The patient provided verbal and written informed consent for sterile pigtail catheter placement. After the pigtail catheter was placed, he felt markedly improved. He now feels back to his baseline. Patient Additional medical history: sarcodosis,elevated cholesterol, pn eumothorax in April 2019, pacemaker/Defibrillator. Patient has history of smoking 1 pack x 30 years. Counseled to stop smoking. Used to drink alcohol. Not drinking alcohol now. Denies drug abuse. Worked in . and has three children. Allergic to lisinopril. Patient alert, awake. Denies chest pain, shortness of breath or cough. Patient is on 2 litres O2. O2 saturation 98%. Recommend to keep o2 2 litres all the time. Patient has right chest tube adjusted. Patient afebrile. No leukocytosis. Blood pressure 107/78, pulse 92 , respirations 18. Chest xray 03/06/22 reported Emphysematous gas and right chest wall and right neck again noted. Increased density in the right hilum and right upper lung no large pneumothorax. Chest xray 03/07/22 8:09 AM reported Slight retraction of thoracostomy tube without appreciable pneumothorax. Similar opacities in the right mid and lower lung. Chest xray 03/07/22 12:17 PM reported Large right pneumothorax after chest tube removal. Chest xray 03/07/22 2:08 PM reported Significant improvement of the right pneumothorax following pneumocath placement. Chest xray 03/08/22 reported Slight increase in right apical pneumothorax and rig ht chest wall subcutaneous soft tissue emphysema. Right pleural tube has pulled back slightly in the interval. Repeat chest xray 03/08/22 reported ncreased pulmonary opacities in bilateral lungs. Improved right pneumothorax Diffuse gas in the right chest wall and right neck Patient is on Albuterol/atrovent aerosol treatments q 6 hours, PO prednisone and Famotidine. Recommend to place him on O2 2 litres via nasal canula. Recommend DVT prophylaxis. Recommend thoracic surgery consultation for recurrent pneumothorax. Talk to Dr. Raya yesterday and told him about thoracic surgery evaluation. Told him may have to transfer to the facility where thoracic surgery services available. - Patient Problems (1) Pneumothorax on right Current Visit: Yes Status: Acute Plan to address problem: Patient developed large pneuthorax after chest tube removal Yester day. Surgery reinserted right chest tube with expansion of right lung again. Recommend O2 2 litres via nasal canula. Recommend thoracic surgery consultation for recurrent pneumothorax. (2) COPD (chronic obstructive pulmonary disease) Current Visit: Yes Status: Acute Plan to address problem: Recommend O2 2 litres via nasal canula. Albuterol/atrovent aerosol treatments Continue PO prednisone. Continue famotidine. Recommend DVT prophylaxis. (3) Obesity (BMI 35.0-39.9 without comorbidity) Current Visit: No Status: Acute Plan to address problem: Recommend to loose weight. (4) Sleep apnea in adult Current Visit: Yes Status: Acute Plan to address problem: Possible sleep apnea. Recommend sleep study as out patient. (5) IDDM (insulin dependent diabetes mellitus) Current Visit: Yes Status: Chronic Plan to address problem: Management as primary care. (6) HTN (hypertension) Current Visit: No Status: Chronic Qualifiers: Hypertension type: primary hypertension Qualified Code(s): I10 - Essential (primary) hypertension Plan to address problem: Management as per primary care. (7) GERD (gastroesophageal reflux disease) Current Visit: No Status: Acute Plan to address problem: Patient is on Famotidine. (8) Sarcoidosis Current Visit: No Status: Chronic Plan to address problem: According the patient ,patient has history of sarcoidosis. Patient is on Po Prednisone. GINA level results pending. Subjective Date of service: 03/09/22 Principal diagnosis: Right pneumothorax Interval history: This is a 56-year-old gentleman, with a history of COPD, spontaneous pneumothorax, congestive heart failure, possible sarcoid, who is COVID-19 vaccinated. He presents to the ER with EMS articulated complaint of chest tightness and shortness of breath. Patient is not sure if he is having similar episode to prior episodes of pneumothorax. He denies DVT and pulmonary embolism risk factors. He has a mild cough. EMS initiated treatments in the field. The patient was found to have a large right-sided pneumothorax in the emergency room. The patient provided verbal and written informed consent for sterile pigtail catheter placement. After the pigtail catheter was placed, he felt markedly improved. He now feels back to his baseline. Patient Additional medical history: sarcodosis,elevated cholesterol, pneumothorax in April 2019, pacemaker/Defibrillator. Patient has history of smoking 1 pack x 30 years. Counseled to stop smoking. Used to drink alcohol. Not drinking alcohol now. Denies drug abuse. Worked in . and has three children. Allergic to lisinopril. Patient alert, awake. Denies chest pain, shortness of breath or cough. Patient is on 2 litres O2. O2 saturation 98%. Recommend to keep o2 2 litres all the time. Patient has right chest tube adjusted. Patient afebrile. No leukocytosis. Blood pressure 107/78, pulse 92 , respirations 18. Chest xray 03/06/22 reported Emphysematous gas and right chest wall and right neck again noted. Increased density in the right hilum and right upper lung no large pneumothorax. Chest xray 03/07/22 8:09 AM reported Slight retraction of thoracostomy tube without appreciable pneumothorax. Similar opacities in the right mid and lower lung. Chest xray 03/07/22 12:17 PM reported Large right pneumothorax after chest tube removal. Chest xray 03/07/22 2:08 PM reported Significant improvement of the right pneumothorax following pneumocath placement. Chest xray 03/08/22 reported Slight increase in right apical pneumothorax and right chest wall subcutaneous soft tissue emphysema. Right pleural tube has pulled back slightly in the interval. Repeat chest xray 03/08/22 reported ncreased pulmonary opacities in bilateral lungs. Improved right pneumothorax Diffuse gas in the right chest wall and right neck Patient is on Albuterol/atrovent aerosol treatments q 6 hours, PO prednisone and Famotidine. Recommend to place him on O2 2 litres via nasal canula. Recommend DVT prophylaxis. Recommend thoracic surgery consultation for recurrent pneumothorax. Talk to Dr. Raya yesterday and told him about thoracic surgery evaluation. Told him may have to transfer to the facility where thoracic surgery services available. Objective Vital Signs - 12hr 03/08/22 03/08/22 03/08/22 21:26 22:00 22:40 Temperature Pulse Rate 74 Pulse Rate [ Bilateral] Respiratory Rate Respiratory Rate [Bilateral ] Blood Pressure 132/81 O2 Sat by Pulse 97 98 Oximetry 03/08/22 03/08/22 03/09/22 22:41 23:13 00:53 Temperature 98.4 F Pulse Rate 77 79 Pulse Rate [ 80 Bilateral] Respiratory 16 Rate Respiratory 16 Rate [Bilateral ] Blood Pressure 138/77 O2 Sat by Pulse 99 Oximetry 03/09/22 03/09/22 03:39 04:24 Temperature 98.5 F Pulse Rate 82 80 Pulse Rate [ Bilateral] Respiratory 20 Rate Respiratory Rate [Bilateral ] Blood Pressure 114/74 O2 Sat by Pulse 98 Oximetry Constitutional: no acute distress, alert Eyes: non-icteric ENT: oropharynx moist Neck: supple, no lymphadenopathy, no JVD, other (Healed tracheostomy scar) Effort: normal, other (Right pleural drain to -20cm of suction) Ascultation: Right: diminished breath sounds, Bilateral: other (Prolonged expiratory phase.) Cardiovascular: regular rate and rhythm, other (S1,S2) Gastrointestinal: normoactive bowel sounds, soft, non-tender Integumentary: other (Patient has crepitations right chest likely S/C emphysem a.) Extremities: no cyanosis, no edema, pink and warm Neurologic: normal mental status, non-focal exam, pupils equal and round, motor strength normal and Psychiatric: mood appropriate, affect normal CBC and BMP: 03/06/22 06:16 03/06/22 06:16 ABG, PT/INR, D-dimer: ABG ABG pH 7.467 pH Units (7.350-7.450) H 03/07/22 10:55 ABG pCO2 38.0 mm Hg 03/07/22 10:55 ABG pO2 61.1 mm Hg (80.0-90.0) L 03/07/22 10:55 ABG O2 Saturation 93.8 % (95.0-99.0) L 03/07/22 10:55 PT/INR, D-dimer PT 12.0 Sec. (12.2-14.9) L 03/02/22 18:49 INR 0.79 (0.87-1.13) L 03/02/22 18:49 Abnormal lab findings: Abnormal Labs 03/02/22 03/02/22 03/02/22 18:49 18:49 18:49 RBC 5.27 H MCV 78 L MCH 25 L MCHC [place] % (Auto) 11.5 H Lymph # (Auto) 0.9 L [place] # (Auto) Seg Neuts % (Manual) Lymphocytes % (Manual) Seg Neutrophils # Man Lymphocytes # (Manual) PT 12.0 L INR 0.79 L ABG pH ABG pO2 ABG HCO3 ABG O2 Saturation ABG Base Excess ABG Hemoglobin Oxyhemoglobin Sodium Potassium 3.1 L Chloride 96.0 L BUN Glucose 216 H POC Glucose Magnesium 1.10 L Total Protein 03/03/22 03/03/22 03/03/22 05:22 05:22 05:47 RBC MCV 78 L MCH 25 L MCHC [place] % (Auto) Lymph # (Auto) [place] # (Auto) Seg Neuts % (Manual) 96.0 H Lymphocytes % (Manual) 2.0 L Seg Neutrophils # Man 7.9 H Lymphocytes # (Manual) 0.2 L PT INR ABG pH ABG pO2 ABG HCO3 ABG O2 Saturation ABG Base Excess ABG Hemoglobin Oxyhemoglobin Sodium 136 L Potassium Chloride 95.8 L BUN Glucose 342 H POC Glucose 418 H Magnesium Total Protein 6.1 L 03/03/22 03/03/22 03/03/22 07:28 11:58 15:49 RBC MCV MCH MCHC [place] % (Auto) Lymph # (Auto) [place] # (Auto) Seg Neuts % (Manual) Lymphocytes % (Manual) Seg Neutrophils # Man Lymphocytes # (Manual) PT INR ABG pH ABG pO2 ABG HCO3 ABG O2 Saturation ABG Base Excess ABG Hemoglobin Oxyhemoglobin Sodium Potassium Chloride BUN Glucose POC Glucose 429 H 471 H 370 H Magnesium Total Protein 03/03/22 03/04/22 03/04/22 21:23 08:28 12:20 RBC MCV MCH MCHC [place] % (Auto) Lymph # (Auto) [place] # (Auto) Seg Neuts % (Manual) Lymphocytes % (Manual) Seg Neutrophils # Man Lymphocytes # (Manual) PT INR ABG pH ABG pO2 ABG HCO3 ABG O2 Saturation ABG Base Excess ABG Hemoglobin Oxyhemoglobin Sodium Potassium Chloride BUN Glucose POC Glucose 374 H 173 H 157 H Magnesium Total Protein 03/04/22 03/04/22 03/05/22 17:00 20:34 11:43 RBC MCV MCH MCHC [place] % (Auto) Lymph # (Auto) [place] # (Auto) Seg Neuts % (Manual) Lymphocytes % (Manual) Seg Neutrophils # Man Lymphocytes # (Manual) PT INR ABG pH ABG pO2 ABG HCO3 ABG O2 Saturation ABG Base Excess ABG Hemoglobin Oxyhemoglobin Sodium Potassium Chloride BUN Glucose POC Glucose 315 H 290 H 211 H Magnesium Total Protein 03/05/22 03/05/22 03/05/22 11:52 16:21 20:44 RBC MCV MCH MCHC [place] % (Auto) Lymph # (Auto) [place] # (Auto) Seg Neuts % (Manual) Lymphocytes % (Manual) Seg Neutrophils # Man Lymphocytes # (Manual) PT INR ABG pH ABG pO2 ABG HCO3 ABG O2 Saturation ABG Base Excess ABG Hemoglobin Oxyhemoglobin Sodium Potassium 3.3 L Chloride BUN 25 H Glucose 209 H POC Glucose 246 H 294 H Magnesium Total Protein 03/06/22 03/06/22 03/06/22 06:16 06:16 08:23 RBC 5.16 H MCV 79 L MCH 25 L MCHC 31 L [place] % (Auto) 13.6 H Lymph # (Auto) 1.1 L [place] # (Auto) 1.0 H Seg Neuts % (Manual) Lymphocytes % (Manual) Seg Neutrophils # Man Lymphocytes # (Manual) PT INR ABG pH ABG pO2 ABG HCO3 ABG O2 Saturation ABG Base Excess ABG Hemoglobin Oxyhemoglobin Sodium Potassium Chloride BUN 24 H Glucose 116 H POC Glucose 111 H Magnesium Total Protein 03/06/22 03/06/22 03/06/22 12:14 15:47 22:28 RBC MCV MCH MCHC [place] % (Auto) Lymph # (Auto) [place] # (Auto) Seg Neuts % (Manual) Lymphocytes % (Manual) Seg Neutrophils # Man Lymphocytes # (Manual) PT INR ABG pH ABG pO2 ABG HCO3 ABG O2 Saturation ABG Base Excess ABG Hemoglobin Oxyhemoglobin Sodium Potassium Chloride BUN Glucose POC Glucose 146 H 261 H 214 H Magnesium Total Protein 03/07/22 03/07/22 03/07/22 10:55 11:20 16:05 RBC MCV MCH MCHC [place] % (Auto) Lymph # (Auto) [place] # (Auto) Seg Neuts % (Manual) Lymphocytes % (Manual) Seg Neutrophils # Man Lymphocytes # (Manual) PT INR ABG pH 7.467 H ABG pO2 61.1 L ABG HCO3 26.9 H ABG O2 Saturation 93.8 L ABG Base Excess 3.2 H ABG Hemoglobin 13.1 L Oxyhemoglobin 92.0 L Sodium Potassium Chloride BUN Glucose POC Glucose 196 H 271 H Magnesium Total Protein 03/07/22 03/08/22 03/08/22 20:13 07:55 12:10 RBC MCV MCH MCHC [place] % (Auto) Lymph # (Auto) [place] # (Auto) Seg Neuts % (Manual) Lymphocytes % (Manual) Seg Neutrophils # Man Lymphocytes # (Manual) PT INR ABG pH ABG pO2 ABG HCO3 ABG O2 Saturation ABG Base Excess ABG Hemoglobin Oxyhemoglobin Sodium Potassium Chloride BUN Glucose POC Glucose 154 H 111 H 156 H Magnesium Total Protein 03/08/22 03/08/22 17:08 20:01 RBC MCV MCH MCHC [place] % (Auto) Lymph # (Auto) [place] # (Auto) Seg Neuts % (Manual) Lymphocytes % (Manual) Seg Neutrophils # Man Lymphocytes # (Manual) PT INR ABG pH ABG pO2 ABG HCO3 ABG O2 Saturation ABG Base Excess ABG Hemoglobin Oxyhemoglobin Sodium Potassium Chloride BUN Glucose POC Glucose 235 H 306 H Magnesium Total Protein Chest x-ray: report reviewed, image reviewed Additional Studies: CHEST 1 VIEW 03/08/2022 4:49 PM INDICATION / CLINICAL INFORMATION: right pneumo - catheter exchange. COMPARISON: March 08, 2022 FINDINGS: SUPPORT DEVICES: Additional right chest tube extends with superiorly. HEART / MEDIASTINUM: No significant abnormality. LUNGS / PLEURA: Increased pulmonary opacities in bilateral lungs. Improved right pneumothorax ADDITIONAL FINDINGS: Diffuse gas in the right chest wall and right neck Allied health notes reviewed: nursing
[2022-03-09] MEDS: IPRATROPIUM/ALBUTEROL SULFATE 3 ML AMPUL.NEB IH SCH ×3 (09:43→22:20)
--- NOTE | 2022-03-09 09:59 | Progress Note ---
Assessment and Plan Patient status post placement of chest tube by Dr. Anguiano for recurring pneumothorax on the right side. He is comfortable at this time. Continue suction through Pleur-evac. Continue to try to transfer to service with thoracic surgery for management of recurring pneumothorax right side. Subjective Date of service: 03/09/22 Patient Reports: Positive: no new complaints Narrative: Patient status post placement of chest tube by Dr. Anguiano for recurring pneumothorax on the right side. He is comfortable at this time. Continue suction through Pleur-evac. Continue to try to transfer to service with thoracic surgery for management of recurring pneumothorax right side. Objective Vital Signs - 12hr 03/08/22 03/08/22 03/08/22 22:00 22:40 22:41 Temperature Pulse Rate Pulse Rate [ 80 Bilateral] Respiratory Rate Respiratory 16 Rate [Bilateral ] Blood Pressure O2 Sat by Pulse 97 98 Oximetry 03/08/22 03/09/22 03/09/22 23:13 00:53 03:39 Temperature 98.4 F 98.5 F Pulse Rate 77 79 82 Pulse Rate [ Bilateral] Respiratory 16 20 Rate Respiratory Rate [Bilateral ] Blood Pressure 138/77 114/74 O2 Sat by Pulse 99 98 Oximetry 03/09/22 03/09/22 03/09/22 04:24 08:00 09:47 Temperature Pulse Rate 80 Pulse Rate [ 86 Bilateral] Respiratory Rate Respiratory 20 Rate [Bilateral ] Blood Pressure O2 Sat by Pulse 98 Oximetry - Labs 03/06/22 06:16 03/06/22 06:16
[2022-03-09] MEDS: INSULIN LISPRO 100 UNIT/ML SUB-Q SCH ×4 (10:05→22:58)
--- NOTE | 2022-03-09 10:20 | Progress Note ---
Assessment and Plan Assessment and plan: 56 yo man with CHF/PM, DM, HTN, hx of bilateral PTx. RT pneumothorax s/p chest tube placement. Right pneumothorax Hypertension Sarcoidosis Hyperlipidemia Chronic COPD, compensated Diabetes mellitus type 2, insulin-dependent DVT prophylaxis 03/05/2022. Patient with chest surgery this a.m. but still reveals large right pneumothorax. Patient had kinking of the chest tube that was fixed by surgery. We will repeat chest x-ray at noon today. Continue chest tube to wall suction today. Repeat chest x-ray in a.m. 03/06/2022. Recurrent right-sided pneumothorax today on chest x-ray. Dislodgment of previous chest tube. Patient underwent replacement of chest tube to low wall intermittent suction. Surgery team consulted. 03/07/2022. Surgery reported chest x-ray with expanded lung on waterseal this morning. Chest tube was removed and chest x-ray was repeated this afternoon but revealed recurrent pneumothorax. I discussed the case with surgery who will replace chest tube today. We will most likely need to have discussion with regards to VATS at a tertiary facility. Continue close monitoring. 03/08/2022. I will attempt to contact tertiary facility with cardiothoracic surgery for possible VATS or pleurodesis. Continue to monitor serial chest x- ray. Continue chest tube per surgery recommendations. Continue Accu-Cheks and sliding scale insulin. Continue BP meds 03/09/2022. Patient status post placement of chest tube by Dr. Anguiano for recurring pneumothorax on the right side. He is comfortable at this time. Continue suction through Pleur-evac. Continue to try to transfer to service with thoracic surgery for management of recurring pneumothorax right side. Patient reports uncontrolled pain. We will increase Percocet to 10 mg. History Interval history: No new issues overnight Hospitalist Physical - Constitutional Vitals: Temp Pulse Resp BP Pulse Ox 98.5 F 86 20 114/74 98 03/09/22 03:39 03/09/22 08:00 03/09/22 08:00 03/09/22 03:39 03/09/22 09:47 General appearance: Present: no acute distress, well-nourished - EENT Eyes: Present: PERRL, EOM intact ENT: hearing intact, clear oral mucosa, dentition normal - Neck Neck: Present: supple, normal ROM - Respiratory Respiratory effort: normal Respiratory: bilateral: CTA - Cardiovascular Rhythm: regular Heart Sounds: Present: S1 & S2. Absent: gallop, rub - Extremities Extremities: no ischemia, No edema, Full ROM - Abdominal General gastrointestinal: soft, non-tender, non-distended, normal bowel sounds - Integumentary Integumentary: Present: clear, warm, dry - Neurologic Neurologic: CNII-XII intact, moves all extremities HEART Score - HEART Score Age: 45-65 Risk factors: 1-2 risk factors Troponin: Troponin T < 0.010 ng/mL (0.00-0.029) 03/02/22 18:49 Troponin: 1-3x normal limit - Critical Actions Critical Actions: 0-3 pts:0.9-1.7%risk of adverse cardiac event.Candidate for discharge Results - Labs CBC & Chem 7: 03/06/22 06:16 03/06/22 06:16 Labs: Laboratory Last Values WBC 7.6 K/mm3 (4.5-11.0) 03/06/22 06:16 RBC 5.16 M/mm3 (3.65-5.03) H 03/06/22 06:16 Hgb 12.7 gm/dl (11.8-15.2) 03/06/22 06:16 Hct 40.6 % (35.5-45.6) 03/06/22 06:16 MCV 79 fl (84-94) L 03/06/22 06:16 MCH 25 pg (28-32) L 03/06/22 06:16 MCHC 31 % (32-34) L 03/06/22 06:16 RDW 15.1 % (13.2-15.2) 03/06/22 06:16 Plt Count 224 K/mm3 (140-440) 03/06/22 06:16 Lymph % (Auto) 14.2 % (13.4-35.0) 03/06/22 06:16 [place] % (Auto) 13.6 % (0.0-7.3) H 03/06/22 06:16 Eos % (Auto) 2.6 % (0.0-4.3) 03/06/22 06:16 Baso % (Auto) 0.2 % (0.0-1.8) 03/06/22 06:16 Lymph # (Auto) 1.1 K/mm3 (1.2-5.4) L 03/06/22 06:16 Roosevelt # (Auto) 1.0 K/mm3 (0.0-0.8) H 03/06/22 06:16 Eos # (Auto) 0.2 K/mm3 (0.0-0.4) 03/06/22 06:16 Baso # (Auto) 0.0 K/mm3 (0.0-0.1) 03/06/22 06:16 Add Manual Diff Complete 03/03/22 05:22 Total Counted 100 03/03/22 05:22 Seg Neutrophils % 69.4 % (40.0-70.0) 03/06/22 06:16 Seg Neuts % (Manual) 96.0 % (40.0-70.0) H 03/03/22 05:22 Band Neutrophils % 0 % 03/03/22 05:22 Lymphocytes % (Manual) 2.0 % (13.4-35.0) L 03/03/22 05:22 Reactive Lymphs % (Man) 0 % 03/03/22 05:22 Monocytes % (Manual) 2.0 % (0.0-7.3) 03/03/22 05:22 Eosinophils % (Manual) 0 % (0.0-4.3) 03/03/22 05:22 Basophils % (Manual) 0 % (0.0-1.8) 03/03/22 05:22 Metamyelocytes % 0 % 03/03/22 05:22 Myelocytes % 0 % 03/03/22 05:22 Promyelocytes % 0 % 03/03/22 05:22 Blast Cells % 0 % 03/03/22 05:22 Nucleated RBC % Not Reportable 03/03/22 05:22 Seg Neutrophils # 5.3 K/mm3 (1.8-7.7) 03/06/22 06:16 Seg Neutrophils # Man 7.9 K/mm3 (1.8-7.7) H 03/03/22 05:22 Band Neutrophils # 0.0 K/mm3 03/03/22 05:22 Lymphocytes # (Manual) 0.2 K/mm3 (1.2-5.4) L 03/03/22 05:22 Abs React Lymphs (Man) 0.0 K/mm3 03/03/22 05:22 Monocytes # (Manual) 0.2 K/mm3 (0.0-0.8) 03/03/22 05:22 Eosinophils # (Manual) 0.0 K/mm3 (0.0-0.4) 03/03/22 05:22 Basophils # (Manual) 0.0 K/mm3 (0.0-0.1) 03/03/22 05:22 Metamyelocytes # 0.0 K/mm3 03/03/22 05:22 Myelocytes # 0.0 K/mm3 03/03/22 05:22 Promyelocytes # 0.0 K/mm3 03/03/22 05:22 Blast Cells # 0.0 K/mm3 03/03/22 05:22 WBC Morphology Not Reportable 03/03/22 05:22 Hypersegmented Neuts Not Reportable 03/03/22 05:22 Hyposegmented Neuts Not Reportable 03/03/22 05:22 Hypogranular Neuts Not Reportable 03/03/22 05:22 Smudge Cells Not Reportable 03/03/22 05:22 Toxic Granulation Not Reportable 03/03/22 05:22 Toxic Vacuolation Not Reportable 03/03/22 05:22 Dohle Bodies Not Reportable 03/03/22 05:22 Pelger-Huet Anomaly Not Reportable 03/03/22 05:22 Rafiq Rods Not Reportable 03/03/22 05:22 Platelet Estimate Consistent w auto 03/03/22 05:22 Clumped Platelets Not Reportable 03/03/22 05:22 Plt Clumps, EDTA Not Reportable 03/03/22 05:22 Large Platelets Not Reportable 03/03/22 05:22 Giant Platelets Not Reportable 03/03/22 05:22 Platelet Satelliting Not Reportable 03/03/22 05:22 Plt Morphology Comment Not Reportable 03/03/22 05:22 RBC Morphology Not Reportable 03/03/22 05:22 Dimorphic RBCs Not Reportable 03/03/22 05:22 Polychromasia Not Reportable 03/03/22 05:22 Hypochromasia 1+ 03/03/22 05:22 Poikilocytosis Not Reportable 03/03/22 05:22 Anisocytosis 1+ 03/03/22 05:22 Microcytosis Not Reportable 03/03/22 05:22 Macrocytosis Not Reportable 03/03/22 05:22 Spherocytes Not Reportable 03/03/22 05:22 Pappenheimer Bodies Not Reportable 03/03/22 05:22 Sickle Cells Not Reportable 03/03/22 05:22 Target Cells Not Reportable 03/03/22 05:22 Tear Drop Cells Not Reportable 03/03/22 05:22 Ovalocytes Not Reportable 03/03/22 05:22 Helmet Cells Not Reportable 03/03/22 05:22 Ledesma-Wallis Bodies Not Reportable 03/03/22 05:22 [place] Rings Not Reportable 03/03/22 05:22 Amarilys Cells Not Reportable 03/03/22 05:22 Bite Cells Not Reportable 03/03/22 05:22 Crenated Cell Not Reportable 03/03/22 05:22 Elliptocytes Not Reportable 03/03/22 05:22 Acanthocytes (Spur) Not Reportable 03/03/22 05:22 Rouleaux Not Reportable 03/03/22 05:22 Hemoglobin C Crystals Not Reportable 03/03/22 05:22 Schistocytes Not Reportable 03/03/22 05:22 Malaria parasites Not Reportable 03/03/22 05:22 Matthew Bodies Not Reportable 03/03/22 05:22 Hem Pathologist Commnt No 03/03/22 05:22 PT 12.0 Sec. (12.2-14.9) L 03/02/22 18:49 INR 0.79 (0.87-1.13) L 03/02/22 18:49 APTT 26.6 Sec. (24.2-36.6) 03/02/22 18:49 ABG pH 7.467 pH Units (7.350-7.450) H 03/07/22 10:55 ABG pCO2 38.0 mm Hg 03/07/22 10:55 ABG pO2 61.1 mm Hg (80.0-90.0) L 03/07/22 10:55 ABG HCO3 26.9 mmol/L (20.0-26.0) H 03/07/22 10:55 ABG O2 Saturation 93.8 % (95.0-99.0) L 03/07/22 10:55 ABG O2 Content 16.9 (0.0-44) 03/07/22 10:55 ABG Base Excess 3.2 mmol/L (-2.0-3.0) H 03/07/22 10:55 ABG Hemoglobin 13.1 gm/dl (14.0-18.0) L 03/07/22 10:55 ABG Carboxyhemoglobin 1.4 % (0.0-5.0) 03/07/22 10:55 ABG Methemoglobin 0.5 % (0.0-1.5) 03/07/22 10:55 Oxyhemoglobin 92.0 % (95.0-99.0) L 03/07/22 10:55 FiO2 21 % 03/07/22 10:55 Sodium 143 mmol/L (137-145) 03/06/22 06:16 Potassium 3.7 mmol/L (3.6-5.0) 03/06/22 06:16 Chloride 101.0 mmol/L (98-107) 03/06/22 06:16 Carbon Dioxide 25 mmol/L (22-30) 03/06/22 06:16 Anion Gap 21 mmol/L 03/06/22 06:16 BUN 24 mg/dL (9-20) H 03/06/22 06:16 Creatinine 1.2 mg/dL (0.8-1.3) 03/06/22 06:16 Estimated GFR > 60 ml/min 03/06/22 06:16 BUN/Creatinine Ratio 20 % 03/06/22 06:16 Glucose 116 mg/dL (75-100) H 03/06/22 06:16 POC Glucose 306 mg/dL (70-105) H 03/08/22 20:01 Calcium 8.8 mg/dL (8.4-10.2) 03/06/22 06:16 Magnesium 1.10 mg/dL (1.7-2.3) L 03/02/22 18:49 Total Bilirubin 0.60 mg/dL (0.1-1.2) 03/03/22 05:22 AST 37 units/L (5-40) 03/03/22 05:22 ALT 29 units/L (7-56) 03/03/22 05:22 Alkaline Phosphatase 63 units/L (35-129) 03/03/22 05:22 Troponin T < 0.010 ng/mL (0.00-0.029) 03/02/22 18:49 NT-Pro-B Natriuret Pep 31.99 pg/mL (0-900) 03/02/22 18:49 Total Protein 6.1 g/dL (6.3-8.2) L 03/03/22 05:22 Albumin 4.0 g/dL (3.9-5) 03/03/22 05:22 Albumin/Globulin Ratio 1.9 % 03/03/22 05:22 Garcia/IV: Voiding Method Urinal Active Medications - Current Medications Current Medications: Generic Name Dose Route Start Last Admin Trade Name Freq PRN Reason Stop Dose Admin Acetaminophen 650 mg 03/02/22 23:10 03/04/22 04:39 Acetaminophen 325 Mg Tab PO 650 mg Q4H PRN Administration Pain MILD(1-3)/Fever >100.5/WINTERS Albuterol/Ipratropium 1 ampul 03/03/22 08:00 03/09/22 09:43 Ipratropium/Albuterol Sulfate 3 Ml Ampul.Neb IH 1 ampul TIDRT ANDREA Administration Atorvastatin Calcium 20 mg 03/03/22 10:00 03/08/22 09:13 Atorvastatin 20 Mg Tab PO 20 mg DAILY ANDREA Administration Carvedilol 25 mg 03/02/22 23:45 03/08/22 21:26 Carvedilol 25 Mg Tab PO 25 mg BID ANDREA Administration Cetirizine HCl 10 mg 03/02/22 23:25 Cetirizine 10 Mg Tab PO DAILY PRN Allergy Symptoms Cyanocobalamin 1,000 mcg 03/03/22 10:00 03/08/22 09:06 Cyanocobalamin (Vit B-12) 1000 Mcg Tab PO 1,000 mcg DAILY ANDREA Administration Diphenhydramine HCl 12.5 mg 03/02/22 23:17 Diphenhydramine 50 Mg/Ml Vial IV Q6H PRN Itching Diphenhydramine HCl 25 mg 03/02/22 23:17 Diphenhydramine 25 Mg Cap PO Q6HR PRN Allergy Symptoms Famotidine 20 mg 03/02/22 23:45 03/08/22 21:28 Famotidine 20 Mg Tab PO 20 mg Q12HR ANDREA Administration Ferrous Sulfate 325 mg 03/03/22 10:00 03/08/22 09:06 Ferrous Sulfate 325 Mg Tab PO 325 mg DAILY ANDREA Administration Hydrochlorothiazide 25 mg 03/03/22 10:00 03/08/22 09:06 Hydrochlorothiazide 12.5 Mg Cap PO 25 mg QDAY ANDREA Administration Insulin Human Isoph/Insulin Regular 45 unit 03/03/22 08:00 03/08/22 18:34 Insulin Nph/Regular 70/30 Inj SUB-Q 45 unit BIDDIAB ANDREA Administration Insulin Human Lispro 0 unit 03/03/22 06:12 03/09/22 10:05 Insulin Lispro 100 Unit/Ml SUB-Q Not Given ACHS [facility] Protocol Metoclopramide HCl 10 mg 03/02/22 23:10 Metoclopramide 10 Mg/2 Ml Inj IV Q6H PRN Nausea And Vomiting Morphine Sulfate 2 mg 03/02/22 21:10 03/08/22 13:03 Morphine 2 Mg/1 Ml Inj IV 2 mg Q4H PRN Administration Pain, Moderate (4-6) Morphine Sulfate 4 mg 03/02/22 21:10 03/09/22 08:37 Morphine 4 Mg/1 Ml Inj IV 4 mg Q4H PRN Administration Pain , Severe (7-10) Ondansetron HCl 4 mg 03/02/22 23:10 Ondansetron 4 Mg/2 Ml Inj IV Q8H PRN Nausea And Vomiting Oxycodone/Acetaminophen 2 tab 03/09/22 11:00 Oxycodone /Acetaminophen 5-325mg Tab PO Q6H PRN Pain, Moderate (4-6) Prednisone 40 mg 03/03/22 10:00 03/08/22 09:15 Prednisone 20 Mg Tab PO 40 mg QDAY ANDREA Administration Sodium Chloride 10 ml 03/03/22 10:00 03/08/22 22:34 Sodium Chloride 0.9% 10 Ml Flush Syringe IV 10 ml BID ANDREA Administration Sodium Chloride 10 ml 03/02/22 23:10 03/06/22 19:02 Sodium Chloride 0.9% 10 Ml Flush Syringe IV 10 ml PRN PRN Administration LINE FLUSH Tramadol HCl 25 mg 03/02/22 23:17 03/09/22 04:24 Tramadol 50 Mg Tab PO 25 mg Q4H PRN Administration Pain, Moderate (4-6) Nutrition/Malnutrition Assess - Dietary Evaluation Nutrition/Malnutrition Findings: Nutrition Notes Start: 03/08/22 14:17 Freq: Status: Active Protocol: Document 03/08/22 14:17 DORCAS (Rec: 03/08/22 14:24 DORCAS [email or web address]) Nutrition Notes Need for Assessment generated from: LOS Initial or Follow up Brief Note Current Diagnosis COPD,Diabetes,Hypertension, Hyperlipidemia Other Pertinent Diagnosis (R) pneumothorax s/p chest tube placement Current Diet NPO Labs/Tests Reviewed Pertinent Medications Vit B12, Feosol, Prednisone Height 6 ft Weight 121.7 kg [place] Body Weight (kg) 80.90 BMI 36.3 Weight Status Obese Subjective/Other Information Pt screened for LOS. Pt getting chest x-ray at time of visit (12:05). Pt received a Cardiac/Consistent CHO diet from 03/03 - 03/08; no meal intakes documented. PMHx includes sarcoidosis. Burn Absent Trauma Absent Minimum of two criteria No Is patient on ventilator? No Is Patient Ambulatory and/or Out of Bed Yes REE-([place] Jeor-ambulatory/OOB) [ 2717.000 NUTR.[id number]] Kcal/Kg value to use for calculation 18 Approximate Energy Requirements Using 2191 kcal/Kg Calculation Used for Recommendations Kcal/kg Additional Notes Pro needs 0.8-1g/kg adjBW: 81- 101g/day Fluid needs 1ml/kcal Nutrition Intervention Follow-Up By: 03/11/22 Additional Comments F/U: diet advancement
[2022-03-09] MEDS: FERROUS SULFATE 325 MG TAB PO SCH (10:35)
[2022-03-09] MEDS: INSULIN NPH/REGULAR 70/30 INJ SUB-Q SCH ×2 (10:35→18:07)
[2022-03-09] MEDS: FAMOTIDINE 20 MG TAB PO SCH ×2 (10:36→22:59)
[2022-03-09] MEDS: predniSONE 20 MG TAB PO SCH (10:36)
[2022-03-09] MEDS: carvediloL 25 MG TAB PO SCH ×2 (10:36→22:58)
[2022-03-09] MEDS: hydroCHLOROthiazide 12.5 MG CAP PO SCH (10:36)
[2022-03-09] MEDS: CYANOCOBALAMIN (VIT B-12) 1000 MCG TAB PO SCH (10:36)
--- NOTE | 2022-03-09 10:55 | XRay Report ---
CHEST 1 VIEW 03/09/2022 8:20 AM INDICATION / CLINICAL INFORMATION: right pneumothorax. COMPARISON: Yesterday. FINDINGS: SUPPORT DEVICES: Stable, satisfactory device positioning. HEART / MEDIASTINUM: Stable. LUNGS / PLEURA: Similar patchy multifocal airspace opacities most pronounced within the mid right haylee g zone laterally. Previously described right-sided pneumothorax is not definitively demonstrated. ADDITIONAL FINDINGS: Extensive right subcutaneous emphysema. IMPRESSION: 1. Relatively similar radiographic cardiopulmonary appearances. Previously described right-sided pneu mothorax is not definitively demonstrated on this examination. Signer Name: Robinson Pickering MD Signed: 03/09/2022 10:51 AM Workstation Name: [id number]
[2022-03-10] MEDS: MORPHINE 4 MG/1 ML INJ IV PRN ×2 (03:42→21:24)
[2022-03-10] MEDS: oxyCODONE /ACETAMINOPHEN 5-325MG TAB PO PRN ×3 (06:08→17:36)
--- NOTE | 2022-03-10 08:26 | Progress Note ---
Assessment and Plan Assessment and plan: 56 yo man with CHF/PM, DM, HTN, hx of bilateral PTx. RT pneumothorax s/p chest tube placement. Right pneumothorax Hypertension Sarcoidosis Hyperlipidemia Chronic COPD, compensated Diabetes mellitus type 2, insulin-dependent DVT prophylaxis 03/05/2022. Patient with chest surgery this a.m. but still reveals large right pneumothorax. Patient had kinking of the chest tube that was fixed by surgery. We will repeat chest x-ray at noon today. Continue chest tube to wall suction today. Repeat chest x-ray in a.m. 03/06/2022. Recurrent right-sided pneumothorax today on chest x-ray. Dislodgment of previous chest tube. Patient underwent replacement of chest tube to low wall intermittent suction. Surgery team consulted. 03/07/2022. Surgery reported chest x-ray with expanded lung on waterseal this morning. Chest tube was removed and chest x-ray was repeated this afternoon but revealed recurrent pneumothorax. I discussed the case with surgery who will replace chest tube today. We will most likely need to have discussion with regards to VATS at a tertiary facility. Continue close monitoring. 03/08/2022. I will attempt to contact tertiary facility with cardiothoracic surgery for possible VATS or pleurodesis. Continue to monitor serial chest x- ray. Continue chest tube per surgery recommendations. Continue Accu-Cheks and sliding scale insulin. Continue BP meds 03/09/2022. Patient status post placement of chest tube by Dr. Anguiano for recurring pneumothorax on the right side. He is comfortable at this time. Continue suction through Pleur-evac. Continue to try to transfer to service with thoracic surgery for management of recurring pneumothorax right side. Patient reports uncontrolled pain. We will increase Percocet to 10 mg. 03/10/2022. Chest x-ray from yesterday shows reexpansion of the lung and no pneumothorax. Will discuss with surgery if patient will need transfer to tertiary facility for management of pneumothorax. Continue appropriate pain control History Interval history: No new issues overnight Hospitalist Physical - Constitutional Vitals: Temp Pulse Resp BP Pulse Ox 98.1 F 84 18 117/68 97 03/10/22 03:38 03/10/22 04:12 03/10/22 03:38 03/10/22 03:38 03/10/22 03:38 General appearance: Present: no acute distress, well-nourished - EENT Eyes: Present: PERRL, EOM intact ENT: hearing intact, clear oral mucosa, dentition normal - Neck Neck: Present: supple, normal ROM - Respiratory Respiratory effort: normal Respiratory: bilateral: CTA - Cardiovascular Rhythm: regular Heart Sounds: Present: S1 & S2. Absent: gallop, rub - Extremities Extremities: no ischemia, No edema, Full ROM - Abdominal General gastrointestinal: soft, non-tender, non-distended, normal bowel sounds - Integumentary Integumentary: Present: clear, warm, dry - Neurologic Neurologic: CNII-XII intact, moves all extremities HEART Score - HEART Score Age: 45-65 Risk factors: 1-2 risk factors Troponin: Troponin T < 0.010 ng/mL (0.00-0.029) 03/02/22 18:49 Troponin: 1-3x normal limit - Critical Actions Critical Actions: 0-3 pts:0.9-1.7%risk of adverse cardiac event.Candidate for discharge Results - Labs CBC & Chem 7: 03/06/22 06:16 03/06/22 06:16 Labs: Laboratory Last Values WBC 7.6 K/mm3 (4.5-11.0) 03/06/22 06:16 RBC 5.16 M/mm3 (3.65-5.03) H 03/06/22 06:16 Hgb 12.7 gm/dl (11.8-15.2) 03/06/22 06:16 Hct 40.6 % (35.5-45.6) 03/06/22 06:16 MCV 79 fl (84-94) L 03/06/22 06:16 MCH 25 pg (28-32) L 03/06/22 06:16 MCHC 31 % (32-34) L 03/06/22 06:16 RDW 15.1 % (13.2-15.2) 03/06/22 06:16 Plt Count 224 K/mm3 (140-440) 03/06/22 06:16 Lymph % (Auto) 14.2 % (13.4-35.0) 03/06/22 06:16 Irwin % (Auto) 13.6 % (0.0-7.3) H 03/06/22 06:16 Eos % (Auto) 2.6 % (0.0-4.3) 03/06/22 06:16 Baso % (Auto) 0.2 % (0.0-1.8) 03/06/22 06:16 Lymph # (Auto) 1.1 K/mm3 (1.2-5.4) L 03/06/22 06:16 Irwin # (Auto) 1.0 K/mm3 (0.0-0.8) H 03/06/22 06:16 Eos # (Auto) 0.2 K/mm3 (0.0-0.4) 03/06/22 06:16 Baso # (Auto) 0.0 K/mm3 (0.0-0.1) 03/06/22 06:16 Add Manual Diff Complete 03/03/22 05:22 Total Counted 100 03/03/22 05:22 Seg Neutrophils % 69.4 % (40.0-70.0) 03/06/22 06:16 Seg Neuts % (Manual) 96.0 % (40.0-70.0) H 03/03/22 05:22 Band Neutrophils % 0 % 03/03/22 05:22 Lymphocytes % (Manual) 2.0 % (13.4-35.0) L 03/03/22 05:22 Reactive Lymphs % (Man) 0 % 03/03/22 05:22 Monocytes % (Manual) 2.0 % (0.0-7.3) 03/03/22 05:22 Eosinophils % (Manual) 0 % (0.0-4.3) 03/03/22 05:22 Basophils % (Manual) 0 % (0.0-1.8) 03/03/22 05:22 Metamyelocytes % 0 % 03/03/22 05:22 Myelocytes % 0 % 03/03/22 05:22 Promyelocytes % 0 % 03/03/22 05:22 Blast Cells % 0 % 03/03/22 05:22 Nucleated RBC % Not Reportable 03/03/22 05:22 Seg Neutrophils # 5.3 K/mm3 (1.8-7.7) 03/06/22 06:16 Seg Neutrophils # Man 7.9 K/mm3 (1.8-7.7) H 03/03/22 05:22 Band Neutrophils # 0.0 K/mm3 03/03/22 05:22 Lymphocytes # (Manual) 0.2 K/mm3 (1.2-5.4) L 03/03/22 05:22 Abs React Lymphs (Man) 0.0 K/mm3 03/03/22 05:22 Monocytes # (Manual) 0.2 K/mm3 (0.0-0.8) 03/03/22 05:22 Eosinophils # (Manual) 0.0 K/mm3 (0.0-0.4) 03/03/22 05:22 Basophils # (Manual) 0.0 K/mm3 (0.0-0.1) 03/03/22 05:22 Metamyelocytes # 0.0 K/mm3 03/03/22 05:22 Myelocytes # 0.0 K/mm3 03/03/22 05:22 Promyelocytes # 0.0 K/mm3 03/03/22 05:22 Blast Cells # 0.0 K/mm3 03/03/22 05:22 WBC Morphology Not Reportable 03/03/22 05:22 Hypersegmented Neuts Not Reportable 03/03/22 05:22 Hyposegmented Neuts Not Reportable 03/03/22 05:22 Hypogranular Neuts Not Reportable 03/03/22 05:22 Smudge Cells Not Reportable 03/03/22 05:22 Toxic Granulation Not Reportable 03/03/22 05:22 Toxic Vacuolation Not Reportable 03/03/22 05:22 Dohle Bodies Not Reportable 03/03/22 05:22 Pelger-Huet Anomaly Not Reportable 03/03/22 05:22 Rafiq Rods Not Reportable 03/03/22 05:22 Platelet Estimate Consistent w auto 03/03/22 05:22 Clumped Platelets Not Reportable 03/03/22 05:22 Plt Clumps, EDTA Not Reportable 03/03/22 05:22 Large Platelets Not Reportable 03/03/22 05:22 Giant Platelets Not Reportable 03/03/22 05:22 Platelet Satelliting Not Reportable 03/03/22 05:22 Plt Morphology Comment Not Reportable 03/03/22 05:22 RBC Morphology Not Reportable 03/03/22 05:22 Dimorphic RBCs Not Reportable 03/03/22 05:22 Polychromasia Not Reportable 03/03/22 05:22 Hypochromasia 1+ 03/03/22 05:22 Poikilocytosis Not Reportable 03/03/22 05:22 Anisocytosis 1+ 03/03/22 05:22 Microcytosis Not Reportable 03/03/22 05:22 Macrocytosis Not Reportable 03/03/22 05:22 Spherocytes Not Reportable 03/03/22 05:22 Pappenheimer Bodies Not Reportable 03/03/22 05:22 Sickle Cells Not Reportable 03/03/22 05:22 Target Cells Not Reportable 03/03/22 05:22 Tear Drop Cells Not Reportable 03/03/22 05:22 Ovalocytes Not Reportable 03/03/22 05:22 Helmet Cells Not Reportable 03/03/22 05:22 Ledesma-Iota Bodies Not Reportable 03/03/22 05:22 [employer] Rings Not Reportable 03/03/22 05:22 [place] Cells Not Reportable 03/03/22 05:22 Bite Cells Not Reportable 03/03/22 05:22 Crenated Cell Not Reportable 03/03/22 05:22 Elliptocytes Not Reportable 03/03/22 05:22 Acanthocytes (Spur) Not Reportable 03/03/22 05:22 Rouleaux Not Reportable 03/03/22 05:22 Hemoglobin C Crystals Not Reportable 03/03/22 05:22 Schistocytes Not Reportable 03/03/22 05:22 Malaria parasites Not Reportable 03/03/22 05:22 Matthew Bodies Not Reportable 03/03/22 05:22 Hem Pathologist Commnt No 03/03/22 05:22 PT 12.0 Sec. (12.2-14.9) L 03/02/22 18:49 INR 0.79 (0.87-1.13) L 03/02/22 18:49 APTT 26.6 Sec. (24.2-36.6) 03/02/22 18:49 ABG pH 7.467 pH Units (7.350-7.450) H 03/07/22 10:55 ABG pCO2 38.0 mm Hg 03/07/22 10:55 ABG pO2 61.1 mm Hg (80.0-90.0) L 03/07/22 10:55 ABG HCO3 26.9 mmol/L (20.0-26.0) H 03/07/22 10:55 ABG O2 Saturation 93.8 % (95.0-99.0) L 03/07/22 10:55 ABG O2 Content 16.9 (0.0-44) 03/07/22 10:55 ABG Base Excess 3.2 mmol/L (-2.0-3.0) H 03/07/22 10:55 ABG Hemoglobin 13.1 gm/dl (14.0-18.0) L 03/07/22 10:55 ABG Carboxyhemoglobin 1.4 % (0.0-5.0) 03/07/22 10:55 ABG Methemoglobin 0.5 % (0.0-1.5) 03/07/22 10:55 Oxyhemoglobin 92.0 % (95.0-99.0) L 03/07/22 10:55 FiO2 21 % 03/07/22 10:55 Sodium 143 mmol/L (137-145) 03/06/22 06:16 Potassium 3.7 mmol/L (3.6-5.0) 03/06/22 06:16 Chloride 101.0 mmol/L (98-107) 03/06/22 06:16 Carbon Dioxide 25 mmol/L (22-30) 03/06/22 06:16 Anion Gap 21 mmol/L 03/06/22 06:16 BUN 24 mg/dL (9-20) H 03/06/22 06:16 Creatinine 1.2 mg/dL (0.8-1.3) 03/06/22 06:16 Estimated GFR > 60 ml/min 03/06/22 06:16 BUN/Creatinine Ratio 20 % 03/06/22 06:16 Glucose 116 mg/dL (75-100) H 03/06/22 06:16 POC Glucose 218 mg/dL (70-105) H 03/09/22 20:27 Calcium 8.8 mg/dL (8.4-10.2) 03/06/22 06:16 Magnesium 1.10 mg/dL (1.7-2.3) L 03/02/22 18:49 Total Bilirubin 0.60 mg/dL (0.1-1.2) 03/03/22 05:22 AST 37 units/L (5-40) 03/03/22 05:22 ALT 29 units/L (7-56) 03/03/22 05:22 Alkaline Phosphatase 63 units/L (35-129) 03/03/22 05:22 Troponin T < 0.010 ng/mL (0.00-0.029) 03/02/22 18:49 NT-Pro-B Natriuret Pep 31.99 pg/mL (0-900) 03/02/22 18:49 Total Protein 6.1 g/dL (6.3-8.2) L 03/03/22 05:22 Albumin 4.0 g/dL (3.9-5) 03/03/22 05:22 Albumin/Globulin Ratio 1.9 % 03/03/22 05:22 Garcia/IV: Voiding Method Urinal Active Medications - Current Medications Current Medications: Generic Name Dose Route Start Last Admin Trade Name Freq PRN Reason Stop Dose Admin Acetaminophen 650 mg 03/02/22 23:10 03/04/22 04:39 Acetaminophen 325 Mg Tab PO 650 mg Q4H PRN Administration Pain MILD(1-3)/Fever >100.5/WINTERS Albuterol/Ipratropium 1 ampul 03/03/22 08:00 03/09/22 22:20 Ipratropium/Albuterol Sulfate 3 Ml Ampul.Neb IH 1 ampul TIDRT ANDREA Administration Atorvastatin Calcium 20 mg 03/03/22 10:00 03/09/22 10:36 Atorvastatin 20 Mg Tab PO 20 mg DAILY ANDREA Administration Carvedilol 25 mg 03/02/22 23:45 03/09/22 22:58 Carvedilol 25 Mg Tab PO 25 mg BID ANDREA Administration Cetirizine HCl 10 mg 03/02/22 23:25 Cetirizine 10 Mg Tab PO DAILY PRN Allergy Symptoms Cyanocobalamin 1,000 mcg 03/03/22 10:00 03/09/22 10:36 Cyanocobalamin (Vit B-12) 1000 Mcg Tab PO 1,000 mcg DAILY ANDREA Administration Diphenhydramine HCl 12.5 mg 03/02/22 23:17 Diphenhydramine 50 Mg/Ml Vial IV Q6H PRN Itching Diphenhydramine HCl 25 mg 03/02/22 23:17 Diphenhydramine 25 Mg Cap PO Q6HR PRN Allergy Symptoms Famotidine 20 mg 03/02/22 23:45 03/09/22 22:59 Famotidine 20 Mg Tab PO 20 mg Q12HR ANDREA Administration Ferrous Sulfate 325 mg 03/03/22 10:00 03/09/22 10:35 Ferrous Sulfate 325 Mg Tab PO 325 mg DAILY ANDREA Administration Hydrochlorothiazide 25 mg 03/03/22 10:00 03/09/22 10:36 Hydrochlorothiazide 12.5 Mg Cap PO 25 mg QDAY ANDREA Administration Insulin Human Isoph/Insulin Regular 45 unit 03/03/22 08:00 03/09/22 18:07 Insulin Nph/Regular 70/30 Inj SUB-Q 45 unit BIDDIAB ANDREA Administration Insulin Human Lispro 0 unit 03/03/22 06:12 03/09/22 22:58 Insulin Lispro 100 Unit/Ml SUB-Q 1 unit ACHS ANDREA Administration Protocol Metoclopramide HCl 10 mg 03/02/22 23:10 Metoclopramide 10 Mg/2 Ml Inj IV Q6H PRN Nausea And Vomiting Morphine Sulfate 2 mg 03/02/22 21:10 03/08/22 13:03 Morphine 2 Mg/1 Ml Inj IV 2 mg Q4H PRN Administration Pain, Moderate (4-6) Morphine Sulfate 4 mg 03/02/22 21:10 03/10/22 03:42 Morphine 4 Mg/1 Ml Inj IV 4 mg Q4H PRN Administration Pain , Severe (7-10) Ondansetron HCl 4 mg 03/02/22 23:10 Ondansetron 4 Mg/2 Ml Inj IV Q8H PRN Nausea And Vomiting Oxycodone/Acetaminophen 2 tab 03/09/22 11:00 03/10/22 06:08 Oxycodone /Acetaminophen 5-325mg Tab PO 2 tab Q6H PRN Administration Pain, Moderate (4-6) Prednisone 40 mg 03/03/22 10:00 03/09/22 10:36 Prednisone 20 Mg Tab PO 40 mg QDAY ANDREA Administration Sodium Chloride 10 ml 03/03/22 10:00 03/09/22 22:47 Sodium Chloride 0.9% 10 Ml Flush Syringe IV 10 ml BID ANDREA Administration Sodium Chloride 10 ml 03/02/22 23:10 03/06/22 19:02 Sodium Chloride 0.9% 10 Ml Flush Syringe IV 10 ml PRN PRN Administration LINE FLUSH Tramadol HCl 25 mg 03/02/22 23:17 03/09/22 04:24 Tramadol 50 Mg Tab PO 25 mg Q4H PRN Administration Pain, Moderate (4-6) Nutrition/Malnutrition Assess - Dietary Evaluation Nutrition/Malnutrition Findings: Nutrition Notes Start: 03/08/22 14:17 Freq: Status: Active Protocol: Document 03/08/22 14:17 DORCAS (Rec: 03/08/22 14:24 NHALL [email or web address]) Nutrition Notes Need for Assessment generated from: LOS Initial or Follow up Brief Note Current Diagnosis COPD,Diabetes,Hypertension, Hyperlipidemia Other Pertinent Diagnosis (R) pneumothorax s/p chest tube placement Current Diet NPO Labs/Tests Reviewed Pertinent Medications Vit B12, Feosol, Prednisone Height 6 ft Weight 121.7 kg [place] Body Weight (kg) 80.90 BMI 36.3 Weight Status Obese Subjective/Other Information Pt screened for LOS. Pt getting chest x-ray at time of visit (12:05). Pt received a Cardiac/Consistent CHO diet from 03/03 - 03/08; no meal intakes documented. PMHx includes sarcoidosis. Burn Absent Trauma Absent Minimum of two criteria No Is patient on ventilator? No Is Patient Ambulatory and/or Out of Bed Yes REE-([facility]-ambulatory/OOB) [ 2717.000 [id number]] Kcal/Kg value to use for calculation 18 Approximate Energy Requirements Using 2191 kcal/Kg Calculation Used for Recommendations Kcal/kg Additional Notes Pro needs 0.8-1g/kg adjBW: 81- 101g/day Fluid needs 1ml/kcal Nutrition Intervention Follow-Up By: 03/11/22 Additional Comments F/U: diet advancement
[2022-03-10] MEDS: FAMOTIDINE 20 MG TAB PO SCH ×2 (10:00→21:26)
[2022-03-10] MEDS: hydroCHLOROthiazide 12.5 MG CAP PO SCH (10:00)
[2022-03-10] MEDS: carvediloL 25 MG TAB PO SCH ×2 (10:00→21:25)
[2022-03-10] MEDS: INSULIN LISPRO 100 UNIT/ML SUB-Q SCH ×4 (10:00→21:22)
[2022-03-10] MEDS: FERROUS SULFATE 325 MG TAB PO SCH (10:00)
[2022-03-10] MEDS: INSULIN NPH/REGULAR 70/30 INJ SUB-Q SCH ×2 (10:00→17:36)
[2022-03-10] MEDS: predniSONE 20 MG TAB PO SCH (10:00)
[2022-03-10] MEDS: CYANOCOBALAMIN (VIT B-12) 1000 MCG TAB PO SCH (10:01)
[2022-03-10] MEDS: IPRATROPIUM/ALBUTEROL SULFATE 3 ML AMPUL.NEB IH SCH ×3 (10:31→21:55)
--- NOTE | 2022-03-10 13:04 | Progress Note ---
Assessment and Plan This is a 56-year-old gentleman, with a history of COPD, spontaneous pneumothorax, congestive heart failure, possible sarcoid, who is COVID-19 vaccinated. He presents to the ER with EMS articulated complaint of chest tightness and shortness of breath. Patient is not sure if he is having similar episode to prior episodes of pneumothorax. He denies DVT and pulmonary embolism risk factors. He has a mild cough. EMS initiated treatments in the field. The patient was found to have a large right-sided pneumothorax in the emergency room. The patient provided verbal and written informed consent for sterile pigtail catheter placement. After the pigtail catheter was placed, he felt markedly improved. He now feels back to his baseline. Patient Additional medical history: sarcodosis,elevated cholesterol, pn eumothorax in April 2019, pacemaker/Defibrillator. Patient has history of smoking 1 pack x 30 years. Counseled to stop smoking. Used to drink alcohol. Not drinking alcohol now. Denies drug abuse. Worked in . and has three children. Allergic to lisinopril. atient alert, awake. Denies chest pain, shortness of breath or cough. Patient is on 2 litres O2. O2 saturation 96%. Recommend to keep o2 2 litres all the time. Patient has right chest tube adjusted. Patient afebrile. No leukocytosis. Blood pressure 123/76, pulse 91 , respirations 18. Chest xray 03/06/22 reported Emphysematous gas and right chest wall and right neck again noted. Increased density in the right hilum and right upper lung no large pneumothorax. Chest xray 03/07/22 8:09 AM reported Slight retraction of thoracostomy tube without appreciable pneumothorax. Similar opacities in the right mid and lower lung. Chest xray 03/07/22 12:17 PM reported Large right pneumothorax after chest tube removal. Chest xray 03/07/22 2:08 PM reported Significant improvement of the right pneumothorax following pneumocath placement. Chest xray 03/08/22 reported Slight increase in right apical pneumothorax and right chest wall subcutaneous soft tissue emphysema. Right pleural tube has pulled back slightly in the interval. Repeat chest xray 03/08/22 reported ncreased pulmonary opacities in bilateral lungs. Improved right pneumothorax Diffuse gas in the right chest wall and right neck Chest xray 03/09/22 Relatively similar radiographic cardiopulmonary appearances. Previously described right-sided pneumothorax is not definitively demonstrated on this examination. Patient is on Albuterol/atrovent aerosol treatments q 6 hours, PO prednisone and Famotidine. Recommend to place him on O2 2 litres via nasal canula. Recommend DVT prophylaxis. Recommend thoracic surgery consultation for recurrent pneumothorax. Talk to Dr. Raya and told him about thoracic surgery evaluation. Told him may have to transfer to the facility where thoracic surgery services available. - Patient Problems (1) Pneumothorax on right Current Visit: Yes Status: Acute Plan to address problem: Patient developed large pneuthorax after chest tube removal. Surgery reinserted right chest tube with expansion of right lung again. Recommend O2 2 litres via nasal canula. Recommend thoracic surgery consultation for recurrent pneumothorax. (2) COPD (chronic obstructive pulmonary disease) Current Visit: Yes Status: Acute Plan to address problem: Recommend O2 2 litres via nasal canula. Albuterol/atrovent aerosol treatments Continue PO prednisone. Continue famotidine. Recommend DVT prophylaxis. (3) Obesity (BMI 35.0-39.9 without comorbidity) Current Visit: No Status: Acute Plan to address problem: Recommend to loose weight. (4) Sleep apnea in adult Current Visit: Yes Status: Acute Plan to address problem: Possible sleep apnea. Recommend sleep study as out patient. (5) IDDM (insulin dependent diabetes mellitus) Current Visit: Yes Status: Chronic Plan to address problem: Management as primary care. (6) HTN (hypertension) Current Visit: No Status: Chronic Qualifiers: Hypertension type: primary hypertension Qualified Code(s): I10 - Essential (primary) hypertension Plan to address problem: Management as per primary care. (7) GERD (gastroesophageal reflux disease) Current Visit: No Status: Acute Plan to address problem: Patient is on Famotidine. (8) Sarcoidosis Current Visit: No Status: Chronic Plan to address problem: According the patient ,patient has history of sarcoidosis. Patient is on Po Prednisone. GINA level results pending. Subjective Date of service: 03/10/22 Principal diagnosis: Right pneumothorax Interval history: This is a 56-year-old gentleman, with a history of COPD, spontaneous pneumothorax, congestive heart failure, possible sarcoid, who is COVID-19 vaccinated. He presents to the ER with EMS articulated complaint of chest tightness and shortness of breath. Patient is not sure if he is having similar episode to prior episodes of pneumothorax. He denies DVT and pulmonary embolism risk factors. He has a mild cough. EMS initiated treatments in the field. The patient was found to have a large right-sided pneumothorax in the emergency room. The patient provided verbal and written informed consent for sterile pigtail catheter placement. After the pigtail catheter was placed, he felt markedly improved. He now feels back to his baseline. Patient Additional medical history: sarcodosis,elevated cholesterol, pn eumothorax in April 2019, pacemaker/Defibrillator. Patient has history of smoking 1 pack x 30 years. Counseled to stop smoking. Used to drink alcohol. Not drinking alcohol now. Denies drug abuse. Worked in . and has three children. Allergic to lisinopril. Patient alert, awake. Denies chest pain, shortness of breath or cough. Patient is on 2 litres O2. O2 saturation 96%. Recommend to keep o2 2 litres all the time. Patient has right chest tube adjusted. Patient afebrile. No leukocytosis. Blood pressure 123/76, pulse 91 , respirations 18. Chest xray 03/06/22 reported Emphysematous gas and right chest wall and right neck again noted. Increased density in the right hilum and right upper lung no large pneumothorax. Chest xray 03/07/22 8:09 AM reported Slight retraction of thoracostomy tube without appreciable pneumothorax. Similar opacities in the right mid and lower lung. Chest xray 03/07/22 12:17 PM reported Large right pneumothorax after chest tube removal. Chest xray 03/07/22 2:08 PM reported Significant improvement of the right pneumothorax following pneumocath placement. Chest xray 03/08/22 reported Slight increase in right apical pneumothorax and rig ht chest wall subcutaneous soft tissue emphysema. Right pleural tube has pulled back slightly in the interval. Repeat chest xray 03/08/22 reported ncreased pulmonary opacities in bilateral lungs. Improved right pneumothorax Diffuse gas in the right chest wall and right neck Chest xray 03/09/22 reported Relatively similar radiographic cardiopulmonary appearances. Previously described right-sided pneumothorax is not definitively demonstrated on this examination. Patient is on Albuterol/atrovent aerosol treatments q 6 hours, PO prednisone and Famotidine. Recommend to place him on O2 2 litres via nasal canula. Recommend DVT prophylaxis. Recommend thoracic surgery consultation for recurrent pneumothorax. Talk to Dr. Raya and told him about thoracic surgery evaluation. Told him may have to transfer to the facility where thoracic surgery services available. Objective Vital Signs - 12hr 03/10/22 03/10/22 03/10/22 03:38 04:12 08:39 Temperature 98.1 F 99.1 F Pulse Rate 85 84 91 H Pulse Rate [ Bilateral] Respiratory 18 18 Rate Respiratory Rate [Bilateral ] Blood Pressure 117/68 116/68 O2 Sat by Pulse 97 96 Oximetry 03/10/22 03/10/22 03/10/22 10:00 10:29 10:32 Temperature Pulse Rate 89 Pulse Rate [ 90 Bilateral] Respiratory 18 Rate Respiratory 14 Rate [Bilateral ] Blood Pressure O2 Sat by Pulse 97 Oximetry 03/10/22 10:42 Temperature Pulse Rate Pulse Rate [ Bilateral] Respiratory Rate Respiratory Rate [Bilateral ] Blood Pressure O2 Sat by Pulse 97 Oximetry Constitutional: no acute distress, alert Eyes: non-icteric ENT: oropharynx moist Neck: supple, no lymphadenopathy, no JVD, other (Healed tracheostomy scar) Effort: normal, other (Right pleural drain to -20cm of suction) Ascultation: Right: diminished breath sounds, Bilateral: other (Prolonged expiratory phase.) Cardiovascular: regular rate and rhythm, other (S1,S2) Gastrointestinal: normoactive bowel sounds, soft, non-tender Integumentary: other (Patient has crepitations right chest likely S/C emphysema.) Extremities: no cyanosis, no edema, pink and warm Neurologic: normal mental status, non-focal exam, pupils equal and round, motor strength normal and Psychiatric: mood appropriate, affect normal CBC and BMP: 03/11/22 06:03 03/11/22 06:03 ABG, PT/INR, D-dimer: ABG ABG pH 7.467 pH Units (7.350-7.450) H 03/07/22 10:55 ABG pCO2 38.0 mm Hg 03/07/22 10:55 ABG pO2 61.1 mm Hg (80.0-90.0) L 03/07/22 10:55 ABG O2 Saturation 93.8 % (95.0-99.0) L 03/07/22 10:55 PT/INR, D-dimer PT 12.0 Sec. (12.2-14.9) L 03/02/22 18:49 INR 0.79 (0.87-1.13) L 03/02/22 18:49 Abnormal lab findings: Abnormal Labs 03/02/22 03/02/22 03/02/22 18:49 18:49 18:49 RBC 5.27 H MCV 78 L MCH 25 L MCHC Crawford % (Auto) 11.5 H Lymph # (Auto) 0.9 L Crawford # (Auto) Seg Neuts % (Manual) Lymphocytes % (Manual) Seg Neutrophils # Man Lymphocytes # (Manual) PT 12.0 L INR 0.79 L ABG pH ABG pO2 ABG HCO3 ABG O2 Saturation ABG Base Excess ABG Hemoglobin Oxyhemoglobin Sodium Potassium 3.1 L Chloride 96.0 L BUN Glucose 216 H POC Glucose Magnesium 1.10 L Total Protein 03/03/22 03/03/22 03/03/22 05:22 05:22 05:47 RBC MCV 78 L MCH 25 L MCHC Crawford % (Auto) Lymph # (Auto) Crawford # (Auto) Seg Neuts % (Manual) 96.0 H Lymphocytes % (Manual) 2.0 L Seg Neutrophils # Man 7.9 H Lymphocytes # (Manual) 0.2 L PT INR ABG pH ABG pO2 ABG HCO3 ABG O2 Saturation ABG Base Excess ABG Hemoglobin Oxyhemoglobin Sodium 136 L Potassium Chloride 95.8 L BUN Glucose 342 H POC Glucose 418 H Magnesium Total Protein 6.1 L 03/03/22 03/03/22 03/03/22 07:28 11:58 15:49 RBC MCV MCH MCHC Crawford % (Auto) Lymph # (Auto) Crawford # (Auto) Seg Neuts % (Manual) Lymphocytes % (Manual) Seg Neutrophils # Man Lymphocytes # (Manual) PT INR ABG pH ABG pO2 ABG HCO3 ABG O2 Saturation ABG Base Excess ABG Hemoglobin Oxyhemoglobin Sodium Potassium Chloride BUN Glucose POC Glucose 429 H 471 H 370 H Magnesium Total Protein 03/03/22 03/04/22 03/04/22 21:23 08:28 12:20 RBC MCV MCH MCHC Crawford % (Auto) Lymph # (Auto) Crawford # (Auto) Seg Neuts % (Manual) Lymphocytes % (Manual) Seg Neutrophils # Man Lymphocytes # (Manual) PT INR ABG pH ABG pO2 ABG HCO3 ABG O2 Saturation ABG Base Excess ABG Hemoglobin Oxyhemoglobin Sodium Potassium Chloride BUN Glucose POC Glucose 374 H 173 H 157 H Magnesium Total Protein 03/04/22 03/04/22 03/05/22 17:00 20:34 11:43 RBC MCV MCH MCHC Crawford % (Auto) Lymph # (Auto) Crawford # (Auto) Seg Neuts % (Manual) Lymphocytes % (Manual) Seg Neutrophils # Man Lymphocytes # (Manual) PT INR ABG pH ABG pO2 ABG HCO3 ABG O2 Saturation ABG Base Excess ABG Hemoglobin Oxyhemoglobin Sodium Potassium Chloride BUN Glucose POC Glucose 315 H 290 H 211 H Magnesium Total Protein 03/05/22 03/05/22 03/05/22 11:52 16:21 20:44 RBC MCV MCH MCHC Crawford % (Auto) Lymph # (Auto) Crawford # (Auto) Seg Neuts % (Manual) Lymphocytes % (Manual) Seg Neutrophils # Man Lymphocytes # (Manual) PT INR ABG pH ABG pO2 ABG HCO3 ABG O2 Saturation ABG Base Excess ABG Hemoglobin Oxyhemoglobin Sodium Potassium 3.3 L Chloride BUN 25 H Glucose 209 H POC Glucose 246 H 294 H Magnesium Total Protein 03/06/22 03/06/22 03/06/22 06:16 06:16 08:23 RBC 5.16 H MCV 79 L MCH 25 L MCHC 31 L Crawford % (Auto) 13.6 H Lymph # (Auto) 1.1 L Crawford # (Auto) 1.0 H Seg Neuts % (Manual) Lymphocytes % (Manual) Seg Neutrophils # Man Lymphocytes # (Manual) PT INR ABG pH ABG pO2 ABG HCO3 ABG O2 Saturation ABG Base Excess ABG Hemoglobin Oxyhemoglobin Sodium Potassium Chloride BUN 24 H Glucose 116 H POC Glucose 111 H Magnesium Total Protein 03/06/22 03/06/22 03/06/22 12:14 15:47 22:28 RBC MCV MCH MCHC Crawford % (Auto) Lymph # (Auto) Crawford # (Auto) Seg Neuts % (Manual) Lymphocytes % (Manual) Seg Neutrophils # Man Lymphocytes # (Manual) PT INR ABG pH ABG pO2 ABG HCO3 ABG O2 Saturation ABG Base Excess ABG Hemoglobin Oxyhemoglobin Sodium Potassium Chloride BUN Glucose POC Glucose 146 H 261 H 214 H Magnesium Total Protein 03/07/22 03/07/22 03/07/22 10:55 11:20 16:05 RBC MCV MCH MCHC Crawford % (Auto) Lymph # (Auto) Crawford # (Auto) Seg Neuts % (Manual) Lymphocytes % (Manual) Seg Neutrophils # Man Lymphocytes # (Manual) PT INR ABG pH 7.467 H ABG pO2 61.1 L ABG HCO3 26.9 H ABG O2 Saturation 93.8 L ABG Base Excess 3.2 H ABG Hemoglobin 13.1 L Oxyhemoglobin 92.0 L Sodium Potassium Chloride BUN Glucose POC Glucose 196 H 271 H Magnesium Total Protein 03/07/22 03/08/22 03/08/22 20:13 07:55 12:10 RBC MCV MCH MCHC Crawford % (Auto) Lymph # (Auto) Crawford # (Auto) Seg Neuts % (Manual) Lymphocytes % (Manual) Seg Neutrophils # Man Lymphocytes # (Manual) PT INR ABG pH ABG pO2 ABG HCO3 ABG O2 Saturation ABG Base Excess ABG Hemoglobin Oxyhemoglobin Sodium Potassium Chloride BUN Glucose POC Glucose 154 H 111 H 156 H Magnesium Total Protein 03/08/22 03/08/22 03/09/22 17:08 20:01 08:16 RBC MCV MCH MCHC Crawford % (Auto) Lymph # (Auto) Crawford # (Auto) Seg Neuts % (Manual) Lymphocytes % (Manual) Seg Neutrophils # Man Lymphocytes # (Manual) PT INR ABG pH ABG pO2 ABG HCO3 ABG O2 Saturation ABG Base Excess ABG Hemoglobin Oxyhemoglobin Sodium Potassium Chloride BUN Glucose POC Glucose 235 H 306 H 118 H Magnesium Total Protein 03/09/22 03/09/22 03/09/22 11:34 15:47 20:27 RBC MCV MCH MCHC Crawford % (Auto) Lymph # (Auto) Crawford # (Auto) Seg Neuts % (Manual) Lymphocytes % (Manual) Seg Neutrophils # Man Lymphocytes # (Manual) PT INR ABG pH ABG pO2 ABG HCO3 ABG O2 Saturation ABG Base Excess ABG Hemoglobin Oxyhemoglobin Sodium Potassium Chloride BUN Glucose POC Glucose 153 H 275 H 218 H Magnesium Total Protein Chest x-ray: report reviewed, image reviewed Additional Studies: CHEST 1 VIEW 03/09/2022 8:20 AM INDICATION / CLINICAL INFORMATION: right pneumothorax. COMPARISON: Yesterday. FINDINGS: SUPPORT DEVICES: Stable, satisfactory device positioning. HEART / MEDIASTINUM: Stable. LUNGS / PLEURA: Similar patchy multifocal airspace opacities most pronounced within the mid right lung zone laterally. Previously described right-sided pneumothorax is not definitively demonstrated. ADDITIONAL FINDINGS: Extensive right subcutaneous emphysema. IMPRESSION: 1. Relatively similar radiographic cardiopulmonary appearances. Previously described right-sided pneumothorax is not definitively demonstrated on this examination. Allied health notes reviewed: nursing
--- NOTE | 2022-03-10 14:42 | Progress Note ---
Assessment and Plan - Patient Problems (1) Pneumothorax on right Current Visit: Yes Status: Acute Plan to address problem: 1) CXR in the am 2) Awaiting transfer to CT service. Subjective Date of service: 03/10/22 Patient Reports: Positive: no new complaints. Negative: shortness of breath Objective Vital Signs - 12hr 03/10/22 03/10/22 03/10/22 03:38 04:12 08:39 Temperature 98.1 F 99.1 F Pulse Rate 85 84 91 H Pulse Rate [ Bilateral] Respiratory 18 18 Rate Respiratory Rate [Bilateral ] Blood Pressure 117/68 116/68 O2 Sat by Pulse 97 96 Oximetry 03/10/22 03/10/22 03/10/22 10:00 10:29 10:32 Temperature Pulse Rate 89 Pulse Rate [ 90 Bilateral] Respiratory 18 Rate Respiratory 14 Rate [Bilateral ] Blood Pressure O2 Sat by Pulse 97 Oximetry 03/10/22 10:42 Temperature Pulse Rate Pulse Rate [ Bilateral] Respiratory Rate Respiratory Rate [Bilateral ] Blood Pressure O2 Sat by Pulse 97 Oximetry - Respiratory clear to auscultation (CT is without air leak.) - Labs 03/06/22 06:16 03/06/22 06:16
[2022-03-11] MEDS: oxyCODONE /ACETAMINOPHEN 5-325MG TAB PO PRN ×4 (00:12→19:43)
[2022-03-11 06:21] LABS: Mean Corpuscular HGB Conc 31 % (32-34); Mean Corpuscular Volume 79 fl (84-94); Platelet Count 224 K/mm3 (140-440); Red Cell Distribution Width 14.7 % (13.2-15.2)
[2022-03-11 06:23] LABS: Hemoglobin 11.7 gm/dl (11.8-15.2)
[2022-03-11 07:16] LABS: Basophils % (Manual) 0 % (0.0-1.8); Hypochromasia 1+; Platelet Estimate Consistent w Auto; Total Cells Counted 100
[2022-03-11 07:52] LABS: BUN/Creatinine Ratio 18; Blood Urea Nitrogen 21 mg/dL (9-20); Calcium 9.4 mg/dL (8.4-10.2); Hemolysis Index 0
--- NOTE | 2022-03-11 08:49 | XRay Report ---
CHEST - 1 VIEW 0820 hours INDICATION: Pneumothorax COMPARISON: Yesterday FINDINGS: Support devices: Stable positioning of the right chest tube and pacemaker device. Heart: Stable cardiomediastinal silhouette. Lungs/pleura: Patchy airspace opacities in the right midlung appears similar. The left lung is gener ally clear. A small right apical pneumothorax measures 1.9 cm in thickness. Additional findings: None. IMPRESSION: Small right apical pneumothorax as described Signer Name: John Manzanares Jr, MD Signed: 03/11/2022 8:45 AM Workstation Name: [id number]
[2022-03-11] MEDS: INSULIN LISPRO 100 UNIT/ML SUB-Q SCH ×4 (08:51→22:50)
[2022-03-11] MEDS: hydroCHLOROthiazide 12.5 MG CAP PO SCH (09:56)
[2022-03-11] MEDS: INSULIN NPH/REGULAR 70/30 INJ SUB-Q SCH ×2 (09:56→16:39)
[2022-03-11] MEDS: FERROUS SULFATE 325 MG TAB PO SCH (09:57)
[2022-03-11] MEDS: FAMOTIDINE 20 MG TAB PO SCH ×2 (09:57→21:19)
[2022-03-11] MEDS: CYANOCOBALAMIN (VIT B-12) 1000 MCG TAB PO SCH (09:57)
[2022-03-11] MEDS: IPRATROPIUM/ALBUTEROL SULFATE 3 ML AMPUL.NEB IH SCH ×2 (09:59→15:20)
[2022-03-11] MEDS: predniSONE 20 MG TAB PO SCH (10:02)
--- NOTE | 2022-03-11 10:15 | Progress Note ---
Assessment and Plan Assessment and plan: 56 yo man with CHF/PM, DM, HTN, hx of bilateral PTx. RT pneumothorax s/p chest tube placement. Right pneumothorax Hypertension Sarcoidosis Hyperlipidemia Chronic COPD, compensated Diabetes mellitus type 2, insulin-dependent DVT prophylaxis 03/05/2022. Patient with chest surgery this a.m. but still reveals large right pneumothorax. Patient had kinking of the chest tube that was fixed by surgery. We will repeat chest x-ray at noon today. Continue chest tube to wall suction today. Repeat chest x-ray in a.m. 03/06/2022. Recurrent right-sided pneumothorax today on chest x-ray. Dislodgment of previous chest tube. Patient underwent replacement of chest tube to low wall intermittent suction. Surgery team consulted. 03/07/2022. Surgery reported chest x-ray with expanded lung on waterseal this morning. Chest tube was removed and chest x-ray was repeated this afternoon but revealed recurrent pneumothorax. I discussed the case with surgery who will replace chest tube today. We will most likely need to have discussion with regards to VATS at a tertiary facility. Continue close monitoring. 03/08/2022. I will attempt to contact tertiary facility with cardiothoracic surgery for possible VATS or pleurodesis. Continue to monitor serial chest x- ray. Continue chest tube per surgery recommendations. Continue Accu-Cheks and sliding scale insulin. Continue BP meds 03/09/2022. Patient status post placement of chest tube by Dr. Anguiano for recurring pneumothorax on the right side. He is comfortable at this time. Continue suction through Pleur-evac. Continue to try to transfer to service with thoracic surgery for management of recurring pneumothorax right side. Patient reports uncontrolled pain. We will increase Percocet to 10 mg. 03/10/2022. Chest x-ray from yesterday shows reexpansion of the lung and no pneumothorax. Will discuss with surgery if patient will need transfer to tertiary facility for management of pneumothorax. Continue appropriate pain control 03/11/2022. Follow-up chest x-ray today reveals small right apical pneumothorax. Await surgery recommendations with regards to further management. Continue chest tube here versus transfer to service with thoracic surgery for management versus home with [facility] History Interval history: No new issues overnight Hospitalist Physical - Constitutional Vitals: Temp Pulse Resp BP Pulse Ox 97.9 F 78 18 119/74 98 03/11/22 08:08 03/11/22 08:08 03/11/22 08:08 03/11/22 08:08 03/11/22 08:08 General appearance: Present: no acute distress, well-nourished - EENT Eyes: Present: PERRL, EOM intact ENT: hearing intact, clear oral mucosa, dentition normal - Neck Neck: Present: supple, normal ROM - Respiratory Respiratory effort: normal Respiratory: bilateral: CTA - Cardiovascular Rhythm: regular Heart Sounds: Present: S1 & S2. Absent: gallop, rub - Extremities Extremities: no ischemia, No edema, Full ROM - Abdominal General gastrointestinal: soft, non-tender, non-distended, normal bowel sounds - Integumentary Integumentary: Present: clear, warm, dry - Neurologic Neurologic: CNII-XII intact, moves all extremities HEART Score - HEART Score Age: 45-65 Risk factors: 1-2 risk factors Troponin: Troponin T < 0.010 ng/mL (0.00-0.029) 03/02/22 18:49 Troponin: 1-3x normal limit - Critical Actions Critical Actions: 0-3 pts:0.9-1.7%risk of adverse cardiac event.Candidate for discharge Results - Labs CBC & Chem 7: 03/11/22 06:03 03/11/22 06:03 Labs: Laboratory Last Values WBC 11.3 K/mm3 (4.5-11.0) H 03/11/22 06:03 RBC 4.80 M/mm3 (3.65-5.03) 03/11/22 06:03 Hgb 11.7 gm/dl (11.8-15.2) L 03/11/22 06:03 Hct 38.0 % (35.5-45.6) 03/11/22 06:03 MCV 79 fl (84-94) L 03/11/22 06:03 MCH 24 pg (28-32) L 03/11/22 06:03 MCHC 31 % (32-34) L 03/11/22 06:03 RDW 14.7 % (13.2-15.2) 03/11/22 06:03 Plt Count 224 K/mm3 (140-440) 03/11/22 06:03 Lymph % (Auto) 14.2 % (13.4-35.0) 03/06/22 06:16 [place] % (Auto) System Support Specialist 03/11/22 06:03 Eos % (Auto) 2.6 % (0.0-4.3) 03/06/22 06:16 Baso % (Auto) 0.2 % (0.0-1.8) 03/06/22 06:16 Lymph # (Auto) 1.1 K/mm3 (1.2-5.4) L 03/06/22 06:16 [place] # (Auto) 1.0 K/mm3 (0.0-0.8) H 03/06/22 06:16 Eos # (Auto) 0.2 K/mm3 (0.0-0.4) 03/06/22 06:16 Baso # (Auto) 0.0 K/mm3 (0.0-0.1) 03/06/22 06:16 Add Manual Diff Complete 03/11/22 06:03 Total Counted 100 03/11/22 06:03 Seg Neutrophils % 69.4 % (40.0-70.0) 03/06/22 06:16 Seg Neuts % (Manual) 83.0 % (40.0-70.0) H 03/11/22 06:03 Band Neutrophils % 0 % 03/11/22 06:03 Lymphocytes % (Manual) 8.0 % (13.4-35.0) L 03/11/22 06:03 Reactive Lymphs % (Man) 0 % 03/11/22 06:03 Monocytes % (Manual) 8.0 % (0.0-7.3) H 03/11/22 06:03 Eosinophils % (Manual) 1.0 % (0.0-4.3) 03/11/22 06:03 Basophils % (Manual) 0 % (0.0-1.8) 03/11/22 06:03 Metamyelocytes % 0 % 03/11/22 06:03 Myelocytes % 0 % 03/11/22 06:03 Promyelocytes % 0 % 03/11/22 06:03 Blast Cells % 0 % 03/11/22 06:03 Nucleated RBC % Not Reportable 03/11/22 06:03 Seg Neutrophils # 5.3 K/mm3 (1.8-7.7) 03/06/22 06:16 Seg Neutrophils # Man 9.4 K/mm3 (1.8-7.7) H 03/11/22 06:03 Band Neutrophils # 0.0 K/mm3 03/11/22 06:03 Lymphocytes # (Manual) 0.9 K/mm3 (1.2-5.4) L 03/11/22 06:03 Abs React Lymphs (Man) 0.0 K/mm3 03/11/22 06:03 Monocytes # (Manual) 0.9 K/mm3 (0.0-0.8) H 03/11/22 06:03 Eosinophils # (Manual) 0.1 K/mm3 (0.0-0.4) 03/11/22 06:03 Basophils # (Manual) 0.0 K/mm3 (0.0-0.1) 03/11/22 06:03 Metamyelocytes # 0.0 K/mm3 03/11/22 06:03 Myelocytes # 0.0 K/mm3 03/11/22 06:03 Promyelocytes # 0.0 K/mm3 03/11/22 06:03 Blast Cells # 0.0 K/mm3 03/11/22 06:03 WBC Morphology Not Reportable 03/11/22 06:03 Hypersegmented Neuts Not Reportable 03/11/22 06:03 Hyposegmented Neuts Not Reportable 03/11/22 06:03 Hypogranular Neuts Not Reportable 03/11/22 06:03 Smudge Cells Not Reportable 03/11/22 06:03 Toxic Granulation Not Reportable 03/11/22 06:03 Toxic Vacuolation Not Reportable 03/11/22 06:03 Dohle Bodies Not Reportable 03/11/22 06:03 Pelger-Huet Anomaly Not Reportable 03/11/22 06:03 Rafiq Rods Not Reportable 03/11/22 06:03 Platelet Estimate Consistent w auto 03/11/22 06:03 Clumped Platelets Not Reportable 03/11/22 06:03 Plt Clumps, EDTA Not Reportable 03/11/22 06:03 Large Platelets Not Reportable 03/11/22 06:03 Giant Platelets Not Reportable 03/11/22 06:03 Platelet Satelliting Not Reportable 03/11/22 06:03 Plt Morphology Comment Not Reportable 03/11/22 06:03 RBC Morphology Not Reportable 03/11/22 06:03 Dimorphic RBCs Not Reportable 03/11/22 06:03 Polychromasia Not Reportable 03/11/22 06:03 Hypochromasia 1+ 03/11/22 06:03 Poikilocytosis Not Reportable 03/11/22 06:03 Anisocytosis Not Reportable 03/11/22 06:03 Microcytosis Not Reportable 03/11/22 06:03 Macrocytosis Not Reportable 03/11/22 06:03 Spherocytes Not Reportable 03/11/22 06:03 Pappenheimer Bodies Not Reportable 03/11/22 06:03 Sickle Cells Not Reportable 03/11/22 06:03 Target Cells Not Reportable 03/11/22 06:03 Tear Drop Cells Not Reportable 03/11/22 06:03 Ovalocytes Not Reportable 03/11/22 06:03 Helmet Cells Not Reportable 03/11/22 06:03 [place] Bodies Not Reportable 03/11/22 06:03 [place] Rings Not Reportable 03/11/22 06:03 Amarilys Cells Not Reportable 03/11/22 06:03 Bite Cells Not Reportable 03/11/22 06:03 Crenated Cell Not Reportable 03/11/22 06:03 Elliptocytes Not Reportable 03/11/22 06:03 Acanthocytes (Spur) Not Reportable 03/11/22 06:03 Rouleaux Not Reportable 03/11/22 06:03 Hemoglobin C Crystals Not Reportable 03/11/22 06:03 Schistocytes Not Reportable 03/11/22 06:03 Malaria parasites Not Reportable 03/11/22 06:03 Matthew Bodies Not Reportable 03/11/22 06:03 Hem Pathologist Commnt No 03/11/22 06:03 PT 12.0 Sec. (12.2-14.9) L 03/02/22 18:49 INR 0.79 (0.87-1.13) L 03/02/22 18:49 APTT 26.6 Sec. (24.2-36.6) 03/02/22 18:49 ABG pH 7.467 pH Units (7.350-7.450) H 03/07/22 10:55 ABG pCO2 38.0 mm Hg 03/07/22 10:55 ABG pO2 61.1 mm Hg (80.0-90.0) L 03/07/22 10:55 ABG HCO3 26.9 mmol/L (20.0-26.0) H 03/07/22 10:55 ABG O2 Saturation 93.8 % (95.0-99.0) L 03/07/22 10:55 ABG O2 Content 16.9 (0.0-44) 03/07/22 10:55 ABG Base Excess 3.2 mmol/L (-2.0-3.0) H 03/07/22 10:55 ABG Hemoglobin 13.1 gm/dl (14.0-18.0) L 03/07/22 10:55 ABG Carboxyhemoglobin 1.4 % (0.0-5.0) 03/07/22 10:55 ABG Methemoglobin 0.5 % (0.0-1.5) 03/07/22 10:55 Oxyhemoglobin 92.0 % (95.0-99.0) L 03/07/22 10:55 FiO2 21 % 03/07/22 10:55 Sodium 141 mmol/L (137-145) 03/11/22 06:03 Potassium 4.2 mmol/L (3.6-5.0) 03/11/22 06:03 Chloride 101.2 mmol/L (98-107) 03/11/22 06:03 Carbon Dioxide 27 mmol/L (22-30) 03/11/22 06:03 Anion Gap 17 mmol/L 03/11/22 06:03 BUN 21 mg/dL (9-20) H 03/11/22 06:03 Creatinine 1.2 mg/dL (0.8-1.3) 03/11/22 06:03 Estimated GFR > 60 ml/min 03/11/22 06:03 BUN/Creatinine Ratio 18 % 03/11/22 06:03 Glucose 93 mg/dL (75-100) 03/11/22 06:03 POC Glucose 89 mg/dL (70-105) 03/11/22 08:07 Calcium 9.4 mg/dL (8.4-10.2) 03/11/22 06:03 Magnesium 1.10 mg/dL (1.7-2.3) L 03/02/22 18:49 Total Bilirubin 0.60 mg/dL (0.1-1.2) 03/03/22 05:22 AST 37 units/L (5-40) 03/03/22 05:22 ALT 29 units/L (7-56) 03/03/22 05:22 Alkaline Phosphatase 63 units/L (35-129) 03/03/22 05:22 Troponin T < 0.010 ng/mL (0.00-0.029) 03/02/22 18:49 NT-Pro-B Natriuret Pep 31.99 pg/mL (0-900) 03/02/22 18:49 Total Protein 6.1 g/dL (6.3-8.2) L 03/03/22 05:22 Albumin 4.0 g/dL (3.9-5) 03/03/22 05:22 Albumin/Globulin Ratio 1.9 % 03/03/22 05:22 Angiotensin Convert Enz 18 U/L (9-67) 03/07/22 05:08 Garcia/IV: Voiding Method Urinal Active Medications - Current Medications Current Medications: Generic Name Dose Route Start Last Admin Trade Name Freq PRN Reason Stop Dose Admin Acetaminophen 650 mg 03/02/22 23:10 03/04/22 04:39 Acetaminophen 325 Mg Tab PO 650 mg Q4H PRN Administration Pain MILD(1-3)/Fever >100.5/WINTERS Albuterol/Ipratropium 1 ampul 03/03/22 08:00 03/11/22 09:59 Ipratropium/Albuterol Sulfate 3 Ml Ampul.Neb IH Not Given TIDRT [facility] Atorvastatin Calcium 20 mg 03/03/22 10:00 03/11/22 09:57 Atorvastatin 20 Mg Tab PO 20 mg DAILY ANDREA Administration Carvedilol 25 mg 03/02/22 23:45 03/10/22 21:25 Carvedilol 25 Mg Tab PO 25 mg BID ANDREA Administration Cetirizine HCl 10 mg 03/02/22 23:25 03/11/22 09:57 Cetirizine 10 Mg Tab PO 10 mg DAILY PRN Administration Allergy Symptoms Cyanocobalamin 1,000 mcg 03/03/22 10:00 03/11/22 09:57 Cyanocobalamin (Vit B-12) 1000 Mcg Tab PO 1,000 mcg DAILY ANDREA Administration Diphenhydramine HCl 12.5 mg 03/02/22 23:17 Diphenhydramine 50 Mg/Ml Vial IV Q6H PRN Itching Diphenhydramine HCl 25 mg 03/02/22 23:17 Diphenhydramine 25 Mg Cap PO Q6HR PRN Allergy Symptoms Famotidine 20 mg 03/02/22 23:45 03/11/22 09:57 Famotidine 20 Mg Tab PO 20 mg Q12HR ANDREA Administration Ferrous Sulfate 325 mg 03/03/22 10:00 03/11/22 09:57 Ferrous Sulfate 325 Mg Tab PO 325 mg DAILY ANDREA Administration Hydrochlorothiazide 25 mg 03/03/22 10:00 03/11/22 09:56 Hydrochlorothiazide 12.5 Mg Cap PO 25 mg QDAY ANDREA Administration Insulin Human Isoph/Insulin Regular 45 unit 03/03/22 08:00 03/11/22 09:56 Insulin Nph/Regular 70/30 Inj SUB-Q 45 unit BIDDIAB ANDREA Administration Insulin Human Lispro 0 unit 03/03/22 06:12 03/11/22 08:51 Insulin Lispro 100 Unit/Ml SUB-Q Not Given [facility] Protocol Metoclopramide HCl 10 mg 03/02/22 23:10 Metoclopramide 10 Mg/2 Ml Inj IV Q6H PRN Nausea And Vomiting Morphine Sulfate 2 mg 03/02/22 21:10 03/08/22 13:03 Morphine 2 Mg/1 Ml Inj IV 2 mg Q4H PRN Administration Pain, Moderate (4-6) Morphine Sulfate 4 mg 03/02/22 21:10 03/10/22 21:24 Morphine 4 Mg/1 Ml Inj IV 4 mg Q4H PRN Administration Pain , Severe (7-10) Ondansetron HCl 4 mg 03/02/22 23:10 Ondansetron 4 Mg/2 Ml Inj IV Q8H PRN Nausea And Vomiting Oxycodone/Acetaminophen 2 tab 03/09/22 11:00 03/11/22 10:05 Oxycodone /Acetaminophen 5-325mg Tab PO 2 tab Q6H PRN Administration Pain, Moderate (4-6) Prednisone 40 mg 03/03/22 10:00 03/11/22 10:02 Prednisone 20 Mg Tab PO 40 mg QDAY ANDREA Administration Sodium Chloride 10 ml 03/03/22 10:00 03/10/22 21:23 Sodium Chloride 0.9% 10 Ml Flush Syringe IV 10 ml BID ANDREA Administration Sodium Chloride 10 ml 03/02/22 23:10 03/06/22 19:02 Sodium Chloride 0.9% 10 Ml Flush Syringe IV 10 ml PRN PRN Administration LINE FLUSH Tramadol HCl 25 mg 03/02/22 23:17 03/09/22 04:24 Tramadol 50 Mg Tab PO 25 mg Q4H PRN Administration Pain, Moderate (4-6) Nutrition/Malnutrition Assess - Dietary Evaluation Nutrition/Malnutrition Findings: Nutrition Notes Start: 03/08/22 14:17 Freq: Status: Active Protocol: Document 03/08/22 14:17 [facility] (Rec: 03/08/22 14:24 [facility] [id number]) Nutrition Notes Need for Assessment generated from: LOS Initial or Follow up Brief Note Current Diagnosis COPD,Diabetes,Hypertension, Hyperlipidemia Other Pertinent Diagnosis (R) pneumothorax s/p chest tube placement Current Diet NPO Labs/Tests Reviewed Pertinent Medications Vit B12, Feosol, Prednisone Height 6 ft Weight 121.7 kg [place] Body Weight (kg) 80.90 BMI 36.3 Weight Status Obese Subjective/Other Information Pt screened for LOS. Pt getting chest x-ray at time of visit (12:05). Pt received a Cardiac/Consistent CHO diet from 03/03 - 03/08; no meal intakes documented. PMHx includes sarcoidosis. Burn Absent Trauma Absent Minimum of two criteria No Is patient on ventilator? No Is Patient Ambulatory and/or Out of Bed Yes REE-([facility]-ambulatory/OOB) [ 0627.000 [id number]] Kcal/Kg value to use for calculation 18 Approximate Energy Requirements Using 2191 kcal/Kg Calculation Used for Recommendations Kcal/kg Additional Notes Pro needs 0.8-1g/kg adjBW: 81- 101g/day Fluid needs 1ml/kcal Nutrition Intervention Follow-Up By: 03/11/22 Additional Comments F/U: diet advancement
--- NOTE | 2022-03-11 11:33 | Progress Note ---
Assessment and Plan 56 yo man with CHF, recurrent bilateral pneumothoraces. now with right PTx s/p chest tube, -his WBC is slightly up, with pus in the tubing and right lung haziness of CXR suggestive of early infection. -recommend empiric abx -chest tube is to heimleck valve today. will obtain fup CXR in afternoon and in am. Subjective Date of service: 03/11/22 Narrative: doing well, no shortness of breath. his chest tube is to water seal with small apical pneumo on cxr this am. Objective Vital Signs - 12hr 03/11/22 03/11/22 03/11/22 03:53 05:00 08:08 Temperature 97.6 F 97.9 F Pulse Rate 77 83 78 Respiratory 18 18 Rate Blood Pressure 124/62 119/74 O2 Sat by Pulse 96 98 Oximetry - General physical appearance well developed, well nourished - Neck no masses - Respiratory normal expansion, normal respiratory effort (chest tube with purulent fluid in the tubing) - Labs 03/11/22 06:03 03/11/22 06:03 Diabetes panel 03/11/22 Range/Units 06:03 Sodium 141 (137-145) mmol/L Potassium 4.2 (3.6-5.0) mmol/L Chloride 101.2 (98-107) mmol/L Carbon Dioxide 27 (22-30) mmol/L BUN 21 H (9-20) mg/dL Creatinine 1.2 (0.8-1.3) mg/dL Glucose 93 (75-100) mg/dL Calcium 9.4 (8.4-10.2) mg/dL Calcium panel 03/11/22 Range/Units 06:03 Calcium 9.4 (8.4-10.2) mg/dL Pituitary panel 03/11/22 Range/Units 06:03 Sodium 141 (137-145) mmol/L Potassium 4.2 (3.6-5.0) mmol/L Chloride 101.2 (98-107) mmol/L Carbon Dioxide 27 (22-30) mmol/L BUN 21 H (9-20) mg/dL Creatinine 1.2 (0.8-1.3) mg/dL Glucose 93 (75-100) mg/dL Calcium 9.4 (8.4-10.2) mg/dL Adrenal panel 03/11/22 Range/Units 06:03 Sodium 141 (137-145) mmol/L Potassium 4.2 (3.6-5.0) mmol/L Chloride 101.2 (98-107) mmol/L Carbon Dioxide 27 (22-30) mmol/L BUN 21 H (9-20) mg/dL Creatinine 1.2 (0.8-1.3) mg/dL Glucose 93 (75-100) mg/dL Calcium 9.4 (8.4-10.2) mg/dL
[2022-03-11] MEDS: MORPHINE 2 MG/1 ML INJ IV PRN (13:21)
[2022-03-11] MEDS: carvediloL 25 MG TAB PO SCH ×2 (13:22→21:19)
--- NOTE | 2022-03-11 14:25 | XRay Report ---
CHEST 1 VIEW 03/11/2022 12:40 PM INDICATION / CLINICAL INFORMATION: right chest tube to Heimlich valve. COMPARISON: 03/11/22 8:20 AM FINDINGS: SUPPORT DEVICES: Right pleural tube is unchanged. HEART / MEDIASTINUM: Stable. LUNGS / PLEURA: Streaky right midlung density is unchanged. Small right apical pneumothorax has decre ased in size measuring 1.1 cm on the current study, previously 1.9 cm. ADDITIONAL FINDINGS: Right chest wall subcutaneous soft tissue emphysema is unchanged. IMPRESSION: 1. Interval decrease in size of right apical pneumothorax. Signer Name: Nidhi Diaz MD Signed: 03/11/2022 2:21 PM Workstation Name: [employer]
[2022-03-11] MEDS ORDERED: VANCOMYCIN PHARMACY TO DOSE IV SCH (15:00)
[2022-03-11] MEDS ORDERED: PIPERACIL/TAZOBACTA 4.5/NS 100 4.5 GM/100 ML VIAL IV SCH (16:00)
[2022-03-11] MEDS: VANCOMYCIN 2,000 MG in SODIUM CHLORIDE 0.9% 500 ML 500 ML IV SCH (16:05)
--- NOTE | 2022-03-11 17:19 | Progress Note ---
Assessment and Plan Pneumothorax on right s/p right pleural drain with re-expansion COPD h/o Recurrent left pneumothoraces Tobacco use disorder/Nicotine dependence HTN h/o Sarcoidosis - repeat CXR in am - chest tube management per gen surgery +/- CTSU evaluation if recurrent post clamping - add LABA & ICS re: COPD - continue supplemental oxygen to keep O2 sats > 90% and aid resorption - bronchodilators (SEBASTIEN) with pulm hygiene per RT - continue to avoid nephrotoxins, renally dose all medications - prn analgesia per pain score - mobility protocols to prevent pressure ulcers - PT/OT as tolerated - Wound care per RN/WCT - continue accuchecks with glycemic control per SSI for target blood glucose < 180 mg/dL - Smoking cessation strongly counseled at the bedside - home oxygen evaluation at discharge - GI & VTE prophylaxis - Flu & pneumovax per protocol - Pulmonary out patient follow up for PFTs and optimization of respiratory status - continue other care per attending / other consultants ... re-evaluate in am & prn Subjective Date of service: 03/11/22 Principal diagnosis: R. Pneumothorax s/p pleural drain; COPD; Tobacco abuse; Sarcoidosis Interval history: Patient is seen today for: Pneumothorax on right s/p right pleural drain; COPD; h/o Recurrent left pneumothoraces; Tobacco use disorder; HTN; h/o Sarcoidosis Seen and examined at bedside; 24hour events reviewed; nursing and respiratory care staff consulted; no adverse overnight events reported to me; resting peacefully in bed; denies acute chest pains or palpitations; chest tube remains in place to heimlich valve; no N/V/F/C Objective Vital Signs - 12hr 03/11/22 03/11/22 03/11/22 08:08 10:00 11:59 Temperature 97.9 F 98.3 F Pulse Rate 78 88 Respiratory 18 18 Rate Blood Pressure 119/74 131/74 O2 Sat by Pulse 98 95 95 Oximetry Constitutional: no acute distress, alert Eyes: non-icteric ENT: oropharynx moist Neck: supple, no lymphadenopathy, no JVD, other (Healed tracheostomy scar) Effort: normal, other (Right pleural drain to heimlich valve and off suction) Ascultation: Right: diminished breath sounds, Bilateral: other (Prolonged expiratory phase.) Percussion: Bilateral: not dull Cardiovascular: regular rate and rhythm, other (S1,S2) Gastrointestinal: normoactive bowel sounds, soft, non-tender, non-distended (protuberant) Integumentary: other (Patient has crepitations right chest likely S/C emphysema.) Extremities: no cyanosis, no edema, pulses normal, no ischemia or petechiae Neurologic: normal mental status, non-focal exam, pupils equal and round, motor strength normal and Psychiatric: mood appropriate, affect normal CBC and BMP: 03/11/22 06:03 03/11/22 06:03 ABG, PT/INR, D-dimer: ABG ABG pH 7.467 pH Units (7.350-7.450) H 03/07/22 10:55 ABG pCO2 38.0 mm Hg 03/07/22 10:55 ABG pO2 61.1 mm Hg (80.0-90.0) L 03/07/22 10:55 ABG O2 Saturation 93.8 % (95.0-99.0) L 03/07/22 10:55 PT/INR, D-dimer PT 12.0 Sec. (12.2-14.9) L 03/02/22 18:49 INR 0.79 (0.87-1.13) L 03/02/22 18:49 Abnormal lab findings: Abnormal Labs 03/02/22 03/02/22 03/02/22 18:49 18:49 18:49 WBC RBC 5.27 H Hgb MCV 78 L MCH 25 L MCHC [place] % (Auto) 11.5 H Lymph # (Auto) 0.9 L [place] # (Auto) Seg Neuts % (Manual) Lymphocytes % (Manual) Monocytes % (Manual) Seg Neutrophils # Man Lymphocytes # (Manual) Monocytes # (Manual) PT 12.0 L INR 0.79 L ABG pH ABG pO2 ABG HCO3 ABG O2 Saturation ABG Base Excess ABG Hemoglobin Oxyhemoglobin Sodium Potassium 3.1 L Chloride 96.0 L BUN Glucose 216 H POC Glucose Magnesium 1.10 L Total Protein 03/03/22 03/03/22 03/03/22 05:22 05:22 05:47 WBC RBC Hgb MCV 78 L MCH 25 L MCHC [place] % (Auto) Lymph # (Auto) [place] # (Auto) Seg Neuts % (Manual) 96.0 H Lymphocytes % (Manual) 2.0 L Monocytes % (Manual) Seg Neutrophils # Man 7.9 H Lymphocytes # (Manual) 0.2 L Monocytes # (Manual) PT INR ABG pH ABG pO2 ABG HCO3 ABG O2 Saturation ABG Base Excess ABG Hemoglobin Oxyhemoglobin Sodium 136 L Potassium Chloride 95.8 L BUN Glucose 342 H POC Glucose 418 H Magnesium Total Protein 6.1 L 03/03/22 03/03/22 03/03/22 07:28 11:58 15:49 WBC RBC Hgb MCV MCH MCHC [place] % (Auto) Lymph # (Auto) [place] # (Auto) Seg Neuts % (Manual) Lymphocytes % (Manual) Monocytes % (Manual) Seg Neutrophils # Man Lymphocytes # (Manual) Monocytes # (Manual) PT INR ABG pH ABG pO2 ABG HCO3 ABG O2 Saturation ABG Base Excess ABG Hemoglobin Oxyhemoglobin Sodium Potassium Chloride BUN Glucose POC Glucose 429 H 471 H 370 H Magnesium Total Protein 03/03/22 03/04/22 03/04/22 21:23 08:28 12:20 WBC RBC Hgb MCV MCH MCHC [place] % (Auto) Lymph # (Auto) [place] # (Auto) Seg Neuts % (Manual) Lymphocytes % (Manual) Monocytes % (Manual) Seg Neutrophils # Man Lymphocytes # (Manual) Monocytes # (Manual) PT INR ABG pH ABG pO2 ABG HCO3 ABG O2 Saturation ABG Base Excess ABG Hemoglobin Oxyhemoglobin Sodium Potassium Chloride BUN Glucose POC Glucose 374 H 173 H 157 H Magnesium Total Protein 03/04/22 03/04/22 03/05/22 17:00 20:34 11:43 WBC RBC Hgb MCV MCH MCHC [place] % (Auto) Lymph # (Auto) [place] # (Auto) Seg Neuts % (Manual) Lymphocytes % (Manual) Monocytes % (Manual) Seg Neutrophils # Man Lymphocytes # (Manual) Monocytes # (Manual) PT INR ABG pH ABG pO2 ABG HCO3 ABG O2 Saturation ABG Base Excess ABG Hemoglobin Oxyhemoglobin Sodium Potassium Chloride BUN Glucose POC Glucose 315 H 290 H 211 H Magnesium Total Protein 03/05/22 03/05/22 03/05/22 11:52 16:21 20:44 WBC RBC Hgb MCV MCH MCHC [place] % (Auto) Lymph # (Auto) [place] # (Auto) Seg Neuts % (Manual) Lymphocytes % (Manual) Monocytes % (Manual) Seg Neutrophils # Man Lymphocytes # (Manual) Monocytes # (Manual) PT INR ABG pH ABG pO2 ABG HCO3 ABG O2 Saturation ABG Base Excess ABG Hemoglobin Oxyhemoglobin Sodium Potassium 3.3 L Chloride BUN 25 H Glucose 209 H POC Glucose 246 H 294 H Magnesium Total Protein 03/06/22 03/06/22 03/06/22 06:16 06:16 08:23 WBC RBC 5.16 H Hgb MCV 79 L MCH 25 L MCHC 31 L [place] % (Auto) 13.6 H Lymph # (Auto) 1.1 L [place] # (Auto) 1.0 H Seg Neuts % (Manual) Lymphocytes % (Manual) Monocytes % (Manual) Seg Neutrophils # Man Lymphocytes # (Manual) Monocytes # (Manual) PT INR ABG pH ABG pO2 ABG HCO3 ABG O2 Saturation ABG Base Excess ABG Hemoglobin Oxyhemoglobin Sodium Potassium Chloride BUN 24 H Glucose 116 H POC Glucose 111 H Magnesium Total Protein 03/06/22 03/06/22 03/06/22 12:14 15:47 22:28 WBC RBC Hgb MCV MCH MCHC [place] % (Auto) Lymph # (Auto) [place] # (Auto) Seg Neuts % (Manual) Lymphocytes % (Manual) Monocytes % (Manual) Seg Neutrophils # Man Lymphocytes # (Manual) Monocytes # (Manual) PT INR ABG pH ABG pO2 ABG HCO3 ABG O2 Saturation ABG Base Excess ABG Hemoglobin Oxyhemoglobin Sodium Potassium Chloride BUN Glucose POC Glucose 146 H 261 H 214 H Magnesium Total Protein 03/07/22 03/07/22 03/07/22 10:55 11:20 16:05 WBC RBC Hgb MCV MCH MCHC [place] % (Auto) Lymph # (Auto) [place] # (Auto) Seg Neuts % (Manual) Lymphocytes % (Manual) Monocytes % (Manual) Seg Neutrophils # Man Lymphocytes # (Manual) Monocytes # (Manual) PT INR ABG pH 7.467 H ABG pO2 61.1 L ABG HCO3 26.9 H ABG O2 Saturation 93.8 L ABG Base Excess 3.2 H ABG Hemoglobin 13.1 L Oxyhemoglobin 92.0 L Sodium Potassium Chloride BUN Glucose POC Glucose 196 H 271 H Magnesium Total Protein 03/07/22 03/08/22 03/08/22 20:13 07:55 12:10 WBC RBC Hgb MCV MCH MCHC [place] % (Auto) Lymph # (Auto) [place] # (Auto) Seg Neuts % (Manual) Lymphocytes % (Manual) Monocytes % (Manual) Seg Neutrophils # Man Lymphocytes # (Manual) Monocytes # (Manual) PT INR ABG pH ABG pO2 ABG HCO3 ABG O2 Saturation ABG Base Excess ABG Hemoglobin Oxyhemoglobin Sodium Potassium Chloride BUN Glucose POC Glucose 154 H 111 H 156 H Magnesium Total Protein 03/08/22 03/08/22 03/09/22 17:08 20:01 08:16 WBC RBC Hgb MCV MCH MCHC [place] % (Auto) Lymph # (Auto) [place] # (Auto) Seg Neuts % (Manual) Lymphocytes % (Manual) Monocytes % (Manual) Seg Neutrophils # Man Lymphocytes # (Manual) Monocytes # (Manual) PT INR ABG pH ABG pO2 ABG HCO3 ABG O2 Saturation ABG Base Excess ABG Hemoglobin Oxyhemoglobin Sodium Potassium Chloride BUN Glucose POC Glucose 235 H 306 H 118 H Magnesium Total Protein 03/09/22 03/09/22 03/09/22 11:34 15:47 20:27 WBC RBC Hgb MCV MCH MCHC [place] % (Auto) Lymph # (Auto) [place] # (Auto) Seg Neuts % (Manual) Lymphocytes % (Manual) Monocytes % (Manual) Seg Neutrophils # Man Lymphocytes # (Manual) Monocytes # (Manual) PT INR ABG pH ABG pO2 ABG HCO3 ABG O2 Saturation ABG Base Excess ABG Hemoglobin Oxyhemoglobin Sodium Potassium Chloride BUN Glucose POC Glucose 153 H 275 H 218 H Magnesium Total Protein 03/10/22 03/10/22 03/10/22 11:39 16:31 20:53 WBC RBC Hgb MCV MCH MCHC [place] % (Auto) Lymph # (Auto) [place] # (Auto) Seg Neuts % (Manual) Lymphocytes % (Manual) Monocytes % (Manual) Seg Neutrophils # Man Lymphocytes # (Manual) Monocytes # (Manual) PT INR ABG pH ABG pO2 ABG HCO3 ABG O2 Saturation ABG Base Excess ABG Hemoglobin Oxyhemoglobin Sodium Potassium Chloride BUN Glucose POC Glucose 142 H 241 H 225 H Magnesium Total Protein 03/11/22 03/11/22 03/11/22 06:03 06:03 12:02 WBC 11.3 H RBC Hgb 11.7 L MCV 79 L MCH 24 L MCHC 31 L [place] % (Auto) Lymph # (Auto) [place] # (Auto) Seg Neuts % (Manual) 83.0 H Lymphocytes % (Manual) 8.0 L Monocytes % (Manual) 8.0 H Seg Neutrophils # Man 9.4 H Lymphocytes # (Manual) 0.9 L Monocytes # (Manual) 0.9 H PT INR ABG pH ABG pO2 ABG HCO3 ABG O2 Saturation ABG Base Excess ABG Hemoglobin Oxyhemoglobin Sodium Potassium Chloride BUN 21 H Glucose POC Glucose 109 H Magnesium Total Protein 03/11/22 16:28 WBC RBC Hgb MCV MCH MCHC [place] % (Auto) Lymph # (Auto) [place] # (Auto) Seg Neuts % (Manual) Lymphocytes % (Manual) Monocytes % (Manual) Seg Neutrophils # Man Lymphocytes # (Manual) Monocytes # (Manual) PT INR ABG pH ABG pO2 ABG HCO3 ABG O2 Saturation ABG Base Excess ABG Hemoglobin Oxyhemoglobin Sodium Potassium Chloride BUN Glucose POC Glucose 236 H Magnesium Total Protein Chest x-ray: image reviewed (no recurrent large volume PTX; right chest tube in pleural space) Allied health notes reviewed: nursing
[2022-03-12] MEDS: MORPHINE 2 MG/1 ML INJ IV PRN (03:34)
[2022-03-12] MEDS: PIPERACIL/TAZOBACTA 4.5/NS 100 4.5 GM/100 ML VIAL IV SCH ×3 (03:34→23:12)
[2022-03-12] MEDS: VANCOMYCIN 2,000 MG in SODIUM CHLORIDE 0.9% 500 ML 500 ML IV SCH ×2 (04:15→18:23)
[2022-03-12] MEDS: oxyCODONE /ACETAMINOPHEN 5-325MG TAB PO PRN ×3 (06:40→19:16)
[2022-03-12] MEDS: INSULIN LISPRO 100 UNIT/ML SUB-Q SCH ×4 (08:30→23:13)
[2022-03-12] MEDS: INSULIN NPH/REGULAR 70/30 INJ SUB-Q SCH ×2 (08:30→18:16)
--- NOTE | 2022-03-12 08:38 | XRay Report ---
CHEST 1 VIEW 03/12/2022 6:44 AM INDICATION / CLINICAL INFORMATION: rt pneumothorax. COMPARISON: 03/11/2020 FINDINGS: SUPPORT DEVICES: Stable, satisfactory device positioning. HEART / MEDIASTINUM: No significant abnormality. LUNGS / PLEURA: Continued improvement in the small right apical pneumothorax with only a trace residu al pneumothorax component demonstrating less than 5% volume loss. Stable scattered subsegmental atele ctasis. No left-sided pneumothorax or enlarging pleural effusion. ADDITIONAL FINDINGS: Stable right chest wall and lower neck subcutaneous emphysema. IMPRESSION: 1. Continued improvement in the small right apical pneumothorax with less than 5% volume loss. Signer Name: Asa Saavedra MD Signed: 03/12/2022 8:33 AM Workstation Name: [id number]
[2022-03-12] MEDS: FERROUS SULFATE 325 MG TAB PO SCH (10:09)
[2022-03-12] MEDS: carvediloL 25 MG TAB PO SCH ×2 (10:09→23:13)
[2022-03-12] MEDS: FAMOTIDINE 20 MG TAB PO SCH ×2 (10:09→23:13)
[2022-03-12] MEDS: CYANOCOBALAMIN (VIT B-12) 1000 MCG TAB PO SCH (10:09)
[2022-03-12] MEDS: predniSONE 20 MG TAB PO SCH (10:09)
[2022-03-12] MEDS: hydroCHLOROthiazide 12.5 MG CAP PO SCH (10:09)
--- NOTE | 2022-03-12 12:44 | Progress Note ---
Assessment and Plan 56 yo man with COPD, CHF, R apical pneumothorax. he already failed removing chest tube and is doing well on heimlech valve. ok to go home today with chest tube and heimleck valve in place. fup in one week with thoracic surgery for removal. discharge instructions given dc on one week course of antibiotics po. Subjective Date of service: 03/12/22 Narrative: doing well, breathing comfortably, CXR this am with decrease R apical pneumothorax on heimleck valve. Objective Vital Signs - 12hr 03/12/22 03/12/22 03/12/22 01:17 05:59 09:03 Temperature 98.4 F 98.7 F 97.8 F Pulse Rate 78 81 84 Respiratory 20 20 18 Rate Blood Pressure 118/63 Blood Pressure 123/72 146/87 [Left] O2 Sat by Pulse 99 99 97 Oximetry - General physical appearance well developed, well nourished - Neck no masses - Respiratory normal expansion, normal respiratory effort (chest tube with turbid fluid inside tubing, heimleck valve in place) - Labs 03/11/22 06:03 03/11/22 06:03
--- NOTE | 2022-03-12 13:14 | Progress Note ---
Assessment and Plan Pneumothorax on right s/p right pleural drain with re-expansion COPD h/o Recurrent left pneumothoraces Tobacco use disorder/Nicotine dependence HTN h/o Sarcoidosis - to go home with heimlich valve and CTSU f/uyp in 1 week - tobacco abstinence strongly counselled at bedside - continue care as below otherwise; - continue supplemental oxygen to keep O2 sats > 90% and aid resorption - bronchodilators (SEBASTIEN) with pulm hygiene per RT - continue LABA & ICS re: COPD - continue to avoid nephrotoxins, renally dose all medications - prn analgesia per pain score - mobility protocols to prevent pressure ulcers - PT/OT as tolerated - Wound care per RN/WCT - continue accuchecks with glycemic control per SSI for target blood glucose < 180 mg/dL - home oxygen evaluation at discharge - GI & VTE prophylaxis - Flu & pneumovax per protocol - Pulmonary out patient follow up for PFTs and optimization of respiratory stat us - continue other care per attending / other consultants ... re-evaluate in am & prn Subjective Date of service: 03/12/22 Principal diagnosis: R. 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; repeat CXR without recurrent POTX (small apical improving) Objective Vital Signs - 12hr 03/12/22 03/12/22 03/12/22 01:17 05:59 09:03 Temperature 98.4 F 98.7 F 97.8 F Pulse Rate 78 81 84 Respiratory 20 20 18 Rate Blood Pressure 118/63 Blood Pressure 123/72 146/87 [Left] O2 Sat by Pulse 99 99 97 Oximetry Constitutional: no acute distress, alert Eyes: non-icteric ENT: oropharynx moist Neck: supple, no lymphadenopathy, no JVD, other (Healed tracheostomy scar) Effort: normal, other (Right pleural drain to heimlich valve and off suction) Ascultation: Bilateral: clear, other (Prolonged expiratory phase.) Percussion: Bilateral: not dull Cardiovascular: regular rate and rhythm, other (S1,S2) Gastrointestinal: normoactive bowel sounds, soft, non-tender, non-distended (protuberant) Integumentary: other (Patient has crepitations right chest likely S/C emphysema.) Extremities: no cyanosis, no edema, pulses normal, no ischemia or petechiae Neurologic: normal mental status, non-focal exam, pupils equal and round, motor strength normal and Psychiatric: mood appropriate, affect normal CBC and BMP: 03/11/22 06:03 03/11/22 06:03 ABG, PT/INR, D-dimer: ABG ABG pH 7.467 pH Units (7.350-7.450) H 03/07/22 10:55 ABG pCO2 38.0 mm Hg 03/07/22 10:55 ABG pO2 61.1 mm Hg (80.0-90.0) L 03/07/22 10:55 ABG O2 Saturation 93.8 % (95.0-99.0) L 03/07/22 10:55 PT/INR, D-dimer PT 12.0 Sec. (12.2-14.9) L 03/02/22 18:49 INR 0.79 (0.87-1.13) L 03/02/22 18:49 Abnormal lab findings: Abnormal Labs 03/02/22 03/02/22 03/02/22 18:49 18:49 18:49 WBC RBC 5.27 H Hgb MCV 78 L MCH 25 L MCHC [place] % (Auto) 11.5 H Lymph # (Auto) 0.9 L [place] # (Auto) Seg Neuts % (Manual) Lymphocytes % (Manual) Monocytes % (Manual) Seg Neutrophils # Man Lymphocytes # (Manual) Monocytes # (Manual) PT 12.0 L INR 0.79 L ABG pH ABG pO2 ABG HCO3 ABG O2 Saturation ABG Base Excess ABG Hemoglobin Oxyhemoglobin Sodium Potassium 3.1 L Chloride 96.0 L BUN Glucose 216 H POC Glucose Magnesium 1.10 L Total Protein 03/03/22 03/03/22 03/03/22 05:22 05:22 05:47 WBC RBC Hgb MCV 78 L MCH 25 L MCHC [place] % (Auto) Lymph # (Auto) [place] # (Auto) Seg Neuts % (Manual) 96.0 H Lymphocytes % (Manual) 2.0 L Monocytes % (Manual) Seg Neutrophils # Man 7.9 H Lymphocytes # (Manual) 0.2 L Monocytes # (Manual) PT INR ABG pH ABG pO2 ABG HCO3 ABG O2 Saturation ABG Base Excess ABG Hemoglobin Oxyhemoglobin Sodium 136 L Potassium Chloride 95.8 L BUN Glucose 342 H POC Glucose 418 H Magnesium Total Protein 6.1 L 03/03/22 03/03/22 03/03/22 07:28 11:58 15:49 WBC RBC Hgb MCV MCH MCHC [place] % (Auto) Lymph # (Auto) [place] # (Auto) Seg Neuts % (Manual) Lymphocytes % (Manual) Monocytes % (Manual) Seg Neutrophils # Man Lymphocytes # (Manual) Monocytes # (Manual) PT INR ABG pH ABG pO2 ABG HCO3 ABG O2 Saturation ABG Base Excess ABG Hemoglobin Oxyhemoglobin Sodium Potassium Chloride BUN Glucose POC Glucose 429 H 471 H 370 H Magnesium Total Protein 03/03/22 03/04/22 03/04/22 21:23 08:28 12:20 WBC RBC Hgb MCV MCH MCHC [place] % (Auto) Lymph # (Auto) [place] # (Auto) Seg Neuts % (Manual) Lymphocytes % (Manual) Monocytes % (Manual) Seg Neutrophils # Man Lymphocytes # (Manual) Monocytes # (Manual) PT INR ABG pH ABG pO2 ABG HCO3 ABG O2 Saturation ABG Base Excess ABG Hemoglobin Oxyhemoglobin Sodium Potassium Chloride BUN Glucose POC Glucose 374 H 173 H 157 H Magnesium Total Protein 03/04/22 03/04/22 03/05/22 17:00 20:34 11:43 WBC RBC Hgb MCV MCH MCHC [place] % (Auto) Lymph # (Auto) [place] # (Auto) Seg Neuts % (Manual) Lymphocytes % (Manual) Monocytes % (Manual) Seg Neutrophils # Man Lymphocytes # (Manual) Monocytes # (Manual) PT INR ABG pH ABG pO2 ABG HCO3 ABG O2 Saturation ABG Base Excess ABG Hemoglobin Oxyhemoglobin Sodium Potassium Chloride BUN Glucose POC Glucose 315 H 290 H 211 H Magnesium Total Protein 03/05/22 03/05/22 03/05/22 11:52 16:21 20:44 WBC RBC Hgb MCV MCH MCHC [place] % (Auto) Lymph # (Auto) [place] # (Auto) Seg Neuts % (Manual) Lymphocytes % (Manual) Monocytes % (Manual) Seg Neutrophils # Man Lymphocytes # (Manual) Monocytes # (Manual) PT INR ABG pH ABG pO2 ABG HCO3 ABG O2 Saturation ABG Base Excess ABG Hemoglobin Oxyhemoglobin Sodium Potassium 3.3 L Chloride BUN 25 H Glucose 209 H POC Glucose 246 H 294 H Magnesium Total Protein 03/06/22 03/06/22 03/06/22 06:16 06:16 08:23 WBC RBC 5.16 H Hgb MCV 79 L MCH 25 L MCHC 31 L [place] % (Auto) 13.6 H Lymph # (Auto) 1.1 L [place] # (Auto) 1.0 H Seg Neuts % (Manual) Lymphocytes % (Manual) Monocytes % (Manual) Seg Neutrophils # Man Lymphocytes # (Manual) Monocytes # (Manual) PT INR ABG pH ABG pO2 ABG HCO3 ABG O2 Saturation ABG Base Excess ABG Hemoglobin Oxyhemoglobin Sodium Potassium Chloride BUN 24 H Glucose 116 H POC Glucose 111 H Magnesium Total Protein 03/06/22 03/06/22 03/06/22 12:14 15:47 22:28 WBC RBC Hgb MCV MCH MCHC [place] % (Auto) Lymph # (Auto) [place] # (Auto) Seg Neuts % (Manual) Lymphocytes % (Manual) Monocytes % (Manual) Seg Neutrophils # Man Lymphocytes # (Manual) Monocytes # (Manual) PT INR ABG pH ABG pO2 ABG HCO3 ABG O2 Saturation ABG Base Excess ABG Hemoglobin Oxyhemoglobin Sodium Potassium Chloride BUN Glucose POC Glucose 146 H 261 H 214 H Magnesium Total Protein 03/07/22 03/07/22 03/07/22 10:55 11:20 16:05 WBC RBC Hgb MCV MCH MCHC [place] % (Auto) Lymph # (Auto) [place] # (Auto) Seg Neuts % (Manual) Lymphocytes % (Manual) Monocytes % (Manual) Seg Neutrophils # Man Lymphocytes # (Manual) Monocytes # (Manual) PT INR ABG pH 7.467 H ABG pO2 61.1 L ABG HCO3 26.9 H ABG O2 Saturation 93.8 L ABG Base Excess 3.2 H ABG Hemoglobin 13.1 L Oxyhemoglobin 92.0 L Sodium Potassium Chloride BUN Glucose POC Glucose 196 H 271 H Magnesium Total Protein 03/07/22 03/08/22 03/08/22 20:13 07:55 12:10 WBC RBC Hgb MCV MCH MCHC [place] % (Auto) Lymph # (Auto) [place] # (Auto) Seg Neuts % (Manual) Lymphocytes % (Manual) Monocytes % (Manual) Seg Neutrophils # Man Lymphocytes # (Manual) Monocytes # (Manual) PT INR ABG pH ABG pO2 ABG HCO3 ABG O2 Saturation ABG Base Excess ABG Hemoglobin Oxyhemoglobin Sodium Potassium Chloride BUN Glucose POC Glucose 154 H 111 H 156 H Magnesium Total Protein 03/08/22 03/08/22 03/09/22 17:08 20:01 08:16 WBC RBC Hgb MCV MCH MCHC [place] % (Auto) Lymph # (Auto) [place] # (Auto) Seg Neuts % (Manual) Lymphocytes % (Manual) Monocytes % (Manual) Seg Neutrophils # Man Lymphocytes # (Manual) Monocytes # (Manual) PT INR ABG pH ABG pO2 ABG HCO3 ABG O2 Saturation ABG Base Excess ABG Hemoglobin Oxyhemoglobin Sodium Potassium Chloride BUN Glucose POC Glucose 235 H 306 H 118 H Magnesium Total Protein 03/09/22 03/09/22 03/09/22 11:34 15:47 20:27 WBC RBC Hgb MCV MCH MCHC [place] % (Auto) Lymph # (Auto) [place] # (Auto) Seg Neuts % (Manual) Lymphocytes % (Manual) Monocytes % (Manual) Seg Neutrophils # Man Lymphocytes # (Manual) Monocytes # (Manual) PT INR ABG pH ABG pO2 ABG HCO3 ABG O2 Saturation ABG Base Excess ABG Hemoglobin Oxyhemoglobin Sodium Potassium Chloride BUN Glucose POC Glucose 153 H 275 H 218 H Magnesium Total Protein 03/10/22 03/10/22 03/10/22 11:39 16:31 20:53 WBC RBC Hgb MCV MCH MCHC [place] % (Auto) Lymph # (Auto) [place] # (Auto) Seg Neuts % (Manual) Lymphocytes % (Manual) Monocytes % (Manual) Seg Neutrophils # Man Lymphocytes # (Manual) Monocytes # (Manual) PT INR ABG pH ABG pO2 ABG HCO3 ABG O2 Saturation ABG Base Excess ABG Hemoglobin Oxyhemoglobin Sodium Potassium Chloride BUN Glucose POC Glucose 142 H 241 H 225 H Magnesium Total Protein 03/11/22 03/11/22 03/11/22 06:03 06:03 12:02 WBC 11.3 H RBC Hgb 11.7 L MCV 79 L MCH 24 L MCHC 31 L [place] % (Auto) Lymph # (Auto) [place] # (Auto) Seg Neuts % (Manual) 83.0 H Lymphocytes % (Manual) 8.0 L Monocytes % (Manual) 8.0 H Seg Neutrophils # Man 9.4 H Lymphocytes # (Manual) 0.9 L Monocytes # (Manual) 0.9 H PT INR ABG pH ABG pO2 ABG HCO3 ABG O2 Saturation ABG Base Excess ABG Hemoglobin Oxyhemoglobin Sodium Potassium Chloride BUN 21 H Glucose POC Glucose 109 H Magnesium Total Protein 03/11/22 03/11/22 16:28 21:42 WBC RBC Hgb MCV MCH MCHC [place] % (Auto) Lymph # (Auto) [place] # (Auto) Seg Neuts % (Manual) Lymphocytes % (Manual) Monocytes % (Manual) Seg Neutrophils # Man Lymphocytes # (Manual) Monocytes # (Manual) PT INR ABG pH ABG pO2 ABG HCO3 ABG O2 Saturation ABG Base Excess ABG Hemoglobin Oxyhemoglobin Sodium Potassium Chloride BUN Glucose POC Glucose 236 H 183 H Magnesium Total Protein Chest x-ray: image reviewed (no large volume PTX) Allied health notes reviewed: nursing
--- NOTE | 2022-03-12 19:05 | Progress Note ---
Assessment and Plan Assessment and plan: 56 yo man with CHF/PM, DM, HTN, hx of bilateral PTx. RT pneumothorax s/p chest tube placement. Today's chest x-ray, continuous improvement of pneumothorax. now less than 5% --Right pneumothorax: Status post chest tube placement Continue supportive care Patient is saturating well on room air Patient wants to go home --History of recurring pneumothorax; Patient had multiple events of pneumothorax Requiring chest tube placement Patient also has seen private CT surgeon --Hypertension; Well-controlled, continue current antihypertensives And as needed medications Closely monitor --Sarcoidosis; Stable -- Leukocytosis In the setting of multiple attempts of chest tube placement Empiric antibiotics Vanco Zosyn Follow cultures --Hyperlipidemia; Low-cholesterol diet, continue statin --Chronic COPD, compensated; Oxygen titrate O2 sats to more than 90% Nebulizers, inhalers, steroids Pulmonary following --Diabetes mellitus type 2, insulin-dependent Accu-Cheks sliding scale coverage ADA diet Insulin as needed --DVT prophylaxis Advance care plan; +30 minutes I discussed in detail with the patient his condition, tests and reports, consultants recommendation Treatment plan, improvement of pneumothorax, discharge planning, need to see the CT surgeon MERI upon discharge He has numerous questions, I answered all of them Preventive health care counseling; +30 minutes Patient strongly advised to comply with medications, diet, physicians instructions and follow-up visits Patient also wanted to go home with chest tube in place, advised strongly against it still we discussed with Surgeon, blackjack pit boss and case management and the need for home health services 03/05/2022. Patient with chest surgery this a.m. but still reveals large right pneumothorax. Patient had kinking of the chest tube that was fixed by surgery. We will repeat chest x-ray at noon today. Continue chest tube to wall suction today. Repeat chest x-ray in a.m. 03/06/2022. Recurrent right-sided pneumothorax today on chest x-ray. Dislodgment of previous chest tube. Patient underwent replacement of chest tube to low wall intermittent suction. Surgery team consulted. 03/07/2022. Surgery reported chest x-ray with expanded lung on waterseal this morning. Chest tube was removed and chest x-ray was repeated this afternoon but revealed recurrent pneumothorax. I discussed the case with surgery who will replace chest tube today. We will most likely need to have discussion with regards to VATS at a tertiary facility. Continue close monitoring. 03/08/2022. I will attempt to contact tertiary facility with cardiothoracic surgery for possible VATS or pleurodesis. Continue to monitor serial chest x- ray. Continue chest tube per surgery recommendations. Continue Accu-Cheks and sliding scale insulin. Continue BP meds 03/09/2022. Patient status post placement of chest tube by Dr. Anguiano for recurring pneumothorax on the right side. He is comfortable at this time. Continue suction through Pleur-evac. Continue to try to transfer to service with thoracic surgery for management of recurring pneumothorax right side. Patient reports uncontrolled pain. We will increase Percocet to 10 mg. 03/10/2022. Chest x-ray from yesterday shows reexpansion of the lung and no pneumothorax. Will discuss with surgery if patient will need transfer to tertiary facility for management of pneumothorax. Continue appropriate pain control 03/11/2022. Follow-up chest x-ray today reveals small right apical pneumothorax. Await surgery recommendations with regards to further management. Continue chest tube here versus transfer to service with thoracic surgery for management versus home with [place] 03/12/22; patient has chest tube in place, wants to go home, patient reports that surgeon has recommended to go home with chest tube in place And see CT surgeon in 1 week However it is not safe to discharge the patient with chest tube in place, we will closely monitor overnight and make discharge plans tomorrow In consultation with surgeon and pulmonary. Initially patient did not agree however later after discussions patient agreed with the plan History Interval history: I have seen and examined the patient this morning during morning rounds Patient's chart and medications reviewed Patient feels better and anxious to go home. This morning's chest x-ray showed continued improvement in the small right apical pneumothorax with less than 5% volume loss Patient continues to have chest tube Patient's vital signs are stable Denies chest pain or shortness of breath Saturating well on room air Hospitalist Physical - Constitutional Vitals: Temp Pulse Resp BP Pulse Ox 97.8 F 84 18 118/63 96 03/12/22 09:03 03/12/22 09:03 03/12/22 10:00 03/12/22 09:03 03/12/22 10:00 General appearance: Present: no acute distress, well-nourished - EENT Eyes: Present: PERRL, EOM intact ENT: hearing intact, clear oral mucosa - Neck Neck: Present: supple, normal ROM - Respiratory Respiratory effort: normal, other (Chest tube in place) Respiratory: bilateral: diminished, negative: rales, rhonchi, wheezing - Cardiovascular Rhythm: regular Heart Sounds: Present: S1 & S2 - Extremities Extremities: no ischemia, No edema - Abdominal General gastrointestinal: soft, non-tender, non-distended, normal bowel sounds - Integumentary Integumentary: Present: clear, warm - Psychiatric Psychiatric: appropriate mood/affect, cooperative - Neurologic Neurologic: moves all extremities HEART Score - HEART Score Age: 45-65 Risk factors: 1-2 risk factors Troponin: Troponin T < 0.010 ng/mL (0.00-0.029) 03/02/22 18:49 Troponin: 1-3x normal limit - Critical Actions Critical Actions: 0-3 pts:0.9-1.7%risk of adverse cardiac event.Candidate for discharge Results - Labs CBC & Chem 7: 03/11/22 06:03 03/11/22 06:03 Labs: Laboratory Last Values WBC 11.3 K/mm3 (4.5-11.0) H 03/11/22 06:03 RBC 4.80 M/mm3 (3.65-5.03) 03/11/22 06:03 Hgb 11.7 gm/dl (11.8-15.2) L 03/11/22 06:03 Hct 38.0 % (35.5-45.6) 03/11/22 06:03 MCV 79 fl (84-94) L 03/11/22 06:03 MCH 24 pg (28-32) L 03/11/22 06:03 MCHC 31 % (32-34) L 03/11/22 06:03 RDW 14.7 % (13.2-15.2) 03/11/22 06:03 Plt Count 224 K/mm3 (140-440) 03/11/22 06:03 Lymph % (Auto) 14.2 % (13.4-35.0) 03/06/22 06:16 [place] % (Auto) Gui Developer 03/11/22 06:03 Eos % (Auto) 2.6 % (0.0-4.3) 03/06/22 06:16 Baso % (Auto) 0.2 % (0.0-1.8) 03/06/22 06:16 Lymph # (Auto) 1.1 K/mm3 (1.2-5.4) L 03/06/22 06:16 [place] # (Auto) 1.0 K/mm3 (0.0-0.8) H 03/06/22 06:16 Eos # (Auto) 0.2 K/mm3 (0.0-0.4) 03/06/22 06:16 Baso # (Auto) 0.0 K/mm3 (0.0-0.1) 03/06/22 06:16 Add Manual Diff Complete 03/11/22 06:03 Total Counted 100 03/11/22 06:03 Seg Neutrophils % 69.4 % (40.0-70.0) 03/06/22 06:16 Seg Neuts % (Manual) 83.0 % (40.0-70.0) H 03/11/22 06:03 Band Neutrophils % 0 % 03/11/22 06:03 Lymphocytes % (Manual) 8.0 % (13.4-35.0) L 03/11/22 06:03 Reactive Lymphs % (Man) 0 % 03/11/22 06:03 Monocytes % (Manual) 8.0 % (0.0-7.3) H 03/11/22 06:03 Eosinophils % (Manual) 1.0 % (0.0-4.3) 03/11/22 06:03 Basophils % (Manual) 0 % (0.0-1.8) 03/11/22 06:03 Metamyelocytes % 0 % 03/11/22 06:03 Myelocytes % 0 % 03/11/22 06:03 Promyelocytes % 0 % 03/11/22 06:03 Blast Cells % 0 % 03/11/22 06:03 Nucleated RBC % Not Reportable 03/11/22 06:03 Seg Neutrophils # 5.3 K/mm3 (1.8-7.7) 03/06/22 06:16 Seg Neutrophils # Man 9.4 K/mm3 (1.8-7.7) H 03/11/22 06:03 Band Neutrophils # 0.0 K/mm3 03/11/22 06:03 Lymphocytes # (Manual) 0.9 K/mm3 (1.2-5.4) L 03/11/22 06:03 Abs React Lymphs (Man) 0.0 K/mm3 03/11/22 06:03 Monocytes # (Manual) 0.9 K/mm3 (0.0-0.8) H 03/11/22 06:03 Eosinophils # (Manual) 0.1 K/mm3 (0.0-0.4) 03/11/22 06:03 Basophils # (Manual) 0.0 K/mm3 (0.0-0.1) 03/11/22 06:03 Metamyelocytes # 0.0 K/mm3 03/11/22 06:03 Myelocytes # 0.0 K/mm3 03/11/22 06:03 Promyelocytes # 0.0 K/mm3 03/11/22 06:03 Blast Cells # 0.0 K/mm3 03/11/22 06:03 WBC Morphology Not Reportable 03/11/22 06:03 Hypersegmented Neuts Not Reportable 03/11/22 06:03 Hyposegmented Neuts Not Reportable 03/11/22 06:03 Hypogranular Neuts Not Reportable 03/11/22 06:03 Smudge Cells Not Reportable 03/11/22 06:03 Toxic Granulation Not Reportable 03/11/22 06:03 Toxic Vacuolation Not Reportable 03/11/22 06:03 Dohle Bodies Not Reportable 03/11/22 06:03 Pelger-Huet Anomaly Not Reportable 03/11/22 06:03 Rafiq Rods Not Reportable 03/11/22 06:03 Platelet Estimate Consistent w auto 03/11/22 06:03 Clumped Platelets Not Reportable 03/11/22 06:03 Plt Clumps, EDTA Not Reportable 03/11/22 06:03 Large Platelets Not Reportable 03/11/22 06:03 Giant Platelets Not Reportable 03/11/22 06:03 Platelet Satelliting Not Reportable 03/11/22 06:03 Plt Morphology Comment Not Reportable 03/11/22 06:03 RBC Morphology Not Reportable 03/11/22 06:03 Dimorphic RBCs Not Reportable 03/11/22 06:03 Polychromasia Not Reportable 03/11/22 06:03 Hypochromasia 1+ 03/11/22 06:03 Poikilocytosis Not Reportable 03/11/22 06:03 Anisocytosis Not Reportable 03/11/22 06:03 Microcytosis Not Reportable 03/11/22 06:03 Macrocytosis Not Reportable 03/11/22 06:03 Spherocytes Not Reportable 03/11/22 06:03 Pappenheimer Bodies Not Reportable 03/11/22 06:03 Sickle Cells Not Reportable 03/11/22 06:03 Target Cells Not Reportable 03/11/22 06:03 Tear Drop Cells Not Reportable 03/11/22 06:03 Ovalocytes Not Reportable 03/11/22 06:03 Helmet Cells Not Reportable 03/11/22 06:03 Ledesma-Haywood Bodies Not Reportable 03/11/22 06:03 [place] Rings Not Reportable 03/11/22 06:03 Amarilys Cells Not Reportable 03/11/22 06:03 Bite Cells Not Reportable 03/11/22 06:03 Crenated Cell Not Reportable 03/11/22 06:03 Elliptocytes Not Reportable 03/11/22 06:03 Acanthocytes (Spur) Not Reportable 03/11/22 06:03 Rouleaux Not Reportable 03/11/22 06:03 Hemoglobin C Crystals Not Reportable 03/11/22 06:03 Schistocytes Not Reportable 03/11/22 06:03 Malaria parasites Not Reportable 03/11/22 06:03 Matthew Bodies Not Reportable 03/11/22 06:03 Hem Pathologist Commnt No 03/11/22 06:03 PT 12.0 Sec. (12.2-14.9) L 03/02/22 18:49 INR 0.79 (0.87-1.13) L 03/02/22 18:49 APTT 26.6 Sec. (24.2-36.6) 03/02/22 18:49 ABG pH 7.467 pH Units (7.350-7.450) H 03/07/22 10:55 ABG pCO2 38.0 mm Hg 03/07/22 10:55 ABG pO2 61.1 mm Hg (80.0-90.0) L 03/07/22 10:55 ABG HCO3 26.9 mmol/L (20.0-26.0) H 03/07/22 10:55 ABG O2 Saturation 93.8 % (95.0-99.0) L 03/07/22 10:55 ABG O2 Content 16.9 (0.0-44) 03/07/22 10:55 ABG Base Excess 3.2 mmol/L (-2.0-3.0) H 03/07/22 10:55 ABG Hemoglobin 13.1 gm/dl (14.0-18.0) L 03/07/22 10:55 ABG Carboxyhemoglobin 1.4 % (0.0-5.0) 03/07/22 10:55 ABG Methemoglobin 0.5 % (0.0-1.5) 03/07/22 10:55 Oxyhemoglobin 92.0 % (95.0-99.0) L 03/07/22 10:55 FiO2 21 % 03/07/22 10:55 Sodium 141 mmol/L (137-145) 03/11/22 06:03 Potassium 4.2 mmol/L (3.6-5.0) 03/11/22 06:03 Chloride 101.2 mmol/L (98-107) 03/11/22 06:03 Carbon Dioxide 27 mmol/L (22-30) 03/11/22 06:03 Anion Gap 17 mmol/L 03/11/22 06:03 BUN 21 mg/dL (9-20) H 03/11/22 06:03 Creatinine 1.2 mg/dL (0.8-1.3) 03/11/22 06:03 Estimated GFR > 60 ml/min 03/11/22 06:03 BUN/Creatinine Ratio 18 % 03/11/22 06:03 Glucose 93 mg/dL (75-100) 03/11/22 06:03 POC Glucose 135 mg/dL (70-105) H 03/12/22 11:43 Calcium 9.4 mg/dL (8.4-10.2) 03/11/22 06:03 Magnesium 1.10 mg/dL (1.7-2.3) L 03/02/22 18:49 Total Bilirubin 0.60 mg/dL (0.1-1.2) 03/03/22 05:22 AST 37 units/L (5-40) 03/03/22 05:22 ALT 29 units/L (7-56) 03/03/22 05:22 Alkaline Phosphatase 63 units/L (35-129) 03/03/22 05:22 Troponin T < 0.010 ng/mL (0.00-0.029) 03/02/22 18:49 NT-Pro-B Natriuret Pep 31.99 pg/mL (0-900) 03/02/22 18:49 Total Protein 6.1 g/dL (6.3-8.2) L 03/03/22 05:22 Albumin 4.0 g/dL (3.9-5) 03/03/22 05:22 Albumin/Globulin Ratio 1.9 % 03/03/22 05:22 Angiotensin Convert Enz 18 U/L (9-67) 03/07/22 05:08 Garcia/IV: Voiding Method Urinal Active Medications - Current Medications Current Medications: Generic Name Dose Route Start Last Admin Trade Name Freq PRN Reason Stop Dose Admin Acetaminophen 650 mg 03/02/22 23:10 03/04/22 04:39 Acetaminophen 325 Mg Tab PO 650 mg Q4H PRN Administration Pain MILD(1-3)/Fever >100.5/WINTERS Arformoterol Tartrate 15 mcg 03/12/22 20:00 Arformoterol 15 Mcg/2 Ml Nebu IH Q12HRT ANDREA Atorvastatin Calcium 20 mg 03/03/22 10:00 03/12/22 10:09 Atorvastatin 20 Mg Tab PO 20 mg DAILY ANDREA Administration Budesonide 0.5 mg 03/12/22 20:00 Budesonide 0.5 Mg/2 Ml Nebu IH Q12HRT ANDREA Carvedilol 25 mg 03/02/22 23:45 03/12/22 10:09 Carvedilol 25 Mg Tab PO 25 mg BID ANDREA Administration Cetirizine HCl 10 mg 03/02/22 23:25 03/11/22 09:57 Cetirizine 10 Mg Tab PO 10 mg DAILY PRN Administration Allergy Symptoms Cyanocobalamin 1,000 mcg 03/03/22 10:00 03/12/22 10:09 Cyanocobalamin (Vit B-12) 1000 Mcg Tab PO 1,000 mcg DAILY ANDREA Administration Diphenhydramine HCl 12.5 mg 03/02/22 23:17 Diphenhydramine 50 Mg/Ml Vial IV Q6H PRN Itching Diphenhydramine HCl 25 mg 03/02/22 23:17 Diphenhydramine 25 Mg Cap PO Q6HR PRN Allergy Symptoms Famotidine 20 mg 03/02/22 23:45 03/12/22 10:09 Famotidine 20 Mg Tab PO 20 mg Q12HR ANDREA Administration Ferrous Sulfate 325 mg 03/03/22 10:00 03/12/22 10:09 Ferrous Sulfate 325 Mg Tab PO 325 mg DAILY ANDREA Administration Hydrochlorothiazide 25 mg 03/03/22 10:00 03/12/22 10:09 Hydrochlorothiazide 12.5 Mg Cap PO 25 mg QDAY ANDREA Administration Vancomycin HCl 2,000 mg/ 540 mls @ 250 mls/hr 03/11/22 16:00 03/12/22 18:23 Sodium Chloride IV 250 mls/hr Q12H [facility] Administration Piperacillin Sod/Tazobactam Sod 4.5 gm in 100 mls @ 200 mls/hr 03/12/22 04:00 03/12/22 12:34 Zosyn/Ns 4.5gm/100ml IV 200 mls/hr Q8H [facility] Administration Protocol Insulin Human Isoph/Insulin Regular 45 unit 03/03/22 08:00 03/12/22 18:16 Insulin Nph/Regular 70/30 Inj SUB-Q Not Given BIDDIAB [facility] Insulin Human Lispro 0 unit 03/03/22 06:12 03/12/22 17:03 Insulin Lispro 100 Unit/Ml SUB-Q Not Given ACHS [facility] Protocol Metoclopramide HCl 10 mg 03/02/22 23:10 Metoclopramide 10 Mg/2 Ml Inj IV Q6H PRN Nausea And Vomiting Morphine Sulfate 2 mg 03/02/22 21:10 03/12/22 03:34 Morphine 2 Mg/1 Ml Inj IV 2 mg Q4H PRN Administration Pain, Moderate (4-6) Morphine Sulfate 4 mg 03/02/22 21:10 03/10/22 21:24 Morphine 4 Mg/1 Ml Inj IV 4 mg Q4H PRN Administration Pain , Severe (7-10) Ondansetron HCl 4 mg 03/02/22 23:10 Ondansetron 4 Mg/2 Ml Inj IV Q8H PRN Nausea And Vomiting Oxycodone/Acetaminophen 2 tab 03/09/22 11:00 03/12/22 12:41 Oxycodone /Acetaminophen 5-325mg Tab PO 2 tab Q6H PRN Administration Pain, Moderate (4-6) Prednisone 40 mg 03/03/22 10:00 03/12/22 10:09 Prednisone 20 Mg Tab PO 40 mg QDAY ANDREA Administration Sodium Chloride 10 ml 03/03/22 10:00 03/12/22 10:10 Sodium Chloride 0.9% 10 Ml Flush Syringe IV 10 ml BID ANDREA Administration Sodium Chloride 10 ml 03/02/22 23:10 03/06/22 19:02 Sodium Chloride 0.9% 10 Ml Flush Syringe IV 10 ml PRN PRN Administration LINE FLUSH Tramadol HCl 25 mg 03/02/22 23:17 03/09/22 04:24 Tramadol 50 Mg Tab PO 25 mg Q4H PRN Administration Pain, Moderate (4-6) Nutrition/Malnutrition Assess - Dietary Evaluation Nutrition/Malnutrition Findings: Nutrition Notes Start: 03/08/22 14:17 Freq: Status: Active Protocol: Document 03/11/22 15:21 BEBE (Rec: 03/11/22 15:59 BEBE [id number]) Nutrition Notes Initial or Follow up Reassessment Current Diagnosis COPD,Diabetes,Hypertension, Hyperlipidemia Other Pertinent Diagnosis R-Pneumothorax, r/o Sarcoidosis. Current Diet Consistent Carbohydrates Diet (since B 03/09). Labs/Tests 03/11: BUN 21. Pertinent Medications 03/11: Vit B12, FeSO4, Humulin 70/30 45U, others nutritionally unremarkable. Height 6 ft Weight 123 kg [place] Body Weight (kg) 80.90 BMI 36.8 Intake Prior to Admission Good Weight change and time frame Pt denies having loss body weight [employer]. 1.3 Kg body weight gain in 3 days reported. Weight Status Obese Subjective/Other Information RD consult for routine F/U on dfietary advancement. Diet advanced to PO, Pt's PO intake of meals has been Good (100%) and well tolerated, according to ADL notes. Pt is on Nasal Cannula, O2 saturation @ 99%, according to Physical Assessment History notes. Pt has missing teeth, according to Physical Assessment History notes. Percent of energy/protein needs met: Prescribed Consistent Carbohydrates Diet provides for energy/protein needs (2, 061 Kcal/91 g) during LOS. Burn Absent Trauma Absent GI Symptoms None Food Allergy No Skin Integrity/Comment Assessment WNL. Current % PO Good (75-100%) Minimum of two criteria No Fluid Accumulation N/A Reduced Pyrometer Temperature Regulator Strength N/A (non-severe) Protein-Calorie Malnutrition N\A #1 Nutrition Diagnosis Overweight/obesity Etiology Possibly secondary to lifestyle. As Evidenced by Signs and Symptoms BMI: 36.3 Kg/m2. Is patient on ventilator? No Is Patient Ambulatory and/or Out of Bed Yes REE-([place]-St. Jeor-ambulatory/OOB) [ 3093.900 [id number]] Kcal/Kg value to use for calculation 18 Approximate Energy Requirements Using 2214 kcal/Kg Calculation Used for Recommendations Kcal/kg Additional Notes Protein: 0.8-1 g/Kg AdjBW; 81- 101 g/day. Fluids: 1 ml/Kcal, or as per MD. Nutrition Intervention Change Diet Order: Continue Consistent Carbohydrates Diet as tolerated. Goal #1 Adjust the dietary intervention to better serve Pt's energy/protein needs and clinical conditions during LOS . Follow-Up By: 03/18/22 Additional Comments Continue monitoring food tolerance, %PO intake of meals , and BM.
[2022-03-12] MEDS: BUDESONIDE 0.5 MG/2 ML NEBU IH SCH (21:49)
[2022-03-12] MEDS: ARFORMOTEROL 15 MCG/2 ML NEBU IH SCH (21:49)
[2022-03-13] MEDS: oxyCODONE /ACETAMINOPHEN 5-325MG TAB PO PRN ×3 (02:40→18:08)
[2022-03-13] MEDS: PIPERACIL/TAZOBACTA 4.5/NS 100 4.5 GM/100 ML VIAL IV SCH (04:04)
[2022-03-13] MEDS: VANCOMYCIN 2,000 MG in SODIUM CHLORIDE 0.9% 500 ML 500 ML IV SCH (04:09)
[2022-03-13 06:29] LABS: Basophils % (Auto) 0.1 % (0.0-1.8); Eosinophils # (Auto) 0.2 K/mm3 (0.0-0.4); Eosinophils % (Auto) 2.2 % (0.0-4.3); Hematocrit 35.5 % (35.5-45.6); Hemoglobin 11.4 gm/dl (11.8-15.2); Lymphocytes # (Auto) 0.9 K/mm3 (1.2-5.4); Lymphocytes % (Auto) 10.3 % (13.4-35.0); Mean Corpuscular HGB Conc 32 % (32-34); Mean Corpuscular Volume 78 fl (84-94); Monocytes # (Auto) 0.9 K/mm3 (0.0-0.8); Monocytes % (Auto) 10.2 % (0.0-7.3); Platelet Count 238 K/mm3 (140-440); Red Blood Count 4.53 M/mm3 (3.65-5.03); Red Cell Distribution Width 14.6 % (13.2-15.2)
[2022-03-13 06:50] LABS: Alanine Aminotransferase 139 units/L (7-56); Albumin 3.2 g/dL (3.9-5); BUN/Creatinine Ratio 18; Blood Urea Nitrogen 21 mg/dL (9-20); Calcium 8.7 mg/dL (8.4-10.2); Hemolysis Index 2
[2022-03-13] MEDS: INSULIN LISPRO 100 UNIT/ML SUB-Q SCH ×4 (09:15→22:21)
[2022-03-13] MEDS: hydroCHLOROthiazide 12.5 MG CAP PO SCH (09:37)
[2022-03-13] MEDS: FERROUS SULFATE 325 MG TAB PO SCH (09:38)
[2022-03-13] MEDS: predniSONE 20 MG TAB PO SCH (09:39)
[2022-03-13] MEDS: CYANOCOBALAMIN (VIT B-12) 1000 MCG TAB PO SCH (09:40)
[2022-03-13] MEDS: FAMOTIDINE 20 MG TAB PO SCH ×2 (09:40→22:21)
[2022-03-13] MEDS: INSULIN NPH/REGULAR 70/30 INJ SUB-Q SCH ×2 (09:42→18:11)
[2022-03-13] MEDS: ARFORMOTEROL 15 MCG/2 ML NEBU IH SCH ×2 (09:45→21:18)
[2022-03-13] MEDS: BUDESONIDE 0.5 MG/2 ML NEBU IH SCH ×2 (09:45→21:19)
[2022-03-13] MEDS: carvediloL 25 MG TAB PO SCH ×2 (11:59→22:21)
--- NOTE | 2022-03-13 14:09 | Progress Note ---
Assessment and Plan Assessment and plan: 56 yo man with CHF/PM, DM, HTN, hx of bilateral PTx. RT pneumothorax s/p chest tube placement. Today's chest x-ray, continuous improvement of pneumothorax. now less than 5%. --Right pneumothorax: Status post chest tube placement Continue supportive care Patient is saturating well on room air Patient wants to go home --History of recurring pneumothorax; Patient had multiple events of pneumothorax Requiring chest tube placement Patient also has seen private CT surgeon --Hypertension; Well-controlled, continue current antihypertensives And as needed medications Closely monitor --Sarcoidosis; Stable -- Leukocytosis In the setting of multiple attempts of chest tube placement Empiric antibiotics Vanco Zosyn Follow cultures --Hyperlipidemia; Low-cholesterol diet, continue statin --Chronic COPD, compensated; Oxygen titrate O2 sats to more than 90% Nebulizers, inhalers, steroids Pulmonary following --Diabetes mellitus type 2, insulin-dependent Accu-Cheks sliding scale coverage ADA diet Insulin as needed --AICD in place --DVT prophylaxis Surgeon Dr. Jerry and I discussed in detail with the patient at the bedside, The discharge planning [to discharge with chest tube in place] instructions of care Follow-up with his [place] primary care physician, and to see [place] surgeon MERI. we also advised to come back to the emergency room if he has any shortness of breath Or chest pain or any malfunctioning of chest tube. Answered all his questions Patient and his spouse verbalized understanding. Case management assisting with home health services specially home health nurse . Advance care plan; +30 minutes I discussed in detail with the patient his condition, tests and reports, consultants recommendation Treatment plan, improvement of pneumothorax, discharge planning, need to see the CT surgeon MERI upon discharge He has numerous questions, I answered all of them Preventive health care counseling; +30 minutes Patient strongly advised to comply with medications, diet, physicians in structions and follow-up visits Patient also wanted to go home with chest tube in place, advised strongly against it still we discussed with Surgeon, farm or ranch animal caretaker and case management and the need for home health services 03/05/2022. Patient with chest surgery this a.m. but still reveals large right pneumothorax. Patient had kinking of the chest tube that was fixed by surgery. We will repeat chest x-ray at noon today. Continue chest tube to wall suction today. Repeat chest x-ray in a.m. 03/06/2022. Recurrent right-sided pneumothorax today on chest x-ray. Dislodgment of previous chest tube. Patient underwent replacement of chest tube to low wall intermittent suction. Surgery team consulted. 03/07/2022. Surgery reported chest x-ray with expanded lung on waterseal this morning. Chest tube was removed and chest x-ray was repeated this afternoon but revealed recurrent pneumothorax. I discussed the case with surgery who will replace chest tube today. We will most likely need to have discussion with regards to VATS at a tertiary facility. Continue close monitoring. 03/08/2022. I will attempt to contact tertiary facility with cardiothoracic surgery for possible VATS or pleurodesis. Continue to monitor serial chest x- ray. Continue chest tube per surgery recommendations. Continue Accu-Cheks and sliding scale insulin. Continue BP meds 03/09/2022. Patient status post placement of chest tube by Dr. Anguiano for recurring pneumothorax on the right side. He is comfortable at this time. Continue suction through Pleur-evac. Continue to try to transfer to service with thoracic surgery for management of recurring pneumothorax right side. Patient reports uncontrolled pain. We will increase Percocet to 10 mg. 03/10/2022. Chest x-ray from yesterday shows reexpansion of the lung and no pneumothorax. Will discuss with surgery if patient will need transfer to [facility] for management of pneumothorax. Continue appropriate pain control 03/11/2022. Follow-up chest x-ray today reveals small right apical pneumothorax. Await surgery recommendations with regards to further management. Continue chest tube here versus transfer to service with thoracic surgery for management versus home with [place] 03/12/22; patient has chest tube in place, wants to go home, patient reports that surgeon has recommended to go home with chest tube in place And see CT surgeon in 1 week However it is not safe to discharge the patient with chest tube in place, we will closely monitor overnight and make discharge plans tomorrow In consultation with surgeon and pulmonary. Initially patient did not agree however later after discussions patient agreed with the plan 03/13/22; surgery cleared the patient for discharge, requested CM for home health nurse to visit and monitor the patient with chest tube [facility] initiated the process of home health and home health nurse via [place] [facility] Possible discharge home tomorrow if patient is stable, patient will follow with his [place] primary care physician and CT surgeon per schedule History Interval history: I have seen and examined the patient at the bedside Patient is very anxious to go home, He was requesting to be taken out However the surgeon has explained the need for him to have chest tube in place till he sees his CT surgeon Patient feels better, saturating well on room air Ambulatory without support without oxygen Vital signs noted Hospitalist Physical - Constitutional Vitals: Temp Pulse Resp BP Pulse Ox 98.7 F 87 18 129/80 98 03/13/22 11:45 03/13/22 11:59 03/13/22 11:45 03/13/22 11:45 03/13/22 11:45 General appearance: Present: no acute distress, well-nourished - EENT Eyes: Present: PERRL, EOM intact - Neck Neck: Present: supple, normal ROM - Respiratory Respiratory effort: normal Respiratory: bilateral: diminished, negative: rales, rhonchi, wheezing, other - Cardiovascular Rhythm: regular Heart Sounds: Present: S1 & S2 - Extremities Extremities: no ischemia, No edema - Abdominal General gastrointestinal: soft, non-tender, non-distended, normal bowel sounds - Integumentary Integumentary: Present: clear, warm - Psychiatric Psychiatric: appropriate mood/affect, cooperative - Neurologic Neurologic: CNII-XII intact, moves all extremities HEART Score - HEART Score Age: 45-65 Risk factors: 1-2 risk factors Troponin: Troponin T < 0.010 ng/mL (0.00-0.029) 03/02/22 18:49 Troponin: 1-3x normal limit - Critical Actions Critical Actions: 0-3 pts:0.9-1.7%risk of adverse cardiac event.Candidate for discharge Results - Labs CBC & Chem 7: 03/13/22 06:13 03/13/22 06:13 Labs: Laboratory Last Values WBC 9.2 K/mm3 (4.5-11.0) 03/13/22 06:13 RBC 4.53 M/mm3 (3.65-5.03) 03/13/22 06:13 Hgb 11.4 gm/dl (11.8-15.2) L 03/13/22 06:13 Hct 35.5 % (35.5-45.6) 03/13/22 06:13 MCV 78 fl (84-94) L 03/13/22 06:13 MCH 25 pg (28-32) L 03/13/22 06:13 MCHC 32 % (32-34) 03/13/22 06:13 RDW 14.6 % (13.2-15.2) 03/13/22 06:13 Plt Count 238 K/mm3 (140-440) 03/13/22 06:13 Lymph % (Auto) 10.3 % (13.4-35.0) L 03/13/22 06:13 [place] % (Auto) 10.2 % (0.0-7.3) H 03/13/22 06:13 Eos % (Auto) 2.2 % (0.0-4.3) 03/13/22 06:13 Baso % (Auto) 0.1 % (0.0-1.8) 03/13/22 06:13 Lymph # (Auto) 0.9 K/mm3 (1.2-5.4) L 03/13/22 06:13 [place] # (Auto) 0.9 K/mm3 (0.0-0.8) H 03/13/22 06:13 Eos # (Auto) 0.2 K/mm3 (0.0-0.4) 03/13/22 06:13 Baso # (Auto) 0.0 K/mm3 (0.0-0.1) 03/13/22 06:13 Add Manual Diff Complete 03/11/22 06:03 Total Counted 100 03/11/22 06:03 Seg Neutrophils % 77.2 % (40.0-70.0) H 03/13/22 06:13 Seg Neuts % (Manual) 83.0 % (40.0-70.0) H 03/11/22 06:03 Band Neutrophils % 0 % 03/11/22 06:03 Lymphocytes % (Manual) 8.0 % (13.4-35.0) L 03/11/22 06:03 Reactive Lymphs % (Man) 0 % 03/11/22 06:03 Monocytes % (Manual) 8.0 % (0.0-7.3) H 03/11/22 06:03 Eosinophils % (Manual) 1.0 % (0.0-4.3) 03/11/22 06:03 Basophils % (Manual) 0 % (0.0-1.8) 03/11/22 06:03 Metamyelocytes % 0 % 03/11/22 06:03 Myelocytes % 0 % 03/11/22 06:03 Promyelocytes % 0 % 03/11/22 06:03 Blast Cells % 0 % 03/11/22 06:03 Nucleated RBC % Not Reportable 03/11/22 06:03 Seg Neutrophils # 7.1 K/mm3 (1.8-7.7) 03/13/22 06:13 Seg Neutrophils # Man 9.4 K/mm3 (1.8-7.7) H 03/11/22 06:03 Band Neutrophils # 0.0 K/mm3 03/11/22 06:03 Lymphocytes # (Manual) 0.9 K/mm3 (1.2-5.4) L 03/11/22 06:03 Abs React Lymphs (Man) 0.0 K/mm3 03/11/22 06:03 Monocytes # (Manual) 0.9 K/mm3 (0.0-0.8) H 03/11/22 06:03 Eosinophils # (Manual) 0.1 K/mm3 (0.0-0.4) 03/11/22 06:03 Basophils # (Manual) 0.0 K/mm3 (0.0-0.1) 03/11/22 06:03 Metamyelocytes # 0.0 K/mm3 03/11/22 06:03 Myelocytes # 0.0 K/mm3 03/11/22 06:03 Promyelocytes # 0.0 K/mm3 03/11/22 06:03 Blast Cells # 0.0 K/mm3 03/11/22 06:03 WBC Morphology Not Reportable 03/11/22 06:03 Hypersegmented Neuts Not Reportable 03/11/22 06:03 Hyposegmented Neuts Not Reportable 03/11/22 06:03 Hypogranular Neuts Not Reportable 03/11/22 06:03 Smudge Cells Not Reportable 03/11/22 06:03 Toxic Granulation Not Reportable 03/11/22 06:03 Toxic Vacuolation Not Reportable 03/11/22 06:03 Dohle Bodies Not Reportable 03/11/22 06:03 Pelger-Huet Anomaly Not Reportable 03/11/22 06:03 Rafiq Rods Not Reportable 03/11/22 06:03 Platelet Estimate Consistent w auto 03/11/22 06:03 Clumped Platelets Not Reportable 03/11/22 06:03 Plt Clumps, EDTA Not Reportable 03/11/22 06:03 Large Platelets Not Reportable 03/11/22 06:03 Giant Platelets Not Reportable 03/11/22 06:03 Platelet Satelliting Not Reportable 03/11/22 06:03 Plt Morphology Comment Not Reportable 03/11/22 06:03 RBC Morphology Not Reportable 03/11/22 06:03 Dimorphic RBCs Not Reportable 03/11/22 06:03 Polychromasia Not Reportable 03/11/22 06:03 Hypochromasia 1+ 03/11/22 06:03 Poikilocytosis Not Reportable 03/11/22 06:03 Anisocytosis Not Reportable 03/11/22 06:03 Microcytosis Not Reportable 03/11/22 06:03 Macrocytosis Not Reportable 03/11/22 06:03 Spherocytes Not Reportable 03/11/22 06:03 Pappenheimer Bodies Not Reportable 03/11/22 06:03 Sickle Cells Not Reportable 03/11/22 06:03 Target Cells Not Reportable 03/11/22 06:03 Tear Drop Cells Not Reportable 03/11/22 06:03 Ovalocytes Not Reportable 03/11/22 06:03 Helmet Cells Not Reportable 03/11/22 06:03 [place]-Nikolai Bodies Not Reportable 03/11/22 06:03 [place] Rings Not Reportable 03/11/22 06:03 [place] Cells Not Reportable 03/11/22 06:03 Bite Cells Not Reportable 03/11/22 06:03 Crenated Cell Not Reportable 03/11/22 06:03 Elliptocytes Not Reportable 03/11/22 06:03 Acanthocytes (Spur) Not Reportable 03/11/22 06:03 Rouleaux Not Reportable 03/11/22 06:03 Hemoglobin C Crystals Not Reportable 03/11/22 06:03 Schistocytes Not Reportable 03/11/22 06:03 Malaria parasites Not Reportable 03/11/22 06:03 Matthew Bodies Not Reportable 03/11/22 06:03 Hem Pathologist Commnt No 03/11/22 06:03 PT 12.0 Sec. (12.2-14.9) L 03/02/22 18:49 INR 0.79 (0.87-1.13) L 03/02/22 18:49 APTT 26.6 Sec. (24.2-36.6) 03/02/22 18:49 ABG pH 7.467 pH Units (7.350-7.450) H 03/07/22 10:55 ABG pCO2 38.0 mm Hg 03/07/22 10:55 ABG pO2 61.1 mm Hg (80.0-90.0) L 03/07/22 10:55 ABG HCO3 26.9 mmol/L (20.0-26.0) H 03/07/22 10:55 ABG O2 Saturation 93.8 % (95.0-99.0) L 03/07/22 10:55 ABG O2 Content 16.9 (0.0-44) 03/07/22 10:55 ABG Base Excess 3.2 mmol/L (-2.0-3.0) H 03/07/22 10:55 ABG Hemoglobin 13.1 gm/dl (14.0-18.0) L 03/07/22 10:55 ABG Carboxyhemoglobin 1.4 % (0.0-5.0) 03/07/22 10:55 ABG Methemoglobin 0.5 % (0.0-1.5) 03/07/22 10:55 Oxyhemoglobin 92.0 % (95.0-99.0) L 03/07/22 10:55 FiO2 21 % 03/07/22 10:55 Sodium 142 mmol/L (137-145) 03/13/22 06:13 Potassium 4.4 mmol/L (3.6-5.0) 03/13/22 06:13 Chloride 103.6 mmol/L (98-107) 03/13/22 06:13 Carbon Dioxide 27 mmol/L (22-30) 03/13/22 06:13 Anion Gap 16 mmol/L 03/13/22 06:13 BUN 21 mg/dL (9-20) H 03/13/22 06:13 Creatinine 1.2 mg/dL (0.8-1.3) 03/13/22 06:13 Estimated GFR > 60 ml/min 03/13/22 06:13 BUN/Creatinine Ratio 18 % 03/13/22 06:13 Glucose 106 mg/dL (75-100) H 03/13/22 06:13 POC Glucose 190 mg/dL (70-105) H 03/13/22 11:46 Calcium 8.7 mg/dL (8.4-10.2) 03/13/22 06:13 Magnesium 2.00 mg/dL (1.7-2.3) 03/13/22 06:13 Total Bilirubin 0.50 mg/dL (0.1-1.2) 03/13/22 06:13 AST 96 units/L (5-40) H 03/13/22 06:13 ALT 139 units/L (7-56) H 03/13/22 06:13 Alkaline Phosphatase 133 units/L (35-129) H 03/13/22 06:13 Troponin T < 0.010 ng/mL (0.00-0.029) 03/02/22 18:49 NT-Pro-B Natriuret Pep 31.99 pg/mL (0-900) 03/02/22 18:49 Total Protein 5.6 g/dL (6.3-8.2) L 03/13/22 06:13 Albumin 3.2 g/dL (3.9-5) L 03/13/22 06:13 Albumin/Globulin Ratio 1.3 % 03/13/22 06:13 Angiotensin Convert Enz 18 U/L (9-67) 03/07/22 05:08 Garcia/IV: Voiding Method Urinal Active Medications - Current Medications Current Medications: Generic Name Dose Route Start Last Admin Trade Name Freq PRN Reason Stop Dose Admin Acetaminophen 650 mg 03/02/22 23:10 03/04/22 04:39 Acetaminophen 325 Mg Tab PO 650 mg Q4H PRN Administration Pain MILD(1-3)/Fever >100.5/WINTERS Arformoterol Tartrate 15 mcg 03/12/22 20:00 03/13/22 09:45 Arformoterol 15 Mcg/2 Ml Nebu IH 15 mcg Q12HRT ANDREA Administration Atorvastatin Calcium 20 mg 03/03/22 10:00 03/13/22 09:39 Atorvastatin 20 Mg Tab PO 20 mg DAILY ANDREA Administration Budesonide 0.5 mg 03/12/22 20:00 03/13/22 09:45 Budesonide 0.5 Mg/2 Ml Nebu IH 0.5 mg Q12HRT ANDREA Administration Carvedilol 25 mg 03/02/22 23:45 03/13/22 11:59 Carvedilol 25 Mg Tab PO 25 mg BID ANDREA Administration Cetirizine HCl 10 mg 03/02/22 23:25 03/11/22 09:57 Cetirizine 10 Mg Tab PO 10 mg DAILY PRN Administration Allergy Symptoms Cyanocobalamin 1,000 mcg 03/03/22 10:00 03/13/22 09:40 Cyanocobalamin (Vit B-12) 1000 Mcg Tab PO 1,000 mcg DAILY ANDREA Administration Diphenhydramine HCl 12.5 mg 03/02/22 23:17 Diphenhydramine 50 Mg/Ml Vial IV Q6H PRN Itching Diphenhydramine HCl 25 mg 03/02/22 23:17 Diphenhydramine 25 Mg Cap PO Q6HR PRN Allergy Symptoms Famotidine 20 mg 03/02/22 23:45 03/13/22 09:40 Famotidine 20 Mg Tab PO 20 mg Q12HR ANDREA Administration Ferrous Sulfate 325 mg 03/03/22 10:00 03/13/22 09:38 Ferrous Sulfate 325 Mg Tab PO 325 mg DAILY ANDREA Administration Hydrochlorothiazide 25 mg 03/03/22 10:00 03/13/22 09:37 Hydrochlorothiazide 12.5 Mg Cap PO 25 mg QDAY ANDREA Administration Vancomycin HCl 2,000 mg/ 540 mls @ 250 mls/hr 03/11/22 16:00 03/13/22 04:09 Sodium Chloride IV 250 mls/hr Q12H ANDREA Administration Piperacillin Sod/Tazobactam Sod 4.5 gm in 100 mls @ 200 mls/hr 03/12/22 04:00 03/13/22 04:04 Zosyn/Ns 4.5gm/100ml IV 200 mls/hr Q8H ANDREA Administration Protocol Insulin Human Isoph/Insulin Regular 45 unit 03/03/22 08:00 03/13/22 09:42 Insulin Nph/Regular 70/30 Inj SUB-Q 45 unit BIDDIAB ANDREA Administration Insulin Human Lispro 0 unit 03/03/22 06:12 03/13/22 09:15 Insulin Lispro 100 Unit/Ml SUB-Q Not Given ACHS [facility] Protocol Metoclopramide HCl 10 mg 03/02/22 23:10 Metoclopramide 10 Mg/2 Ml Inj IV Q6H PRN Nausea And Vomiting Morphine Sulfate 2 mg 03/02/22 21:10 03/12/22 03:34 Morphine 2 Mg/1 Ml Inj IV 2 mg Q4H PRN Administration Pain, Moderate (4-6) Morphine Sulfate 4 mg 03/02/22 21:10 03/10/22 21:24 Morphine 4 Mg/1 Ml Inj IV 4 mg Q4H PRN Administration Pain , Severe (7-10) Ondansetron HCl 4 mg 03/02/22 23:10 Ondansetron 4 Mg/2 Ml Inj IV Q8H PRN Nausea And Vomiting Oxycodone/Acetaminophen 2 tab 03/09/22 11:00 03/13/22 09:39 Oxycodone /Acetaminophen 5-325mg Tab PO 2 tab Q6H PRN Administration Pain, Moderate (4-6) Prednisone 40 mg 03/03/22 10:00 03/13/22 09:39 Prednisone 20 Mg Tab PO 40 mg QDAY ANDREA Administration Sodium Chloride 10 ml 03/03/22 10:00 03/13/22 09:41 Sodium Chloride 0.9% 10 Ml Flush Syringe IV 10 ml BID ANDREA Administration Sodium Chloride 10 ml 03/02/22 23:10 03/13/22 04:09 Sodium Chloride 0.9% 10 Ml Flush Syringe IV 10 ml PRN PRN Administration LINE FLUSH Tramadol HCl 25 mg 03/02/22 23:17 03/09/22 04:24 Tramadol 50 Mg Tab PO 25 mg Q4H PRN Administration Pain, Moderate (4-6) Nutrition/Malnutrition Assess - Dietary Evaluation Nutrition/Malnutrition Findings: Nutrition Notes Start: 03/08/22 14:17 Freq: Status: Active Protocol: Document 03/11/22 15:21 BEBE (Rec: 03/11/22 15:59 BEBE [id number]) Nutrition Notes Initial or Follow up Reassessment Current Diagnosis COPD,Diabetes,Hypertension, Hyperlipidemia Other Pertinent Diagnosis R-Pneumothorax, r/o Sarcoidosis. Current Diet Consistent Carbohydrates Diet (since B 03/09). Labs/Tests 03/11: BUN 21. Pertinent Medications 03/11: Vit B12, FeSO4, Humulin 70/30 45U, others nutritionally unremarkable. 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 1.3 Kg body weight gain in 3 days reported. Weight Status Obese Subjective/Other Information RD consult for routine F/U on dfietary advancement. Diet advanced to PO, Pt's PO intake of meals has been Good (100%) and well tolerated, according to ADL notes. Pt is on Nasal Cannula, O2 saturation @ 99%, according to Physical Assessment History notes. Pt has missing teeth, according to Physical Assessment History notes. Percent of energy/protein needs met: Prescribed Consistent Carbohydrates Diet provides for energy/protein needs (2, 061 Kcal/91 g) during LOS. Burn Absent Trauma Absent GI Symptoms None Food Allergy No Skin Integrity/Comment Assessment WNL. Current % PO Good (75-100%) Minimum of two criteria No Fluid Accumulation N/A Reduced Cloth Drier Strength N/A (non-severe) Protein-Calorie Malnutrition N\A #1 Nutrition Diagnosis Overweight/obesity Etiology Possibly secondary to lifestyle. As Evidenced by Signs and Symptoms BMI: 36.3 Kg/m2. Is patient on ventilator? No Is Patient Ambulatory and/or Out of Bed Yes REE-([facility]-ambulatory/OOB) [ 2733.900 [id number]] Kcal/Kg value to use for calculation 18 Approximate Energy Requirements Using 2214 kcal/Kg Calculation Used for Recommendations Kcal/kg Additional Notes Protein: 0.8-1 g/Kg AdjBW; 81- 101 g/day. Fluids: 1 ml/Kcal, or as per MD. Nutrition Intervention Change Diet Order: Continue Consistent Carbohydrates Diet as tolerated. Goal #1 Adjust the dietary intervention to better serve Pt's energy/protein needs and clinical conditions during LOS . Follow-Up By: 03/18/22 Additional Comments Continue monitoring food tolerance, %PO intake of meals , and BM.
--- NOTE | 2022-03-13 14:20 | XRay Report ---
CHEST 1 VIEW INDICATION / CLINICAL INFORMATION: right chest tube. COMPARISON: Chest radiograph one day prior FINDINGS: SUPPORT DEVICES: Stable position of a left chest AICD and a right-sided chest tube. HEART / MEDIASTINUM: No significant abnormality. LUNGS / PLEURA: A tiny residual right apical pneumothorax is not significantly changed compared with the prior examination. A small parenchymal opacity in the right midlung is unchanged. No new focal pu lmonary consolidation. No large pleural effusion. ADDITIONAL FINDINGS: Unchanged subcutaneous emphysema in the right chest wall and right neck. IMPRESSION: 1. No significant change. Signer Name: Delmi Michel MD Signed: 03/13/2022 2:15 PM Workstation Name: [id number]
--- NOTE | 2022-03-13 14:46 | Progress Note ---
Assessment and Plan discussed at length with patient, family, and hospitalist team. he is doing well and his pneumothorax is improving on heimlich valve. he is stable to go home with the heimlich valve. patient was instructed how to take care of his chest tube. and he has an appointment with his PCP on Friday03/19/2022 where she is going to set him up with thoracic surgery. discharge instructions: -keep area of chest tube clean and dry. avoid showers and water exposure to area. keep the end of chest tube open to air, ok to cover with gauze but do not tape the end. -keep chest tube free of kinks. -if you have any trouble breathing or shortness of breath, please come back to the ER immediately. -if you have fever, chills, chest pain, please come back to the ER immediately. Subjective Date of service: 03/13/22 Narrative: doing well, afebrile, breathing comfortably, no distress. Objective Vital Signs - 12hr 03/13/22 03/13/22 03/13/22 08:06 09:45 11:45 Temperature 97.6 F 98.7 F Pulse Rate 73 85 Pulse Rate [ 92 H Bilateral] Respiratory 18 18 Rate Respiratory 16 Rate [Bilateral ] Blood Pressure 137/80 129/80 O2 Sat by Pulse 95 98 Oximetry 03/13/22 11:59 Temperature Pulse Rate 87 Pulse Rate [ Bilateral] Respiratory Rate Respiratory Rate [Bilateral ] Blood Pressure O2 Sat by Pulse Oximetry - General physical appearance well developed, well nourished - Neck no masses - Respiratory normal expansion, normal respiratory effort (chest tube to heimlich valve.) - Labs 03/13/22 06:13 03/13/22 06:13 Diabetes panel 03/13/22 Range/Units 06:13 Sodium 142 (137-145) mmol/L Potassium 4.4 (3.6-5.0) mmol/L Chloride 103.6 (98-107) mmol/L Carbon Dioxide 27 (22-30) mmol/L BUN 21 H (9-20) mg/dL Creatinine 1.2 (0.8-1.3) mg/dL Glucose 106 H (75-100) mg/dL Calcium 8.7 (8.4-10.2) mg/dL AST 96 H (5-40) units/L ALT 139 H (7-56) units/L Alkaline Phosphatase 133 H (35-129) units/L Total Protein 5.6 L (6.3-8.2) g/dL Albumin 3.2 L (3.9-5) g/dL Calcium panel 03/13/22 Range/Units 06:13 Calcium 8.7 (8.4-10.2) mg/dL Albumin 3.2 L (3.9-5) g/dL Pituitary panel 03/13/22 Range/Units 06:13 Sodium 142 (137-145) mmol/L Potassium 4.4 (3.6-5.0) mmol/L Chloride 103.6 (98-107) mmol/L Carbon Dioxide 27 (22-30) mmol/L BUN 21 H (9-20) mg/dL Creatinine 1.2 (0.8-1.3) mg/dL Glucose 106 H (75-100) mg/dL Calcium 8.7 (8.4-10.2) mg/dL Adrenal panel 03/13/22 Range/Units 06:13 Sodium 142 (137-145) mmol/L Potassium 4.4 (3.6-5.0) mmol/L Chloride 103.6 (98-107) mmol/L Carbon Dioxide 27 (22-30) mmol/L BUN 21 H (9-20) mg/dL Creatinine 1.2 (0.8-1.3) mg/dL Glucose 106 H (75-100) mg/dL Calcium 8.7 (8.4-10.2) mg/dL Total Bilirubin 0.50 (0.1-1.2) mg/dL AST 96 H (5-40) units/L ALT 139 H (7-56) units/L Alkaline Phosphatase 133 H (35-129) units/L Total Protein 5.6 L (6.3-8.2) g/dL Albumin 3.2 L (3.9-5) g/dL
--- NOTE | 2022-03-13 15:02 | Discharge Summary ---
Providers - Providers Date of Admission: 03/02/22 21:10 Date of discharge: 03/14/22 Attending physician: MANUEL GONZALEZ 03/02/22 Consult to Case Management [CONS] Routine Services Needed at Discharge: Home Health Services Notified:: field case manager 03/02/22 19:25 Consult to Physician [CONS] Urgent Comment: Consulting Provider: ANGELES ROSA Physician Instructions: Reason For Exam: Pneumothorax s/p pigtail Consult to Physician [CONS] Urgent Comment: Consulting Provider: OMID CHOI Physician Instructions: Reason For Exam: Spontaneous pneumothorax with chest tube Primary care physician: BARGAIN TABLE CLERK Hospitalization Condition: Good Hospital course: 56 yo man with CHF/PM, DM, HTN, hx of bilateral PTx. RT pneumothorax s/p chest tube placement. Today's chest x-ray, continuous improvement of pneumothorax. now less than 5%. --Right pneumothorax: Status post chest tube placement Continue supportive care Patient is saturating well on room air Patient wants to go home --History of recurring pneumothorax; Patient had multiple events of pneumothorax Patient will see CT surgeon MERI --Hypertension; Well-controlled, continue current antihypertensives --Sarcoidosis;Stable -- Leukocytosis In the setting of multiple attempts of chest tube placement Empiric antibiotics Vanco Zosyn Follow cultures --Hyperlipidemia; Low-cholesterol diet, continue statin --Chronic COPD, compensated; Oxygen titrate O2 sats to more than 90% Nebulizers, inhalers, steroids Pulmonary following --Diabetes mellitus type 2, insulin-dependent Accu-Cheks sliding scale coverage ADA diet Insulin as needed --AICD in place --DVT prophylaxis Patient is stable at discharge Advance care plan; +30 minutes I discussed in detail with the patient his condition, tests and reports, consultants recommendation Treatment plan, improvement of pneumothorax, discharge planning, need to see the CT surgeon MERI upon discharge He has numerous questions, I answered all of them Preventive health care counseling; +30 minutes Patient strongly advised to comply with medications, diet, physicians instructions and follow-up visits Patient also wanted to go home with chest tube in place, advised strongly against it still we discussed with Surgeon, bench molder apprentice and case management and the need for home health services Patient's daily Hospital course: 03/05/2022. Patient with chest surgery this a.m. but still reveals large right pneumothorax. Patient had kinking of the chest tube that was fixed by surgery. We will repeat chest x-ray at noon today. Continue chest tube to wall suction today. Repeat chest x-ray in a.m. 03/06/2022. Recurrent right-sided pneumothorax today on chest x-ray. Dislodgment of previous chest tube. Patient underwent replacement of chest tube to low wall intermittent suction. Surgery team consulted. 03/07/2022. Surgery reported chest x-ray with expanded lung on waterseal this morning. Chest tube was removed and chest x-ray was repeated this afternoon but revealed recurrent pneumothorax. I discussed the case with surgery who will replace chest tube today. We will most likely need to have discussion with regards to VATS at a tertiary facility. Continue close monitoring. 03/08/2022. I will attempt to contact tertiary facility with cardiothoracic surgery for possible VATS or pleurodesis. Continue to monitor serial chest x- ray. Continue chest tube per surgery recommendations. Continue Accu-Cheks and sliding scale insulin. Continue BP meds 03/09/2022. Patient status post placement of chest tube by Dr. Anguiano for recurring pneumothorax on the right side. He is comfortable at this time. Continue suction through Pleur-evac. Continue to try to transfer to service with thoracic surgery for management of recurring pneumothorax right side. Patient reports uncontrolled pain. We will increase Percocet to 10 mg. 03/10/2022. Chest x-ray from yesterday shows reexpansion of the lung and no pneumothorax. Will discuss with surgery if patient will need transfer to tertiary facility for management of pneumothorax. Continue appropriate pain control 03/11/2022. Follow-up chest x-ray today reveals small right apical pneumothorax. Await surgery recommendations with regards to further management. Continue chest tube here versus transfer to service with thoracic surgery for management versus home with [place] 03/12/22; patient has chest tube in place, wants to go home, patient reports that surgeon has recommended to go home with chest tube in place And see CT surgeon in 1 week However it is not safe to discharge the patient with chest tube in place, we will closely monitor overnight and make discharge plans tomorrow In consultation with surgeon and pulmonary. Initially patient did not agree however later after discussions patient agreed with the plan 03/13/22; surgery cleared the patient for discharge, requested CM for home health nurse to visit and monitor the patient with chest tube [facility] initiated the process of home health and home health nurse via [place] health system Possible discharge home tomorrow if patient is stable, patient will follow with his [place] primary care physician and CT surgeon per schedule Surgeon Dr. Jerry and I discussed in detail with the patient at the bedside, The discharge planning [to discharge with chest tube in place] instructions of care Follow-up with his [place] primary care physician, and to see [place] CT surgeon MERI. I also advised to come back to the emergency room if he has any shortness of breath Or chest pain or any malfunctioning of chest tube. Answered all his questions Patient and his spouse verbalized understanding. Case management assisting with home health services specially home health nurse . Patient is comfortable no new pneumothorax on serial chest x-rays Patient is asymptomatic, ambulatory, denies shortness of breath or chest pain Saturating well on room air, resting room air and ambulatory room air more than 95% Cleared by surgeon for discharge and follow-up [place] primary care physician, cardiothoracic surgeon, general surgeon per schedule Patient is stable at discharge Disposition: HOME HEALTH CARE SERVICE Final Discharge Diagnosis (Prints w/discharge instructions): Right-sided pneumothorax/status post chest tube placement. History of recurrent pneumothorax. Hypertension. Sarcoidosis. Leukocytosis improved. Hypertension. Dyslipidemia. Type 2 diabetes mellitus. Obesity BMI 35.0. History of chronic COPD. AICD in place Time spent for discharge: 35 min Core Measure Documentation - Palliative Care Palliative Care/ Comfort Measures: Not Applicable - Core Measures Any of the following diagnoses?: none Exam - Constitutional Vitals: Temp Pulse Resp BP Pulse Ox 98.7 F 87 18 129/80 98 03/13/22 11:45 03/13/22 11:59 03/13/22 11:45 03/13/22 11:45 03/13/22 11:45 General appearance: Present: no acute distress, well-nourished, other (Saturating well on room air) - EENT Eyes: Present: PERRL, EOM intact - Neck Neck: Present: supple, normal ROM - Respiratory Respiratory effort: normal Respiratory: bilateral: CTA, negative: diminished, rales, rhonchi, wheezing - Cardiovascular Rhythm: regular Heart Sounds: Present: S1 & S2 - Extremities Extremities: no ischemia, No edema - Abdominal General gastrointestinal: Present: soft, non-tender, non-distended, normal bowel sounds - Musculoskeletal Musculoskeletal: strength equal bilaterally - Psychiatric Psychiatric: appropriate mood/affect, cooperative - Neurologic Neurologic: no focal deficits, moves all extremities Plan Activity: advance as tolerated Diet: other (Cardiac diet) Wound: keep clean and dry, per your surgeon's advice Additional Instructions: Patient is asymptomatic , denies shortness of breath or chest pain , does not require oxygen,. surgeon feels that patient is stable to go home with the heimlich valve. patient was instructed how to take care of his chest tube. and he has an appointment with his PCP on Friday03/19/2022 or earlier PCP is going to set him up with thoracic surgeon [per patient]. discharge instructions: -keep area of chest tube clean and dry. avoid showers and water exposure to area. keep the end of chest tube open to air, ok to cover with gauze but do not tape the end. -keep chest tube free of kinks. -if you have any trouble breathing or shortness of breath, please come back to the ER immediately. -if you have fever, chills, chest pain, please come back to the ER immediately. Advised to [facility] Mart JEREZ. Advised to see the cardiothoracic surgeon at [facility] Follow up with: PRIMARY CARE, [Primary Care Provider] - 7 Days Prescriptions: Flash Glucose Scanning [place] [Freestyle Javid 14 Day [place]] 1 each MC CONT #5 each Flash Glucose Sensor [Freestyle Javid 14 Day Sensor] 1 each MC CONT #5 kit levoFLOXacin [Levaquin TAB] 750 mg PO Q24H #6 tablet traMADoL [Ultram 50 MG tab] 25 mg PO Q4H PRN #10 tablet PRN Reason: Pain, Moderate (4-6) DOXYCYCLINE Hyclate [Vibramycin CAP] 100 mg PO Q12HR #11 capsule
--- NOTE | 2022-03-13 16:48 | Progress Note ---
Assessment and Plan This is a 56-year-old gentleman, with a history of COPD, spontaneous pneumothorax, congestive heart failure, possible sarcoid, who is COVID-19 vaccinated. He presents to the ER with EMS articulated complaint of chest tightness and shortness of breath. Patient is not sure if he is having similar episode to prior episodes of pneumothorax. He denies DVT and pulmonary embolism risk factors. He has a mild cough. EMS initiated treatments in the field. The patient was found to have a large right-sided pneumothorax in the emergency room. The patient provided verbal and written informed consent for sterile pigtail catheter placement. After the pigtail catheter was placed, he felt markedly improved. He now feels back to his baseline. Patient Additional medical history: sarcodosis,elevated cholesterol, pn eumothorax in April 2019, pacemaker/Defibrillator. Patient has history of smoking 1 pack x 30 years. Counseled to stop smoking. Used to drink alcohol. Not drinking alcohol now. Denies drug abuse. Worked in . and has three children. Allergic to lisinopril. Patient alert, awake. Denies chest pain, shortness of breath or cough. Patient is on 2 litres O2. O2 saturation 96%. Recommend to keep o2 2 litres all the time. Patient has right chest tube that is clamped. Patient afebrile. No leukocytosis. Blood pressure 129/80, pulse 85 , respirations 18. Chest xray 03/06/22 reported Emphysematous gas and right chest wall and right neck again noted. Increased density in the right hilum and right upper lung no large pneumothorax. Chest xray 03/07/22 8:09 AM reported Slight retraction of thoracostomy tube without appreciable pneumothorax. Similar opacities in the right mid and lower lung. Chest xray 03/07/22 12:17 PM reported Large right pneumothorax after chest tube removal. Chest xray 03/07/22 2:08 PM reported Significant improvement of the right pneumothorax following pneumocath placement. Chest xray 03/08/22 reported Slight increase in right apical pneumothorax and right chest wall subcutaneous soft tissue emphysema. Right pleural tube has pulled back slightly in the interval. Repeat chest xray 03/08/22 reported ncreased pulmonary opacities in bilateral l ungs. Improved right pneumothorax Diffuse gas in the right chest wall and right neck Chest xray 03/09/22 reported Relatively similar radiographic cardiopulmonary appearances. Previously described right-sided pneumothorax is not definitively demonstrated on this examination. Chest xray 03/13/22 reported A tiny residual right apical pneumothorax is not significantly changed compared with the prior examination. A small parenchymal opacity in the right midlung is unchanged. No new focal pulmonary consolidation. No large pleural effusion. Patient is on Brovanna/Budesonide aerosol treatments q 12 hours, PO prednisone and Famotidine and Doxycycline. Recommend to place him on O2 2 litres via nasal canula. Recommend DVT prophylaxis. Recommend thoracic surgery consultation for recurrent pneumothorax. Talk to Dr. Raya and told him about thoracic surgery evaluation. Told him may have to transfer to the facility where thoracic surgery services available. - Patient Problems (1) Pneumothorax on right Current Visit: Yes Status: Acute Plan to address problem: Patient developed large pneuthorax after chest tube removal. Surgery reinserted right chest tube with expansion of right lung again. Patients chest tube presently clamped. Repeat chest xray tomorrow. Recommend O2 2 litres via nasal canula. Recommend thoracic surgery consultation for recurrent pneumothorax. (2) COPD (chronic obstructive pulmonary disease) Current Visit: Yes Status: Acute Plan to address problem: Recommend O2 2 litres via nasal canula. Brovanna/Budesonide aerosol treatments q 12 hours. Continue PO prednisone. Continue famotidine. Recommend DVT prophylaxis. (3) Obesity (BMI 35.0-39.9 without comorbidity) Current Visit: No Status: Acute Plan to address problem: Recommend to loose weight. (4) Sleep apnea in adult Current Visit: Yes Status: Acute Plan to address problem: Possible sleep apnea. Recommend sleep study as out patient. (5) IDDM (insulin dependent diabetes mellitus) Current Visit: Yes Status: Chronic Plan to address problem: Management as primary care. (6) HTN (hypertension) Current Visit: No Status: Chronic Qualifiers: Hypertension type: primary hypertension Qualified Code(s): I10 - Essential (primary) hypertension Plan to address problem: Management as per primary care. (7) GERD (gastroesophageal reflux disease) Current Visit: No Status: Acute Plan to address problem: Patient is on Famotidine. (8) Sarcoidosis Current Visit: No Status: Chronic Plan to address problem: According the patient ,patient has history of sarcoidosis. Patient is on Po Prednisone. GINA level results pending. Subjective Date of service: 03/13/22 Principal diagnosis: R. Pneumothorax s/p pleural drain; COPD; Tobacco abuse; Sarcoidosis Interval history: This is a 56-year-old gentleman, with a history of COPD, spontaneous pneumothorax, congestive heart failure, possible sarcoid, who is COVID-19 vaccinated. He presents to the ER with EMS articulated complaint of chest tightness and shortness of breath. Patient is not sure if he is having similar episode to prior episodes of pneumothorax. He denies DVT and pulmonary embolism risk factors. He has a mild cough. EMS initiated treatments in the field. The patient was found to have a large right-sided pneumothorax in the emergency room. The patient provided verbal and written informed consent for sterile pigtail catheter placement. After the pigtail catheter was placed, he felt markedly improved. He now feels back to his baseline. Patient Additional medical history: sarcodosis,elevated cholesterol, pneumothorax in April 2019, pacemaker/Defibrillator. Patient has history of smoking 1 pack x 30 years. Counseled to stop smoking. Used to drink alcohol. Not drinking alcohol now. Denies drug abuse. Worked in . and has three children. Allergic to lisinopril. Patient alert, awake. Denies chest pain, shortness of breath or cough. Patient is on 2 litres O2. O2 saturation 96%. Recommend to keep o2 2 litres all the time. Patient has right chest tube that is clamped. Patient afebrile. No leukocytosis. Blood pressure 129/80, pulse 85 , respi rations 18. Chest xray 03/06/22 reported Emphysematous gas and right chest wall and right neck again noted. Increased density in the right hilum and right upper lung no large pneumothorax. Chest xray 03/07/22 8:09 AM reported Slight retraction of thoracostomy tube without appreciable pneumothorax. Similar opacities in the right mid and lower lung. Chest xray 03/07/22 12:17 PM reported Large right pneumothorax after chest tube removal. Chest xray 03/07/22 2:08 PM reported Significant improvement of the right pneumothorax following pneumocath placement. Chest xray 03/08/22 reported Slight increase in right apical pneumothorax and right chest wall subcutaneous soft tissue emphysema. Right pleural tube has pulled back slightly in the interval. Repeat chest xray 03/08/22 reported ncreased pulmonary opacities in bilateral lungs. Improved right pneumothorax Diffuse gas in the right chest wall and right neck Chest xray 03/09/22 reported Relatively similar radiographic cardiopulmonary appearances. Previously described right-sided pneumothorax is not definitively demonstrated on this examination. Chest xray 03/13/22 reported A tiny residual right apical pneumothorax is not s ignificantly changed compared with the prior examination. A small parenchymal opacity in the right midlung is unchanged. No new focal pulmonary consolidation. No large pleural effusion. Patient is on Brovanna/Budesonide aerosol treatments q 12 hours, PO prednisone and Famotidine and Doxycycline. Recommend to place him on O2 2 litres via nasal canula. Recommend DVT prophylaxis. Recommend thoracic surgery consultation for recurrent pneumothorax. Talk to Dr. Raya and told him about thoracic surgery evaluation. Told him may have to transfer to the facility where thoracic surgery services available. Objective Vital Signs - 12hr 03/13/22 03/13/22 03/13/22 08:06 09:45 11:45 Temperature 97.6 F 98.7 F Pulse Rate 73 85 Pulse Rate [ 92 H Bilateral] Respiratory 18 18 Rate Respiratory 16 Rate [Bilateral ] Blood Pressure 137/80 129/80 O2 Sat by Pulse 95 98 Oximetry 03/13/22 11:59 Temperature Pulse Rate 87 Pulse Rate [ Bilateral] Respiratory Rate Respiratory Rate [Bilateral ] Blood Pressure O2 Sat by Pulse Oximetry Constitutional: no acute distress, alert Eyes: non-icteric ENT: oropharynx moist Neck: supple, no lymphadenopathy, no JVD, other (Healed tracheostomy scar) Effort: normal, other (Right pleural drain to heimlich valve and off suction) Ascultation: Right: diminished breath sounds (Bilateral breath sounds heard.), Bilateral: other (Prolonged expiratory phase.) Percussion: Bilateral: not dull Cardiovascular: regular rate and rhythm, other (S1,S2) Gastrointestinal: normoactive bowel sounds, soft, non-tender, non-distended (protuberant) Integumentary: other (Patient has crepitations right chest likely S/C emphysema.) Extremities: no cyanosis, no edema, pulses normal, no ischemia or petechiae Neurologic: normal mental status, non-focal exam, pupils equal and round, motor strength normal and Psychiatric: mood appropriate, affect normal CBC and BMP: 03/13/22 06:13 03/13/22 06:13 ABG, PT/INR, D-dimer: ABG ABG pH 7.467 pH Units (7.350-7.450) H 03/07/22 10:55 ABG pCO2 38.0 mm Hg 03/07/22 10:55 ABG pO2 61.1 mm Hg (80.0-90.0) L 03/07/22 10:55 ABG O2 Saturation 93.8 % (95.0-99.0) L 03/07/22 10:55 PT/INR, D-dimer PT 12.0 Sec. (12.2-14.9) L 03/02/22 18:49 INR 0.79 (0.87-1.13) L 03/02/22 18:49 Abnormal lab findings: Abnormal Labs 03/02/22 03/02/22 03/02/22 18:49 18:49 18:49 WBC RBC 5.27 H Hgb MCV 78 L MCH 25 L MCHC Lymph % (Auto) Bremer % (Auto) 11.5 H Lymph # (Auto) 0.9 L Bremer # (Auto) Seg Neutrophils % Seg Neuts % (Manual) Lymphocytes % (Manual) Monocytes % (Manual) Seg Neutrophils # Man Lymphocytes # (Manual) Monocytes # (Manual) PT 12.0 L INR 0.79 L ABG pH ABG pO2 ABG HCO3 ABG O2 Saturation ABG Base Excess ABG Hemoglobin Oxyhemoglobin Sodium Potassium 3.1 L Chloride 96.0 L BUN Glucose 216 H POC Glucose Magnesium 1.10 L AST ALT Alkaline Phosphatase Total Protein Albumin 03/03/22 03/03/22 03/03/22 05:22 05:22 05:47 WBC RBC Hgb MCV 78 L MCH 25 L MCHC Lymph % (Auto) Bremer % (Auto) Lymph # (Auto) Bre[place] # (Auto) Seg Neutrophils % Seg Neuts % (Manual) 96.0 H Lymphocytes % (Manual) 2.0 L Monocytes % (Manual) Seg Neutrophils # Man 7.9 H Lymphocytes # (Manual) 0.2 L Monocytes # (Manual) PT INR ABG pH ABG pO2 ABG HCO3 ABG O2 Saturation ABG Base Excess ABG Hemoglobin Oxyhemoglobin Sodium 136 L Potassium Chloride 95.8 L BUN Glucose 342 H POC Glucose 418 H Magnesium AST ALT Alkaline Phosphatase Total Protein 6.1 L Albumin 03/03/22 03/03/22 03/03/22 07:28 11:58 15:49 WBC RBC Hgb MCV MCH MCHC Lymph % (Auto) Bremer % (Auto) Lymph # (Auto) Bre[place] # (Auto) Seg Neutrophils % Seg Neuts % (Manual) Lymphocytes % (Manual) Monocytes % (Manual) Seg Neutrophils # Man Lymphocytes # (Manual) Monocytes # (Manual) PT INR ABG pH ABG pO2 ABG HCO3 ABG O2 Saturation ABG Base Excess ABG Hemoglobin Oxyhemoglobin Sodium Potassium Chloride BUN Glucose POC Glucose 429 H 471 H 370 H Magnesium AST ALT Alkaline Phosphatase Total Protein Albumin 03/03/22 03/04/22 03/04/22 21:23 08:28 12:20 WBC RBC Hgb MCV MCH MCHC Lymph % (Auto) Bremer % (Auto) Lymph # (Auto) Bre[place] # (Auto) Seg Neutrophils % Seg Neuts % (Manual) Lymphocytes % (Manual) Monocytes % (Manual) Seg Neutrophils # Man Lymphocytes # (Manual) Monocytes # (Manual) PT INR ABG pH ABG pO2 ABG HCO3 ABG O2 Saturation ABG Base Excess ABG Hemoglobin Oxyhemoglobin Sodium Potassium Chloride BUN Glucose POC Glucose 374 H 173 H 157 H Magnesium AST ALT Alkaline Phosphatase Total Protein Albumin 03/04/22 03/04/22 03/05/22 17:00 20:34 11:43 WBC RBC Hgb MCV MCH MCHC Lymph % (Auto) Bremer % (Auto) Lymph # (Auto) Bre[place] # (Auto) Seg Neutrophils % Seg Neuts % (Manual) Lymphocytes % (Manual) Monocytes % (Manual) Seg Neutrophils # Man Lymphocytes # (Manual) Monocytes # (Manual) PT INR ABG pH ABG pO2 ABG HCO3 ABG O2 Saturation ABG Base Excess ABG Hemoglobin Oxyhemoglobin Sodium Potassium Chloride BUN Glucose POC Glucose 315 H 290 H 211 H Magnesium AST ALT Alkaline Phosphatase Total Protein Albumin 03/05/22 03/05/22 03/05/22 11:52 16:21 20:44 WBC RBC Hgb MCV MCH MCHC Lymph % (Auto) Bre[place] % (Auto) Lymph # (Auto) [place] # (Auto) Seg Neutrophils % Seg Neuts % (Manual) Lymphocytes % (Manual) Monocytes % (Manual) Seg Neutrophils # Man Lymphocytes # (Manual) Monocytes # (Manual) PT INR ABG pH ABG pO2 ABG HCO3 ABG O2 Saturation ABG Base Excess ABG Hemoglobin Oxyhemoglobin Sodium Potassium 3.3 L Chloride BUN 25 H Glucose 209 H POC Glucose 246 H 294 H Magnesium AST ALT Alkaline Phosphatase Total Protein Albumin 03/06/22 03/06/22 03/06/22 06:16 06:16 08:23 WBC RBC 5.16 H Hgb MCV 79 L MCH 25 L MCHC 31 L Lymph % (Auto) Bre[place] % (Auto) 13.6 H Lymph # (Auto) 1.1 L Bremer # (Auto) 1.0 H Seg Neutrophils % Seg Neuts % (Manual) Lymphocytes % (Manual) Monocytes % (Manual) Seg Neutrophils # Man Lymphocytes # (Manual) Monocytes # (Manual) PT INR ABG pH ABG pO2 ABG HCO3 ABG O2 Saturation ABG Base Excess ABG Hemoglobin Oxyhemoglobin Sodium Potassium Chloride BUN 24 H Glucose 116 H POC Glucose 111 H Magnesium AST ALT Alkaline Phosphatase Total Protein Albumin 03/06/22 03/06/22 03/06/22 12:14 15:47 22:28 WBC RBC Hgb MCV MCH MCHC Lymph % (Auto) Bre[place] % (Auto) Lymph # (Auto) [place] # (Auto) Seg Neutrophils % Seg Neuts % (Manual) Lymphocytes % (Manual) Monocytes % (Manual) Seg Neutrophils # Man Lymphocytes # (Manual) Monocytes # (Manual) PT INR ABG pH ABG pO2 ABG HCO3 ABG O2 Saturation ABG Base Excess ABG Hemoglobin Oxyhemoglobin Sodium Potassium Chloride BUN Glucose POC Glucose 146 H 261 H 214 H Magnesium AST ALT Alkaline Phosphatase Total Protein Albumin 03/07/22 03/07/22 03/07/22 10:55 11:20 16:05 WBC RBC Hgb MCV MCH MCHC Lymph % (Auto) Bre[place] % (Auto) Lymph # (Auto) [place] # (Auto) Seg Neutrophils % Seg Neuts % (Manual) Lymphocytes % (Manual) Monocytes % (Manual) Seg Neutrophils # Man Lymphocytes # (Manual) Monocytes # (Manual) PT INR ABG pH 7.467 H ABG pO2 61.1 L ABG HCO3 26.9 H ABG O2 Saturation 93.8 L ABG Base Excess 3.2 H ABG Hemoglobin 13.1 L Oxyhemoglobin 92.0 L Sodium Potassium Chloride BUN Glucose POC Glucose 196 H 271 H Magnesium AST ALT Alkaline Phosphatase Total Protein Albumin 03/07/22 03/08/22 03/08/22 20:13 07:55 12:10 WBC RBC Hgb MCV MCH MCHC Lymph % (Auto) Bre[place] % (Auto) Lymph # (Auto) [place] # (Auto) Seg Neutrophils % Seg Neuts % (Manual) Lymphocytes % (Manual) Monocytes % (Manual) Seg Neutrophils # Man Lymphocytes # (Manual) Monocytes # (Manual) PT INR ABG pH ABG pO2 ABG HCO3 ABG O2 Saturation ABG Base Excess ABG Hemoglobin Oxyhemoglobin Sodium Potassium Chloride BUN Glucose POC Glucose 154 H 111 H 156 H Magnesium AST ALT Alkaline Phosphatase Total Protein Albumin 03/08/22 03/08/22 03/09/22 17:08 20:01 08:16 WBC RBC Hgb MCV MCH MCHC Lymph % (Auto) Bre[place] % (Auto) Lymph # (Auto) [place] # (Auto) Seg Neutrophils % Seg Neuts % (Manual) Lymphocytes % (Manual) Monocytes % (Manual) Seg Neutrophils # Man Lymphocytes # (Manual) Monocytes # (Manual) PT INR ABG pH ABG pO2 ABG HCO3 ABG O2 Saturation ABG Base Excess ABG Hemoglobin Oxyhemoglobin Sodium Potassium Chloride BUN Glucose POC Glucose 235 H 306 H 118 H Magnesium AST ALT Alkaline Phosphatase Total Protein Albumin 03/09/22 03/09/22 03/09/22 11:34 15:47 20:27 WBC RBC Hgb MCV MCH MCHC Lymph % (Auto) Bre[place] % (Auto) Lymph # (Auto) [place] # (Auto) Seg Neutrophils % Seg Neuts % (Manual) Lymphocytes % (Manual) Monocytes % (Manual) Seg Neutrophils # Man Lymphocytes # (Manual) Monocytes # (Manual) PT INR ABG pH ABG pO2 ABG HCO3 ABG O2 Saturation ABG Base Excess ABG Hemoglobin Oxyhemoglobin Sodium Potassium Chloride BUN Glucose POC Glucose 153 H 275 H 218 H Magnesium AST ALT Alkaline Phosphatase Total Protein Albumin 03/10/22 03/10/22 03/10/22 11:39 16:31 20:53 WBC RBC Hgb MCV MCH MCHC Lymph % (Auto) Bre[place] % (Auto) Lymph # (Auto) [place] # (Auto) Seg Neutrophils % Seg Neuts % (Manual) Lymphocytes % (Manual) Monocytes % (Manual) Seg Neutrophils # Man Lymphocytes # (Manual) Monocytes # (Manual) PT INR ABG pH ABG pO2 ABG HCO3 ABG O2 Saturation ABG Base Excess ABG Hemoglobin Oxyhemoglobin Sodium Potassium Chloride BUN Glucose POC Glucose 142 H 241 H 225 H Magnesium AST ALT Alkaline Phosphatase Total Protein Albumin 03/11/22 03/11/22 03/11/22 06:03 06:03 12:02 WBC 11.3 H RBC Hgb 11.7 L MCV 79 L MCH 24 L MCHC 31 L Lymph % (Auto) Bre[place] % (Auto) Lymph # (Auto) [place] # (Auto) Seg Neutrophils % Seg Neuts % (Manual) 83.0 H Lymphocytes % (Manual) 8.0 L Monocytes % (Manual) 8.0 H Seg Neutrophils # Man 9.4 H Lymphocytes # (Manual) 0.9 L Monocytes # (Manual) 0.9 H PT INR ABG pH ABG pO2 ABG HCO3 ABG O2 Saturation ABG Base Excess ABG Hemoglobin Oxyhemoglobin Sodium Potassium Chloride BUN 21 H Glucose POC Glucose 109 H Magnesium AST ALT Alkaline Phosphatase Total Protein Albumin 03/11/22 03/11/22 03/12/22 16:28 21:42 11:43 WBC RBC Hgb MCV MCH MCHC Lymph % (Auto) [place] % (Auto) Lymph # (Auto) [place] # (Auto) Seg Neutrophils % Seg Neuts % (Manual) Lymphocytes % (Manual) Monocytes % (Manual) Seg Neutrophils # Man Lymphocytes # (Manual) Monocytes # (Manual) PT INR ABG pH ABG pO2 ABG HCO3 ABG O2 Saturation ABG Base Excess ABG Hemoglobin Oxyhemoglobin Sodium Potassium Chloride BUN Glucose POC Glucose 236 H 183 H 135 H Magnesium AST ALT Alkaline Phosphatase Total Protein Albumin 03/12/22 03/13/22 03/13/22 21:10 06:13 06:13 WBC RBC Hgb 11.4 L MCV 78 L MCH 25 L MCHC Lymph % (Auto) 10.3 L Bre[place] % (Auto) 10.2 H Lymph # (Auto) 0.9 L Bremer # (Auto) 0.9 H Seg Neutrophils % 77.2 H Seg Neuts % (Manual) Lymphocytes % (Manual) Monocytes % (Manual) Seg Neutrophils # Man Lymphocytes # (Manual) Monocytes # (Manual) PT INR ABG pH ABG pO2 ABG HCO3 ABG O2 Saturation ABG Base Excess ABG Hemoglobin Oxyhemoglobin Sodium Potassium Chloride BUN 21 H Glucose 106 H POC Glucose 219 H Magnesium AST 96 H ALT 139 H Alkaline Phosphatase 133 H Total Protein 5.6 L Albumin 3.2 L 03/13/22 11:46 WBC RBC Hgb MCV MCH MCHC Lymph % (Auto) [place] % (Auto) Lymph # (Auto) [place] # (Auto) Seg Neutrophils % Seg Neuts % (Manual) Lymphocytes % (Manual) Monocytes % (Manual) Seg Neutrophils # Man Lymphocytes # (Manual) Monocytes # (Manual) PT INR ABG pH ABG pO2 ABG HCO3 ABG O2 Saturation ABG Base Excess ABG Hemoglobin Oxyhemoglobin Sodium Potassium Chloride BUN Glucose POC Glucose 190 H Magnesium AST ALT Alkaline Phosphatase Total Protein Albumin Chest x-ray: report reviewed, image reviewed Additional Studies: CHEST 1 VIEW 03/13/22 INDICATION / CLINICAL INFORMATION: right chest tube. COMPARISON: Chest radiograph one day prior FINDINGS: SUPPORT DEVICES: Stable position of a left chest AICD and a right-sided chest tube. HEART / MEDIASTINUM: No significant abnormality. LUNGS / PLEURA: A tiny residual right apical pneumothorax is not significantly changed compared with the prior examination. A small parenchymal opacity in the right midlung is unchanged. No new focal pulmonary consolidation. No large pleural effusion. ADDITIONAL FINDINGS: Unchanged subcutaneous emphysema in the right chest wall and right neck. IMPRESSION: 1. No significant change. Allied health notes reviewed: nursing
[2022-03-13] MEDS ORDERED: FERROUS SULFATE 325 MG TAB PO SCH (18:00)
[2022-03-13] MEDS ORDERED: levoFLOXacin 750 MG TAB PO SCH (22:00)
[2022-03-13] MEDS: DOXYCYCLINE 100 MG CAP PO SCH (22:21)
[2022-03-14] MEDS: PIPERACIL/TAZOBACTA 4.5/NS 100 4.5 GM/100 ML VIAL IV SCH (02:50)
[2022-03-14] MEDS: oxyCODONE /ACETAMINOPHEN 5-325MG TAB PO PRN ×3 (02:52→13:40)
[2022-03-14] MEDS: INSULIN NPH/REGULAR 70/30 INJ SUB-Q SCH (08:16)
[2022-03-14] MEDS: INSULIN LISPRO 100 UNIT/ML SUB-Q SCH (08:17)
[2022-03-14 08:51] VITALS: BP 128/83
[2022-03-14] MEDS: BUDESONIDE 0.5 MG/2 ML NEBU IH SCH (09:24)
[2022-03-14] MEDS: ARFORMOTEROL 15 MCG/2 ML NEBU IH SCH (09:24)
[2022-03-14] MEDS: predniSONE 20 MG TAB PO SCH (10:10)
[2022-03-14] MEDS: FAMOTIDINE 20 MG TAB PO SCH (10:10)
[2022-03-14] MEDS: DOXYCYCLINE 100 MG CAP PO SCH (10:10)
[2022-03-14] MEDS: hydroCHLOROthiazide 12.5 MG CAP PO SCH (10:10)
[2022-03-14] MEDS: CYANOCOBALAMIN (VIT B-12) 1000 MCG TAB PO SCH (10:10)
[2022-03-14] MEDS: carvediloL 25 MG TAB PO SCH (10:11)
--- NOTE | 2022-03-14 13:50 | Progress Note ---
Assessment and Plan This is a 56-year-old gentleman, with a history of COPD, spontaneous pneumothorax, congestive heart failure, possible sarcoid, who is COVID-19 vaccinated. He presents to the ER with EMS articulated complaint of chest tightness and shortness of breath. Patient is not sure if he is having similar episode to prior episodes of pneumothorax. He denies DVT and pulmonary embolism risk factors. He has a mild cough. EMS initiated treatments in the field. The patient was found to have a large right-sided pneumothorax in the emergency room. The patient provided verbal and written informed consent for sterile pigtail catheter placement. After the pigtail catheter was placed, he felt markedly improved. He now feels back to his baseline. Patient Additional medical history: sarcodosis,elevated cholesterol, pn eumothorax in April 2019, pacemaker/Defibrillator. Patient has history of smoking 1 pack x 30 years. Counseled to stop smoking. Used to drink alcohol. Not drinking alcohol now. Denies drug abuse. Worked in . and has three children. Allergic to lisinopril. Patient alert, awake. Denies chest pain, shortness of breath or cough. Patient is on 2 litres O2. O2 saturation 98%. Patient has right chest tube that is clamped. Patient afebrile. No leukocytosis. Blood pressure 128/83, pulse 75 , respirations 20. Chest xray 03/06/22 reported Emphysematous gas and right chest wall and right neck again noted. Increased density in the right hilum and right upper lung no large pneumothorax. Chest xray 03/07/22 8:09 AM reported Slight retraction of thoracostomy tube without appreciable pneumothorax. Similar opacities in the right mid and lower lung. Chest xray 03/07/22 12:17 PM reported Large right pneumothorax after chest tube removal. Chest xray 03/07/22 2:08 PM reported Significant improvement of the right pneumothorax following pneumocath placement. Chest xray 03/08/22 reported Slight increase in right apical pneumothorax and right chest wall subcutaneous soft tissue emphysema. Right pleural tube has pulled back slightly in the interval. Repeat chest xray 03/08/22 reported ncreased pulmonary opacities in bilateral lungs. Improved right pneumothorax Diffuse gas in the right chest wall and right neck Chest xray 03/09/22 reported Relatively similar radiographic cardiopulmonary appearances. Previously described right-sided pneumothorax is not definitively demonstrated on this examination. Chest xray 03/13/22 reported A tiny residual right apical pneumothorax is not significantly changed compared with the prior examination. A small parenchymal opacity in the right midlung is unchanged. No new focal pulmonary consolidation. No large pleural effusion. Chest xray 03/14/22 reported Previously described small right apical pneumothorax is not well demonstrated on this radiograph. Otherwise, similar radiographic appearances. Patient is on Brovanna/Budesonide aerosol treatments q 12 hours, PO prednisone and Famotidine and Doxycycline. Recommend to place him on O2 2 litres via nasal canula. Recommend DVT prophylaxis. Recommend thoracic surgery consultation for recurrent pneumothorax. I was told patient going home with right chest tube. Recommend to see thoracic surgeon as soon as possible. If develops any shortness of breath in the mean time, recommend to go to the emergency room. - Patient Problems (1) Pneumothorax on right Status: Acute Plan to address problem: Patient developed large pneuthorax after chest tube removal. Surgery reinserted right chest tube with expansion of right lung again. Patients chest tube presently clamped. Recommend O2 2 litres via nasal canula. Recommend thoracic surgery consultation for recurrent pneumothorax. (2) COPD (chronic obstructive pulmonary disease) Status: Acute Plan to address problem: Recommend O2 2 litres via nasal canula. Brovanna/Budesonide aerosol treatments q 12 hours. Continue PO prednisone. Continue famotidine. Recommend DVT prophylaxis. (3) Obesity (BMI 35.0-39.9 without comorbidity) Status: Acute Plan to address problem: Recommend to loose weight. (4) Sleep apnea in adult Status: Acute Plan to address problem: Possible sleep apnea. Recommend sleep study as out patient. (5) IDDM (insulin dependent diabetes mellitus) Status: Chronic Plan to address problem: Management as primary care. (6) HTN (hypertension) Status: Chronic Qualifiers: Hypertension type: primary hypertension Qualified Code(s): I10 - Essential (primary) hypertension Plan to address problem: Management as per primary care. (7) GERD (gastroesophageal reflux disease) Status: Acute Plan to address problem: Patient is on Famotidine. (8) Sarcoidosis Status: Chronic Plan to address problem: According the patient ,patient has history of sarcoidosis. Patient is on Po Prednisone. GINA level is normal 18. Recommend to taper prednisone and D/C Subjective Date of service: 03/14/22 Principal diagnosis: R. Pneumothorax s/p pleural drain; COPD; Tobacco abuse; Sarcoidosis Interval history: This is a 56-year-old gentleman, with a history of COPD, spontaneous pneumothorax, congestive heart failure, possible sarcoid, who is COVID-19 vaccinated. He presents to the ER with EMS articulated complaint of chest tightness and shortness of breath. Patient is not sure if he is having similar episode to prior episodes of pneumothorax. He denies DVT and pulmonary embolism risk factors. He has a mild cough. EMS initiated treatments in the field. The patient was found to have a large right-sided pneumothorax in the emergency room. The patient provided verbal and written informed consent for sterile pigtail catheter placement. After the pigtail catheter was placed, he felt markedly improved. He now feels back to his baseline. Patient Additional medical history: sarcodosis,elevated cholesterol, pneumothorax in April 2019, pacemaker/Defibrillator. Patient has history of smoking 1 pack x 30 years. Counseled to stop smoking. Used to drink alcohol. Not drinking alcohol now. Denies drug abuse. Worked in . and has three children. Allergic to lisinopril. Patient alert, awake. Denies chest pain, shortness of breath or cough. Patient is on 2 litres O2. O2 saturation 98%. Patient has right chest tube that is clamped. Patient afebrile. No leukocytosis. Blood pressure 128/83, pulse 75 , respirations 20. Chest xray 03/06/22 reported Emphysematous gas and right chest wall and right neck again noted. Increased density in the right hilum and right upper lung no large pneumothorax. Chest xray 03/07/22 8:09 AM reported Slight retraction of thoracostomy tube without appreciable pneumothorax. Similar opacities in the right mid and lower lung. Chest xray 03/07/22 12:17 PM reported Large right pneumothorax after chest tube removal. Chest xray 03/07/22 2:08 PM reported Significant improvement of the right pneumothorax following pneumocath placement. Chest xray 03/08/22 reported Slight increase in right apical pneumothorax and right chest wall subcutaneous soft tissue emphysema. Right pleural tube has pulled back slightly in the interval. Repeat chest xray 03/08/22 reported ncreased pulmonary opacities in bilateral lungs. Improved right pneumothorax Diffuse gas in the right chest wall and right neck Chest xray 03/09/22 reported Relatively similar radiographic cardiopulmonary appearances. Previously described right-sided pneumothorax is not definitively demonstrated on this examination. Chest xray 03/13/22 reported A tiny residual right apical pneumothorax is not significantly changed compared with the prior examination. A small parenchymal opacity in the right midlung is unchanged. No new focal pulmonary consolidation. No large pleural effusion. Chest xray 03/14/22 reported Previously described small right apical pneumothorax is not well demonstrated on this radiograph. Otherwise, similar radiographic appearances. Patient is on Brovanna/Budesonide aerosol treatments q 12 hours, PO prednisone and Famotidine and Doxycycline. Recommend to place him on O2 2 litres via nasal canula. Recommend DVT prophylaxis. Recommend thoracic surgery consultation for recurrent pneumothorax. I was told patient going home with right chest tube. Recommend to see thoracic surgeon as soon as possible. If develops any shortness of breath in the mean time, recommend to go to the emergency room. Objective Vital Signs - 12hr 03/14/22 03/14/22 03/14/22 02:52 03:41 08:00 Temperature 97.9 F Pulse Rate 80 72 Pulse Rate [ Bilateral] Respiratory 18 18 Rate Respiratory Rate [Bilateral ] Blood Pressure 129/71 O2 Sat by Pulse 96 Oximetry 03/14/22 03/14/22 03/14/22 08:13 08:14 09:00 Temperature 97.9 F Pulse Rate 79 Pulse Rate [ 93 H Bilateral] Respiratory 22 Rate Respiratory 19 Rate [Bilateral ] Blood Pressure 128/83 O2 Sat by Pulse 98 Oximetry 03/14/22 13:40 Temperature Pulse Rate Pulse Rate [ Bilateral] Respiratory 20 Rate Respiratory Rate [Bilateral ] Blood Pressure O2 Sat by Pulse Oximetry Constitutional: no acute distress, alert Eyes: non-icteric ENT: oropharynx moist Neck: supple, no lymphadenopathy, no JVD, other (Healed tracheostomy scar) Effort: normal, other (Right pleural drain to heimlich valve and off suction) Ascultation: Bilateral: other (Improved breath sounds on right side.) Percussion: Bilateral: not dull Cardiovascular: regular rate and rhythm, other (S1,S2) Gastrointestinal: normoactive bowel sounds, soft, non-tender, non-distended (protuberant) Integumentary: other (Patient has crepitations right chest likely S/C emphysema.) Extremities: no cyanosis, no edema, pulses normal, no ischemia or petechiae Neurologic: normal mental status, non-focal exam, pupils equal and round, motor strength normal and Psychiatric: mood appropriate, affect normal CBC and BMP: 03/13/22 06:13 03/13/22 06:13 ABG, PT/INR, D-dimer: ABG ABG pH 7.467 pH Units (7.350-7.450) H 03/07/22 10:55 ABG pCO2 38.0 mm Hg 03/07/22 10:55 ABG pO2 61.1 mm Hg (80.0-90.0) L 03/07/22 10:55 ABG O2 Saturation 93.8 % (95.0-99.0) L 03/07/22 10:55 PT/INR, D-dimer PT 12.0 Sec. (12.2-14.9) L 03/02/22 18:49 INR 0.79 (0.87-1.13) L 03/02/22 18:49 Abnormal lab findings: Abnormal Labs 03/02/22 03/02/22 03/02/22 18:49 18:49 18:49 WBC RBC 5.27 H Hgb MCV 78 L MCH 25 L MCHC Lymph % (Auto) [place] % (Auto) 11.5 H Lymph # (Auto) 0.9 L [place] # (Auto) Seg Neutrophils % Seg Neuts % (Manual) Lymphocytes % (Manual) Monocytes % (Manual) Seg Neutrophils # Man Lymphocytes # (Manual) Monocytes # (Manual) PT 12.0 L INR 0.79 L ABG pH ABG pO2 ABG HCO3 ABG O2 Saturation ABG Base Excess ABG Hemoglobin Oxyhemoglobin Sodium Potassium 3.1 L Chloride 96.0 L BUN Glucose 216 H POC Glucose Magnesium 1.10 L AST ALT Alkaline Phosphatase Total Protein Albumin 03/03/22 03/03/22 03/03/22 05:22 05:22 05:47 WBC RBC Hgb MCV 78 L MCH 25 L MCHC Lymph % (Auto) [place] % (Auto) Lymph # (Auto) [place] # (Auto) Seg Neutrophils % Seg Neuts % (Manual) 96.0 H Lymphocytes % (Manual) 2.0 L Monocytes % (Manual) Seg Neutrophils # Man 7.9 H Lymphocytes # (Manual) 0.2 L Monocytes # (Manual) PT INR ABG pH ABG pO2 ABG HCO3 ABG O2 Saturation ABG Base Excess ABG Hemoglobin Oxyhemoglobin Sodium 136 L Potassium Chloride 95.8 L BUN Glucose 342 H POC Glucose 418 H Magnesium AST ALT Alkaline Phosphatase Total Protein 6.1 L Albumin 03/03/22 03/03/22 03/03/22 07:28 11:58 15:49 WBC RBC Hgb MCV MCH MCHC Lymph % (Auto) [place] % (Auto) Lymph # (Auto) [place] # (Auto) Seg Neutrophils % Seg Neuts % (Manual) Lymphocytes % (Manual) Monocytes % (Manual) Seg Neutrophils # Man Lymphocytes # (Manual) Monocytes # (Manual) PT INR ABG pH ABG pO2 ABG HCO3 ABG O2 Saturation ABG Base Excess ABG Hemoglobin Oxyhemoglobin Sodium Potassium Chloride BUN Glucose POC Glucose 429 H 471 H 370 H Magnesium AST ALT Alkaline Phosphatase Total Protein Albumin 03/03/22 03/04/22 03/04/22 21:23 08:28 12:20 WBC RBC Hgb MCV MCH MCHC Lymph % (Auto) [place] % (Auto) Lymph # (Auto) [place] # (Auto) Seg Neutrophils % Seg Neuts % (Manual) Lymphocytes % (Manual) Monocytes % (Manual) Seg Neutrophils # Man Lymphocytes # (Manual) Monocytes # (Manual) PT INR ABG pH ABG pO2 ABG HCO3 ABG O2 Saturation ABG Base Excess ABG Hemoglobin Oxyhemoglobin Sodium Potassium Chloride BUN Glucose POC Glucose 374 H 173 H 157 H Magnesium AST ALT Alkaline Phosphatase Total Protein Albumin 03/04/22 03/04/22 03/05/22 17:00 20:34 11:43 WBC RBC Hgb MCV MCH MCHC Lymph % (Auto) [place] % (Auto) Lymph # (Auto) [place] # (Auto) Seg Neutrophils % Seg Neuts % (Manual) Lymphocytes % (Manual) Monocytes % (Manual) Seg Neutrophils # Man Lymphocytes # (Manual) Monocytes # (Manual) PT INR ABG pH ABG pO2 ABG HCO3 ABG O2 Saturation ABG Base Excess ABG Hemoglobin Oxyhemoglobin Sodium Potassium Chloride BUN Glucose POC Glucose 315 H 290 H 211 H Magnesium AST ALT Alkaline Phosphatase Total Protein Albumin 03/05/22 03/05/22 03/05/22 11:52 16:21 20:44 WBC RBC Hgb MCV MCH MCHC Lymph % (Auto) [place] % (Auto) Lymph # (Auto) [place] # (Auto) Seg Neutrophils % Seg Neuts % (Manual) Lymphocytes % (Manual) Monocytes % (Manual) Seg Neutrophils # Man Lymphocytes # (Manual) Monocytes # (Manual) PT INR ABG pH ABG pO2 ABG HCO3 ABG O2 Saturation ABG Base Excess ABG Hemoglobin Oxyhemoglobin Sodium Potassium 3.3 L Chloride BUN 25 H Glucose 209 H POC Glucose 246 H 294 H Magnesium AST ALT Alkaline Phosphatase Total Protein Albumin 03/06/22 03/06/22 03/06/22 06:16 06:16 08:23 WBC RBC 5.16 H Hgb MCV 79 L MCH 25 L MCHC 31 L Lymph % (Auto) [place] % (Auto) 13.6 H Lymph # (Auto) 1.1 L [place] # (Auto) 1.0 H Seg Neutrophils % Seg Neuts % (Manual) Lymphocytes % (Manual) Monocytes % (Manual) Seg Neutrophils # Man Lymphocytes # (Manual) Monocytes # (Manual) PT INR ABG pH ABG pO2 ABG HCO3 ABG O2 Saturation ABG Base Excess ABG Hemoglobin Oxyhemoglobin Sodium Potassium Chloride BUN 24 H Glucose 116 H POC Glucose 111 H Magnesium AST ALT Alkaline Phosphatase Total Protein Albumin 03/06/22 03/06/22 03/06/22 12:14 15:47 22:28 WBC RBC Hgb MCV MCH MCHC Lymph % (Auto) [place] % (Auto) Lymph # (Auto) [place] # (Auto) Seg Neutrophils % Seg Neuts % (Manual) Lymphocytes % (Manual) Monocytes % (Manual) Seg Neutrophils # Man Lymphocytes # (Manual) Monocytes # (Manual) PT INR ABG pH ABG pO2 ABG HCO3 ABG O2 Saturation ABG Base Excess ABG Hemoglobin Oxyhemoglobin Sodium Potassium Chloride BUN Glucose POC Glucose 146 H 261 H 214 H Magnesium AST ALT Alkaline Phosphatase Total Protein Albumin 03/07/22 03/07/22 03/07/22 10:55 11:20 16:05 WBC RBC Hgb MCV MCH MCHC Lymph % (Auto) [place] % (Auto) Lymph # (Auto) [place] # (Auto) Seg Neutrophils % Seg Neuts % (Manual) Lymphocytes % (Manual) Monocytes % (Manual) Seg Neutrophils # Man Lymphocytes # (Manual) Monocytes # (Manual) PT INR ABG pH 7.467 H ABG pO2 61.1 L ABG HCO3 26.9 H ABG O2 Saturation 93.8 L ABG Base Excess 3.2 H ABG Hemoglobin 13.1 L Oxyhemoglobin 92.0 L Sodium Potassium Chloride BUN Glucose POC Glucose 196 H 271 H Magnesium AST ALT Alkaline Phosphatase Total Protein Albumin 03/07/22 03/08/22 03/08/22 20:13 07:55 12:10 WBC RBC Hgb MCV MCH MCHC Lymph % (Auto) [place] % (Auto) Lymph # (Auto) [place] # (Auto) Seg Neutrophils % Seg Neuts % (Manual) Lymphocytes % (Manual) Monocytes % (Manual) Seg Neutrophils # Man Lymphocytes # (Manual) Monocytes # (Manual) PT INR ABG pH ABG pO2 ABG HCO3 ABG O2 Saturation ABG Base Excess ABG Hemoglobin Oxyhemoglobin Sodium Potassium Chloride BUN Glucose POC Glucose 154 H 111 H 156 H Magnesium AST ALT Alkaline Phosphatase Total Protein Albumin 03/08/22 03/08/22 03/09/22 17:08 20:01 08:16 WBC RBC Hgb MCV MCH MCHC Lymph % (Auto) [place] % (Auto) Lymph # (Auto) [place] # (Auto) Seg Neutrophils % Seg Neuts % (Manual) Lymphocytes % (Manual) Monocytes % (Manual) Seg Neutrophils # Man Lymphocytes # (Manual) Monocytes # (Manual) PT INR ABG pH ABG pO2 ABG HCO3 ABG O2 Saturation ABG Base Excess ABG Hemoglobin Oxyhemoglobin Sodium Potassium Chloride BUN Glucose POC Glucose 235 H 306 H 118 H Magnesium AST ALT Alkaline Phosphatase Total Protein Albumin 03/09/22 03/09/22 03/09/22 11:34 15:47 20:27 WBC RBC Hgb MCV MCH MCHC Lymph % (Auto) [place] % (Auto) Lymph # (Auto) [place] # (Auto) Seg Neutrophils % Seg Neuts % (Manual) Lymphocytes % (Manual) Monocytes % (Manual) Seg Neutrophils # Man Lymphocytes # (Manual) Monocytes # (Manual) PT INR ABG pH ABG pO2 ABG HCO3 ABG O2 Saturation ABG Base Excess ABG Hemoglobin Oxyhemoglobin Sodium Potassium Chloride BUN Glucose POC Glucose 153 H 275 H 218 H Magnesium AST ALT Alkaline Phosphatase Total Protein Albumin 03/10/22 03/10/22 03/10/22 11:39 16:31 20:53 WBC RBC Hgb MCV MCH MCHC Lymph % (Auto) [place] % (Auto) Lymph # (Auto) [place] # (Auto) Seg Neutrophils % Seg Neuts % (Manual) Lymphocytes % (Manual) Monocytes % (Manual) Seg Neutrophils # Man Lymphocytes # (Manual) Monocytes # (Manual) PT INR ABG pH ABG pO2 ABG HCO3 ABG O2 Saturation ABG Base Excess ABG Hemoglobin Oxyhemoglobin Sodium Potassium Chloride BUN Glucose POC Glucose 142 H 241 H 225 H Magnesium AST ALT Alkaline Phosphatase Total Protein Albumin 03/11/22 03/11/22 03/11/22 06:03 06:03 12:02 WBC 11.3 H RBC Hgb 11.7 L MCV 79 L MCH 24 L MCHC 31 L Lymph % (Auto) [place] % (Auto) Lymph # (Auto) [place] # (Auto) Seg Neutrophils % Seg Neuts % (Manual) 83.0 H Lymphocytes % (Manual) 8.0 L Monocytes % (Manual) 8.0 H Seg Neutrophils # Man 9.4 H Lymphocytes # (Manual) 0.9 L Monocytes # (Manual) 0.9 H PT INR ABG pH ABG pO2 ABG HCO3 ABG O2 Saturation ABG Base Excess ABG Hemoglobin Oxyhemoglobin Sodium Potassium Chloride BUN 21 H Glucose POC Glucose 109 H Magnesium AST ALT Alkaline Phosphatase Total Protein Albumin 03/11/22 03/11/22 03/12/22 16:28 21:42 11:43 WBC RBC Hgb MCV MCH MCHC Lymph % (Auto) [place] % (Auto) Lymph # (Auto) [place] # (Auto) Seg Neutrophils % Seg Neuts % (Manual) Lymphocytes % (Manual) Monocytes % (Manual) Seg Neutrophils # Man Lymphocytes # (Manual) Monocytes # (Manual) PT INR ABG pH ABG pO2 ABG HCO3 ABG O2 Saturation ABG Base Excess ABG Hemoglobin Oxyhemoglobin Sodium Potassium Chloride BUN Glucose POC Glucose 236 H 183 H 135 H Magnesium AST ALT Alkaline Phosphatase Total Protein Albumin 03/12/22 03/13/22 03/13/22 21:10 06:13 06:13 WBC RBC Hgb 11.4 L MCV 78 L MCH 25 L MCHC Lymph % (Auto) 10.3 L [place] % (Auto) 10.2 H Lymph # (Auto) 0.9 L [place] # (Auto) 0.9 H Seg Neutrophils % 77.2 H Seg Neuts % (Manual) Lymphocytes % (Manual) Monocytes % (Manual) Seg Neutrophils # Man Lymphocytes # (Manual) Monocytes # (Manual) PT INR ABG pH ABG pO2 ABG HCO3 ABG O2 Saturation ABG Base Excess ABG Hemoglobin Oxyhemoglobin Sodium Potassium Chloride BUN 21 H Glucose 106 H POC Glucose 219 H Magnesium AST 96 H ALT 139 H Alkaline Phosphatase 133 H Total Protein 5.6 L Albumin 3.2 L 03/13/22 03/13/22 03/13/22 11:46 18:12 20:27 WBC RBC Hgb MCV MCH MCHC Lymph % (Auto) [place] % (Auto) Lymph # (Auto) [place] # (Auto) Seg Neutrophils % Seg Neuts % (Manual) Lymphocytes % (Manual) Monocytes % (Manual) Seg Neutrophils # Man Lymphocytes # (Manual) Monocytes # (Manual) PT INR ABG pH ABG pO2 ABG HCO3 ABG O2 Saturation ABG Base Excess ABG Hemoglobin Oxyhemoglobin Sodium Potassium Chloride BUN Glucose POC Glucose 190 H 254 H 179 H Magnesium AST ALT Alkaline Phosphatase Total Protein Albumin Chest x-ray: report reviewed, image reviewed Additional Studies: CHEST 1 VIEW 03/14/2022 12:09 PM INDICATION / CLINICAL INFORMATION: rt chest tube. COMPARISON: Yesterday. FINDINGS: SUPPORT DEVICES: Unchanged. HEART / MEDIASTINUM: Stable. LUNGS / PLEURA: Previously described tiny right apical pneumothorax is not well demonstrated on this radiograph. Otherwise, similar radiographic appearances of the lungs. Discussion ADDITIONAL FINDINGS: No significant additional findings. IMPRESSION: 1. Previously described small right apical pneumothorax is not well demonstrated on this radiograph. Otherwise, similar radiographic appearances. Allied health notes reviewed: nursing
--- NOTE | 2022-03-14 14:27 | XRay Report ---
CHEST 1 VIEW 03/14/2022 12:09 PM INDICATION / CLINICAL INFORMATION: rt chest tube. COMPARISON: Yesterday. FINDINGS: SUPPORT DEVICES: Unchanged. HEART / MEDIASTINUM: Stable. LUNGS / PLEURA: Previously described tiny right apical pneumothorax is not well demonstrated on this radiograph. Otherwise, similar radiographic appearances of the lungs. Discussion ADDITIONAL FINDINGS: No significant additional findings. IMPRESSION: 1. Previously described small right apical pneumothorax is not well demonstrated on this radiograph. Otherwise, similar radiographic appearances. Signer Name: Robinson Pickering MD Signed: 03/14/2022 2:23 PM Workstation Name: [id number]
== END 2022-03-14 15:15 | disposition home health service (06) | DRG 201 ==
LOC: ED 16:23 → 4A 21:10
PROVIDERS: ADMIT Internal Medicine; ATTEND Internal Medicine
PROC: 0W9930Z Drainage of Right Pleural Cavity with Drainage Device, Percutaneous Approach (ICD-10-PCS; principal; 2022-03-04)
PROC: 0W9930Z Drainage of Right Pleural Cavity with Drainage Device, Percutaneous Approach (ICD-10-PCS; 2022-03-07)
PROC: 0W29X0Z Change Drainage Device in Right Pleural Cavity, External Approach (ICD-10-PCS; 2022-03-08)
DX: J93.9 Pneumothorax, unspecified (principal); D86.9 Sarcoidosis, unspecified; J44.9 Chronic obstructive pulmonary disease, unspecified; I50.9 Heart failure, unspecified; I11.0 Hypertensive heart disease with heart failure; F17.200 Nicotine dependence, unspecified, uncomplicated; E83.42 Hypomagnesemia; K21.9 Gastro-esophageal reflux disease without esophagitis; E11.9 Type 2 diabetes mellitus without complications; Z68.35 Body mass index [BMI] 35.0-35.9, adult; Z79.4 Long term (current) use of insulin
CPT/HCPCS: 32557; 36415; 36600; 71045; 71250; 80048; 80053; 82164; 82803; 82962; 83735; 83880; 84484; 85007; 85025; 85610; 85730; 93005; 94640; 94760; 96374; 96375; 99291; 99406; G0378; J3490; Q0177; Q9967; C1729; C1769; J1644; J1815; J2250; J2270; J2543; J2930; J3010; J3370; J3475; J3480; J7040; J7042; J7050